=== PATIENT | female | born 1975 | race Caucasian/White ===

== ENCOUNTER 2025-01-03 10:39 | Emergency (ER) | payer SELFPAY ==
[2025-01-03 10:46] VITALS: BP 232/124; PULSE 89; RESP 13; O2SAT 98
--- NOTE | 2025-01-03 11:11 | ED.GENADULT ---
HPI - General Adult General Chief complaint: Unspecified Stated complaint: Jaw cancer severe breakthrough pain Time Seen by Provider: 01/03/25 11:04 Source: patient Mode of arrival: ambulatory Limitations: no limitations History of Present Illness HPI narrative: Patient presents with complaint of left jaw pain. She states she has a history of jaw cancer and is on Percocet 7.5 mg q.6 for this but was having breakthrough pain. Last dose 4.[address]FFIC CONTROLLER, not providing relief. She is also having nausea. 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 She denies any fevers, chills, difficulty swallowing, pain with swallowing. She states she had a history of osteomyelitis of this jaw for which surgical procedure had been performed. She has not been able to undergo treatment for jaw cancer as she has been in process obtaining approval for [facility] emergency department through [facility] in [place] ([place] she was recently approved for this chair daycare and upcoming appointment with both an oral surgeon and radiation oncologist through [facility] next week. PCP Shahram Recio MD. Related Data Allergies Allergy/AdvReac Type Severity Reaction Status Date / Time iohexol (From contrast - CT, Allergy Hives Verified 01/03/25 10:51 X-RAY) meperidine (From Demerol) Allergy Hives Verified 01/03/25 10:51 ondansetron (From Zofran) Allergy Vomiting Verified 01/03/25 10:51 vancomycin Allergy Hives Verified 01/03/25 10:51 NSAIDS (Non-Steroidal AdvReac Palpitation Verified 01/03/25 10:51 Anti-Inflamma s PMFSH Past Medical History Medical History Osteomyelitis of jaw left HTN (hypertension) Jaw cancer Biopsy 09/27/24 Social History Social History Additional living arrangements comments: Resides in [place] 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 HEAD: Normocephalic, atraumatic. EYES: Non injected, non icteric ENT: Nares clear, no rhinorrhea or epistaxis. Buccal tissue of left cheek does appear surgically fixed to gums on the left, well healing without evidence of infection/abscess. Face is soft, mild swelling without induration. Mild TTP of the left jaw externally. No TTP within oropharynx. NECK: Supple. CHEST: Speaking in full sentences. No respiratory distress. HEART: Regular rate and rhythm. . ABDOMEN: Obese but Soft, nondistended. EXTREMITIES: Normal range of motion. SKIN: Warm, dry, no rash. NEURO: No focal deficits. Alert and oriented x3. PSYCH: Normal mood and affect. Course Vital Signs Vital signs: Vital Signs Pulse Rate 89 01/03/25 10:46 Respiratory Rate 13 01/03/25 10:46 Blood Pressure 232/124 H 01/03/25 10:46 Pulse Oximetry 98 01/03/25 10:46 Oxygen Delivery Room Air 01/03/25 10:46 Temperature 97.9 F 01/03/25 11:22 Pulse Rate 91 01/03/25 11:22 Respiratory Rate 22 H 01/03/25 11:22 Blood Pressure 197/99 H 01/03/25 11:22 Pulse Oximetry 98 01/03/25 11:22 Oxygen Delivery Room Air 01/03/25 10:46 Medical Decision Making MDM Narrative Medical decision making narrative: Patient presents with report jaw pain. She states she has a history of osteomyelitis in her left jaw required surgical intervention then was diagnosed with jaw cancer and is due to start treatment for this. She states she is on Percocet 7.5 mg q.6 the pain and an appointment with an oral surgeon in radiation oncologist at the hospital she goes to intense seen next week but there has been a delay in her being able to seek treatment until she had been approved for jus care through this hospital system. In the emergency department she is afebrile with vital signs notable for significant hypertension, 232/124 followed by 197/99. Given patient's significant hypertension, initial plan was to perform screening exam to assess for end-organ damage. Patient is declining any of this given she does not have insurance. Analgesic and antiemetic medication were ordered but patient refusing IV form as she states she only receives IM. IM Compazine is ordered given that she lists an allergy to ondansetron. P.o. Dilaudid ordered. Patient refusing IM Compazine per nurse. She is also inquiring why p.o. Dilaudid was ordered however she does accept this medication. [place] prescription monitoring program database is reviewed as below which shows patient has had multiple narcotic medication fills in the past year in various cities throughout the [facility] without consistent prescribers or locations. I am informed at 11:50 a.m. that patient would like to leave against medical advice as she believes that it is taking too long and she has only received 1 mg of Dilaudid. Patient would not stay to have an informed discussion about recommendations or leaving against medical advice/without completing treatment. Discharge instructions were prepared and printed but patient left prior to receiving them. Medical Records Medical records reviewed: Yes I reviewed the external patient's medical records. Medical records narrative: Patient has a separate entry in EMR with same name (minus middle initial) and . It does appear to be the same person based on these details as well as RN remembering this patient who had presented to the ED earlier but LWBS. I did ask registration to merge records if possible. Patient presents with page 1 of discharge paperwork from [facility] in [place] which she visited on 10/18/2024. They note that she had a biopsy on 09/27/2024 positive for cancer and had an appointment with an oncologist scheduled for 10/21/2024. They note that she takes lisinopril and metoprolol for hypertension. [place] Prescription Monitoring Database is reviewed HYDROCODONE BITARTRATE-ACETAMINOPHE 5.0 MG/325.0 MG Nov 21, 2024 Nov 21, 2024 12 3 0 SHILOH JANG (1) [facility] HYDROCODONE BITARTRATE-ACETAMINOPHE 5.0 MG/325.0 MG Oct 28, 2024 Oct 28, 2024 12 3 0 MEÑO PRIEST) LAINE (2) [facility] HYDROCODONE BITARTRATE-ACETAMINOPHE 7.5 MG/325.0 MG Sep 27, 2024 Sep 27, 2024 8 2 0 CHATO LUIS MD [facility] #[id number] HYDROCODONE BITARTRATE-ACETAMINOPHE 5.0 MG/325.0 MG May 20, 2024 May 20, 2024 10 1 0 ROSALIND ZHANG DO [facility] (1) [facility] HYDROCODONE BITARTRATE-ACETAMINOPHE 10.0 MG/325.0 MG Apr 19, 2024 Apr 19, 2024 9 3 0 DANIELLE PENALOZA [facility] Pharm[facility] [place], [place] HYDROCODONE BITARTRATE-ACETAMINOPHE 5.0 MG/325.0 MG Mar 25, 2024 Mar 25, 2024 12 3 0 CURTIS TABARES [facility] (3) [place], [place] OXYCODONE HCL-ACETAMINOPHEN 5.0 MG/325.0 MG February 14, 2024 February 14, 2024 12 2 0 SHON SALDANA (DO) [facility] (2) [place], [place] Vital Signs Vital Signs: Vital Signs Pulse Rate 89 01/03/25 10:46 Respiratory Rate 13 01/03/25 10:46 Blood Pressure 232/124 H 01/03/25 10:46 Pulse Oximetry 98 01/03/25 10:46 Oxygen Delivery Room Air 01/03/25 10:46 Temperature 97.9 F 01/03/25 11:22 Pulse Rate 91 01/03/25 11:22 Respiratory Rate 22 H 01/03/25 11:22 Blood Pressure 197/99 H 01/03/25 11:22 Pulse Oximetry 98 01/03/25 11:22 Oxygen Delivery Room Air 01/03/25 10:46 Discharge Plan Discharge Clinical Impression: Pain, HTN (hypertension) Patient Disposition: Left Against Medical Advice Condition: Stable Additional Instructions: We do not have record of you here and were trying to both obtain a baseline as well as assess for end-organ damage given your hypertension but you declined workup. There are multiple fills of narcotic medication throughout the [facility]. It is important to stay consistent with prescribers when possible. Please Follow-up with your primary care physician Shahram Recio MD and keep your upcoming appointments through [facility] with oncologist. Continue taking all of your medications as prescribed Patient Language: Lao Follow-up/Referrals: PHYSICIAN NOT ON STAFF,NONSTAFF [Primary Care Provider] - Stand Alone Forms: Work/School Release IP Time of Disposition: 11:56
[2025-01-03 11:17] VITALS: RESP 18
--- OUTSIDE RECORDS SUMMARY | 2025-01-03 11:21 | XMS_ITS | Clinical Summary ---
Author Organization [facility] Address [address] [place] [address] Care Team Providers Care Feeder Worker Power Unit Operator Name Role Phone Unknown, Notinfile Primary Care Provider Unavail able Allergies Active Allergy Reactions Criticality Noted Date Comments Meperidine Hives Medium 04/04/2024 Iodinated Contrast Media Hives Medium 04/04/2024 Ok with premedication Nsaids (Non-Steroidal Anti-Inflammatory Drug) Other (See comments) Low 04/04/2024 Contraindicated with home meds Vancomycin Redness Low 04/04/2024 Ondansetron Vomiting Low 04/04/2024 Social History Tobacco Use Types Packs/Day Years Used Date Smoking Tobacco: Never Assessed Personal Safety Answer Date Recorded Have you ever been in or are you currently in a harmful physical or emotional relationship or is someone making you feel afraid or unsafe? Denies 04/04/2024 Comments No Sex and Gender Information Value Date Recorded Sex Assigned at Not on file Legal Sex Female 8:35 PM CDT Gender Identity Not on file Sexual Orientation Not on file Last Filed Vital Signs Vital Sign Reading Time Taken Comments Blood Pressure 192/100 04/04/2024 8:56 PM CDT Pulse 98 04/04/2024 8:56 PM CDT Temperature 36.9 C (98.5 F) 04/04/2024 8:56 PM CDT Respiratory Rate 20 04/04/2024 8:56 PM CDT Oxygen Saturation 98% 04/04/2024 8:56 PM CDT Inhaled Oxygen Concentration - - Weight 100.5 kg (221 lb 9 oz) 04/04/2024 8:56 PM CDT Height - - Body Mass Index - - Plan of Treatment Health Maintenance Due Date Last Done Comments Breast Cancer Screening-Mammogram 1973 Colon Cancer Screening-Colonoscopy 1973 Depression Screening 1973 Hepatitis C Screening 1973 DTaP/Tdap/Td Vaccine (1 - Tdap) 01/12/1984 Hepatitis B Screening 1991 Regular Well Visit/Exam 18-64 1991 Zoster Vaccine (1 of 2) 2023 Influenza Vaccine (#1) 2024 Pneumococcal vaccine <65 Aged Out No longer eligible based on patient's age to complete this topic Care Teams Feeder Worker Power Unit Operator Relationship Specialty Start Date End Date Unknown, Notinfile PCP - General 04/04/24
--- OUTSIDE RECORDS SUMMARY | 2025-01-03 11:21 | XMS_ITS | Clinical Summary ---
Author Organization [facility] Address [address] [place] [address] Care Team Providers Care Fire Prevention Engineer Name Role Phone None, Provider MD Primary Care Provider Unavaila ble Allergies Active Allergy Reactions Criticality Noted Date Comments Iodine Rash Low 04/04/2024 Meperidine Hives 04/04/2024 Nsaids Other (see comment) 04/04/2024 MS Vancomycin Redness 04/04/2024 Ondansetron Nausea and Vomiting 04/04/2024 Medications No known medications Social History Tobacco Use Types Packs/Day Years Used Date Smoking Tobacco: Never Smokeless Tobacco: Never Tobacco Cessation:Counseling Given: Not Answered Alcohol Use Standard Drinks/Week Comments Never 0 (1 standard drink = 0.6 oz pur e alcohol) Comments No Sex and Gender Information Value Date Recorded Sex Assigned at Not on file Legal Sex Female 10:43 PM CDT Gender Identity Not on file Sexual Orientation Not on file Last Filed Vital Signs Vital Sign Reading Time Taken Comments Blood Pressure 181/103 08/05/2024 10:30 AM CDT Pulse 86 08/05/2024 9:48 AM CDT Temperature 36.4 C (97.6 F) 08/05/2024 9:48 AM CDT Respiratory Rate 18 08/05/2024 9:48 AM CDT Oxygen Saturation 98% 08/05/2024 9:48 AM CDT Inhaled Oxygen Concentration - - Weight 95.3 kg (210 lb) 08/05/2024 9:48 AM CDT Height 170.2 cm (5' 7 ) 08/05/2024 9:48 AM CDT Body Mass Index 32.89 08/05/2024 9:48 AM CDT Plan of Treatment Health Maintenance Due Date Last Done Comments Cervical Cancer Screening Pa p Smear (Age 30 to 64) Every 3 Years 1973 Colorectal Cancer Screening Colonoscopy (10 Years) 1973 Annual Physical 01/12/1976 Hepatitis C 1991 DTaP, Tdap and Td Vaccines ( 1 - Tdap) 01/12/1992 Hepatitis B Vaccines (1 of 3 - 19+ 3-dose series) 01/12/1992 Cervical Cancer Screening Pa p with HPV Testing (Age 30 to 64) Every 5 Years 2003 Cervical Cancer Screening with HPV 2003 Mammogram Screening 2013 Zoster Vaccines (1 of 2) 2023 COVID-19 Vaccine (2023-2 5 season) 2024 Influenza Adult (#1) 2024 Meningococcal B Vaccine Aged Out No l onger eligible based on patient's age to complete this topic Meningococcal Vaccine Aged Out No siomara neal eligible based on patient's age to complete this topic Pneumococcal Vaccine: Pediat rics (0 to 5 Years) and At-Risk Patients (6 to 64 Years) Aged Out No longer eligible b ased on patient's age to complete this topic RSV Immunizations Under 20 Months Aged Out No longer eligible based on patient's age to complete this topic Insurance [address] [place] [address] MEDICARE Care Teams Fire Prevention Engineer Relationship Specialty Start Date End Date None, Provider, MD PCP - General UNKNOWN PHYSICIAN SPECIALTY 04/04/24
--- OUTSIDE RECORDS SUMMARY | 2025-01-03 11:21 | XMS_ITS | Referral Summary ---
Author Organization [facility] Address [address] [place] [address] Care Team Providers Care Conservation Policy Analyst Name Role Phone Unknown, Notinfshey Primary Care Provider Unavail able Allergies Active [...] Mass Index - - Plan of Treatment Not on file Care Teams Conservation Policy Analyst Relationship Specialty Start Date End Date Unknown, Annie PCP - General 04/04/24
--- OUTSIDE RECORDS SUMMARY | 2025-01-03 11:21 | XMS_ITS | Clinical Summary ---
Author Organization [facility] Address [address] [place] [phone] Phone Care Team Providers Care Compressor House Operator Name Role Phone Pcp, None MD Primary Care Provider Unavailabl e Allergies Active Allergy Reactions Criticality Noted Date Comments Iohexol 01/13/2024 Meperidine 01/13/2024 Nsaids 01/13/2024 Vancomycin 01/13/2024 Ondansetron 01/13/2024 Medications Medication Sig Dispensed Refills Start Date End Date Status doxycycline (ADOXA) 75 MG tablet Take 1 tablet (75 mg total) by mouth 2 (two) times a day Active amoxicillin (AMOXIL) 500 MG capsule Take 1 capsule (500 mg total) by mouth 3 (three) times a day Active metoprolol tartrate (LOPRESSOR) 25 MG tablet Take 1 tablet (25 mg total) by mouth 2 (two) times a day Active lisinopril (PRINIVIL,ZESTRIL) 2.5 MG tablet Take 8 tablets (20 mg total) by mouth daily Active methocarbamol (ROBAXIN) 500 MG tablet Take 1 tablet (500 mg total) by mouth 4 (four) times a day Active acetaminophen (TYLENOL) 500 MG tablet Take 1 tablet (500 mg total) by mouth every 6 (six) hours as needed for mild pain (1-3) Active amoxicillin-clavulana te (AUGMENTIN) 875-125 MG per tablet Take 1 tablet by mouth 2 (two) times a day Active HYDROcodone-acetamino phen (NORCO) 10-325 MG per tablet Take 1 tablet by mouth every 8 (eight) hours as needed for moderate pain (4-6) Max Daily Amount: 3 tablets Active Social History Tobacco Use Types Packs/Day Years Used Date Smoking Tobacco: Never Passive Smoke Exposure: Never Smokeless Tobacco: Never Tobacco Cessation:Counseling Given: Not Answered Alcohol Use Standard Drinks/Week Comments Never 0 (1 standard drink = 0.6 oz pur e alcohol) Sex and Gender Information Value Date Recorded Sex Assigned at Not on file Gender Identity Not on file Sexual Orientation Not on file Last Filed Vital Signs Vital Sign Reading Time Taken Comments Blood Pressure 200/110 05/06/2024 9:58 AM EDT checked manually Pulse 89 05/06/2024 9:58 AM EDT Temperature 37.3 C (99.2 F) 05/06/2024 9:58 AM EDT Respiratory Rate 17 05/06/2024 9:58 AM EDT Oxygen Saturation 99% 05/06/2024 9:5 8 AM EDT Inhaled Oxygen Concentration - - Weight 98.9 kg (218 lb 0.6 oz) 05/06/2024 9:58 AM EDT Height 170.2 cm (5' 7 ) 05/06/2024 9:58 AM EDT Body Mass Index 34.15 05/06/2024 9:58 AM EDT Plan of Treatment Not on file Care Teams Compressor House Operator Relationship Specialty Start Date End Date Pcp, None, PCP - General 01/13/24
--- OUTSIDE RECORDS SUMMARY | 2025-01-03 11:21 | XMS_ITS | Clinical Summary ---
Author Organization [facility] Address [address] Sandhu: Epic Prelude ADT CREKIMI AGOSTO [address] Care Team Providers Care Silica Spray Mixer Name Role Phone Unavailable Primary Care Provider Unavailabl e Allergies Active Allergy Reactions Criticality Noted Date Comments Iodinated Contrast Media Hives High 01/25/2024 Meperidine Hives 01/19/2014 Nsaids (Non-Steroidal Anti-Inflammatory Drug) Other (See Comments) 01/25/2024 Medication interaction Ondansetron Hcl Nausea and Vomiting Low 01/25/2024 Vancomycin Rash Low 01/25/2024 Medications oxyCODONE (ROXICODONE) 10 mg tabletIndicatio ns:Osteomyeliti s of mandible Take 1 Tablet (10 mg) by mouth every 6 hours as needed for Pain, Moderate. Max Daily Amount: 40 mg 12 Tablet Active oxyCODONE-aceta minophen (PERCOCET) 7.5-325 mg Tablet Take 1 Tablet by mouth every 4 hours as needed for Pain, Moderate. Active methocarbamoL (ROBAXIN) 750 mg tablet Take 750 mg by mouth 4 times daily. Active metoprolol succinate (TOPROL XL) 50 mg Extended Release 24 hour tablet Take 50 mg by mouth daily. Active lisinopriL (PRINIVIL) 20 mg tablet Take 20 mg by mouth daily. Active insulin aspart protamine-aspar t (NovoLOG MIX 70-30) 100 unit/mL (70-30) pen syringe Inject 36 Units by subcutaneous injection 2 times daily with meals. Active amoxicillin-cla vulanate (AUGMENTIN) 875-125 mg tablet Take 1 Tablet by mouth every 12 hours. Active doxycycline hyclate (VIBRAMYCIN) 100 mg capsule Take 100 mg by mouth 2 times daily. Active Social History Tobacco Use Types Packs/Day Years Used Date Smoking Tobacco: Former Alcohol Use Standard Drinks/Week Comments Never 0 (1 standard drink = 0.6 oz pur e alcohol) Feeling Safe Answer Date Recorded Are you in a relationship wi th someone who hurts you emotionally and/or physically? No 08/28/2024 Comments No Sex and Gender Information Value Date Recorded Sex Assigned at Not on file Legal Sex Female 4:25 AM DRILL GRINDER Gender Identity Not on file Sexual Orientation Not on file Last Filed Vital Signs Vital Sign Reading Time Taken Comments Blood Pressure 191/108 08/28/2024 7:32 AM DRILL GRINDER Pulse 97 08/28/2024 7:32 AM DRILL GRINDER Temperature 37.3 C (99.2 F) 08/28/2024 7:32 AM DRILL GRINDER Respiratory Rate 14 08/28/2024 7:32 AM DRILL GRINDER Oxygen Saturation 96% 08/28/2024 7:32 AM DRILL GRINDER Inhaled Oxygen Concentration - - Weight 95.3 kg (210 lb) 08/28/2024 6:12 AM DRILL GRINDER Height 170.2 cm (5' 7 ) 08/28/2024 6:12 AM DRILL GRINDER Body Mass Index 32.89 08/28/2024 6:12 AM DRILL GRINDER Plan of Treatment Health Maintenance Due Date Last Done Comments DIABETES ANNUAL FOOT EXAM 1991 DIABETES ANNUAL RETINAL EXAM 1991 DIABETES MICROALBUMIN ANNUAL SCREEN 1991 LDL CHOLESTEROL ANNUAL 1991 DTAP/TDAP/TD VACCINES (1 - Tdap) 01/12/1992 HEPATITIS B VACCINES (1 of 3 - 19+ 3-dose series) 12/15 PAP SMEAR 2003 DIABETES HBA1C Q 6 MONTHS 12/13/2011 06/14/2011 BREAST CANCER SCREENING 2013 ZOSTER VACCINE (1 of 2) 2023 INFLUENZA VACCINE (#1) 2024
[2025-01-03 11:22] VITALS: BP 197/99; PULSE 91; RESP 22; TEMP 36.6; O2SAT 98
--- NOTE | 2025-01-03 11:24 | PC.NURSE ---
talked with patient about lab work, ekg, and the plan of care. patient states No, we're not doing any of that. I don't have insurance, we're not doing that MD made aware.
--- NOTE | 2025-01-03 11:35 | PC.NURSE ---
patient refused iv placement for iv pain medication stating that I don't do iv medication, I only do IM discussed with MD, PO medications ordered.
[2025-01-03] MEDS: HYDROmorphone HCL (*CRX) 1 MG TABLET PO (11:47)
--- NOTE | 2025-01-03 11:50 | PC.NURSE ---
patient given po dilaudid, asking if it was 2 mg, when told it was 1 mg she laughed and stated you're giving me one milligram of dilaudid po? patient then took the pill, stated that she wanted her discharge paperwork. patient came to nurses station and said she would just rather sign out AMA.
== END 2025-01-03 12:07 | disposition left against medical advice (07) ==
PROVIDERS: Emergency Provider Student in an Organized Health Care Education/Training Program
DX: R68.84 Jaw pain (principal); C41.1 Malignant neoplasm of mandible; I10 Essential (primary) hypertension
CPT/HCPCS: 96374; 96375; 96376; 99284; A9270

== ENCOUNTER 2025-03-20 11:09 | Emergency (ER) | payer SELFPAY ==
[2025-03-20 11:13] VITALS: BP 218/107; PULSE 94; RESP 16; TEMP 36.9; O2SAT 99
--- OUTSIDE RECORDS SUMMARY | 2025-03-20 11:13 | XMS_ITS | Continuity of Care Document ---
Author Organization [facility] Address [address] [place] [address] Phone Care Team Providers Care Electronics Assembler And Tester Name Role Phone Jo RODRIGUEZ, SKYLER, Jasson [...] Encounter Subsqt Hosp-da E&m Sig Compl 3 [facility] , [address] [facility], [place], [id number], [place] tel:[phone] [facility] No Information Jo Spaulding. [address] [facility], [place] [address], [place], [id number], [place]. tel:[phone] Referring Provider: Franco Fowler MD, [address] [facility], [place], [address]. tel:[phone] Init Inpt Cons N/e Mod-hi 110m [facility] , [address] [facility], [place], [id number], [place] tel:[phone] [facility] No Information Leif Santamaria. [address] [facility] [address], [place] [address], [place], [id number], [place]. tel:[phone] Referring Provider: Franco Fowler MD, [address] [facility], [place], [address]. tel:[phone] Family History Family Member Type Diagnosis Age At Onset No Information Payers Payer name Insurance type Covered libertarian ID Authoriza tion(s) Care [facility] Plan [id number] Social History Type Description Quantity Date Captured [...]
--- OUTSIDE RECORDS SUMMARY | 2025-03-20 11:13 | XMS_ITS | Clinical Summary ---
Author Organization [facility] Address [address] [place] [address] Phone Care Team Providers Care Cell Biology Scientist Name Role Phone Provider, Not On File Unavailable Unavailabl e Provider, Unknown Primary Care Provider Unavaila ble Allergies Active Allergy Reactions Criticality Noted Date Comments Meperidine Hives 06/22/2014 Iodinated Contrast Media Hives 09/26/2024 Ibuprofen Other (see Comments) 09/15/2023 SVT of her heart excessive bleeding Vancomycin Hives 09/15/2023 Ondansetron Hcl Shortness of Breath 06/22/2014 Ondansetron Nausea 09/15/2023 Medications HYDROcodone-acet aminophen 5-325 MG PO TABS Take 1-2 Tabs by mouth every 4 hours as needed for Pain. 10 Tab 0 06/22/2014 Active Social History Tobacco Use Types Packs/Day Years Used Date Smoking Tobacco: Never Smokeless Tobacco: Never Tobacco Cessation:Counseling Given: Not Answered Alcohol Use Standard Drinks/Week Comments No 0 (1 standard drink = 0.6 oz pur e alcohol) Comments No Sex and Gender Information Value Date Recorded Sex Assigned at Not on file Legal Sex Female 4:27 PM CDT Gender Identity Not on file Sexual Orientation Not on file Last Filed Vital Signs Vital Sign Reading Time Taken Comments Blood Pressure 180/110 09/26/2024 10:49 AM CAFE ASSOCIATE Pulse 96 09/26/2024 10:49 AM CAFE ASSOCIATE Temperature 36.9 C (98.5 F) 09/26/2024 10:49 AM CAFE ASSOCIATE Respiratory Rate 20 09/26/2024 10:49 AM CAFE ASSOCIATE Oxygen Saturation 97% 09/26/2024 10:49 AM CAFE ASSOCIATE Inhaled Oxygen Concentration - - Weight 96.3 kg (212 lb 6.4 oz) 09/26/2024 10:49 AM CAFE ASSOCIATE Height 170.2 cm (5' 7) 09/26/2024 10:49 AM CAFE ASSOCIATE Body Mass Index 33.27 09/26/2024 10:49 AM CAFE ASSOCIATE Plan of Treatment Not on file Care Teams Cell Biology Scientist Relationship Specialty Start Date End Date Provider, Unknown UNKNOWN PCP - General 08/20/24 Provider, Not On File HI 09/15/23
--- OUTSIDE RECORDS SUMMARY | 2025-03-20 11:13 | XMS_ITS | Clinical Summary ---
Author Organization [employer] Address [address] Sandhu: Epic Prelude ADT CREKIMI AGOSTO [address] Care Team Providers Care Clerical Car Checker Name Role Phone Unavailable Primary Care Provider [...] on file Legal Sex Female 4:25 AM REGISTERED NURSE SURGICAL SERVICES Gender Identity Not on file Sexual Orientation Not on file Last Filed Vital Signs Vital Sign Reading Time Taken Comments Blood Pressure 191/108 08/28/2024 7:32 AM REGISTERED NURSE SURGICAL SERVICES Pulse 97 08/28/2024 7:32 AM REGISTERED NURSE SURGICAL SERVICES Temperature 37.3 C (99.2 F) 08/28/2024 7:32 AM REGISTERED NURSE SURGICAL SERVICES Respiratory Rate 14 08/28/2024 7:32 AM REGISTERED NURSE SURGICAL SERVICES Oxygen Saturation 96% 08/28/2024 7:32 AM REGISTERED NURSE SURGICAL SERVICES Inhaled Oxygen Concentration - - Weight 95.3 kg (210 lb) 08/28/2024 6:12 AM REGISTERED NURSE SURGICAL SERVICES Height 170.2 cm (5' 7) 08/28/2024 6:12 AM REGISTERED NURSE SURGICAL SERVICES Body Mass Index 32.89 08/28/2024 6:12 AM REGISTERED NURSE SURGICAL SERVICES Plan of Treatment Health Maintenance Due Date Last Done Comments DIABETES ANNUAL FOOT EXAM 1991 DIABETES ANNUAL RETINAL EXAM 1991 DIABETES MICROALBUMIN ANNUAL SCREEN 1991 LDL CHOLESTEROL ANNUAL 1991 DTAP/TDAP/TD VACCINES (1 - Tdap) 01/12/1992 HEPATITIS B VACCINES (1 of 3 - 19+ 3-dose series) 12/15 DIABETES HBA1C Q 6 MONTHS 12/13/2011 06/14/2011 BREAST CANCER SCREENING 2013 ZOSTER VACCINE (1 of 2) 2023 INFLUENZA VACCINE (#1) 2024
--- OUTSIDE RECORDS SUMMARY | 2025-03-20 11:13 | XMS_ITS | Clinical Summary ---
Author Organization [facility] enter Address [address] [place] [phone] Phone Care Team Providers Care Big Data Hadoop Developer Name Role Phone Pcp, None MD Primary [...] 9:58 AM EDT Height 170.2 cm (5' 7) 05/06/2024 9:58 AM EDT Body Mass Index 34.15 05/06/2024 9:58 AM EDT Plan of Treatment Not on file Care Teams Big Data Hadoop Developer Relationship Specialty Start Date End Date Pcp, None, PCP - General 01/13/24
--- OUTSIDE RECORDS SUMMARY | 2025-03-20 11:13 | XMS_ITS | Clinical Summary ---
Author Organization [facility] Address [address] [place] [address] Care Team Providers Care Vine Fruit Farming Supervisor Name Role Phone Unknown, Notinfile Primary Care [...] Vaccine (1 of 2) 2023 Influenza Vaccine (Season Ended) 2025 Pneumococcal vaccine <65 Aged Out No longer eligible based on patient's age to complete this topic Care Teams Vine Fruit Farming Supervisor Relationship Specialty Start Date End Date Unknown, Notinfile PCP - General 04/04/24
--- OUTSIDE RECORDS SUMMARY | 2025-03-20 11:13 | XMS_ITS | Continuity of Care Document ---
Author Organization [facility] Address [address] [place] [phone] Phone Care Team Providers Care Paint Crew Supervisor Name Role Phone Unavailable Unavailable Unavailable Allergies, [...] Diagnoses Date Provider Providers Copied on Encounter [facility], [address] [place] [address], [id number], [place] tel:[phone] [facility] No Information No Information [facility], [address] [place] [address], [id number], [place] tel:[phone] [facility] No Information No Information [facility], [address] [place] [address], [id number], [place] tel:[phone] [facility] No Information Frances Sidhu. [address] [place] [address], [id number], [place]. tel: [phone] [facility], [address] [place] [address], [id number], [place] tel:[phone] [facility] No Information Kayli Rousseau. [address] [place] [address], [id number], [place]. tel: [phone] [facility], [address] [place] [address], [id number], tel:[phone] [facility] No Information Frances Sidhu. [address] [place] [address], [id number], . tel:[phone] [facility], [address] [place] [address], [id number], tel:[phone] [facility] No Information No Information Family History [...]
--- OUTSIDE RECORDS SUMMARY | 2025-03-20 11:13 | XMS_ITS | Continuity of Care Document ---
Author Organization [facility] Address [address] [place] [address] Phone Care Team Providers Care Sausage Inspector Name Role Phone Colten Chambers III, MD Unavailable Unavaila ble Procedures Procedure Date [facility] Advance Directives Directive Yes / No Effective Date File Name No Information Encounters Encounter Description Practice Location Reason(s) For Visit Diagnoses Date Provider Providers Copied on Encounter [facility], [address], [place], [place], [id number], [phone] [facility] No Information 0 1 Trish Abel. [address] [facility] [place] [address], [place], [place], [id number] , [place]. tel: [phone] Referring Provider: Cameron Guaman, [facility] [address] , [address], [place], [address]. tel:[phone] Family History Family Member Type Diagnosis Age At Onset No Information Payers Payer name Insurance type Covered democrat ID Authoriza tion(s) No Information Social History [...]
--- OUTSIDE RECORDS SUMMARY | 2025-03-20 11:13 | XMS_ITS | Referral Summary ---
Author Organization [facility] Address [address] [place] [address] Care Team Providers Care Neck Band Maker Name Role Phone Unknown, Notinfshey Primary Care [...] of Treatment Not on file Care Teams Neck Band Maker Relationship Specialty Start Date End Date Unknown, Annie PCP - General 04/04/24
--- NOTE | 2025-03-20 11:29 | ED_ITS ---
HPI - Dental/Oral General Chief complaint: Dental/Oral Stated complaint: jaw pain Time Seen by Provider: 03/20/25 11:28 Source: patient Mode of arrival: ambulatory Limitations: no limitations History of Present Illness HPI Narrative: patient is a 50-year-old female with left jaw pain due to a cancer in the area. Patient lives in [place] and her is a live truck technician and she goes with him on the road. 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 Patient presents to the ER for the 1st time to our emergency room and said that she has 30 minutes time frame to get pain management. She is with her who is a live truck technician and waiting on her at this time. She said dilaudid works past. She brought us a few sheets of paper about her discharge on hypertension and it says another DX CA. she brought up some information on her phone about her cancer but she kept taking the phone as I wanted to see where her name was and other information and I was not able to identify the cancer or the patient on her medical record; all that she was showing me were diagnostic codes of jaw cancer and not oncology notes. I explained to the patient that I would require a x-ray of the left face to show the sarcoma that she is talking about before I could give dilaudid. Patient declined any workup. She would not allow the x-ray. She started to get upset and said I had less than 30 minutes time frame and she needed to leave but n eeded the Dilaudid. I offered her to see the nurse mobile product manager as we were not agreeing on the situation but she declined and started a pack up her things. I felt uncomfortable in the room and backed up towards the door and walked out of the room as she was getting irritated and irrational. She packed up her things and left the emergency room very fast. Before the encounter I did look up the her last records and she was seen at [facility] 3 months ago for the same situation and she left AMA. They did not give her pain medicine for the same reason. 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 Patient kept saying I was trying to bring up the bill for the emergency room to get the x-ray. She declined x-ray due to financial reasons and said that as a nurse the cancer would not show up on the bone on x-ray. I explained that I need some sort of definitive proof of the cancer before giving heavy narcotics such as dilaudid. Onset (ago): day(s) ( Three) Duration: constant Severity: severe Severity scale (1-10): 8 Relieving factors: prescription analgesics Exacerbating factors: chewing, cold, heat, drinking fluids and swallowing Context: other ( patient has left jaw cancer per history and gets flares at times needing stronger medication) Associated symptoms: gum swelling ( left side) and pain with swallowing ( left side) Treatment prior to arrival: oral analgesic Related Data Home Medications ?Medication ?Instructions ?Recorded ?Confirmed ?Last Taken ?Type insulin human U-100 NPH-regulr 36 unit subcut BID 03/20/25 Unknown History 70-30 mix 100 unit/mL subcutaneous susp (Humulin 70/30 U-100 Insulin) insulin sliding scale 03/20/25 Unknown History oxycodone-acetaminophen 10 mg-325 1 tablet PO Q6H 03/20/25 Unknown History mg tablet (Endocet) Allergies Allergy/AdvReac Type Severity Reaction Status Date / Time iohexol (From contrast - CT, Allergy Hives Verified 03/20/25 11:20 X-RAY) meperidine (From Demerol) Allergy Hives Verified 03/20/25 11:20 ondansetron (From Zofran) Allergy Vomiting Verified 03/20/25 11:20 vancomycin Allergy Hives Verified 03/20/25 11:20 NSAIDS (Non-Steroidal AdvReac Palpitation Verified 03/20/25 11:20 Anti-Inflamma s Review of Systems Review of Systems: All systems reviewed & are unremarkable except as noted in HPI and below Constitutional: Constitutional: Reports no additional constitutional complaints Eyes: Eyes: Reports no additional eye complaints ENT: Reports system reviewed and no additional complaints, except as documented Cardiovascular: Cardiovascular: Reports no additional cardiovascular complaints Respiratory: Respiratory: Reports no additional respiratory complaints Gastrointestinal: Gastrointestinal: Reports no additional gastrointestinal complaints Genitourinary: Genitourinary: Reports no additional female genitourinary complaints Musculoskeletal: Musculoskeletal: Reports no additional musculoskeletal complaints Integumentary/Breasts: Skin/Breast: Reports system reviewed and no additional complaints, except as docu Neurologic: Reports system reviewed and no additional complaints, except as documented Psychiatric: Psychiatric: Reports no additional psychiatric complaints Endocrine: Endocrine: Reports no additional endocrine complaints Hematologic/Lymphatic: Hematologic/Lymphatic: Reports no additional hematologic/lymphatic complaints Allergic/Immunologic: Allergic/Immunologic: Reports no additional all ergic/immunologic complaints PMFSH Past Medical History Medical History Osteomyelitis of jaw left HTN (hypertension) Jaw cancer Biopsy 09/27/24 Social History Social History Additional living arrangements comments: Resides in [place] 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 Exam Const: General: healthy appearing Nutritional Appearance: well nourished Orientation/consciousness: patient oriented x3 Limitations: no limitations Other: patient did not appear to be in distress or pain from an outside perspective HENMT: Head: normal to inspection Ears: external ears normal Face/Nose/Sinus: Normal external nose present Other: left in her jaw had some irregularities of the cheek and gum area; specifically lower jaw on the left; left cheek had 1 linear cheekbone line of a scar from prior incision at 3 cm but otherwise no outwardly signs of cancerous process or bony protrusion Eyes: Conjunctivae: conjunctivae normal Pupils: Equal, round and reactive pupils present EOM: EOMs intact bilaterally Neck: Neck: normal visual inspection Skin: General skin exam: normal color Rashes: no rashes Wounds: no wounds Neuro: General: patient oriented x3 Cranial nerves: Yes Nystagmus not present Speech: normal speech Gait exam (Neuro): Normal gait present Extrem: General: normal to inspection Psych: Mental Status: mental status grossly normal Affect: Anxious affect present Course Vital Signs Vital signs: Vital Signs Temperature 36.9 C 03/20/25 11:13 Pulse Rate 94 03/20/25 11:13 Respiratory Rate 16 03/20/25 11:13 Blood Pressure 218/107 H 03/20/25 11:13 Pulse Oximetry 99 03/20/25 11:13 Oxygen Delivery Room Air 03/20/25 11:13 Temperature 36.9 C 03/20/25 11:13 Pulse Rate 94 03/20/25 11:13 Respiratory Rate 16 03/20/25 11:13 Blood Pressure 218/107 H 03/20/25 11:13 Pulse Oximetry 99 03/20/25 11:13 Oxygen Delivery Room Air 03/20/25 11:13 MDM - Dental/Oral MDM Narrative Medical decision making narrative: patient is a 50-year-old female with left jaw pain due to a cancerous process per her history. Patient only wanted a shot of Dilaudid in a discharge. She would not allow any workup to include x-ray. After discussing with the patient I did offer nurse management to assist us but she did not want this assistance. I had left the room at this time due to feeling uncomfortable around and irritated patient and she fast walked out of the room and out of the emergency room as an elopement. Medical Records Attestation: I reviewed the patient's medical records. Medical records narrative: Unclear about patient past records that she brought with her to the emergency room. I did see the visit at [facility] that showed AMA due to the same issue we had today. Discharge Plan Discharge Clinical Impression: Maxilla pain, Mandible pain Patient Disposition: Elopement After Seen by Prov Patient Language: Hebrew Prescriptions: No Action oxycodone-acetaminophen [Endocet] 10-325 mg tablet 1 tablet PO Q6H Humulin 70/30 U-100 Insulin 100 unit/mL (70-30) suspension 36 unit subcut BID insulin sliding scale Follow-up/Referrals: Samm Winchester MD [Primary Care Provider] - Time of Disposition: 12:01
--- OUTSIDE RECORDS SUMMARY | 2025-03-20 11:52 | XMS_ITS ---
Author Organization Unknown Address [address] [place] [phone] Phone Care Team Providers Care Biochemical Engineer Name Role Phone LAURENCE Lin Attending Unavailable UNASSIGNED Primary Unavailable Social History Type Status Start Date End Date Code Code Syst em Sex Female Hospital Discharge Instructions Should you have any questions prior to discharge, please contact a member of your healthcare team. If you have left the hospital and have any questions, please contact your primary care physician. Reason For Referral No Data Found Plan of Treatment No Data Found Encounters Encounter Diagnosis Start Date Code Code Sys tem Essential (primary) hypertension 11/17/2024 SNOMED-CT Personal Care Team Section
--- OUTSIDE RECORDS SUMMARY | 2025-03-20 11:52 | XMS_ITS | Continuity of Care Document ---
Author Organization [facility] Address [address] [place] [address] Phone Care Team Providers Care Splicing Machine Operator Name Role Phone Colten Chambers III, MD Unavailable Unavaila ble Procedures Procedure Date [facility] Advance Directives Directive Yes / No Effective Date File Name No Information Encounters Encounter Description Practice Location Reason(s) For Visit Diagnoses Date Provider Providers Copied on Encounter [facility], [address], [place], [place], [id number], [phone] [facility] No Information 0 1 Trish Abel. [address] [facility] [place] [address] Sinclair, [place], [place], [id number] , [place]. tel: [phone] Referring Provider: Cameron Guaman, [facility] [address] , [address], [place], [address]. tel:[phone] Family History Family Member Type Diagnosis Age [...]
--- OUTSIDE RECORDS SUMMARY | 2025-03-20 11:53 | XMS_ITS | Continuity of Care Document ---
Author Name [facility] Address [address] [place] [address] Organization [facility] Care Team Providers Care Slasher Tender Helper Name Role Phone [facility] Unavailable Unavailable Problems Problem Status Onset Date Problem Type Date of Resolution Comme nts Source Inflammatory disorder of jaw region (disorder) 12/08/2024 Diagnosis Opiate misuse (finding) 12/08/2024 Diagnosis Jaw pain (finding) 09/08/2024 Diagnosis Jaw pain Active Diagnosis Essential hypertension (disorder) Diagnosis Multiple sclerosis (disorder) Diagnosis Long-term current use of antibiotic (situation) Diagnosis Allergies, Adverse Reactions, Alerts Substance Category Reaction Severity Reaction type Status Date Reported Comments Source vancomycin Assertion Drug allergy [facility] Motrin Assertion Drug allergy [facility] Demerol Assertion Drug allergy [facility] Zofran Assertion Drug allergy [facility] Consultation Notes Results Value Date Source Emergency Services Note Basic Informatio n Chief Complaint Jaw pain, Dx with Jaw cancer with osteomyelitis, scheduled for radiation therapy next week, Percocet at 1100H without relief History of Present Illness 49-year-old female with 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 Patient states that her pain is typically controlled with her Percocet. However, this evening, she is getting no relief from her home pain meds. She denies any other associated symptoms. No fever/chills, nausea/vomiting/diarrhea, odynophagia, dysphagia, drooling, hoarseness. Patient states that she currently does not have any insurance and is prioritized paying for oral radiation and specialized oncologist before establishing with pain clinic. Additionally, patient actively takes metoprolol and lisinopril for high blood pressure. However over the last 2 days, she has not taking her medications. She has a prescription but is overdue for a refill. Denies any chest pain, shortness of breath, lower extremity edema Of note, on review of patient's outside medical records, patient appears to have a history of frequent ED visits for similar complaints. She receives IM dilaudid +/- IM phenergan and refuses additional work up. 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 Review of Systems All pertinent systems reviewed and negative, other than those stated above in HPI. Physical Exam Vitals and Measurements T: 36.7 C HR: 102 RR: 18 BP: 205/97 SpO2: 100% WT: 94.7 kg General: Alert and oriented, appears uncomfortable 2/2 pain HEENT: Normocephalic, PERRLA, EOMI, normal conjunctiva, moist mucous membranes; left jaw tenderness, no fluctuance, induration or drainage Neck: Supple, no JVD Cardiac: Regular rate and rhythm, no murmurs appreciated, no edema, adequate peripheral perfusion Pulmonary: Clear to auscultation bilaterally, symmetric expansion, normal inspiratory effort Abdomen: Soft, non-tender, non-distended MSK: Normal strength, no deformity or ecchymosis Integument: Warm, dry, no rash Neuro: CN II-XII grossly intact, no focal deficits Psych: Cooperative, appropriate mood and affect Procedure Medical Decision Making 49-year-old female with 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 Upon arrival to the emergency department, patient is afebrile, tachycardic with HR 102, hypertensive with BP 200/97, satting 100% on room air. Recommended obtaining blood work and/or imaging, however, patient patient denies. She is given IM dilaudid and monitored in the ED. On reevaluation, patient endorses improvement of symptoms. Patient discharged home with education and return precautions provided. Reexamination/Reevaluation On reevaluation, patient endorses improvement of symptoms Assessment/Plan 1. Osteomyelitis, jaw chronic 2. Opioid use disorder Patient Education Osteomyelitis Follow Up With When Contact Information Return to Emergency Department Additional Instructions: If symptoms worsen Follow up with primary care provider Within 5 to 7 days Additional Instructions: If symptoms persist Medication Reconciliation ED Forms Problem List/Past Medical History Procedure/Surgical History Medication Administration Allergies Demerol Motrin Zofran vancomycin Social History Family History Lab Results Diagnostic Results ECG Attestation by Johnathon Ghotra MD on December 08, 2024 05:20 I personally saw and evaluated the patient. I discussed the management with the resident and reviewed the resident&rsquo;s note. I agree with the documented findings and plan of care. This is a 49-year-old female with reported history of prior osteomyelitis of the jaw and jaw cancer presenting to the emergency department for evaluation of pain. Patient states that due to social circumstances she is frequently on the road, and has not established with pain management or oncology though plans to do so and either [place] or [place]. She notes that she is on chronic oral Percocet and that she will occasionally have breakthrough pain requiring specifically IM Dilaudid for management. She denies any fevers, chills, jaw swelling, systemic signs of infection. Physical exam is rather unremarkable, jaw is nonswollen, minimally tender to palpation with no notable fluctuance, no tenderness to palpation overlying the gum or buccal mucosa. Upon review, it does appear that she has been seen in numerous emergency departments in various locations for similar symptoms, and has consistently declined blood tests or imaging evaluations regarding the above. It appears that she is treated with a combination of IM medications including IM Dilaudid, IM morphine, IM Phenergan and then discharged. She had a similar visit 3 weeks prior at an outside hospital noted in our community view at which time she again declined any objective studies regarding the above. Did discuss with her that given her reported history of malignancy and prior osteomyelitis that I would like to obtain blood test including inflammatory markers, potential CT to evaluate for any progression or worsening which patient adamantly denied. She states that she is a hard stick, and refused to allow myself or nursing staff to examine for ultrasound-guided IV access. At this time, patient did become somewhat agitated that we were 'not treating her pain and taking her complaint seriously.' Again, reiterated that I wanted to evaluate for underlying infection as she has had numerous visits for breakthrough pain and stressed the importance of identifying and treating an infection should 1 exist and patient continued to refuse any further evaluation. I did treat her hypertension with her oral antihypertensive medications, and did discuss with her that we could attempt a one-time dose of IM medications at this time though she will need to be monitored following this for adverse side effects. Patient was monitored with no adverse events, including any desaturation events or altered mentation. Again discussed need for objective evaluation with patient again declined/refused. Patient will be discharged home with continued symptomatic management. Will defer on giving additional prescription medications this time as patient is a numerous pills from different providers and she states that she has oral pain medications at home. Patient voiced understanding and agreement with the above. All of their questions at the time were addressed to their satisfaction. Return precautions were discussed. Patient appears clinically stable for discharge at this time. Recommend that she follow-up with her providers as scheduled for continued outpatient management. 12/08/2024 Emergency Services Note Basic Informatio n Chief Complaint LEFT JAW PAIN FROM OSTEOMYELITIS History of Present Illness Patient is a 49-year-old female with history of type 1 diabetes, MS, left jaw osteomyelitis on antibiotic therapy presenting to the ED for uncontrolled pain. Patient is from out of town and states that she is passing through with her who is a live truck operator. She reports that she has had several draining procedures in her left jaw and has follow-up appointment with her doctor when she gets home. She is however coming in because her oral opioid meds are no longer controlling her pain. She is requesting an IM dose of morphine or Dilaudid to help with her pain until she is able to get back home. She denies any fever or chills. She is currently on Augmentin, clindamycin, doxycycline and metronidazole for treatment of the osteomyelitis. Review of Systems Physical Exam Vitals and Measurements T: 36.3 C HR: 98 RR: 20 BP: 223/112 SpO2: 99% WT: 98.3 kg General: Alert, no acute distress HEENT: Normocephalic, atraumatic. EOMI. slight swelling noted over the left zygoma, no erythema, significant tenderness to palpation. Neck: Supple, no JVD Cardiac: No edema, adequate peripheral perfusion Pulmonary: symmetric expansion, normal inspiratory effort, no stridor Abdomen: No distention. MSK: no deformity or ecchymosis. Integument: No rash Neuro: No focal deficits, moving all four extremities Procedure Medical Decision Making Patient is a 49-year-old female with history of type 1 diabetes, MS, left jaw osteomyelitis on antibiotic therapy presenting to the ED for uncontrolled pain. She denies any new drainage, systemic symptoms. Requesting pain control. On exam, patient is hypertensive but states that she has not taking her antihypertensive medications today and her blood pressure is usually high when she is in pain. She is afebrile and other vital signs are within normal limits. She has tenderness to palpation of the left maxilla up to the left ear, no overlying skin changes noted. Patient treated with IM morphine 10 mg and Phenergan. Blood pressure still elevated in the ED, reports no symptoms suggestive of hypertensive emergency and does not want further evaluation for this. She states that she will take her blood pressure medications at home and monitor her BP with a cuff at home. Overall, she feels improved and is requesting discharge. Verbal return precautions provided. Reexamination/Reevaluation Assessment/Plan 1. Jaw pain Patient Education Osteomyelitis Follow Up With When Contact Information Follow up with primary care provider Within 1 to 2 days Additional Instructions: For reevaluation of your symptoms. Return to the emergency department if you feel worse. Attestation by Viviana BENJAMIN, Micky Ramos on September 08, 2024 10:57 I personally saw and evaluated the patient. I discussed the management with the resident and reviewed the resident s note. I agree with the documented findings and plan of care. Micky Michelle MD Medication Reconciliation ED Forms Problem List/Past Medical History Procedure/Surgical History Medication Administration Given morphine INJ, 10 mg, IM Phenergan, 25 mg, IM Allergies Demerol Motrin Zofran vancomycin Social History Family History Lab Results Diagnostic Results ECG 09/08/2024 Vital Signs Vital Sign Value Date Comments Source Mean NIBP 130 mm[Hg] 12/08/2024 11:55:22 [facility] SBP NIBP 198 mm[Hg] 12/08/2024 11:55:22 [facility] DBP NIBP 105 mm[Hg] 12/08/2024 11:55:22 [facility] SpO2 95 % 12/08/2024 11:53:51 [facility] Heart Rate 84 bpm 12/08/2024 11:53:50 [facility] SpO2 98 % 12/08/2024 11:14:41 [facility] Heart Rate 104 bpm 12/08/2024 11:14:40 [facility] SBP NIBP 215 mm[Hg] 12/08/2024 11:01:48 [facility] DBP NIBP 129 mm[Hg] 12/08/2024 11:01:48 [facility] Mean NIBP 156 mm[Hg] 12/08/2024 11:01:48 [facility] Heart Rate 102 bpm 12/08/2024 10:12:00 [facility] Temperature (Celsius) 36.7 Antoinette 12/08/2024 10:12:00 [facility] Weight (kg) 94.7 kg 12/08/2024 10:12:00 [facility] SBP NIBP 205 mm[Hg] 12/08/2024 10:12:00 [facility] DBP NIBP 97 mm[Hg] 12/08/2024 10:12:00 [facility] Respiratory Rate 18 breaths/min 12/08/2024 10:12:00 [facility] SpO2 100 % 12/08/2024 10:12:00 [facility] SpO2 96 % 09/08/2024 11:33:27 [facility] Heart Rate 99 bpm 09/08/2024 11:33:24 [facility] Respiratory Rate 18 breaths/min 09/08/2024 11:30:00 [facility] SpO2 97 % 09/08/2024 11:21:56 [facility] Heart Rate 99 bpm 09/08/2024 11:21:55 [facility] SBP NIBP 212 mm[Hg] 09/08/2024 11:07:33 [facility] DBP NIBP 125 mm[Hg] 09/08/2024 11:07:33 [facility] Mean NIBP 151 mm[Hg] 09/08/2024 11:07:33 [facility] Respiratory Rate 18 breaths/min 09/08/2024 11:00:00 [facility] SpO2 99 % 09/08/2024 10:51:49 [facility] Heart Rate 98 bpm 09/08/2024 10:51:49 [facility] Respiratory Rate 20 breaths/min 09/08/2024 10:51:00 [facility] Mean NIBP 147 mm[Hg] 09/08/2024 10:48:38 [facility] SBP NIBP 223 mm[Hg] 09/08/2024 10:48:38 [facility] DBP NIBP 112 mm[Hg] 09/08/2024 10:48:38 [facility] Heart Rate 97 bpm 09/08/2024 10:27:00 [facility] Weight (kg) 98.3 kg 09/08/2024 10:27:00 [facility] Respiratory Rate 22 breaths/min 09/08/2024 10:27:00 [facility] SBP NIBP 224 mm[Hg] 09/08/2024 10:27:00 [facility] DBP NIBP 131 mm[Hg] 09/08/2024 10:27:00 [facility] Temperature (Celsius) 36.3 Antoinette 09/08/2024 10:27:00 [facility] SpO2 96 % 09/08/2024 10:27:00 [facility] Encounters Location Location Details Encounter Type Encounter Number Reason For Visit Attending Provider ADM Date DC Date Status Source [facility] Emergency [id number] Micky Michelle 09/08 10:26 :17 09/08 11:35 :00 [facility] Emergency [id number] Jaw Pain Johnathon Ghotra 12/08 04:03 :24 12/08 06:09 :00 Active [facility] Care Social History Social History Date Source No data available for this section 12/08/2024 [facility] No data available for this section 09/08/2024 [facility]
--- OUTSIDE RECORDS SUMMARY | 2025-03-20 11:53 | XMS_ITS | Clinical Summary ---
Author Organization [facility] enter Address [address] [place] [id number] Phone Care Team Providers Care Supervisor Housecleaner Name Role Phone Pcp, None MD Primary [...] of Treatment Not on file Care Teams Supervisor Housecleaner Relationship Specialty Start Date End Date Pcp, None, PCP - General 01/13/24
--- OUTSIDE RECORDS SUMMARY | 2025-03-20 11:53 | XMS_ITS | Continuity of Care Document ---
Author Organization [facility] Address [address] [place] [address] Phone Care Team Providers Care Sql Developer Name Role Phone Jo RODRIGUEZ, SKYLER, Jasson [...] Hosp-da E&m Sig Compl 3 [facility] , [address] [facility] [address] [facility], [place], [id number], [place] tel:[phone] [facility] No Information Jo Spaulding. [address], [place] [address], [place], [id number], [place]. tel:[phone] Referring Provider: Franco Fowler MD, [address], [place], [address]. tel:[phone] Init Inpt Cons N/e Mod-hi 110m [facility] , [address] [facility], [place], [id number], [place] tel:[phone] [facility] No Information Leif Santamaria. [address] [facility] [address], [place] [address], [place], [id number], [place]. tel:[phone] Referring Provider: Franco Fowler MD, [address], [place], [address]. tel:[phone] Family History Family Member Type Diagnosis Age At Onset No Information Payers Payer name Insurance type Covered green party ID Authoriza tion(s) Care [facility] Plan [id number] Social History Type Description Quantity Date Captured [...]
--- OUTSIDE RECORDS SUMMARY | 2025-03-20 11:53 | XMS_ITS ---
Author Organization Unknown Address [address] [place] [phone] Care Team Providers Care Marine Reporter Name Role Phone EUNICE Shafer Attending Unavailable Functional Status Description Date Code Code System No Functional Impairments 69578216 SN OMED-CT Mental Status Description Date Code Code System No Cognitive Impairments 11021245 SNO MED-CT Social History Type Status Start Date End Date Code Code Syst em Smoking History Never smoker (Never Smoked) 963375672 SNOMED CT Sex Female Vital Signs Vital Sign Value Unit [place] Value [place] Unit Date/Time Recent/Initial? Code Code System Body Mass Index 32.89 kg/m2 10/12/2024 03:35 Initial 91811 -5 LOINC Systolic Blood Pressure 191 mm[Hg] 10/12/2024 04:30 Most Recent 8480- 6 LOINC Diastolic Blood Pressure 101 mm[Hg] 10/12/2024 04:30 Most Recent 8462- 4 LOINC Systolic Blood Pressure 205 mm[Hg] 10/12/2024 03:35 Initial 8480- 6 LOINC Diastolic Blood Pressure 111 mm[Hg] 10/12/2024 03:35 Initial 8462- 4 LOINC Body Surface Area 2.12 m2 10/12/2024 03:35 Initial 3140- 1 LOINC Height 170.180 0 cm 67.00 in 10/12/2024 03:35 Initial 8302- 2 LOINC O2 Saturation 97 % 2023 04:30 Most Recent 60896 -5 LOINC O2 Saturation 97 % 2023 03:35 Initial 23983 -5 LOINC Pulse 91.0 /min 10/12/2024 04:30 Most Recent 8867- 4 LOINC Pulse 96.0 /min 10/12/2024 03:35 Initial 8867- 4 LOINC Respiration 16 /min 12/29/20 24 04:30 Most Recent 9279- 1 LOINC Respiration 17 /min 10/12/20 24 03:35 Initial 9279- 1 LOINC Temperature 36.8 Antoinette 98.3 F 10/12/20 24 04:30 Most Recent 8310- 5 LOINC Temperature 36.5 Antoinette 97.7 F 10/12/20 24 03:35 Initial 8310- 5 LOINC Weight 95.25 kg 210.00 lbs 10/12/2024 03:35 Initial 02624 -7 INC Hospital Discharge Instructions Should you have any questions prior to discharge, please contact a member of your healthcare team. If you have left the hospital and have any questions, please contact your primary care physician. Reason For Referral No Data Found Procedures Procedure Name Date Status Code Code Syste m APPENDECTOMY completed 38452525 SNOMEDCT Jaw completed 281485 SNOMEDCT Hysterectomy completed 358742144 SNOMEDCT Gali completed 45496479 SNOMEDCT Resection of colon completed 13343961 SNOMED CT Allergies and Adverse Reactions Allergy Substance Reaction Severity Start Date Concern Status Code Code System NSAID Active 45214783 SNOMED-CT VANCOMYCIN Active 16369 RxNorm KETOROLAC SVT/BLEEDING (SNOMED-CT: null) Active 84465 RxNorm ZOFRAN Vomiting (SNOMED-CT: 612657662) Active 83658 RxNorm DEMEROL Active 114615 RxNorm CONTRAST MEDIA, IODINE RELATED Active 784373349 SNOMED-CT IMITREX Active 333558 RxNorm STADOL Hives (SNOMED-CT: 021508264) Active Plan of Treatment Plan: Home. Percocet 5/325, si tab PO Q 6 hours PRN pain. Continue to use Tylenol as needed in between to not exceed 4gm in 24 hour period. F/U oncology on 10/13/2024 as scheduled. Resume all other regimens as prescribed. Return to ER PRN. Encounters Encounter Diagnosis Start Date Code Code Sys tem Essential (primary) hypertension 10/12/2024 SNOMED-CT Personal Care Team Section Performer Name Performer Role Active Date Inactive Da te
--- OUTSIDE RECORDS SUMMARY | 2025-03-20 11:53 | XMS_ITS ---
Author Organization Unknown Address [address] [place], [place] [id number] Phone Care Team Providers Care Acds Block 1 Operator Name Role Phone REMPEL MORENITA Shafer Attending Unavailable Social History Type Status Start Date End Date Code Code Syst em Sex Female Vital Signs Vital Sign Value Unit [place] Value [place] Unit Date/Time Recent/Initial? Code Code System Body Mass Index 31.01 kg/m2 08/03/2024 16:46 Initial 52522 -5 LOINC Systolic Blood Pressure 196 mm[Hg] 08/03/2024 16:25 Initial 8480- 6 LOINC Diastolic Blood Pressure 120 mm[Hg] 08/03/2024 16:25 Initial 8462- 4 LOINC Body Surface Area 2.15 m2 08/03/2024 16:46 Initial 3140- 1 LOINC Height 175.260 0 cm 69.00 in 08/03/2024 16:46 Initial 8302- 2 LOINC O2 Saturation 98 % 2023 16:25 Initial 29212 -5 LOINC Pulse 89.0 /min 08/03/2024 16:25 Initial 8867- 4 LOINC Respiration 16 /min 08/03/20 24 16:25 Initial 9279- 1 LOINC Temperature 36.8 Antoinette 98.2 F 08/03/20 24 16:25 Initial 8310- 5 LOINC Weight 95.25 kg 210.00 lbs 08/03/2024 16:46 Initial 08680 -7 LOINC Assessment You had the following problems:CHRONIC OSTEOMYELITIS OF JAWCHRONIC PAINOTHER INADEQUATE HOUSINGDIABETES TYPE 1ESSENTIAL HYPERTENSIONMULTIPLE SCLEROSISINSUFFICIENT HEALTH INSURANCE COVERAGE Assessment Treated this Visit Chronic osteomyelitis of jaw, M27.2 Chronic pain, G89.29 Diabetes type 1, E10.9 Essential hypertension, I10 Multiple sclerosis, G35 Insufficient health insurance coverage, Z59.71 Other inadequate housing, Z59.19 Hospital Discharge Instructions Should you have any questions prior to discharge, please contact a member of your healthcare team. If you have left the hospital and have any questions, please contact your primary care physician. Reason For Referral No Data Found Procedures Procedure Name Date Status Code Code Micha shafer Hysterectomy completed 924560118 SNOMEDCT Coronoidectomy completed 35766973 SNOMEDCT APPENDECTOMY completed 66222743 SNOMEDCT Pancreatic stent completed 198751755 SNOMEDCT Cholecystectomy completed 53480716 SNOMEDCT Urethral stent completed 243557935 SNOMEDCT Problems Problem Start Date Resolved Date Status Code Code System CHRONIC OSTEOMYELITIS OF JAW active 3 5561891 SNOMED-CT CHRONIC PAIN active 75353627 SNOMED- CT OTHER INADEQUATE HOUSING active 03213 1004 SNOMED-CT DIABETES TYPE 1 active 58100572 SNOM ED-CT ESSENTIAL HYPERTENSION active 0479103 0 SNOMED-CT MULTIPLE SCLEROSIS active 02952774 S NOMED-CT INSUFFICIENT HEALTH INSURANC E COVERAGE active 909633554 SNOMED-CT Allergies and Adverse Reactions Allergy Substance Reaction Severity Start Date Concern Status Co de Code System NSAID Active 52688611 SNOMED-CT VANCOMYCIN Active 63219 RxNorm ZOFRAN Active 33503 RxNorm DEMEROL Active 265174 RxNorm IV INFUSION CPI Active Plan of Treatment Plan Cont home mediations, including oral antibiotics Cont other home medications for chronic conditions Keep appt with as scheduled next week with specialist for f/u on chronic osteomyelitis FOLLOW UP: as discussed, sooner if condition worsens or new symptoms arise, contact 911/ER if significant increase in s/sx or appearance of new/danger s/sx Encounters Encounter Diagnosis Start Date Code Code Sys tem Inflammatory conditions of jaws 08/03/2024 SNOMED-CT Personal Care Team Section
--- OUTSIDE RECORDS SUMMARY | 2025-03-20 11:53 | XMS_ITS ---
Author Organization Unknown Address [address] [place] [phone] Phone Care Team Providers Care Retail Commission Sales Associate Name Role Phone JANNA NAVARRO Attending Unavailable Social History Type Status Start Date End Date Code Code Syst em Sex Female Vital Signs Vital Sign Value Unit [place] Value [place] Unit Date/Time Recent/Initial? Code Code System Body Mass Index 29.76 kg/m2 03/05/2025 21:40 Initial 42641 -5 [facility] Systolic Blood Pressure 146 mm[Hg] 03/05/2025 21:40 Initial 8480- 6 [facility] Diastolic Blood Pressure 85 mm[Hg] 03/05/2025 21:40 Initial 8462- 4 [facility] Body Surface Area 2.02 m2 03/05/2025 21:40 Initial 3140- 1 [facility] Height 170.180 0 cm 67.00 in 03/05/2025 21:40 Initial 8302- 2 [facility] O2 Saturation 95 % 2024 21:40 Initial 96267 -5 [facility] Pulse 85.0 /min 03/05/2025 21:40 Initial 8867- 4 LOINC Respiration 20 /min 03/05/20 21:40 Initial 9279- 1 LOINC Temperature 36.7 Antoinette 98.1 F 03/05/20 21:40 Initial 8310- 5 LOINC Weight 86.18 kg 190.00 lbs 03/05/2025 21:40 Initial 71787 -7 LOINC Assessment You had the following problems:HYPERTENSIONPRIMARY OSTEOSARCOMA OF MANDIBLEBREAKTHROUGH CANCER PAIN (FINDING) Plan: p.o. lisinopril and metoprolol x 1 IM Dilaudid 1mg DC home follow up with Oncology return back to the nearest emergency room with any concerns problems Hospital Discharge Instructions Should you have any questions prior to discharge, please contact a member of your healthcare team. If you have left the hospital and have any questions, please contact your primary care physician. Reason For Referral No Data Found Problems Problem Start Date Resolved Date Status Code Code System HYPERTENSION active 53980405 SNOMED- CT PRIMARY OSTEOSARCOMA OF MANDIBLE active 889589082144668 SNOMED-CT BREAKTHROUGH CANCER PAIN (FINDING) active 920874851 SNOMED-CT Allergies and Adverse Reactions Allergy Substance Reaction Severity Start Date Concern Status Co de Code System NSAID Active 486900595 SNOMED-CT VANCOMYCIN Active 14325 RxNorm ZOFRAN Active 86036 RxNorm DEMEROL Active 079053 RxNorm CONTRAST MEDIA, GADOLINIUM RELATED Active 9845399441 SNOMED -CT Plan of Treatment No Data Found Encounters Encounter Diagnosis Start Date Code Code Sys tem Primary osteosarcoma of mandible 03/05/2025 03349270 4690539 SNOMED-CT Personal Care Team Section
--- OUTSIDE RECORDS SUMMARY | 2025-03-20 11:53 | XMS_ITS | Continuity of Care Document ---
Author Organization [facility] Address [address] [place] [phone] Phone Care Team Providers Care Optical Glass Etcher Name Role Phone Unavailable Unavailable Unavailable Allergies, [...] Diagnoses Date Provider Providers Copied on Encounter [facility], [address] [place] [address], [id number], [place] tel:[phone] [facility] No Information No Information [facility], [address] [place] [address], [id number], [place] tel:[phone] [facility] No Information No Information [facility], [address] [place] [address], [id number], [place] tel:[phone] [facility] No Information Frances Sidhu. [address] [place] [address], [id number], [place]. tel: [phone] [facility], [address] [place] [address], [id number], [place] tel:[phone] [facility] No Information Kayli Rousseau. [address] [place] [address], [id number], [place]. tel: [phone] [facility], [address] [place] [address], [id number], tel:[phone] [facility] No Information Frances Sidhu. [address] [place] [address], [id number], . tel:[phone] [facility], [address] [place] [address], [id number], tel:[phone] [facility] No Information No Information Family History Family [...]
--- OUTSIDE RECORDS SUMMARY | 2025-03-20 11:53 | XMS_ITS ---
Author Organization Unknown Address [address] [place] [phone] Phone Care Team Providers Care Client Resolution Specialist Name Role Phone LIZET BRAVO MD Attending Unavailabl e PCP UNDECLARED Primary Unavailable Immunization Immunization Date Status Additional Notes Code Code System Td(adult) unspecified formulation 11/03/2003 Completed 139 CVX Social History Type Status Start Date End [...] Name Date Status Code Code Syste m EMERGENCY DEPARTMENT VISIT LOW MDM 08/30/2024 completed 4 800459 SNOMEDCT Plan of Treatment No Data Found Encounters Encounter Diagnosis Start Date Code Code Sys tem Jaw pain 08/30/2024 728528399 SNOMED-CT Personal Care Team Section Performer Name Performer Role Active Date Inactive Da te
--- OUTSIDE RECORDS SUMMARY | 2025-03-20 11:53 | XMS_ITS ---
Author Organization Unknown Address [address] [place], [place] [phone] Phone Care Team Providers Care Veterinary Practitioner Name Role Phone FROM DEDE RODRIGUEZ Attending Unavailable CHARLES GONZALEZ Primary Unavailable Social History Type Status Start Date End Date Code Code Syst em Sex Female Vital Signs Vital Sign Value Unit [place] Value [place] Unit Date/Time Recent/Initial? Code Code System Body Mass Index 32.89 kg/m2 07/08/2024 10:23 Initial 89310 -5 [facility] Systolic Blood Pressure 191 mm[Hg] 07/08/2024 10:23 Initial 8480- 6 [facility] Diastolic Blood Pressure 115 mm[Hg] 07/08/2024 10:23 Initial 8462- 4 [facility] Body Surface Area 2.12 m2 07/08/2024 10:23 Initial 3140- 1 [facility] Height 170.180 0 cm 67.00 in 07/08/2024 10:23 Initial 8302- 2 [facility] O2 Saturation 98 % 2023 10:23 Initial 54297 -5 [facility] Pulse 67.0 /min 07/08/2024 10:23 Initial 8867- 4 [facility] Temperature 36.1 Antoinette 97.0 F 07/08/20 10:23 Initial 8310- 5 [facility] Weight 95.25 kg 210.00 lbs 07/08/2024 10:23 Initial 82424 -7 [facility] Medications Medication Start Date End Date Route Frequency Dose Code Code System Medication Instructions Home Meds oxyCODONE HCl 5MG Oral Tablet 07/08/2024 Unknown ORAL PRN Q4-6HRS 1 TABLET 7617006 RxNorm TAKE 1 TABLET ORAL PRN Q4-6HRS Assessment Assessment 1) Chronic osteomylitis Hospital Discharge Instructions Should you have any questions prior to discharge, please contact a member of your healthcare team. If you have left the hospital and have any questions, please contact your primary care physician. Reason For Referral No Data Found Allergies and Adverse Reactions Allergy Substance Reaction Severity Start Date Concern Status Co de Code System NSAID Active 44806375 SNOMED-CT VANCOMYCIN Active 83043 RxNorm ZOFRAN Active 97117 RxNorm DEMEROL Active 502148 RxNorm CONTRAST MEDIA, IODINE RELATED Active 225803197 SNOMED-CT Plan of Treatment PLAN: Discharge home F/U with PCP 3-5 days. Seek prompt medical care if condition worsens prior to PCP appointment. Discussed side effects of medications and supportive treatments at home. Educated on signs and symptoms of an emergency and when to seek emergent treatment. Otherwise see discharge instructions given to the patient. Discharge Medications: Prescriptions this Visit oxyCODONE HCl 5MG Oral Tablet, 1 TABLET, ORAL, PRN Q4-6HRS, 07/08/2024, , FROM DEDE RODRIGUEZ Encounters Encounter Diagnosis Start Date Code Code Sys tem Chronic osteomyelitis 07/08/2024 49969983 SNOMED -CT Personal Care Team Section Performer Name Performer Role Active Date Inactive Da ale
--- OUTSIDE RECORDS SUMMARY | 2025-03-20 11:54 | XMS_ITS ---
Author Organization Unknown Address [address] [place], [place] [phone] Phone Care Team Providers Care Self Defense Instructor Name Role Phone GAAR ROB DOE Attending Unavailable NONE Primary Unavailable Social History Type Status Start Date End Date Code Code Syst em Smoking History Unknown if ever smoked [address] Sex Female Vital Signs Vital Sign Value Unit [place] Value [place] Unit Date/Time Recent/Initial? Code Code System Body Mass Index 32.89 kg/m2 11/03/2024 19:04 Initial 94230 -5 [facility] Systolic Blood Pressure 195 mm[Hg] 11/03/2024 20:14 Most Recent 8480- 6 [facility] Diastolic Blood Pressure 108 mm[Hg] 11/03/2024 20:14 Most Recent 8462- 4 [facility] Systolic Blood Pressure 225 mm[Hg] 11/03/2024 19:04 Initial 8480- 6 [facility] Diastolic Blood Pressure 116 mm[Hg] 11/03/2024 19:04 Initial 8462- 4 [facility] Body Surface Area 2.12 m2 11/03/2024 19:04 Initial 3140- 1 [facility] Height 170.180 0 cm 67.00 in 11/03/2024 19:04 Initial 8302- 2 [facility] O2 Saturation 99 % 2024 20:14 Most Recent 21988 -5 [facility] O2 Saturation 100 % 2024 19:04 Initial 16395 -5 [facility] Pulse 88.0 /min 11/03/2024 20:14 Most Recent 8867- 4 [facility]INC Pulse 96.0 /min 11/03/2024 19:04 Initial 8867- 4 [facility]INC Respiration 18 /min 11/03/19 20:14 Most Recent 9279- 1 LOINC Respiration 18 /min 11/03/19 19:04 Initial 9279- 1 [facility]INC Temperature 36.3 Antoinette 97.3 F 11/03/19 19:04 Initial 8310- 5 [facility] Weight 95.25 kg 210.00 lbs 11/03/2024 19:04 Initial 81861 -7 [facility] Medications Medication Start Date End Date Route Frequency Dose Code Code System Medication Instructions Home Meds HumuLIN R 100U/1ML Injection Solution 11/03/2024 Unknown INJECTION Before meals/bedtime 1 unit(s) 058517 RxNorm INJECT 1 EACH INJECTION Before meals/bedtime Lisinopril 20MG Oral Tablet 11/03/2024 Unknown ORAL Twice a Day 20 MILLIGRA MS 469138 RxNorm TAKE 20 MILLIGRAMS ORAL Twice a Day Metoprolol Succinate ER 50MG Oral Tablet, Extended Release 11/03/2024 Unknown ORAL Daily 50 MILLIGRA MS RxNorm TAKE 50 MILLIGRAMS ORAL Daily NovoLIN 70/30 FlexPen 70U-30U/1M L Subcutaneo us Suspension 11/03/2024 Unknown SUBCUTANEO US Twice a Day 1 unit(s) 7843672 RxNorm INJECT 1 EACH SUBCUTANEOUS Twice a Day Percocet 7.5MG-325M G Oral Tablet 11/03/2024 Unknown ORAL Every 6 hours as needed 1 unit(s) 0467496 RxNorm TAKE 1 EACH ORAL Every 6 hours as needed Assessment You had the following problems:NEOPLASM OF MANDIBLE Assessment General - Extended Final Impression: - LEFT MANDIBULAR CANCER, JAW PAIN EXACERBATION, -ELEVATED BLOOD PRESSURE, Current Condition: Stable Hospital Discharge Instructions Should you have any questions prior to discharge, please contact a member of your healthcare team. If you have left the hospital and have any questions, please contact your primary care physician. Reason For Referral No Data Found Problems Problem Start Date Resolved Date Status Code Code System NEOPLASM OF MANDIBLE 11/03/2024 active 98756224 0 SNOMED-CT Allergies and Adverse Reactions Allergy Substance Reaction Severity Start Date Concern Status Co de Code System NSAID Active 62428473 SNOMED-CT VANCOMYCIN Active 65721 RxNorm KETOROLAC Active 98605 RxNorm DEMEROL Active 237780 RxNorm CONTRAST MEDIA, IODINE RELATED Active 051454080 SNOMED-CT Plan of Treatment Plan General - Extended Disposition: Discharge to Home, Follow-Up with Primary Care, Follow-Up with ONC, Plan Discussion: Discussed with Patient Follow Up: Return to the ED PRN Encounters Encounter Diagnosis Start Date Code Code Sys tem Neoplastic disease 11/03/2024 66941352 SNOMED-CT Personal Care Team Section
--- OUTSIDE RECORDS SUMMARY | 2025-03-20 11:54 | XMS_ITS | Referral Summary ---
Author Organization [facility] Address [address] [place] [address] Care Team Providers Care Photo Lab Specialist Name Role Phone Unknown, Notinfshey Primary Care [...] of Treatment Not on file Care Teams Photo Lab Specialist Relationship Specialty Start Date End Date Unknown, Annie PCP - General 04/04/24
--- OUTSIDE RECORDS SUMMARY | 2025-03-20 11:54 | XMS_ITS | Clinical Summary ---
Author Organization [facility] Address [address] [place] [address] Phone Care Team Providers Care Furnace Combination Analyst Name Role Phone Provider, Not On File [...] Comments Blood Pressure 180/110 09/26/2024 10:49 AM TAX INVESTIGATOR Pulse 96 09/26/2024 10:49 AM TAX INVESTIGATOR Temperature 36.9 C (98.5 F) 09/26/2024 10:49 AM TAX INVESTIGATOR Respiratory Rate 20 09/26/2024 10:49 AM TAX INVESTIGATOR Oxygen Saturation 97% 09/26/2024 10:49 AM TAX INVESTIGATOR Inhaled Oxygen Concentration - - Weight 96.3 kg (212 lb 6.4 oz) 09/26/2024 10:49 AM TAX INVESTIGATOR Height 170.2 cm (5' 7) 09/26/2024 10:49 AM TAX INVESTIGATOR Body Mass Index 33.27 09/26/2024 10:49 AM TAX INVESTIGATOR Plan of Treatment Not on file Care Teams Furnace Combination Analyst Relationship Specialty Start Date End Date Provider, Unknown UNKNOWN PCP - General 08/20/24 Provider, Not On File [place] 09/15/23
--- OUTSIDE RECORDS SUMMARY | 2025-03-20 11:54 | XMS_ITS ---
Author Organization Unknown Address [address] [place] [phone] Phone Care Team Providers Care Syrup Maker Name Role Phone DEMETRI ANGUIANO Attending Unavailable Social History Type Status Start Date End Date Code Code Syst em Sex Female Vital Signs Vital Sign Value Unit [place] Value [place] Unit Date/Time Recent/Initial? Code Code System Body Mass Index 32.89 kg/m2 07/24/2024 07:39 Initial 06077 -5 [facility] Systolic Blood Pressure 187 mm[Hg] 07/24/2024 08:59 Most Recent 8480- 6 [facility] Diastolic Blood Pressure 116 mm[Hg] 07/24/2024 08:59 Most Recent 8462- 4 [facility] Systolic Blood Pressure 227 mm[Hg] 07/24/2024 07:39 Initial 8480- 6 [facility] Diastolic Blood Pressure 122 mm[Hg] 07/24/2024 07:39 Initial 8462- 4 [facility] Body Surface Area 2.12 m2 07/24/2024 07:39 Initial 3140- 1 [facility] Height 170.180 0 cm 67.00 in 07/24/2024 07:39 Initial 8302- 2 [facility] O2 Saturation 96 % 2023 08:59 Most Recent 99573 -5 [facility] O2 Saturation 98 % 2023 07:39 Initial 94981 -5 [facility] Pulse 83.0 /min 07/24/2024 08:59 Most Recent 8867- 4 [facility]INC Pulse 92.0 /min 07/24/2024 07:39 Initial 8867- 4 [facility] Respiration 20 /min 07/24/20 08:59 Most Recent 9279- 1 LOINC Respiration 20 /min 07/24/20 07:39 Initial 9279- 1 LOINC Temperature 36.3 Antoinette 97.3 F 07/24/20 08:59 Most Recent 8310- 5 LOINC Temperature 36.1 Antoinette 97.0 F 07/24/20 24 07:39 Initial 8310- 5 [facility] Weight 95.25 kg 210.00 lbs 07/24/2024 07:39 Initial 86215 -7 [facility] Hospital Discharge Instructions Should you have any questions prior to discharge, please contact a member of your healthcare team. If you have left the hospital and have any questions, please contact your primary care physician. Reason For Referral No Data Found Allergies and Adverse Reactions Allergy Substance Reaction Severity Start Date Concern Status Code Code System NSAID Active 23900053 SNOMED-CT VANCOMYCIN UNKNOWN (SNOMED-CT: null) Active 83768 RxNorm ZOFRAN Active 83862 RxNorm DEMEROL Active 668793 RxNorm Plan of Treatment No Data Found Encounters Encounter Diagnosis Start Date Code Code Sys tem Chronic pain 07/24/2024 33815969 SNOMED-CT Personal Care Team Section Performer Name Performer Role Active Date Inactive Da te
--- OUTSIDE RECORDS SUMMARY | 2025-03-20 11:54 | XMS_ITS ---
Author Organization Unknown Address [address] [place] [phone] Phone Care Team Providers Care Road Driver Name Role Phone NIDA Tao Attending Unavailable Social History Type Status Start [...] Diagnosis Start Date Code Code Sys tem Malingering 11/03/2024 41080548 SNOMED-CT Personal Care Team Section
--- OUTSIDE RECORDS SUMMARY | 2025-03-20 11:54 | XMS_ITS | Clinical Summary ---
Author Organization [facility] Address [address] [place] [address] Care Team Providers Care Preassembler Printed Circuit Board Name Role Phone Unknown, Notinfile Primary Care [...] age to complete this topic Care Teams Preassembler Printed Circuit Board Relationship Specialty Start Date End Date Unknown, Notinfile PCP - General 04/04/24
--- OUTSIDE RECORDS SUMMARY | 2025-03-20 11:54 | XMS_ITS | Clinical Summary ---
Author Organization [employer] Address [address] Sandhu: Epic Prelude ADT CREKIMI AGOSTO [address] Care Team Providers Care Scooper Name Role Phone Unavailable Primary Care Provider [...] on file Legal Sex Female 4:25 AM BOX ESTIMATOR Gender Identity Not on file Sexual Orientation Not on file Last Filed Vital Signs Vital Sign Reading Time Taken Comments Blood Pressure 191/108 08/28/2024 7:32 AM BOX ESTIMATOR Pulse 97 08/28/2024 7:32 AM BOX ESTIMATOR Temperature 37.3 C (99.2 F) 08/28/2024 7:32 AM BOX ESTIMATOR Respiratory Rate 14 08/28/2024 7:32 AM BOX ESTIMATOR Oxygen Saturation 96% 08/28/2024 7:32 AM BOX ESTIMATOR Inhaled Oxygen Concentration - - Weight 95.3 kg (210 lb) 08/28/2024 6:12 AM BOX ESTIMATOR Height 170.2 cm (5' 7) 08/28/2024 6:12 AM BOX ESTIMATOR Body Mass Index 32.89 08/28/2024 6:12 AM BOX ESTIMATOR Plan of Treatment Health Maintenance Due Date [...]
--- OUTSIDE RECORDS SUMMARY | 2025-03-20 11:54 | XMS_ITS ---
Author Organization Unknown Address [address] [place] [address] Rachel MORALES, [phone] Phone Care Team Providers Care Professor Of Political Science Name Role Phone SYLWIA WEISS RICARDO Attending Unavailable Immunization Immunization Date Status Additional Notes Code Code System MMR 11/18/1999 Completed 03 CVX varicella 11/18/1999 Completed 21 CVX Social History Type Status Start Date End Date Code Code Syst em Smoking History Never smoker (Never Smoked) 155949842 SNOMED CT Sex Female Vital Signs Vital Sign Value Unit [place] Value [place] Unit Date/Time Recent/Initial? Code Code System Body Mass Index 33.80 kg/m2 10/22/2024 16:48 Initial 35726 -5 [facility] Systolic Blood Pressure 170 mm[Hg] 10/22/2024 17:55 Most Recent 8480- 6 [facility] Diastolic Blood Pressure 100 mm[Hg] 10/22/2024 17:55 Most Recent 8462- 4 [facility]INC Systolic Blood Pressure 220 mm[Hg] 10/22/2024 16:48 Initial 8480- 6 LOINC Diastolic Blood Pressure 130 mm[Hg] 10/22/2024 16:48 Initial 8462- 4 [facility] Height 170.205 4 cm 67.01 in 10/22/2024 16:48 Initial 8302- 2 LOINC O2 Saturation 97 % 2024 16:48 Initial 14012 -5 [facility]INC Pulse 82.0 /min 10/22/2024 17:55 Most Recent 8867- 4 LOINC Pulse 96.0 /min 10/22/2024 16:48 Initial 8867- 4 LOINC Respiration 20 /min 10/22/19 17:55 Most Recent 9279- 1 LOINC Respiration 18 /min 10/22/19 16:48 Initial 9279- 1 LOINC Temperature 37.4 Antoinette 99.3 F 10/22/19 16:48 Initial 8310- 5 LOINC Weight 97.98 kg 216.01 lbs 10/22/2024 16:48 Initial 04130 -7 [facility] Medications Medication Start Date End Date Route Frequency Dose Code Code System Medication Instructions Home Meds oxyCODONE HCl-acetaminophen 7.5MG-325MG Oral Tablet 10/22/2024 Unknown ORAL NEEDED EVERY 6 HOURS 1 TABLET 9968286 RxNorm TAKE 1 TABLET ORAL NEEDED EVERY 6 HOURS for Pain Hospital Discharge Instructions Should you have any questions prior to discharge, please contact a member of your healthcare team. If you have left the hospital and have any questions, please contact your primary care physician. Reason For Referral No Data Found Procedures Procedure Name Date Status Code Code Syste m VAG HYST W/ENTEROCELE COMPL completed 02658094 SNOMEDCT APPENDECTOMY completed 06005435 SNOMEDCT Lower jaw operation completed 99896555 SNOME DCT Gali completed 26163967 SNOMEDCT EMERGENCY DEPARTMENT VISIT LOW MDM 10/22/2024 completed 1 9770330 SNOMEDCT Resection of colon completed 28867738 SNOMED CT Problems Problem Start Date Resolved Date Status Code Code System MULTIPLE SCLEROSIS 10/22/2024 resolved 92456571 SNOMED-CT DIABETES 10/22/2024 resolved 91196968 SNOMED-CT CERVICAL CANCER 10/22/2024 resolved 103259831 SNO MED-CT 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/22/2024 resolved 9388 6007 SNOMED-CT Allergies and Adverse Reactions Allergy Substance Reaction Severity Start Date Concern Status Co de Code System NSAID Active 93880658 SNOMED-CT VANCOMYCIN Active 12545 RxNorm ZOFRAN Active 58318 RxNorm DEMEROL Active 258572 RxNorm IV contrast Active 00093 RxNorm Plan of Treatment Plan: #20 oxycodone 1 q 4 hrs prn pain 7.5 -325 #20 dilaudid 2 mg IM now Discharge Medications: Discharge Medications oxyCODONE HCl-acetaminophen 7.5MG-325MG Oral Tablet Encounters Encounter Diagnosis Start Date Code Code Sys tem Primary malignant neoplasm of mandible 10/22/2024 93 257614 SNOMED-CT Personal Care Team Section
--- OUTSIDE RECORDS SUMMARY | 2025-03-20 11:55 | XMS_ITS | Continuity of Care Document ---
Author Organization Formerly [facility]. If a dditional information is needed, contact Health Information Management at [phone] [place] [address] Phone Care Team Providers Care Hog Worker Name Role Phone Unavailable Unavailable Unavailable Unavailable Unavailable Unavailable Unavailable Unavailable Unavailable Unavailable Unavailable Unavailable Unavailable Unavailable Unavailable Unavailable Unavailable Unavailable Unavailable Unavailable Unavailable Unavailable Unavailable Unavailable Unavailable Unavailable Unavailable Unavailable Unavailable Unavailable Unavailable Unavailable Unavailable Unavailable Unavailable Unavailable Unavailable Unavailable Unavailable Unavailable Unavailable Unavailable Unavailable Unavailable Unavailable Unavailable Unavailable Unavailable Unavailable Unavailable Unavailable Unavailable Unavailable Unavailable Unavailable Unavailable Unavailable Unavailable Unavailable Unavailable Unavailable Unavailable Unavailable Unavailable Unavailable Unavailable Unavailable Unavailable Unavailable Unavailable Unavailable Unavailable Unavailable Unavailable Unavailable Unavailable Unavailable Unavailable Unavailable Unavailable Unavailable Unavailable Unavailable Unavailable Unavailable Unavailable Unavailable Unavailable Unavailable Unavailable Unavailable Unavailable Unavailable Unavailable Unavailable Unavailable Unavailable Unavailable Unavailable Unavailable Unavailable Unavailable Unavailable Unavailable Unavailable Unavailable Unavailable Unavailable Unavailable Unavailable Unavailable Unavailable Unavailable Unavailable Unavailable Unavailable Unavailable Unavailable Unavailable Unavailable Unavailable Unavailable Unavailable Unavailable Unavailable Unavailable Unavailable Unavailable Unavailable Unavailable Unavailable Unavailable Unavailable Unavailable Unavailable Unavailable Unavailable Unavailable Unavailable Unavailable Unavailable Unavailable Unavailable Unavailable Unavailable Unavailable Unavailable Unavailable Unavailable Unavailable Unavailable Unavailable Unavailable Unavailable Unavailable Unavailable Unavailable Unavailable Unavailable Unavailable Unavailable Unavailable Unavailable Unavailable Unavailable Unavailable Unavailable Unavailable Unavailable Unavailable Unavailable Unavailable Unavailable Unavailable Unavailable Unavailable Unavailable Unavailable Unavailable Unavailable Unavailable Unavailable Unavailable Unavailable Unavailable Unavailable Unavailable Unavailable Unavailable Unavailable Unavailable Unavailable Unavailable Unavailable Unavailable Unavailable Unavailable Unavailable Unavailable Unavailable Unavailable Unavailable Unavailable Unavailable Unavailable Unavailable Unavailable Unavailable Unavailable Unavailable Unavailable Unavailable Unavailable Unavailable Unavailable Unavailable Unavailable Unavailable Unavailable Unavailable Unavailable Unavailable Unavailable Unavailable Unavailable Unavailable Unavailable Unavailable Unavailable Unavailable Unavailable Unavailable Unavailable Unavailable Unavailable Unavailable Unavailable Unavailable Unavailable Unavailable Problems Pain due to neoplastic disea se Onset:04-Mar-2025 Jax WELCH Neoplasm of jaw Onset:19-Feb-2025 Milloy Claudette K DO Breakthrough pain Onset:19-Feb-2025 Milloy Claudette K DO Breakthrough cancer pain Onset:11-Feb-2025 Chrissy Mcdaniel DO Comments:Onset Date: 20250211 Chronic pain Onset:06-Feb-2025 Huma Gandara II, MD Feigning of symptoms Onset:06-Feb-2025 Huma Gandara II, MD Jaw pain Onset:29-Jan-2025 Luanne Guaman DO Status:Acute Breakthrough cancer pain Onset:20-Jan-2025 Sujakumar Ravishanker V DO Jaw pain Onset:20-Jan-2025 Sujakumar Ravishanker V DO Hypertensive disorder Onset:20-Jan-2025 Sujakumar Ravishanker V DO Jaw pain Onset:19-Jan-2025 Rhys Coleman MD Jaw pain Onset:19-Jan-2025 Rhys Coleman MD Primary malignant neoplasm o f mandible Onset:16-Jan-2025 Katie Benavides DO CHRONIC MANDIBLE PAIN Onset:14-Jan-2025 Mookie Elliott MD Left against medical advice Onset:13-Jan-2025 Rashawn WELCH Chronic pain Onset:04-Jan-2025 Stepan Persaud MD Malignant neoplasm of mandib le Onset:04-Jan-2025 Stepan Persaud MD Malignant neoplasm of mandib le Onset:30-Dec-2024 Tonya Coleman MD Jaw pain Onset:22-Dec-2024 Rea Benavides MD Jaw pain Onset:17-Dec-2024 Wes Rodriguez MD Status:Acute Renewal of prescription Onset:10-Dec-2024 Milady Mcdaniel NP Hypertensive disorder Onset:09-Dec-2024 Marga Guaman MD Chronic pain Onset:06-Dec-2024 Kiki Tao NP Disease condition determination, uncontrolled Onset:06-Dec-2024 Kiki Tao MORTARMAN Under care of team Onset:06-Dec-2024 Kiki Tao NP Chronic pain Onset:06-Dec-2024 Brian Lin DO Jaw pain Onset:30-Nov-2024 Maggie Potts MD Pain due to neoplastic disea se Onset:30-Nov-2024 Maggie Potts MD Jaw pain Onset:27-Nov-2024 Dexter Jacinto MD Pain due to neoplastic disea se Onset:14-Nov-2024 Katelin Benavides MD Pain due to neoplastic disea se Onset:14-Nov-2024 Katelin Benavides MD Neoplasm of jaw Onset:11-Nov-2024 Bijan Tao DO Breakthrough cancer pain Onset:11-Nov-2024 Bijan Tao DO Jaw pain Onset:11-Nov-2024 Bijan Tao DO Jaw pain Onset:09-Nov-2024 Nathen WELCH Malignant neoplasm of mandib le Onset:09-Nov-2024 Nathen WELCH Chronic pain Onset:05-Oct-2024 Bill WELCH Chronic osteomyelitis of mandible Onset:06-Sep-2024 Amos Jacinto DO Hypertensive urgency Onset:22-Jul-2024 Elmer WELCH Chronic pain Onset:22-Jul-2024 Elmer WELCH Chronic pain in face Onset:03-Jul-2024 [place] PAC Pain Onset:27-Jun-2024 Feliperosa Debbie Sanderson PA Jaw pain Onset:24-May-2024 Joshua Franklin DO Hypertensive disorder Onset:24-May-2024 Joshua Franklin DO Chronic dental pain Onset:09-May-2024 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 Osteomyelitis of jaw Onset:10-Apr-2024 Palak Dye DO Comments:Onset Date: 20240410 Uncontrolled pain Onset:10-Apr-2024 Palak Dye DO Increased blood pressure Onset:10-Apr-2024 Palak Dye DO Comments:Onset Date: 20240410 Toothache Onset:30-Mar-2024 Naveed WELCH Chronic osteomyelitis of mandible Onset:02-Mar-2024 Elizabeth Allen MD Jaw pain Onset:29-Feb-2024 Amy Coleman MD Jaw pain Onset:29-Feb-2024 Amy Coleman MD History of osteomyelitis Onset:27-Feb-2024 Pelon Mcdaniel PA-C Jaw pain Onset:27-Feb-2024 Pelon Mcdaniel PA-C Nausea and vomiting Onset:26-Jan-2014 Abdominal pain Onset:26-Jan-2014 Flank pain Onset:15-Jan-2014 Functional Status Functional finding 18-Mar-2025 Functional finding 18-Mar-2025 Functional finding 18-Mar-2025 Allergies and Adverse Reactions Iodinated Contrast Media - I V Dye(Allergy) Onset: 18-Mar-2025 Reaction:Hives NSAIDS (Non-Steroidal Anti-Inflamma(Allergy) Onset: 18-Mar-2025 Reaction:SVT/EXCESSIVE BLEED ING meperidine(Allergy) Onset: 18-Mar-2025 Reaction:Hives ondansetron(Allergy) Onset: 18-Mar-2025 Reaction:Vomiting vancomycin(Allergy) Onset: 18-Mar-2025 Reaction:Red Man Syndrome NSAIDS (Non-Steroidal Anti-Inflamma(Allergy) Onset: 04-Mar-2025 Reaction:UNKNOWN Meperidine(Allergy) Onset: 04-Mar-2025 Reaction:UNKNOWN ondansetron(Allergy) Onset: 04-Mar-2025 Reaction:UNKNOWN vancomycin(Allergy) Onset: 04-Mar-2025 Reaction:UNKNOWN IV CONTRAST(Allergy) Onset: 04-Mar-2025 Reaction:UNKNOWN Iodinated Contrast Media(All ergy) Onset: 29-Jan-2025 Reaction:Other NSAIDS (Non-Steroidal Anti-Inflamma NSAIDS (NON-STEROIDAL ANTI-INFLAMMA(Allergy) Onset: 29-Jan-2025 Reaction:Other meperidine From Demerol(Thony rgy) Onset: 29-Jan-2025 Reaction:Other ondansetron From Zofran(Thony rgy) Onset: 29-Jan-2025 Reaction:Other vancomycin(Allergy) Onset: 29-Jan-2025 Reaction:Other IV Dye, Iodine Containing Contrast(Allergy) Onset: 27-Jan-2025 Reaction:UNKNOWN NSAIDS (Non-Steroidal Anti-Inflamma(Allergy) Onset: 27-Jan-2025 Reaction:UNKNOWN Meperidine(Allergy) Onset: 27-Jan-2025 Reaction:UNKNOWN ondansetron(Allergy) Onset: 27-Jan-2025 Reaction:UNKNOWN vancomycin(Allergy) Onset: 27-Jan-2025 Reaction:UNKNOWN NSAIDS (Non-Steroidal Anti-Inflamma(Allergy) Onset: 20-Jan-2025 Reaction:HIVES Meperidine(Allergy) Onset: 20-Jan-2025 Reaction:HIVES vancomycin(Allergy) Onset: 20-Jan-2025 Reaction:HIVES NSAIDS (Non-Steroidal Anti-Inflamma(Allergy) Onset: 19-Jan-2025 Reaction:HIIVES iodine(Allergy) Onset: 19-Jan-2025 Reaction:UNKN Meperidine(Allergy) Onset: 19-Jan-2025 Reaction:HIVES ondansetron(Allergy) Onset: 19-Jan-2025 Reaction:VOMITING ketorolac(Allergy) Onset: 19-Jan-2025 Reaction:HIVES vancomycin(Allergy) Onset: 19-Jan-2025 Reaction:RASH NSAIDS (Non-Steroidal Anti-Inflamma(Allergy) Onset: 16-Jan-2025 Reaction:ABDOMINAL CRAMPING Meperidine(Allergy) Onset: 16-Jan-2025 Reaction:RASH ondansetron(Allergy) Onset: 16-Jan-2025 Reaction:RASH vancomycin(Allergy) Onset: 16-Jan-2025 Reaction:RASH NSAIDS (Non-Steroidal Anti-Inflamma(Allergy) Onset: 04-Jan-2025 Meperidine(Allergy) Onset: 04-Jan-2025 vancomycin(Allergy) Onset: 04-Jan-2025 NSAIDS (Non-Steroidal Anti-Inflamma(Allergy) Onset: 30-Dec-2024 Meperidine(Allergy) Onset: 30-Dec-2024 ondansetron(Allergy) Onset: 30-Dec-2024 vancomycin(Allergy) Onset: 30-Dec-2024 IV CONTRAST(Allergy) Onset: 30-Dec-2024 IV Dye, Iodine Containing Contrast(Allergy) Onset: 22-Dec-2024 NSAIDS (Non-Steroidal Anti-Inflamma(Allergy) Onset: 22-Dec-2024 ondansetron(Allergy) Onset: 22-Dec-2024 Reaction:MAKES VOMIT MORE vancomycin(Allergy) Onset: 22-Dec-2024 IV Dye, Iodine Containing Contrast(Allergy) Onset: 30-Nov-2024 Reaction:HIVES NSAIDS (Non-Steroidal Anti-Inflamma(Allergy) Onset: 30-Nov-2024 Reaction:PALPITATIONS Meperidine(Allergy) Onset: 30-Nov-2024 Reaction:HIVES ondansetron(Allergy) Onset: 30-Nov-2024 Reaction:VOMITING vancomycin(Allergy) Onset: 30-Nov-2024 Reaction:HIVES Iodinated Contrast Media - I V Dye(Allergy) Onset: 27-Nov-2024 Reaction:UNKNOWN NSAIDS (Non-Steroidal Anti-Inflamma(Allergy) Onset: 11-Nov-2024 Reaction:HIVES Meperidine(Allergy) Onset: 11-Nov-2024 Reaction:HIVES ondansetron(Allergy) Onset: 11-Nov-2024 Reaction:HYPEREMISIS ketorolac(Allergy) Onset: 11-Nov-2024 Reaction:HIVES vancomycin(Allergy) Onset: 11-Nov-2024 Reaction:HIVES IV Dye, Iodine Containing Contrast(Allergy) Onset: 07-Oct-2024 Reaction:FINE IF PRE-MEDICAT ED Meperidine(Allergy) Onset: 07-Oct-2024 Reaction:UNKNOWN ondansetron(Allergy) Onset: 07-Oct-2024 Reaction:VOMITING vancomycin(Allergy) Onset: 07-Oct-2024 Reaction:UNKNOWN IV Dye, Iodine Containing Contrast(Allergy) Onset: 06-Sep-2024 Reaction:RASH NSAIDS (Non-Steroidal Anti-Inflamma(Allergy) Onset: 06-Sep-2024 Reaction:RASH Meperidine(Allergy) Onset: 06-Sep-2024 Reaction:RASH ondansetron(Allergy) Onset: 06-Sep-2024 Reaction:RASH vancomycin(Allergy) Onset: 06-Sep-2024 Reaction:RASH IV Dye, Iodine Containing Contrast(Allergy) Onset: 03-Jul-2024 Reaction:HIVES NSAIDS (Non-Steroidal Anti-Inflamma(Allergy) Onset: 03-Jul-2024 Reaction:CONTRAINDICATED meperidine(Allergy) Onset: 03-Jul-2024 Reaction:HIVES ondansetron(Allergy) Onset: 03-Jul-2024 Reaction:VOMITING vancomycin(Allergy) Onset: 03-Jul-2024 Reaction:LEXI SYNDROME NSAIDS (Non-Steroidal Anti-Inflamma(Allergy) Onset: 09-May-2024 Reaction:BLEEDING Meperidine(Allergy) Onset: 09-May-2024 Reaction:HIVES ondansetron(Allergy) Onset: 09-May-2024 Reaction:HIVES vancomycin(Allergy) Onset: 09-May-2024 Reaction:HIVES IV CONTRAST(Allergy) Onset: 09-May-2024 Reaction:HIVES vancomycin(Allergy) Onset: 10-Apr-2024 Reaction:HIVES NSAIDS (Non-Steroidal Anti-Inflamma(Allergy) Onset: 30-Mar-2024 Reaction:ANAPHYLAXIS meperidine(Allergy) Onset: 30-Mar-2024 Reaction:ANAPHYLAXIS ondansetron(Allergy) Onset: 30-Mar-2024 Reaction:ANAPHYLAXIS vancomycin(Allergy) Onset: 30-Mar-2024 Reaction:ANAPHYLAXIS Meperidine(Allergy) Onset: 27-Feb-2024 Reaction:unknown ondansetron(Allergy) Onset: 27-Feb-2024 Reaction:MAKES THROW UP MORE vancomycin(Allergy) Onset: 27-Feb-2024 Reaction:UNKNOWN IV CONTRAST(Allergy) Onset: 27-Feb-2024 Reaction:NEEDS PREMEDICATED FOR STUDY ondansetron(Allergy) Onset: 03-Jun-2014 Reaction:UNKNOWN Meperidine(Allergy) Onset: 26-Jan-2014 Reaction:DUE TO CHEMOTHERAPY ondansetron(Allergy) Onset: 26-Jan-2014 Reaction:DUE TO CHEMOTHERAPY ondansetron HCl(Allergy) Onset: 15-Jan-2014 Reaction:HIVES, SOB NSAIDS (Non-Steroidal Anti-Inflamma(Allergy) Onset: 15-Jan-2014 Reaction:INTERACTION WITH CH EMO NSAIDS (Non-Steroidal Anti-Inflamma(Allergy) Onset: 19-Dec-2013 Reaction:UNKNOWN Meperidine(Allergy) Onset: 19-Dec-2013 Reaction:UNKNOWN ondansetron(Allergy) Onset: 19-Dec-2013 Reaction:UNKOWN NSAIDS (Non-Steroidal Anti-Inflamma(Allergy) Onset: 13-Nov-2013 Reaction:CHEMO Meperidine(Allergy) Onset: 13-Nov-2013 Reaction:HIVES ondansetron(Allergy) Onset: 13-Nov-2013 Reaction:HIVES ketorolac tromethamine(Aller gy) Onset: 08-Dec-2012 Reaction:stephanie bolivar meperidine HCl(Allergy) Onset: 08-Dec-2012 Reaction:hives meperidine HCl(Allergy) Onset: 07-Nov-2011 Reaction:UNK meperidine HCl(Allergy) Onset: 05-Nov-2011 ketorolac tromethamine(Aller gy) Onset: 05-Nov-2011 prochlorperazine edisylate F rom COMPAZINE(Allergy) Onset: 09-Jul-2009 Reaction:DILLUSIONS prochlorperazine maleate Fro m COMPAZINE(Allergy) Onset: 09-Jul-2009 Reaction:DILLUSIONS sumatriptan succinate From IMITREX(Allergy) Onset: 09-Jul-2009 Reaction:SVT sumatriptan(Allergy) Onset: 09-Jul-2009 Reaction:SVT Contrast Dye(Allergy) Demerol(Allergy) NSAIDs(Allergy) ondansetron(Allergy) vancomycin(Allergy) Medications 1 ML HYDROmorphone hydrochloride 1 MG/ML Cartridge;2 MG X1ED Quantity:2 Alexandr Trinidad MD Start:8-Jue-5337Eed:18-Mar-20 Comments:Provider Administration Instructions:Dose: 2 mgConsider monitoring End Tidal CO2 lisinopril 20 MG Oral Tablet [Prinivil];20 MG X1ED Quantity:1 Alexandr Trinidad MD Start:3-Xog-5307Nxo:18-Mar-20 Comments:Provider Administration Instructions:*Monitor Potassium levels CrCl whilepatient is hospitalized* metoprolol tartrate 50 MG Oral Tablet;50 MG X1ED Quantity:1 Alexandr Trinidad MD Start:6-Lvr-4459Iux:18-Mar-20 1 ML morphine sulfate 4 MG/ML Cartridge;4 MG X1ED Quantity:1 Start:7-Chh-9437Alr:18-Mar-20 Status:Aborted Comments:Provider Administration Instructions:Consider Monitoring End Tidal CO2 oxycodone-acetaminophen 10-325 mg Tablet;1 TAB ORAL Q6H Start:18-Mar-2025 Comments:1 tab PO Q6H lisinopril 20 MG Oral Tablet;20 MG ORAL Two Times a Day Start:18-Mar-2025 Comments:20 mg PO BID metoprolol succinate 50 mg Tablet Extended Release 24 Hr;50 MG ORAL Daily Start:18-Mar-2025 Comments:50 mg PO DAILY 1 ML HYDROmorphone hydrochloride 1 MG/ML Prefilled Syringe;1 MILLIGRAM X1ED Quantity:1 Chani Hanna MD Start:73-Gre-8702Zhf:2024 Comments:[id number] 0.5 ML HYDROmorphone hydrochloride 1 MG/ML Prefilled Syringe [Dilaudid];1 MILLIGRAM X1ED Quantity:2 Jax WELCH Start:28-Uxe-2418Afx:2024 Comments:[id number] Administration Instructions: Look Alike/Sound Alike Med This pain medication may be administered for a level of painhigher than the ordered pain scale if both of the followingapply: 1. The patient has an order for the pain score being acetaminophen 500 MG Oral Tablet;500 MILLIGRAM X1ED Quantity:1 Jax WELCH Start:56-Fyi-0913Wjs:2024 Comments:[id number] Administration Instructions:TYLENOL MAX DOSE = 4 GM/24 HRThis pain medication may be administered for a level of painhigher than the ordered pain scale if both of the followingapply: 1. The patient has an order for the pain score being 0.5 ML HYDROmorphone hydrochloride 1 MG/ML Prefilled Syringe [Dilaudid];1 MILLIGRAM X1ED Quantity:2 Nancy Pope DO Start:4-Bqk-4620Qqz:20-Feb-20 Comments:[id number] 1 ML HYDROmorphone hydrochloride 2 MG/ML Cartridge;0.5 MILLIGRAM 1XED Quantity:1 Chrissy Mcdaniel DO Start:82-Jxk-2742Sbv:11-Feb-2025 Comments:[id number] Administration Instructions:MONITOR RESPIRATORY RATEInject IV slowly over 3 - 5 minutes. SOUND ALIKE/LOOK ALIKE DRUG (SAME DILAUDID) morphine sulfate 10 MG/ML Injectable Solution;8 MILLIGRAM 1XED Quantity:1 Chrissy Edmondson Violeta DO Start:43-Oxo-1974Fvq:11-Feb-2025 Comments:[id number] Administration Instructions:Inject IV slowly over 4-5 minutes. SOUND ALIKE/LOOK ALIKE DRUG DroperidoL 5 MG/2 ML VIAL;2.5 MILLIGRAM 1XED Quantity:1 Chrissy Mcdaniel DO Start:80-Ajd-6072Uff:11-Feb-2025 Comments:[id number] Administration Instructions:(SAME INAPSINE)FOR USE IN ER ONLY morphine sulfate 10 MG/ML Injectable Solution;8 MILLIGRAM 1XED Quantity:1 Chrissy Mcdaniel DO Start:66-Vul-0790Xwq:11-Feb-2025 Comments:[id number] Administration Instructions:Inject IV slowly over 4-5 minutes. SOUND ALIKE/LOOK ALIKE DRUG 1 ML HYDROmorphone hydrochloride 1 MG/ML Prefilled Syringe;1 MILLIGRAM X1ED Quantity:1 Marguerite Dorman MD Start:35-Eur-9800Vdf:2024 Comments:[id number] morphine;2 MG X1ED Quantity:1 Luanne Guaman DO Start:68-Bit-2609Gls:2024 1 ML HYDROmorphone hydrochloride 1 MG/ML Prefilled Syringe;1 MILLIGRAM X1ED Quantity:1 CHANI91 Start:68-Xfm-8823Jok:2024 Comments:[id number] Administration Instructions:When PRN medications are ordered for the sameindication, medications will be given in thefollowing order for each pain scale:Acetaminophen, Bjr-YlcbnjhliQlhm-Kzuqqviqqoko, Codeine containingproducts, Tramadol, Hydrocodone, Oxycodone, promethazine hydrochloride 25 MG Oral Tablet;25 MILLIGRAM X1ED Quantity:1 CHANI91 Start:50-Usd-1301Vpd:2024 Comments:[id number] Administration Instructions:When more than one PRN medicationis ordered for nausea and vomiting,medications will be given in thefollowing order: Ondansetron,Promethazine, Prochlorperazine 1 ML HYDROmorphone hydrochloride 1 MG/ML Prefilled Syringe;1 MILLIGRAM X1ED Quantity:1 CHANI91 Start:15-Eva-0500Pse:2024 Comments:[id number] Administration Instructions:When PRN medications are ordered for the sameindication, medications will be given in thefollowing order for each pain scale:Acetaminophen, Sgz-GxnpjltkzQkbf-Ehjgzlrazpfv, Codeine containingproducts, Tramadol, Hydrocodone, Oxycodone, 1 ML morphine sulfate 4 MG/ML Injection;4 MG X1ED Quantity:1 Karthikeyan Salinas DO Start:8-Tbi-7737Kfg:20-Jan-2025 Comments:[id number] Administration Instructions: HIGH RISK MED DOUBLE-CHECK This is a LOOK-A-LIKE, ESHHZ-V-AXEU drug double-check. *PRE-DEFINED PRN REASON OF PAIN SCORE 7-10 (SEVERE) acetaminophen 325 MG / oxyCODONE hydrochloride 5 MG Oral Tablet;1 UNIT.DOSE X1ED Quantity:1 Rhys Coleman MD Start:4-Nqq-4557Cfo:20-Jan-20 Comments:[id number] Administration Instructions:OPIATE CONTROLLED SUBSTANCE * PERCOCET 5/325TX EQUIV FOR PERCODAN,TYLOX, PERCOCET 7.5,DARVOCET N 100 acetaminophen 325 MG / oxyCODONE hydrochloride 7.5 MG Oral Tablet;1 TABLET PO Q4H PRN Start:19-Jan-2025 Comments:1 TAB PO Q4H PRN As Needed for PAIN insulin aspart, human 100 UNT/ML Injectable Solution [NovoLOG];5 UNIT SUBCUTANEOUS AC Start:19-Jan-2025 Comments:5 UNIT SUBQ AC 24 HR metoprolol succinate 50 MG Extended Release Oral Tablet;50 MILLIGRAM PO DAILY Start:19-Jan-2025 Comments:50 MG PO DAILY lisinopril 5 MG Oral Tablet [Prinivil];5 MILLIGRAM PO DAILY Start:19-Jan-2025 Comments:5 MG PO DAILY ketorolac tromethamine 30 MG/ML Injectable Solution;30 MILLIGRAM 1XED Quantity:1 Katie Benavides DO Start:6-Nls-3052Snd:17-Jan-20 Comments:[id number] Administration Instructions:DO NOT EXCEED 60MG TOTAL PER DAY FOR PATIENTS <50KG,>/=65 YEARS OLD, OR RENALLY IMPAIRED 1 ML promethazine hydrochloride 25 MG/ML Injection;50 MILLIGRAM 1XED Quantity:2 Katie Benavides DO Start:3-Sae-7381Sap:17-Jan-20 Comments:[id number] Administration Instructions:MUST BE GIVIN IN 50 ML BAG OVER TEN MINUTES TO REDUCEEXTRAVASATION CHANCE 2 ML fentaNYL 0.05 MG/ML Cartridge;75 MICROGRAM 1XED Quantity:1 Katie Benavides DO Start:3-Quk-1136Yor:17-Jan-20 Comments:[id number] Administration Instructions: ONLY USE FOR SEVERE PAIN (7-10) SOUND ALIKE/LOOK ALIKE DRUG (SAME SUBLIMAZE) 1 ML HYDROmorphone hydrochloride 1 MG/ML Prefilled Syringe;1 MILLIGRAM X1ED Quantity:1 Mookie Elliott MD Start:4-Rrr-5679Dqz:15-Jan-20 Comments:[id number] 1 ML morphine sulfate 4 MG/ML Prefilled Syringe;4 MILLIGRAM X1ED Quantity:1 Stepan Persaud MD Start:80-Tjr-2101Hju:2024 Comments:[id number] promethazine hydrochloride 25 MG Oral Tablet;25 MILLIGRAM X1ED Quantity:1 Tonya Coleman MD Start:13-Lsr-6596Tfy:2024 Comments:[id number] Administration Instructions: PREFERABLE NOT TO CRUSH DUE TO BAD TASTE promethazine hydrochloride 25 MG Oral Tablet;25 MILLIGRAM EDHOME Quantity:1 Tonya Coleman MD Start:27-Pnf-9526Aei:2024 Comments:[id number] Administration Instructions: PREFERABLE NOT TO CRUSH DUE TO BAD TASTE 1 ML HYDROmorphone hydrochloride 2 MG/ML Cartridge;2 MILLIGRAM X1ED Quantity:1 Tonya Coleman MD Start:36-Rbz-4988Hdh:2024 Comments:[id number] 1 ML HYDROmorphone hydrochloride 1 MG/ML Prefilled Syringe;1 MILLIGRAM X1ED Quantity:1 Rea Litzy Benavides MD Start:24-Eqh-2022Ypm:2024 Comments:[id number] acetaminophen 325 MG / HYDROcodone bitartrate 5 MG Oral Tablet;1 TAB X1ED Quantity:1 Wes Rodriguez MD Start:9-Qvc-5771Rvz:18-Dec-19 1 ML HYDROmorphone hydrochloride 1 MG/ML Cartridge;1 MG X1ED Quantity:1 Wes Rodriguez MD Start:6-Dep-8858Uyi:18-Dec-19 Comments:Provider Administration Instructions:Consider monitoring End Tidal CO2 HYDROmorphone hydrochloride 2 MG/ML Injectable Solution;2 MILLIGRAM X1ED Quantity:1 Cordell Lin MD Start:36-Kmj-9383Djx:2024 Comments:[id number] Administration Instructions:May administer less potent or lower dose ofprescribed medication based on patient request HYDROmorphone hydrochloride 2 MG/ML Injectable Solution;2 MILLIGRAM X1ED Quantity:1 Marga Guaman MD Start:44-Gbj-6425Rfm:2024 Comments:[id number] Administration Instructions:May administer less potent or lower dose ofprescribed medication based on patient request lisinopril 20 MG Oral Tablet;40 MILLIGRAM X1ED Quantity:2 Marga Guaman MD Start:99-Hqi-9918Wsx:2024 Comments:[id number] 24 HR metoprolol succinate 50 MG Extended Release Oral Tablet [Toprol];50 MILLIGRAM X1ED Quantity:1 Marga Guaman MD Start:16-Maz-2943Pxd:2024 Comments:[id number] Administration Instructions: BETA JESSI 24 HR metoprolol succinate 25 MG Extended Release Oral Tablet;50 MILLIGRAM X1ED Quantity:2 Tyron Tao MD Start:31-Ygm-0825Hef:2024 Comments:[id number] Administration Instructions:Do NOT Crush lisinopril 10 MG Oral Tablet;20 MILLIGRAM X1ED Quantity:2 Tyron Tao MD Start:21-Ckw-3949Rde:2024 Comments:[id number] 1 ML HYDROmorphone hydrochloride 1 MG/ML Injection;0.5 MILLIGRAM X1ED Quantity:1 Tyron Tao MD Start:93-Lvx-8532Gzx:2024 Comments:[id number] promethazine hydrochloride 25 MG Oral Tablet;25 MILLIGRAM X1ED Quantity:1 Brian Lin DO Start:09-Gmd-5113Iee:2024 Comments:[id number] Administration Instructions:Do not use if patient has epidural 1 ML HYDROmorphone hydrochloride 1 MG/ML Prefilled Syringe;1 MILLIGRAM X1ED Quantity:1 Brian Lin DO Start:27-Kvv-9095Zkm:2024 Comments:[id number] TOPROL XL;50 MILLIGRAM PO DAILY Start:06-Dec-2024 Comments:50 MG PO DAILY lisinopril 20 MG Oral Tablet;20 MILLIGRAM PO BID Start:06-Dec-2024 Comments:20 MG PO BID NOVOLIN 70-30 100 UNIT/ML VIAL Start:06-Dec-2024 NOVOLIN N Start:06-Dec-2024 24 HR metoprolol succinate 50 MG Extended Release Oral Tablet [Toprol];50 MILLIGRAM X1ED Quantity:1 Maggie Potts MD Start:42-Okn-6174Ams:2024 Comments:[id number] Administration Instructions: Do not crush or chew tablet BETA-JESSI 1 ML HYDROmorphone hydrochloride 2 MG/ML Cartridge;2 MILLIGRAM X1ED Quantity:1 Maggie Potts MD Start:42-Vel-3409Jlb:2024 Comments:[id number] lisinopril 20 MG Oral Tablet;20 MILLIGRAM X1ED Quantity:1 Maggie Potts MD Start:33-Hwd-5251Ien:2024 Comments:[id number] Administration Instructions:HENRIETTA inhibitor 1 ML ketorolac tromethamine 30 MG/ML Injection;30 MILLIGRAM X1ED Quantity:1 Dexter Jacinto MD Start:82-Ebh-2332Nib:2024 Comments:[id number] Administration Instructions:TORADOL IS NOT COMPATIBLE IN THE SAME SYRINGE WITHPHENERGAN, VISTARIL, DEMEROL, OR MORPHINE acetaminophen 325 MG / oxyCODONE hydrochloride 7.5 MG Oral Tablet [Percocet];1 TABLET X1ED Quantity:1 Dexter Jacinto MD Start:68-Xkv-1122Wca:2024 Comments:[id number] Administration Instructions:ACETAMINOPHEN MAX DOSE = 4gm(4000mg)/24 hrs 1 ML morphine sulfate 4 MG/ML Prefilled Syringe;4 MILLIGRAM X1ED Quantity:1 Katelin Benavides MD Start:05-Tko-0890Ckl:2024 Comments:[id number] Administration Instructions:CAUTIONHIGH RISK MEDICATION 2 ML prochlorperazine 5 MG/ML Injection;10 MILLIGRAM ONCE Quantity:1 Bijan Tao DO Start:01-Vcm-9339Moi:2024 Comments:[id number] Administration Instructions:AUTOMATIC THERAPEUTIC INTERCHANGE FOR PROMETHAZINEMay be administered by slow IV push at a rate not exceeding5 mg/minute or by IV infusion. Do not administer as a bolusinjection. 1 ML HYDROmorphone hydrochloride 2 MG/ML Cartridge;2 MILLIGRAM X1ED Quantity:1 Bijan Tao DO Start:34-Rlj-5143Fsk:2024 Comments:[id number] Administration Instructions: Caution: LOOK-ALIKE, SOUND-ALIKE MEDICATION NarcoticsSedation, Constipation ProMETHazine HCL 25 MG/ML VIAL;25 MILLIGRAM X1ED Quantity:1 Bijan Celso Tao DO Start:50-Aps-6480Znb:2024 Comments:[id number] Administration Instructions:FOR IM USE ONLY THIS MED MUST NOT BE GIVEN TO CHILDREN LESS THAN 2 YEARSFirst line treatment for N/V if not relieved in 30 minutesand experiencing sedation give Metoclopramide, if NOTexperiencing sedation give Promethazine 1 ML HYDROmorphone hydrochloride 1 MG/ML Injection [Dilaudid];1 MILLIGRAM X1ED Quantity:1 Esperanza Bradford MD Start:68-Drv-5348Uum:2024 Comments:[id number] 1 ML HYDROmorphone hydrochloride 1 MG/ML Prefilled Syringe;1 MILLIGRAM X1ED Quantity:1 Herlinda Gandara MD Start:67-Pcf-9264Erb:2023 Comments:[id number] Administration Instructions:May administer less potent or lower dose ofprescribed medication based on patient request promethazine hydrochloride 25 MG Oral Tablet;25 MILLIGRAM X1ED Quantity:1 Herlinda Gandara MD Start:40-Vfd-0353Lxu:2023 Comments:[id number] Administration Instructions:CONTRAINDICATIED IN CHILDREN <2 YEARS OLD 1 ML diphenhydrAMINE hydrochloride 50 MG/ML Injection;25 MILLIGRAM X1ED Quantity:1 Bill WELCH Start:34-Vau-6874Wyq:05-Oct-2024 Comments:[id number] Administration Instructions:25 mg = 0.5 ml promethazine hydrochloride 25 MG Oral Tablet;25 MILLIGRAM X1ED Quantity:1 Bill WELCH Start:13-Kbu-6322Svb:05-Oct-2024 Comments:[id number] 1 ML HYDROmorphone hydrochloride 1 MG/ML Cartridge;1 MILLIGRAM X1ED Quantity:1 Bill WELCH Start:47-Loa-4022Yra:05-Oct-2024 Comments:[id number] Administration Instructions: MUST GIVE SLOWLY OVER 2 TO 5 MINUTES VERY POTENT DRUG - USE CAUTIOUSLY! 1 ML HYDROmorphone hydrochloride 1 MG/ML Cartridge;2 MILLIGRAM X1ED Quantity:2 Melonie Galvan REBEKAH Start:15-Chj-4120Fjh:03-Oct-2024 Comments:[id number] Administration Instructions: MUST GIVE SLOWLY OVER 2 TO 5 MINUTES VERY POTENT DRUG - USE CAUTIOUSLY! promethazine hydrochloride 25 MG Oral Tablet;25 MILLIGRAM X1ED Quantity:1 Melonie Willie WELCH Start:60-Hbw-5345Mam:03-Oct-2024 Comments:[id number] 1 ML diphenhydrAMINE hydrochloride 50 MG/ML Injection;25 MILLIGRAM X1ED Quantity:1 Melonie Willie WELCH Start:37-Iqv-0336Dpp:03-Oct-2024 Comments:[id number] Administration Instructions:25 mg = 0.5 ml 1 ML HYDROmorphone hydrochloride 1 MG/ML Prefilled Syringe;0.5 MILLIGRAM X1ED Quantity:1 Melonie Willie WELCH Start:49-Gkp-1846Mfb:03-Oct-2024 Comments:[id number] Administration Instructions: MUST GIVE SLOWLY OVER 2 TO 5 MINUTES VERY POTENT DRUG - USE CAUTIOUSLY! promethazine hydrochloride 25 MG Oral Tablet;25 MILLIGRAM X1ED Quantity:1 Bridgette Gilmore MD Start:94-Odt-0247Tms:2023 Comments:[id number] 1 ML HYDROmorphone hydrochloride 1 MG/ML Cartridge;2 MILLIGRAM X1ED Quantity:2 Bridgette Gilmore MD Start:99-Swg-9146Pxe:2023 Comments:[id number] Administration Instructions: MUST GIVE SLOWLY OVER 2 TO 5 MINUTES VERY POTENT DRUG - USE CAUTIOUSLY! 1 ML HYDROmorphone hydrochloride 2 MG/ML Injection;2 MILLIGRAM X1ED Quantity:1 Amos Jacinto DO Start:99-Tld-9015Kzc:2023 Comments:[id number] promethazine hydrochloride 25 MG Oral Tablet;25 MILLIGRAM X1ED Quantity:1 Amos Jacinto DO Start:14-Lsx-3081Win:2023 Comments:[id number] cloNIDine hydrochloride 0.1 MG Oral Tablet;0.1 MILLIGRAM X1ED Quantity:1 Amos Jacinto DO Start:09-Jst-3021Bji:2023 Comments:[id number] Administration Instructions:WARNING:Look-Alike/Sound-A like Med 1 ML HYDROmorphone hydrochloride 1 MG/ML Cartridge;2 MILLIGRAM X1ED Quantity:2 Elmer WELCH Start:3-Gvd-3550Ltg:22-Jul-2024 Comments:[id number] Administration Instructions: MUST GIVE SLOWLY OVER 2 TO 5 MINUTES VERY POTENT DRUG - USE CAUTIOUSLY! 24 HR metoprolol succinate 25 MG Extended Release Oral Tablet;50 MILLIGRAM X1ED Quantity:2 Elmer WELCH Start:7-Rnj-0920Aht:22-Jul-2024 Comments:[id number] Administration Instructions:50 mg = 2 tabs lisinopril 10 MG Oral Tablet [Prinivil];20 MILLIGRAM X1ED Quantity:2 Elmer WELCH Start:8-Huj-7638Chx:22-Jul-2024 Comments:[id number] 1 ML HYDROmorphone hydrochloride 1 MG/ML Cartridge;2 MILLIGRAM X1ED Quantity:2 Bridgette Gilmore MD Start:0-Hee-2617Jww:21-Jul-20 Comments:[id number] Administration Instructions: MUST GIVE SLOWLY OVER 2 TO 5 MINUTES VERY POTENT DRUG - USE CAUTIOUSLY! promethazine hydrochloride 25 MG Oral Tablet;25 MILLIGRAM X1ED Quantity:1 Bridgette Gilmore MD Start:7-Okn-2449Ayf:21-Jul-20 24 Comments:[id number] 2 ML orphenadrine citrate 30 MG/ML Injection;60 MILLIGRAM X1ED Quantity:1 Victor Hugo Kyle PAC Start:13-Qve-0430Qct:03-Jul-2024 Comments:[id number] Administration Instructions:If giving IV: administer over 5 minuteswith patient in a supine position. 1 ML HYDROmorphone hydrochloride 1 MG/ML Cartridge;1 MILLIGRAM ONCE Quantity:1 Victor Hugo Kyle KIESHA Start:11-Efv-1663Ptn:03-Jul-2024 Comments:[id number] Administration Instructions: MUST GIVE SLOWLY OVER 2 TO 5 MINUTES VERY POTENT DRUG - USE CAUTIOUSLY! methocarbamol 750 MG Oral Tablet;750 MILLIGRAM PO Q8H Start:03-Jul-2024 Status:Discontinued Comments:750 MG PO Q8H methocarbamol 750 MG Oral Tablet;750 MILLIGRAM PO Q8H Start:03-Jul-2024 Comments:750 MG PO Q8H 1 ML morphine sulfate 4 MG/ML Prefilled Syringe;4 MILLIGRAM X1ED Quantity:1 Carla Ramos MD Start:06-Roa-7226Qhm:2023 Comments:[id number] Administration Instructions:May administer less potent or lower dose ofprescribed medication based on patient request 1 ML HYDROmorphone hydrochloride 1 MG/ML Cartridge;1 MILLIGRAM X1ED Quantity:1 Ebony WELCH Start:62-Zht-7941Fhh:2023 Comments:[id number] Administration Instructions: MUST GIVE SLOWLY OVER 2 TO 5 MINUTES VERY POTENT DRUG - USE CAUTIOUSLY! 1 ML HYDROmorphone hydrochloride 1 MG/ML Cartridge;1 MILLIGRAM X1ED Quantity:1 Melonie WELCH Start:38-Vks-9926Ckd:31-May-2024 Comments:[id number] Administration Instructions: MUST GIVE SLOWLY OVER 2 TO 5 MINUTES VERY POTENT DRUG - USE CAUTIOUSLY! oxyCODONE hydrochloride 5 MG Oral Tablet;5 MILLIGRAM PO Q4H PRN Start:31-May-2024 Status:Discontinued Comments:5 MG PO Q4H PRN As Needed for jaw pain 1 ML diphenhydrAMINE hydrochloride 50 MG/ML Injection;50 MILLIGRAM X1ED Quantity:1 Joshua Franklin DO Start:49-Aws-2438Rbg:2023 Comments:[id number] Administration Instructions:CONC: 50 MG/ML 1 ML HYDROmorphone hydrochloride 1 MG/ML Cartridge;0.5 MILLIGRAM X1ED Quantity:1 Joshua Franklin DO Start:90-Ygy-1910Ppx:2023 Comments:[id number] 250 ML sodium chloride 9 MG/ML Injection;50 MILLILITER X1ED Quantity:1 Joshua Franklin DO Start:43-Jpb-5386Gxx:2023 Status:Discontinued Comments:[id number] Administration Instructions:Rad: For flushing line afteradministration of contrast. 10 ML sodium chloride 9 MG/ML Prefilled Syringe;10 MILLILITER X1ED Quantity:1 Joshua Franklin DO Start:90-Ksd-1988Ddj:2023 Status:Discontinued Comments:[id number] Administration Instructions:Rad: For Flushing Line iopamidol;[id number] r Administration Instructions:Per ProtocolIV Contrast Dosing:For Adults > 45.5 kgGive Isovue 370 100mLInj Phase:2mL/sec: Abdominal, Pelvic, Chest,Chest/Abd, Extremity, CTV, Spine,Neck Soft Tissue,Head/Sinus/Facial/ Orbits/ISAC2.4mL/sec: CTA Abd/Pelvis, CTA Head, Quantity:0 Joshua Franklin DO Start:24-May-2024 Status:Discontinued Comments:[id number] Administration Instructions:Per ProtocolIV Contrast Dosing:For Adults > 45.5 kgGive Isovue 370 100mLInj Phase:2mL/sec: Abdominal, Pelvic, Chest,Chest/Abd, Extremity, CTV, Spine,Neck Soft Tissue,Head/Sinus/Facial/Orbits/ISAC2.4 mL/sec: CTA Abd/Pelvis, CTA Head, acetaminophen 325 MG / HYDROcodone bitartrate 5 MG Oral Tablet;1 TABLET X1ED Quantity:1 Lucia Payne MD Start:88-Evm-0106Fxs:2023 Comments:[id number] Administration Instructions:HYDROCODONE 5MG/ APAP [facility] 5/500 OR LORTAB 5/500 ketorolac tromethamine 30 MG/ML Injectable Solution;30 MILLIGRAM X1ED Quantity:1 Lucia Payne MD Start:77-Rhr-3517Mgz:2023 Comments:[id number] cloNIDine hydrochloride 0.1 MG Oral Tablet;0.1 MILLIGRAM X1ED Quantity:1 Lucia Payne MD Start:63-Noo-6160Snz:2023 Comments:[id number] Administration Instructions:MONITOR BLOOD PRESSURE acetaminophen 325 MG / oxyCODONE hydrochloride 5 MG Oral Tablet [Percocet];1 TABLET PO Q6H PRN Start:09-May-2024 Comments:1 TAB PO Q6H PRN As Needed for Acute Pain (3 Day) Morphine Sulfate 4 MG/ML Injectable Solution;8 MILLIGRAM X1ED Quantity:2 Cid Hardik Start:16-Hbq-4159Zcp:2023 Comments:[id number] Administration Instructions:If for IM: Inject undiluted into a large muscle mass (i.e.anterolateral thigh or deltoid). promethazine hydrochloride 25 MG Oral Tablet;12.5 MILLIGRAM X1ED Quantity:1 Palak Dye DO Start:84-Row-5166Rzk:2023 Comments:[id number] 1 ML promethazine hydrochloride 25 MG/ML Injection;12.5 MILLIGRAM X1ED Quantity:1 Shahid Sandra MD Start:15-Ntc-1515Wxi:2023 Comments:[id number] 1 ML morphine sulfate 4 MG/ML Prefilled Syringe;4 MILLIGRAM X1ED Quantity:1 Shahid Sandra MD Start:56-Cgm-3225Zuw:2023 Comments:[id number] DILAUDID Start:03-Jun-2014 acetaminophen 325 MG / oxyCODONE hydrochloride 10 MG Oral Tablet;1 TABLET PO Q6H PRN Start:26-Jan-2014 Comments:1 TAB PO Q6H PRN As Needed for PAIN acetaminophen 325 MG / oxyCODONE hydrochloride 5 MG Oral Tablet [Percocet];1 - 2 PO Q4H PRN Start:13-Nov-2013 Comments:1 - 2 TAB PO Q4H PRN As Needed for KIDNEY STONES insulin detemir 100 UNT/ML Injectable Solution [Levemir] Start:13-Nov-2013 ALPRAZolam 0.5 MG Oral Tablet;0.5 MILLIGRAM PO DAILY PRN Start:13-Nov-2013 Comments:0.5 MG PO DAILY PRN As Needed for N baclofen 20 MG Oral Tablet;20 MILLIGRAM PO TID Start:13-Nov-2013 Comments:20 MG PO TID 1 ML morphine sulfate 4 MG/ML Cartridge;4 X1ED Status:Aborted Comments:Provider Administration Instructions:Rx Med Source: E RxNumber: [id number] lisinopril 20 mg tablet;20 X1ED Status:Aborted Comments:Provider Administration Instructions:Rx Med Source: E RxNumber: [id number] 1 ML HYDROmorphone hydrochloride 1 MG/ML Cartridge;2 X1ED Status:Aborted Comments:Provider Administration Instructions:Rx Med Source: E RxNumber: [id number] metoprolol tartrate 50 MG Oral Tablet;50 X1ED Status:Aborted Comments:Provider Administration Instructions:Rx Med Source: E RxNumber: [id number] Social History Smoking Status Never smoked tobacco Recorded: 06-Mar-2025 Never smoked tobacco Recorded: 04-Mar-2025 Tobacco smoking consumption unknown Recorded: Feb-2025 Never smoked tobacco Recorded: 11-Feb-2025 Tobacco smoking consumption unknown Recorded: Never smoked tobacco Recorded: 05-Feb-2025 Never smoked tobacco Recorded: 29-Jan-2025 Never smoked tobacco Recorded: 27-Jan-2025 Never smoked tobacco Recorded: 20-Jan-2025 Never smoked tobacco Recorded: 19-Jan-2025 Never smoked tobacco Recorded: 16-Jan-2025 Never smoked tobacco Recorded: 14-Jan-2025 Never smoked tobacco Recorded: 13-Jan-2025 Never smoked tobacco Recorded: 04-Jan-2025 Never smoked tobacco Recorded: 30-Dec-2024 Never smoked tobacco Recorded: 22-Dec-2024 Never smoked tobacco Recorded: 10-Dec-2024 Smokes tobacco daily Recorded: 09-Dec-2024 Never smoked tobacco Recorded: 06-Dec-2024 Never smoked tobacco Recorded: 30-Nov-2024 Never smoked tobacco Recorded: 27-Nov-2024 Never smoked tobacco Recorded: 14-Nov-2024 Tobacco smoking consumption unknown Recorded: Never smoked tobacco Recorded: 09-Nov-2024 Never smoked tobacco Recorded: 07-Oct-2024 Never smoked tobacco Recorded: 05-Oct-2024 Never smoked tobacco Recorded: 03-Oct-2024 Never smoked tobacco Recorded: 09-Sep-2024 Never smoked tobacco Recorded: 22-Jul-2024 Never smoked tobacco Recorded: 21-Jul-2024 Never smoked tobacco Recorded: 03-Jul-2024 Never smoked tobacco Recorded: 30-Jun-2024 Never smoked tobacco Recorded: 27-Jun-2024 Never smoked tobacco Recorded: 31-May-2024 Never smoked tobacco Recorded: 24-May-2024 Never smoked tobacco Recorded: 09-May-2024 Never smoked tobacco Recorded: 10-Apr-2024 Tobacco smoking consumption unknown Recorded: Tobacco smoking consumption unknown Recorded: Never smoked tobacco Recorded: 29-Feb-2024 Never smoked tobacco Recorded: 27-Feb-2024 Results CBC W/AUTO DIFFERENTIAL Ordered On:24-May-2024 08:53 BASOPHIL #0.1910*9/L(Normal) R hailey:010*9/L-0.210*9/L BASOPHIL %1.7% Comments:~NO REF ERENCE RANGE ESTABLISHED DIFF TYPE AUTO V MAN UALAUTOMATED DIFF EOSINOPHIL #0.3210*9/L(Normal) R hailey:0.0210*9/L-0.510*9/L EOSINOPHIL %2.9% Comments:~NO RE FERENCE RANGE ESTABLISHED VGWVGYRKHK79.3%(Normal) Range:36 .8%-49.5% RQSEFRBNGT07.4g/dL(Normal) Range :12g/dL-16.3g/dL IMMATURE GRANULOCYTE S #0.2710*9/L(High) Range:010*9/L-0.0610*9/L IMMATURE GRANULOCYTES %2.4%(High ) Range:0%-0.7% LYMPHOCYTE #2.4410*9/L(Normal) R hailey:0.8510*9/L-3.910*9/L LYMPHOCYTE %21.9% Comments:~NO R EFERENCE RANGE ESTABLISHED MEAN CORPUSCULAR HGB27.3pg(Normal) Range:27pg-33pg MEAN CORPUSCULAR HGB CONC32.4g/dL(Normal) Range:32g/dL-36g/dL MEAN CORPUSCULAR AQLQKL25.2fL(Normal) Range:80fL-100fL MONOCYTE #0.5110*9/L(Normal) Ran ge:0.210*9/L-0.9510*9/L MONOCYTE %4.6% Comments:~NO REF ERENCE RANGE ESTABLISHED MEAN PLATELET JFYJJZ81.0fL(Normal) Range:7.5fL-12.5fL NEUTROPHIL #7.3910*9/L(High) Ran ge:1.4110*9/L-6.6910*9/L NEUTROPHIL %66.5% Comments:~NO R EFERENCE RANGE ESTABLISHED NRBC#0.0010*9/L(Normal) Range:01 0*9/L-010*9/L NRBC%0% PLATELET EUURA46098*9/L(Normal) Range:23906*9/L-54909*9/L RED BLOOD CELL4.5510*6/uL(Normal ) Range:3.9610*6/uL-5.3110*6/u L RED CELL DISTRIB WID TH CV15.5%(High) Range:11%-15% RED CELL DISTRIB WID TH SD47.2fL(Normal) Range:37.1fL-49.5fL WHITE BLOOD CELL11.1210*9/L(High ) Range:3.810*9/L-10.810*9/L BASIC METABOLIC PANEL Ordered On:24-May-2024 09:03 BLOOD UREA HOXZWMKY55sv/dL(Normal) Range:9mg/dL-23mg/dL CALCIUM9.1mg/dL(Normal) Range:8. 3mg/dL-10.6mg/dL SDNTXHEH838hfdy/L(Normal) Range: 98mmol/L-107mmol/L CARBON SQURRRQ47cwso/L(Normal) R hailey:20mmol/L-31mmol/L CREATININE0.99mg/dL(Normal) Rang e:0.55mg/dL-1.02mg/dL ANION GAP W/O K11.0mmol/L eGFR CKD-EPI (2020)69mL/min(Low) Range:>or=90 ml/min Comments:A GFR of 60-89 (mL/min/1.73 m2) without kidney damage may benormal in some people - such as the elderly and infants. GLUCOSE GGCYJZ583rq/dL(High) Ran ge:74mg/dL-106mg/dL POTASSIUM4.0mmol/L(Normal) Range :3.4mmol/L-4.5mmol/L BAZSDX336egve/L(Normal) Range:13 6mmol/L-145mmol/L Vital Signs 18-Mar-2025 09:20 O2 SAT97% Pulse89 18-Mar-2025 09:10 O2 SAT95% Pulse92 18-Mar-2025 09:00 BP Xcqwjswm040qo[Hg] BP Wlbiyzzmx94lw[Hg] 18-Mar-2025 09:00 O2 SAT95% Pulse93 18-Mar-2025 08:50 O2 SAT95% Pulse94 18-Mar-2025 08:41 BP Ttcmedxa820ko[Hg] BP Odiuawkca90dh[Hg] 18-Mar-2025 08:41 O2 SAT96% Pulse95 18-Mar-2025 08:40 O2 SAT96% Pulse92 18-Mar-2025 08:30 O2 SAT97% Pulse99 18-Mar-2025 08:21 BP Nenhwgtt825mx[Hg] BP Huxwjmnrk632nb[Hg] 18-Mar-2025 08:21 O2 SAT98% Lonpl226 18-Mar-2025 08:20 O2 SAT98% Vmdzf100 18-Mar-2025 08:10 O2 SAT97% Pulse97 18-Mar-2025 08:01 BP Dobeoqac730wy[Hg] BP Qdlntioiw13xk[Hg] 18-Mar-2025 08:01 O2 SAT97% Pulse97 18-Mar-2025 08:00 O2 SAT97% Pulse96 18-Mar-2025 07:50 O2 SAT98% Wohem539 18-Mar-2025 07:40 O2 SAT99% Kfang314 18-Mar-2025 07:33 BP Qmawrzwa167ip[Hg] BP Xvkqhathp412te[Hg] 18-Mar-2025 07:33 O2 SAT99% Eauon228 18-Mar-2025 07:30 NKM06yw Temp37.2c O2 SAT99% Ponrz321 Respiratory Rate20 BP Lwhpomkg252nq[Hg] BP Vhwzjfwic026er[Hg] Height5.1448425[ft_us] Gsjhzp526.3351141an 06-Mar-2025 16:50 Rxgdtozllwl01q Comments:98.0 Pulse98/min Comments:98 Respiratory Rate18/min Comments: 18 O2 SAT95% Comments:95 BP Tjbwhvsu364cu[Hg] Comments:23 0 BP Flguwkshh941ia[Hg] Comments:1 00 Oxygen delivery devices: Comment s:Room air Height5.6098924[ft_us] Comments: 5 Gikfro83.364kg Comments:86.364 23-May-2025 16:50 BMI29.8kg/m2 Comments:29.8 04-Mar-2025 21:09 Pulse91/min Comments:91 Respiratory Rate18/min Comments: 18 O2 SAT96% Comments:96 BP Nzmidmry277gk[Hg] Comments:19 8 BP Wwpzdlwis765wo[Hg] Comments:1 20 Oxygen delivery devices: Comment s:Room air 04-Mar-2025 20:40 Agtvyxtnaws61.7f Comments:98.7 Xhurn421/min Comments:103 Respiratory Rate18/min Comments: 18 O2 SAT98% Comments:98 BP Mkvjluja342gb[Hg] Comments:21 1 BP Yvydspsjd617wj[Hg] Comments:1 27 Oxygen delivery devices: Comment s:Room air Height5.8979713[ft_us] Comments: 5 Rbezik02.364kg Comments:86.364 04-Mar-2025 20:40 BMI29.8kg/m2 Comments:29.8 19-Feb-2025 14:46 Respiratory Rate18/min Comments: 18 Height5.3051167[ft_us] Comments: 5 Zvdyck18nq Comments:95.000 19-Feb-2025 14:46 BMI32.8kg/m2 Comments:32.8 19-Feb-2025 14:43 Zxfdgqkfvvq82.9c Comments:36.9 Pulse98/min Comments:98 O2 SJK195% Comments:100 BP Evdjvuty519mr[Hg] Comments:18 2 BP Rszvdhaea171xo[Hg] Comments:1 01 11-Feb-2025 14:10 Pulse90/min Comments:90 Respiratory Rate18/min Comments: 18 O2 SAT96% Comments:96 BP Wjzmfeiy696kf[Hg] Comments:20 6 BP Ggadpkvfn67rd[Hg] Comments:94 Oxygen delivery devices: Comment s:Room air 11-Feb-2025 12:25 Rcfuzzwijbx72.6f Comments:97.6 Pulse95/min Comments:95 Respiratory Rate18/min Comments: 18 O2 SAT99% Comments:99 BP Bacaxybg181tm[Hg] Comments:23 6 BP Qwhfbohsa041sv[Hg] Comments:1 16 Oxygen delivery devices: Comment s:Room air Height5.0524268[ft_us] Comments: 5 Norgfq12.455kg Comments:95.455 11-Feb-2025 12:25 BMI32.9kg/m2 Comments:32.9 06-Feb-2025 07:30 Pulse99/min Comments:99 Respiratory Rate18/min Comments: 18 BP Lsdffldp558tn[Hg] Comments:19 9 BP Vkhcegjlg438zv[Hg] Comments:1 33 06-Feb-2025 07:08 Mbasmnsvrmb37.9f Comments:97.9 Pulse90/min Comments:90 Respiratory Rate18/min Comments: 18 O2 SAT9% Comments:9 Height5.0324223[ft_us] Comments: 5 Yvtltm32.455kg Comments:95.455 06-Feb-2025 07:08 BMI32.9kg/m2 Comments:32.9 05-Feb-2025 11:42 BP Luimfvrk990ez[Hg] Comments:19 9 BP Pvqkfjcak60su[Hg] Comments:91 05-Feb-2025 11:40 BP Osrpaxow511xb[Hg] Comments:20 2 BP Tttfewjns915pn[Hg] Comments:1 02 05-Feb-2025 11:25 Respiratory Rate24/min Comments: 24 Oxygen delivery devices: Comment s:Room air Height5.8175966[ft_us] Comments: 5 Neumjm53.455kg Comments:95.455 05-Feb-2025 11:25 BMI32.9kg/m2 Comments:32.9 05-Feb-2025 11:23 TEMP KXPLKGP72.1c Comments:37.1 Iyegy664/min Comments:103 O2 SAT94% Comments:94 BP Rxelbywy855hz[Hg] Comments:21 3 BP Ubqkbcceg757lv[Hg] Comments:1 40 05-Feb-2025 11:23 TEMP DESQXGR56.1c Comments:37.1 Igqmx075/min Comments:103 O2 SAT94% Comments:94 BP Fzhbjyjt779xs[Hg] Comments:21 3 BP Peifgdxwj478cf[Hg] Comments:1 40 29-Jan-2025 08:21 Baycmcppweu08.4f Xkhvszvzjbj89.9c O2 SAT97% Pulse95 Respiratory Rate17 BMI32.8kg/m2 BP Hjxmcdkh733il[Hg] BP Ejrzdouxi880yi[Hg] Height5.1315552[ft_us] Appewx813.18cm Ycwpbu386.348577mc 27-Jan-2025 11:32 TEMP YVMWMKZ67.9c Comments:36.9 Pulse93/min Comments:93 Respiratory Rate14/min Comments: 14 O2 SAT98% Comments:98 BP Byraxtqz639oo[Hg] Comments:19 9 BP Vasjbgkux243qr[Hg] Comments:1 20 27-Jan-2025 11:32 TEMP HWVTQKY06.9c Comments:36.9 Pulse93/min Comments:93 Respiratory Rate14/min Comments: 14 O2 SAT98% Comments:98 BP Xmdnctlw309lu[Hg] Comments:19 9 BP Slfozzbjx351nr[Hg] Comments:1 20 27-Jan-2025 11:30 Height5.2398197[ft_us] Comments: 5 Zncyty59.455kg Comments:95.455 27-Jan-2025 11:30 BMI32.9kg/m2 Comments:32.9 20-Jan-2025 13:01 BP Esabdxsu603dl[Hg] Comments:20 7 BP Xhiykjovr353la[Hg] Comments:1 15 20-Jan-2025 12:13 Tqafiftjcpm53.6f Comments:98.6 Pulse88/min Comments:88 Respiratory Rate16/min Comments: 16 O2 SAT98% Comments:98 BP Wrozrsvs029hi[Hg] Comments:21 2 BP Snjuupxej684wo[Hg] Comments:1 23 Height5.6186611[ft_us] Comments: 5 Lyfdez14.3kg Comments:96.300 20-Jan-2025 12:13 BMI33.2kg/m2 Comments:33.2 19-Jan-2025 12:38 TEMP OGQZRDW26x Comments:37.0 Wozax827/min Comments:101 Respiratory Rate20/min Comments: 20 O2 SAT97% Comments:97 BP Dyftjkej757gk[Hg] Comments:19 8 BP Ituwnqxbm280fr[Hg] Comments:1 09 Oxygen delivery devices: Comment s:Room air Height5.3020669[ft_us] Comments: 5 Qxlxjy51hb Comments:95.000 19-Jan-2025 12:38 BMI32.8kg/m2 Comments:32.8 16-Jan-2025 15:02 Vhngiknirsd72.9c Comments:36.9 Bqbxt937/min Comments:110 O2 SAT97% Comments:97 BP Egwbdulw619pw[Hg] Comments:19 2 BP Vsgrifcrm03ac[Hg] Comments:97 16-Jan-2025 15:02 Zoutdgmgime58.9c Comments:36.9 Oibio693/min Comments:110 O2 SAT97% Comments:97 BP Qnidcogo554tm[Hg] Comments:19 2 BP Epnyiduzu77ei[Hg] Comments:97 16-Jan-2025 14:49 Height5.0697643[ft_us] Comments: 5 Nzcisb30.455kg Comments:95.455 16-Jan-2025 14:49 BMI32.9kg/m2 Comments:32.9 14-Jan-2025 10:51 Frwsurkjlmk91.6f Comments:97.6 Jgeif838/min Comments:101 Respiratory Rate18/min Comments: 18 O2 SAT94% Comments:94 BP Uinvallk701fs[Hg] Comments:24 5 BP Dbddtymzn456jo[Hg] Comments:1 21 Oxygen delivery devices: Comment s:Room air Height5.5838199[ft_us] Comments: 5 Oqxwct93.455kg Comments:95.455 14-Jan-2025 10:51 BMI32.9kg/m2 Comments:32.9 13-Jan-2025 12:35 Suzvhunsmff15.2f Comments:97.2 Pulse94/min Comments:94 Respiratory Rate16/min Comments: 16 O2 SAT94% Comments:94 BP Vfdmibwg906nb[Hg] Comments:20 8 BP Qqlqrfbsz025xk[Hg] Comments:1 14 Oxygen delivery devices: Comment s:Room air Height5.5397799[ft_us] Comments: 5 Snuynk68.455kg Comments:95.455 13-Jan-2025 12:35 BMI32.9kg/m2 Comments:32.9 04-Jan-2025 04:27 Zlcsxczihrf40.9f Comments:98.9 Pulse80/min Comments:80 Respiratory Rate18/min Comments: 18 O2 SAT98% Comments:98 BP Pyybdfzs556oz[Hg] Comments:16 6 BP Lfclcdawq025zw[Hg] Comments:1 04 Oxygen delivery devices: Comment s:Room air Height5.9013105[ft_us] Comments: 5 Zhcoal41.455kg Comments:95.455 04-Jan-2025 04:27 BMI32.9kg/m2 Comments:32.9 30-Dec-2024 05:36 Hvsndlvoffm44.2f Comments:97.2 Pulse98/min Comments:98 Respiratory Rate14/min Comments: 14 O2 SAT96% Comments:96 BP Ixrpphlm296uq[Hg] Comments:20 4 BP Xtvlnieio759uz[Hg] Comments:1 16 Oxygen delivery devices: Comment s:Room air Height5.2243929[ft_us] Comments: 5 Zfdbdx70.455kg Comments:95.455 30-Dec-2024 05:36 BMI32.9kg/m2 Comments:32.9 22-Dec-2024 08:56 Uvcauqehnkc87.6f Comments:96.6 Pulse87 Comments:87 Respiratory Rate16 Comments:16 O2 SAT98% Comments:98 BP Grfycwhx782jq[Hg] Comments:18 9 BP Gcjdjdiun185oy[Hg] Comments:1 13 Height5.0091044[ft_us] Comments: 5 Oyutfi87.4kg Comments:95.400 22-Dec-2024 08:56 BMI32.9kg/m2 Comments:32.9 17-Dec-2024 04:51 KYI57hl Temp37.1c O2 THJ470% Pulse97 Respiratory Rate16 BP Jqrycvtd159co[Hg] BP Cpthpgdcl992ye[Hg] Height5.1864971[ft_us] Sbmfbi142.6746792ty 10-Dec-2024 14:20 BP Cikgscji697uv[Hg] Comments:18 0 BP Mzxzzdded76mr[Hg] Comments:97 10-Dec-2024 13:59 Mojvmcnebzr91.4f Comments:97.4 Pulse93 Comments:93 Respiratory Rate18 Comments:18 O2 SAT95% Comments:95 BP Tdbyxrke913dj[Hg] Comments:25 0 BP Gjqgbgclc304zl[Hg] Comments:1 24 Height5.5[ft_us] Comments:5 Jzfxuz18.75kg Comments:87.750 10-Dec-2024 13:59 BMI31.2kg/m2 Comments:31.2 09-Dec-2024 16:00 Dpscy987 Comments:118 O2 SAT95% Comments:95 BP Gxmwcdnr153wz[Hg] Comments:23 1 BP Ogdufyypp84fn[Hg] Comments:96 09-Dec-2024 15:47 Xwqhyfzjmuj09.2f Comments:97.2 Flgma818 Comments:120 Respiratory Rate18 Comments:18 O2 SAT97% Comments:97 Height5.8119135[ft_us] Comments: 5 Aoymxh813al Comments:103.000 09-Dec-2024 15:47 BMI37.8kg/m2 Comments:37.8 06-Dec-2024 11:06 Bibtfxxmooh42.6f Comments:98.6 Otxkb647 Comments:101 Respiratory Rate18 Comments:18 O2 SAT98% Comments:98 BP Watyegco926qy[Hg] Comments:19 0 BP Btamttlyu86qo[Hg] Comments:96 Height5.8299392[ft_us] Comments: 5 Zbiapp51.2kg Comments:94.200 06-Dec-2024 05:08 Respiratory Rate17 Comments:17 Height5.7789604[ft_us] Comments: 5 Sabiuu48.091kg Comments:94.091 06-Dec-2024 05:08 BMI32.5kg/m2 Comments:32.5 06-Dec-2024 05:07 TEMP RSXJBPL74.9c Comments:36.9 Pulse97 Comments:97 O2 SAT98% Comments:98 BP Ykypajis092wi[Hg] Comments:12 8 BP Crtbnhpxs537hq[Hg] Comments:1 08 06-Dec-2024 05:07 TEMP VKYXTRU97.9c Comments:36.9 Pulse97 Comments:97 O2 SAT98% Comments:98 BP Zyyfdoyb545xx[Hg] Comments:12 8 BP Rzcwecctw988yt[Hg] Comments:1 08 30-Nov-2024 09:33 Pulse89 Comments:89 Respiratory Rate18 Comments:18 O2 SAT95% Comments:95 BP Ijtxfljo518wn[Hg] Comments:23 5 BP Fvheenrtb99nf[Hg] Comments:99 Oxygen delivery devices: Comment s:Room air 30-Nov-2024 08:20 TEMP KMHTYUT85.5c Comments:35.5 Pulse95 Comments:95 Respiratory Rate18 Comments:18 O2 SAT98% Comments:98 BP Peyfcbyo375nu[Hg] Comments:26 2 BP Louwaksqt972rr[Hg] Comments:1 26 Oxygen delivery devices: Comment s:Room air Height5.9087504[ft_us] Comments: 5 Psntgy37.8kg Comments:94.800 30-Nov-2024 08:20 BMI32.7kg/m2 Comments:32.7 27-Nov-2024 05:10 Yxzcoujbgol12.5c Comments:36.5 Ijhue003 Comments:102 Respiratory Rate16 Comments:16 O2 SAT98% Comments:98 BP Vcklepte112eq[Hg] Comments:25 6 BP Axpxssqbq105pj[Hg] Comments:1 24 Height5.7685304[ft_us] Comments: 5 Ijmqus39sk Comments:93.000 27-Nov-2024 05:10 BMI32.1kg/m2 Comments:32.1 14-Nov-2024 07:17 Respiratory Rate16 Comments:16 O2 SAT98% Comments:98 BP Zznbxcjk029tv[Hg] Comments:21 1 BP Pnhrtwdjt303lb[Hg] Comments:1 01 14-Nov-2024 07:06 BP Ifcurcfw196fk[Hg] Comments:22 3 BP Dfyyspyft984jh[Hg] Comments:1 08 14-Nov-2024 06:39 TEMP BUWESGT69.8c Comments:35.8 Pulse91 Comments:91 Respiratory Rate18 Comments:18 O2 AQL515% Comments:100 BP Jsxqtpej915tw[Hg] Comments:23 7 BP Yzyqjfetu093hl[Hg] Comments:1 12 Height5.7929292[ft_us] Comments: 5 Sgfqtk82.455kg Comments:95.455 14-Nov-2024 06:39 BMI32.9kg/m2 Comments:32.9 11-Nov-2024 04:50 Pulse89 Comments:89 Respiratory Rate18 Comments:18 O2 SAT99% Comments:99 BP Doejituy796xu[Hg] Comments:18 0 BP Clnwaxiwb32iz[Hg] Comments:90 11-Nov-2024 04:13 TEMP SOZYYZT16.7c Comments:36.7 Pulse92 Comments:92 Respiratory Rate18 Comments:18 O2 SAT98% Comments:98 BP Wuyfqajj423vq[Hg] Comments:20 8 BP Lebewfcxe155bv[Hg] Comments:1 07 Height5.7117721[ft_us] Comments: 5 Diuexa48.455kg Comments:95.455 11-Nov-2024 04:13 BMI32.9kg/m2 Comments:32.9 09-Nov-2024 14:53 TEMP UMIGXGN31.9c Comments:36.9 Pulse93 Comments:93 O2 SAT98% Comments:98 BP Wrsjdvyf369ur[Hg] Comments:18 9 BP Rndegcpno35yo[Hg] Comments:79 09-Nov-2024 14:35 Respiratory Rate18 Comments:18 Height5.8093971[ft_us] Comments: 5 Xiopcl06.455kg Comments:95.455 09-Nov-2024 14:35 BMI32.9kg/m2 Comments:32.9 07-Oct-2024 05:52 Pulse90 Comments:90 Respiratory Rate18 Comments:18 O2 SAT97% Comments:97 BP Apmipqvk446or[Hg] Comments:20 2 BP Fpnyqfyto32vg[Hg] Comments:98 07-Oct-2024 05:16 Jdpoh181 Comments:107 Respiratory Rate18 Comments:18 O2 SAT97% Comments:97 BP Wjyabsmd478vf[Hg] Comments:24 1 BP Qtpdnnazs793rz[Hg] Comments:1 11 Height5.3821581[ft_us] Comments: 5 Nbapto90.9kg Comments:95.900 07-Oct-2024 05:16 UII05se/m2 Comments:33.0 05-Oct-2024 06:34 Buxrryinbyj92s Comments:99.0 Lmtyj507 Comments:108 Respiratory Rate16 Comments:16 O2 SAT94% Comments:94 BP Ppsytyhk085cf[Hg] Comments:23 3 BP Esuxhuylv560bo[Hg] Comments:1 13 Height5.8779506[ft_us] Comments: 5 Svkfaq83.455kg Comments:95.455 05-Oct-2024 06:34 BMI32.9kg/m2 Comments:32.9 03-Oct-2024 16:00 Ihzjvgrrqpl41h Comments:97.0 Pulse90 Comments:90 Respiratory Rate18 Comments:18 O2 SAT97% Comments:97 BP Uhlcwzsl554ah[Hg] Comments:19 5 BP Tozkxmqfv31fj[Hg] Comments:90 03-Oct-2024 15:01 Ktmxywgbewu39.6f Comments:97.6 Pulse95 Comments:95 Respiratory Rate20 Comments:20 O2 SAT97% Comments:97 BP Samwyiqw927rp[Hg] Comments:21 7 BP Egdibmuze348wz[Hg] Comments:1 14 Height5.6823127[ft_us] Comments: 5 Tyunee91.455kg Comments:95.455 03-Oct-2024 15:01 BMI32.9kg/m2 Comments:32.9 09-Sep-2024 17:23 Mvtqewcayne93.6f Comments:96.6 Pulse98 Comments:98 Respiratory Rate18 Comments:18 O2 SAT90% Comments:90 BP Gltwjyeo795ey[Hg] Comments:19 7 BP Rmjpouvml738kn[Hg] Comments:1 10 Height5.5715736[ft_us] Comments: 5 Mhhqsl75.455kg Comments:95.455 09-Sep-2024 17:23 BMI32.9kg/m2 Comments:32.9 06-Sep-2024 09:06 Ieoermlabhx85.3f Comments:98.3 Pulse87 Comments:87 Respiratory Rate18 Comments:18 O2 SAT98% Comments:98 BP Mccilkdv456ii[Hg] Comments:19 8 BP Dnwvddktv017mp[Hg] Comments:1 01 06-Sep-2024 08:45 Yigwmlfsnou65.3f Comments:98.3 Pulse91 Comments:91 Respiratory Rate18 Comments:18 O2 SAT97% Comments:97 BP Jjvfnile218lf[Hg] Comments:22 3 BP Lbtwfubtb416un[Hg] Comments:1 23 Height5.2042174[ft_us] Comments: 5 Fudpfm08.3kg Comments:94.300 22-Jul-2024 10:23 Pulse87 Comments:87 Respiratory Rate17 Comments:17 O2 SAT92% Comments:92 BP Cpshdwnd869wz[Hg] Comments:22 5 BP Dwdrwonjk227nl[Hg] Comments:1 04 22-Jul-2024 09:00 Asindfjxhev14.3f Comments:96.3 Pulse96 Comments:96 Respiratory Rate18 Comments:18 O2 SAT97% Comments:97 BP Nlrhslgr284kg[Hg] Comments:23 3 BP Fjidkrpoy644nh[Hg] Comments:1 28 Height5.7245559[ft_us] Comments: 5 Jghhjt86.455kg Comments:95.455 22-Jul-2024 09:00 BMI32.9kg/m2 Comments:32.9 21-Jul-2024 13:01 Cflwctxkimk04.4f Comments:98.4 Pulse89 Comments:89 Respiratory Rate17 Comments:17 O2 SAT96% Comments:96 BP Nfirfdlw897sc[Hg] Comments:18 4 BP Wrueoltsk82fn[Hg] Comments:94 Height5.9557366[ft_us] Comments: 5 Pysivv55.455kg Comments:95.455 21-Jul-2024 13:01 BMI32.9kg/m2 Comments:32.9 03-Jul-2024 15:25 Yzflisedjuw53.4f Comments:97.4 Pulse97 Comments:97 Respiratory Rate20 Comments:20 O2 SAT97% Comments:97 BP Wlagikps262na[Hg] Comments:21 6 BP Llnzzvymb390kx[Hg] Comments:1 15 Height5.6411897[ft_us] Comments: 5 Dsuzsc19.455kg Comments:95.455 03-Jul-2024 15:25 BMI32.9kg/m2 Comments:32.9 30-Jun-2024 11:06 Pulse81 Comments:81 Respiratory Rate18 Comments:18 O2 SAT94% Comments:94 BP Jtwfbwnl211yk[Hg] Comments:19 0 BP Guqdvlsha902gj[Hg] Comments:1 15 30-Jun-2024 10:44 Pulse96 Comments:96 Respiratory Rate18 Comments:18 O2 SAT98% Comments:98 Height5.2336601[ft_us] Comments: 5 Kthukh00vw Comments:80.000 30-Jun-2024 10:44 BMI32.2kg/m2 Comments:32.2 27-Jun-2024 16:16 Bwkjyknlxoj45.7f Comments:98.7 Pulse93 Comments:93 Respiratory Rate14 Comments:14 O2 SAT94% Comments:94 BP Dcbzndic888ak[Hg] Comments:20 8 BP Ubbcqhoga29hs[Hg] Comments:99 27-Jun-2024 15:17 BP Qlpgjkzh157su[Hg] Comments:20 7 BP Hhxroxpas151pa[Hg] Comments:1 02 27-Jun-2024 15:15 Pulse94 Comments:94 O2 SAT95% Comments:95 BP Sihfkfbn230qj[Hg] Comments:23 1 BP Evwkjrvjj643xi[Hg] Comments:1 16 27-Jun-2024 15:08 Etpbamdauca01.4f Comments:97.4 Pulse99 Comments:99 Respiratory Rate18 Comments:18 O2 SAT97% Comments:97 BP Pdkpruwo665el[Hg] Comments:23 1 BP Aoudwnwhy417wb[Hg] Comments:1 16 Height5.4047012[ft_us] Comments: 5 Uxxfzz48.455kg Comments:95.455 27-Jun-2024 15:08 BMI32.9kg/m2 Comments:32.9 31-May-2024 17:30 Pulse84 Comments:84 Respiratory Rate22 Comments:22 O2 SAT93% Comments:93 BP Kbdbjhyz423hu[Hg] Comments:20 0 BP Dsalithud875fj[Hg] Comments:1 10 31-May-2024 17:00 Pulse80 Comments:80 Respiratory Rate23 Comments:23 O2 SAT94% Comments:94 BP Cazlveyw787td[Hg] Comments:23 9 BP Aiemzhahn369nj[Hg] Comments:1 12 31-May-2024 16:45 Pulse85 Comments:85 Respiratory Rate18 Comments:18 O2 SAT95% Comments:95 BP Zlkhzseg490bq[Hg] Comments:26 5 BP Rnlhqcviz604xf[Hg] Comments:1 25 31-May-2024 15:57 Vsukjnpewtn28.3f Comments:97.3 Pulse93 Comments:93 Respiratory Rate18 Comments:18 O2 SAT98% Comments:98 BP Xxywuskr687nt[Hg] Comments:23 8 BP Xtaitipak493xr[Hg] Comments:1 26 Height5.1111776[ft_us] Comments: 5 Fmfmha19.455kg Comments:95.455 31-May-2024 15:57 BMI32.9kg/m2 Comments:32.9 24-May-2024 09:01 Pulse91 Comments:91 O2 SAT96% Comments:96 BP Vczcrexs343ad[Hg] Comments:24 9 BP Wqlwzvenu453zy[Hg] Comments:1 17 24-May-2024 08:10 Fgkpdfvrtrk69.6c Comments:36.6 Pulse97 Comments:97 Respiratory Rate18 Comments:18 O2 SAT97% Comments:97 BP Tvbjksto212up[Hg] Comments:25 8 BP Ghzeixtsm964px[Hg] Comments:1 26 Height5.1483541[ft_us] Comments: 5 Vkwbmd82.455kg Comments:95.455 24-May-2024 08:10 BMI32.9kg/m2 Comments:32.9 09-May-2024 18:47 Pulse84 Comments:84 Respiratory Rate16 Comments:16 O2 SAT98% Comments:98 BP Rpruxwgb251li[Hg] Comments:22 6 BP Hwbmzltbc726iv[Hg] Comments:1 09 Oxygen delivery devices: Comment s:Room air 09-May-2024 18:20 Pulse83 Comments:83 O2 SAT98% Comments:98 BP Tqlbhnxi702jx[Hg] Comments:19 7 BP Lznnptfkr886wy[Hg] Comments:1 38 09-May-2024 18:20 Pulse83 Comments:83 O2 SAT98% Comments:98 BP Zmqlcuxm626ly[Hg] Comments:19 7 BP Hpxqhpcqz995nf[Hg] Comments:1 38 09-May-2024 18:11 Pulse84 Comments:84 Respiratory Rate16 Comments:16 O2 SAT99% Comments:99 BP Eiezeyga395gu[Hg] Comments:20 6 BP Rbbaaleiv996ug[Hg] Comments:1 24 Oxygen delivery devices: Comment s:Room air 09-May-2024 17:22 TEMP BCGAQNN76.4c Comments:37.4 Pulse87 Comments:87 Respiratory Rate15 Comments:15 O2 SAT97% Comments:97 BP Qkocbdzl470ot[Hg] Comments:22 7 BP Reuegymid569zf[Hg] Comments:1 27 09-May-2024 17:22 TEMP BRHATTR88.4c Comments:37.4 Pulse87 Comments:87 Respiratory Rate15 Comments:15 O2 SAT97% Comments:97 BP Oslhbibm588et[Hg] Comments:22 7 BP Msxliiadw252ym[Hg] Comments:1 27 09-May-2024 17:19 Respiratory Rate16 Comments:16 Height5.1978628[ft_us] Comments: 5 Tededo55.455kg Comments:95.455 09-May-2024 17:19 BMI32.9kg/m2 Comments:32.9 10-Apr-2024 17:40 Xqfxrefxikh86.1c Comments:37.1 Pulse84 Comments:84 Respiratory Rate18 Comments:18 O2 KWP882% Comments:100 BP Uyivsvrj333gk[Hg] Comments:20 1 BP Ydifuysyf21pc[Hg] Comments:99 10-Apr-2024 16:53 Resrgpddxau69.2c Comments:37.2 Pulse87 Comments:87 Respiratory Rate18 Comments:18 O2 NIS017% Comments:100 BP Hbluvccm479br[Hg] Comments:22 6 BP Ucoptkymv859vi[Hg] Comments:1 09 Height5.4407222[ft_us] Comments: 5 Jlwtvf48.455kg Comments:95.455 10-Apr-2024 16:53 BMI32.9kg/m2 Comments:32.9 30-Mar-2024 16:36 Hvqukhkfxfr82.3f Comments:98.3 Pulse91 Comments:91 Respiratory Rate18 Comments:18 O2 SAT98% Comments:98 BP Oclqjkgr083uz[Hg] Comments:21 3 BP Bnnfasgqa681jm[Hg] Comments:1 22 Height5.3578892[ft_us] Comments: 5 Jjaaml255mv Comments:100.000 30-Mar-2024 16:36 BMI36.6kg/m2 Comments:36.6 Encounters Emergency Encounter Reason:HAS JAW CANCER HAS PAIN 18-Mar-2025 07:[id number] 09:21 [place] Discharge Disposition:Discharged to home or self care (routine discharge) Alexandr Trinidad MD-18-Mar-[address] [address]Wxecw: [phone] ed PHYSICIAN RECORDPatient Name: ROSSY EARL NEREYDAISEDOB: 1975 Age: 50 Sex: FAcct: [id number] MR#: [id number]: Author: Amos Strange MDPatient Status: REG ER Patient Location: .ERDate of Admission/Service: 03/18/25Report Date/Time: 03/18/25828 Report Status: DraftReport#: [id number] Illness- Chief ComplaintChief Complaint: Other (jaw pain)- GeneralTime Seen by Provider: 03/18/25 07:42Past Medical History - Adult- Nursing NotesStated Complaint: HAS JAW CANCER HAS PAINAllergies/Adverse Reactions: AllergiesAllergy/AdvReac Type Severity Reaction Status Date / TimeIodinated Contrast Media Allergy Hives Verified 03/18/25 07:34meperidine (From Demerol) Allergy Hives Verified 03/18/25 07:34vancomycin Allergy Red Man Verified 03/18/25 07:34 SyndromeNSAIDS (Non-Steroidal AdvReac SVT/EXCESSIVE Verified 03/18/25 07:34Anti-Inflamma BLEEDINGondansetron (From Zofran) AdvReac Vomiting Verified 03/18/25 07:34Physical Exam- Initial Vital SignsVital Signs - First Documented:Patient Name: ROSSY EARL Acct: [id number] Unit: [id number] Page 1 Vital Signs - First DocumentedBlood pressure 221/120 H 03/18/25 07:30Blood pressure location Arm upper right 03/18/25 07:30Blood pressure source Non- invasive monitor 03/18/25 07:30Temperature 99 F 03/18/25 07:30Temperature source Oral 03/18/25 07:30Pulse 100 03/18/25 07:30Pulse location Radial 03/18/25 07:30Pulse source Palpation 03/18/25 07:30Respiratory rate 20 03/18/25 07:30Respiratory source Observed 03/18/25 07:30Vital signs position Sitting 03/18/25 07:30Bedside pulse oximetry/SpO2 99 03/18/25 07:30Oxygen delivery devices Room air 03/18/25 07:30Weight 95.5 kg 03/18/25 07:30Weight source Stated/Reported 03/18/25 07:30Body surface area 2.16 03/18/25 07:30Body mass index 33.0 03/18/25 07:30Height 1.7 m 03/18/25 07:30Height source Stated/Reported 03/18/25 07:30Re-Evaluation MDM- Free Text MDM NotesText/Dict MDM Notes:HISTORY OF PRESENT ILLNESS:Patient is an adult with a history of osteosarcoma of the jaw, multiple prior surgeries (sevenreported), multiple sclerosis (MS), supraventricular tachycardia (SVT), and hypertension whopresents with severe breakthrough jaw pain refractory to her home regimen. She reports that her painis usually managed with Percocet 10 mg, which she takes as needed (typically 1?4 tablets per day,with higher use on bad pain days), but over the past 24 hours her pain has been severe andPatient Name: ROSSY EARL Acct: [id number] Unit: [id number] Page 2unrelieved by her last dose at 4:00 AM. She is not under formal pain management due to lack ofinsurance and is unable to access long-acting opioids. She has previously received IM Dilaudid inthe ER for similar episodes, with good effect. She is allergic to NSAIDs and cannot take them due toSVT and bleeding risk. Gabapentin was trialed but discontinued due to worsening balance andincreased falls related to her MS. She is not currently receiving chemotherapy due to financialconstraints and is seeking care at [facility] for possible future treatment. She denies fever,drainage, or other infectious symptoms. She also requests a dose of her antihypertensive medications(metoprolol and lisinopril), as she is currently out and will refill them later.Medications: Percocet 10 mg as needed (up to 4/day), metoprolol 50 mg, lisinopril 20 mg, Tylenol asneeded.Allergies: NSAIDs (due to SVT and bleeding risk).Past Medical History: Osteosarcoma of the jaw, multiple sclerosis, supraventricular tachycardia,hypertension, history of excessive bleeding.Surgical History: Seven prior surgeries for jaw osteosarcoma.REVIEW OF SYSTEMS:All systems reviewed and negative except as indicated in history and below.Constitutional: Denies fever.ENT: Reports severe jaw pain, mass increasing in size.Cardiovascular: Reports hypertension, out of antihypertensive medications.Neurological: History of MS, reports increased falls with gabapentin in the past.Skin: Denies drainage or signs of infection.PHYSICAL EXAM:General: Awake, alert, no acute distressHEENT: Atraumatic, EOMI, PERRL, mucous membranes moist.NECK: Supple, atraumatic, trachea midlineCardiovascular: Regular rate, regular rhythmRespiratory: Normal effort. Speaking in full sentences without difficulty.Abdominal: Nondistended, no visible massesMSK: Normal ROM BUE/BLE. No visible signs of trauma.Skin: Warm and dry.Lymphatic: No gross lymphadenopathy, no cervical lymphadenopathyNeuro: AAOx3, GCS 15. Speech fluent. No gross lateralizing signs.Psych: Mood and affect appropriate.EVALUATIONS:Patient Name: ROSSY EARL Acct: [id number] Unit: [id number] Page 3INITIAL EVALUATION AND PLAN:- Administer IM Dilaudid for breakthrough pain- Administer metoprolol and lisinopril dose in ED- Observe patient for 30?45 minutes for response and blood pressure monitoring- Send prescription for antihypertensive medications- No infectious workup planned per shared decision-making- Discussed possible alternative pain management options (duloxetine, etc.)- ED CourseOrders-All:03/18/25 07:50morphine 4 mg IV X1ED STA03/18/25 07:58HYDROmorphone [Dilaudid] 2 mg IM X1ED STALisinopril [PriniviL] 20 mg PO X1ED STAMetoprolol Tartrate [Lopressor] 50 mg PO X1ED STADischarge Plan- Discharge PlanReason For Visit: HAS JAW CANCER HAS PAIN- InstructionsPrescriptions:No Action lisinopril 20 mg Tablet 20 mg PO BID Last Taken: Unknown metoprolol succinate 50 mg Tablet Extended Release 24 Hr 50 mg PO DAILY Last Taken: Unknown oxycodone-acetaminophen [Percocet] 10-325 mg Tablet 1 tab PO Q6H Last Taken: 03/18/25Patient Name: ROSSY EARL Acct: [id number] Unit: [id number] Page 4 Emergency Encounter Reason:JAW PAIN FROM JAW CA Encounter Diagnosis:Jaw pain,custodial (current) use of opiate analgesic,Personal history of malignant neoplasm of bone,Other chronic pain 06-Mar-2025 16:[id number] 17:29 [facility] Discharge Disposition:Discharged to home or self care (routine discharge) Chani Hanna MD-06-Mar-2025 [facility] ([facility] [place] [facility] ([facility])EMERGENCY PROVIDER REPORTREPORT#:[id number] REPORT STATUS: ESignDATE:03/06/25 TIME: 1714PATIENT: ROSSY AVALOS UNIT #: [id number]#: [id number] [facility] [birth year] AGE: 50 SEX: PCP PHYS: NO PRIMARY OR FAMILY PHYSICIANADM DATE: 03/06/25 INI AUTH: Jacques Wilde MDED ADMIT LAST SIG: Jacques Wilde MDREP SERV REP SERV TM: 1714 * ALL edits or amendments must be made on the electronic/computer document *HPI GREETGeneralInitial Greet Date/Time 03/06/25 1618Clinical NoteClinical NoteFirst Documented: Result Date Time Pulse Ox 95 03/06 1650 B/P 230/100 03/06 1650 O2 Delivery Room air 03/06 1650 Temp 36.7 03/06 1650 Pulse 98 03/06 1650 Resp 18 03/06 1650Last Documented: Result Date Time Pulse Ox 95 03/06 1650 B/P 230/100 03/06 1650 O2 Delivery Room air 03/06 1650 Temp 36.7 03/06 1650 Pulse 98 03/06 1650 Resp 18 03/06 1650HPIChief Complaint: Left jaw pain, history of osteosarcoma of jaw.History: This is a 50-year-old female with a past medical history significantfor multiple sclerosis, white coat/malignant hypertension, osteosarcoma with jawcoming in with left jaw pain. Patient states she is from [place] works as [employer] and is scheduled start dedicated radiation therapy in [place] next week. She has noticed documentation expressing this, she was prescribed Percocethowever she states pain is worse today she has no nausea or vomiting. Shedenies any new trauma, she states that she normally gets 1 dose of IMmedication.Outside hospital notes reviewed: Patient seen here 01/2025 for similarpresentation, has been seen at [facility] as well as [facility] for similar presentation with associated white coat hypertension.ROSConstitutional: Negative for cough, shortness of breath, sputum production,trouble breathing, wheezing.HEENT: Positive for left jaw pain, no for congestion, sore throat, epistaxis,blurry vision, ocular discharge.Pulmonary: Negative for cough, shortness of breath, sputum production, troublebreathing, wheezing.Cardiac: Negative for chest pain, chest pressure, lightheadedness, syncope,palpitations.Gastrointestinal: Negative for abdominal pain, nausea, vomiting, diarrhea, blackstools, bright red blood per rectum.Genitourinary: Negative for dysuria, flank pain, hematuria.Musculoskeletal: Negative for neck pain, back pain, joint pain, joint swelling.Skin: Negative for abrasion, erythema, rash, ulceration.Neurologic: Negative for headache, numbness, syncope, focal weaknessHematologic: Negative for history of easy bleeding or bruising.PMH FH SHPMH: Osteosarcoma of the GI.Social History: Denies chronic alcohol use, iv drug use.ExamConstitutional: Triage summary reviewed, vital signs reviewed, patient alert andoriented x 3.HEENT: Tenderness along the left premolar region of lower mandible, airwaysclear, extraocular is intact.Respiratory: Normal breath sounds, no wheezing, no rhonchi, no rales, accessorymuscle use, increased work of breathing.Cardiac: Normal rate, regular rhythm, no murmurs, rubs, or gallops, normal s1,normal s2, no edema, normal distal pulses.Gastrointestinal: Abdomen soft, nontender, nondistended. No rebound, noguarding.Skin: Well perfused, warm and dry, no rash.Musculoskeletal: Full range of motion of 4 extremities, no tenderness orswelling.Neurologic: Alert and oriented x 3, strength 5/5 upper and lower extremities,normal sensory exam, CN III-XII intact, Normal gait.Psychiatric: Normal mood.MDMDifferential Diagnosis: Osteosarcoma of the jaw, breakthrough pain, dentalabscess, hypertensive urgency versus emergency, amongst others.Medical Decision Making: This is a 48-year-old female coming in withbreakthrough left jaw pain that she states is secondary to her osteosarcoma ofthe jaw. Reviewing notes as well as Cor[place], patient has had previous ER visitsfor this, most recently one month ago. [place] thisyear, she states she currently has it scheduled for next week, she has a lot ofPercocet which she states does not help. There is no signs of airway compromisecurrently she is hypertensive in the 230s. Reviewing notes being the patient pricila have a history of whitecoat hypertension she has no signs of endorgandamage, he declines antihypertensive treatment at this time spoke with patientand there will be able to give her a one-time dose here however she will need tohave her outpatient Percocet prescription refilled by cancer doctor. Will planto discharge patient with outpatient follow-up and return precautions.Medical Decision Making / Complexity of ProblemMedical Decision Making Discussion: [_medical decision making_].- Number and complexity of problems addressed: 1 undiagnosed new problem withuncertain prognosis.- I have reviewed prior external notes from: previous EHR inpatienthospitalization notes, external records on [employer] [facility] [employer].- Risk of Complications and/or Morbidity or Mortality of Patient Management:moderate.- Medications/prescriptions management: parenteral controlled substanceadministered, drug therapy requiring intensive monitoring for toxicity,prescription drug management.- Based on the seriousness of patient's presentation and comorbidities, thefollowing interventions were ordered and done: medications.- Disposition of the patient/consideration of hospitalization: there is noindication for acute hospitalization at this time, patient will be discharged.Past Medical HistoryStated Complaint JAW PAIN FROM JAW CAAllergiesCoded Allergies:Iodinated Contrast Media (Intermediate, HIVES 07/03/24)NSAIDS (Non-Steroidal Anti-Inflamma (Intermediate, CONTRAINDICATED 07/03/24)meperidine (From DEMEROL) (Intermediate, HIVES 07/03/24)vancomycin (Intermediate, LEXI SYNDROME 07/03/24)ondansetron (From ZOFRAN) (Mild, VOMITING 07/03/24)Home MedicationsActive ScriptsoxyCODONE/ACETAMINOPHEN (PERCOCET 7.5/325 MG) 1 TAB PO Q4H PRN PRN breakthroughpain only oxyCODONE/ACETAMINOPHEN (PERCOCET 7.5/325 MG) 1 TAB PO Q4H PRN PRNbreakthrough pain only #10 TAB Prov: 01/14/25oxyCODONE/ACETAMINOPHEN (PERCOCET 7.5/325 MG) 1 TAB PO Q4H PRN PRN breakthroughpain oxyCODONE/ACETAMINOPHEN (PERCOCET 7.5/325 MG) 1 TAB PO Q4H PRN PRNbreakthrough pain #10 TAB Prov: 01/14/25METHOCARBAMOL (ROBAXIN) 750 MG PO Q8H PRN pain METHOCARBAMOL (ROBAXIN) 750 MG PO Q8H PRN pain #20 TAB Prov: 07/21/24oxyCODONE (ROXICODONE) 5 MG PO Q4H PRN PRN jaw pain oxyCODONE (ROXICODONE) 5 MG PO Q4H PRN PRN jaw pain #15 TAB Prov: 05/31/24MUPIROCIN (BACTROBAN 2%) 1 APPLIC TOPICAL BID MUPIROCIN (BACTROBAN 2%) 1 APPLIC TOPICAL BID #22 GM Prov: 10/03/24METHOCARBAMOL (ROBAXIN) 750 MG PO Q8H METHOCARBAMOL (ROBAXIN) 750 MG PO Q8H #20 TAB Prov: 07/03/24COURSEMed DataMed DataMedication(s) Ordered:Central Nervous System Agents Sig/Onelia Start time Last Medication Dose Route Stop Time Status Admin Hydromorphone HCl 1 MG X1ED ONE 03/06 1658 DC 03/06 IM 03/06 1659 1715Patient Discharge DepartureVital Signs/ConditionVital SignsFirst Documented: Result Date Time Pulse Ox 95 03/06 1650 B/P 230/100 03/06 1650 O2 Delivery Room air 03/06 1650 Temp 36.7 03/06 1650 Pulse 98 03/06 1650 Resp 18 03/06 1650Last Documented: Result Date Time Pulse Ox 95 03/06 1650 B/P 230/100 03/06 1650 O2 Delivery Room air 03/06 1650 Temp 36.7 03/06 1650 Pulse 98 03/06 1650 Resp 18 03/06 1650All vital signs available at the time of this entry have been reviewed.Clinical ImpressionClinical ImpressionPrimary Impression: Chronic jaw painDisposition DecisionDischarge )( Discharged to Home Yes )( Time 1719 )( Date 03/06/25Discharge/Care PlanAdditional InstructionsThank you for visiting the ER today. Today we performed exam and we found noacute abnormalities, we prescribed with pain medicine and observed in the ER.Please take medications as directed, please return for worsening pain, inabilityto eat/drink, fevers, or any other complaints. Please follow up as directed.ReferralsProvider Group: .Your Provider Follow-Up: 2 DaysDeparture Forms*[facility] AD[facility] at [address]RPT #: [id number] OF REPORT Emergency Encounter Reason:L SIDE JAW PAIN FROM OSTE[facility]ARCOMA Encounter Diagnosis:Neoplasm related pain (acute) (chronic) 04-Mar-2025 20:[id number] 21:12 Romeo Tao DO (Attending) [facility] Discharge Disposition:Discharged to home or self care (routine discharge) Jax Shafer [id number]-Mar-2025 [facility])EMERGENCY PROVIDER REPORTREPORT#:[id number] REPORT STATUS:SignedDATE:03/04/25 TIME:2049PATIENT: ROSSY AVALOS UNIT #: [id number]#: [id number] [facility]: [facility] AGE: 50 SEX: F PCP PHYS: No Primary or Family PhysicianSERVICE AUTHOR: Luciano Camara REP [facility] TM: 2049* ALL edits or amendments must be made on the electronic/computer document *Luciano Camara 03/04/252049:HPI-General IllnessFree Text HPI NotesFree Text HPI Notes50 yo F pmh L mandibular bone CA arrives states need help w pain control. is onroad w her sig nother and has oxy but has pain episode. has providers [facility] help manageme this. Denies any othery symptoms at this time.GeneralConfirmed Patient YesPatient Type New patientInitial Greet Date/Time 03/04/252037PresentationChief Complaint __ (L jaw pain )Hx Obtained From PatientSudden in Onset? NoOnset Occurred Chronic (worse today)Symptom Duration Since onsetProgression since Onset UnchangedContext of Onset restCaused by No trauma by historyContext: Occurred at restLocation jawQuality AchingRadiationDoes not radiate.Pain/Sev: Onset MildPain/Sev: Current ModerateAssociated withDenies: Abdominal pain, Anorexia, Chest pain, Difficulty breathing, Difficultyswallowing, Headache, Itching, Weak extremity, Weakness.Exacerbated by NothingRelieved by NothingReview of SystemsROS StatementsAll systems rev neg except as marked.Complete sys rev neg except as marked.Review of SystemsConstitutionalDenies: Chills, Fever.Ears/Nose/ThroatDenies: Sore throat.RespiratoryDenies: Shortness of breath.CardiovascularDenies: Chest pain.SkinDenies: Rash.Past Medical History - AdultStated Complaint L SIDE JAW PAIN FROM OSTEOCARCOMAAllergiesCoded Allergies:NSAIDS (Non-Steroidal Anti-Inflamma (UNKNOWN 03/04/25)meperidine (From DEMEROL) (UNKNOWN 03/04/25)ondansetron (From ZOFRAN) (UNKNOWN 03/04/25)vancomycin (UNKNOWN 03/04/25)Uncoded Allergies:IV CONTRAST (UNKNOWN 03/04/25)Review of Nursing Notes Triage notes reviewed, Rapid assess notes revPt reports no significant: Family history, Social historyAdditional Medical Historybone caSmoking status for patients 13 years old or older: Never SmokerAmbulatory Status IndependentPhysical ExamVital SignsVital SignsFirst Documented: Result Date Time Pulse Ox 98 03/04 2040 B/P 211/127 03/04 2040 O2 Delivery Room air 03/04 2040 Temp 37.1 03/04 2040 Pulse 103 03/04 2040 Resp 18 03/04 2040Last Documented: Result Date Time Pulse Ox 96 03/04 2109 B/P 198/120 03/04 2109 O2 Delivery Room air 03/04 2109 Pulse 91 03/04 2109 Resp 18 03/04 2109 Temp 37.1 03/04 2040Review of Vital Signs ReviewedFree Text PE NotesFree Text PE NotesGeneral: no acute distress, non toxicHead: atraumatic/NC, no periorbital swellingEyes: PERRL, conj clearResp: no respiratory distress, no retractions, no increased WOB.CV: reg rate/rhythmMusculoskeletal: no gross abnormality, full ROM all ext w baselineSkin: no obvious rashes, dryNeuro: alert and oriented per age, gross movement normalpsych: normal thought content per age, normal mood/affectInterpretation DiagnosticsLab Results InterpretationConsiderations Reviewed prior recordsPoint of Care TestingPulse Oximetry Pulse Ox % 98 On: Room air Interpretation Interpreted by me, Pulse oximetry normalRe-Evaluation MDMFree Text MDM NotesFree Text MDM NotesThe patient presented with an acute illness which poses a threat to life andbodily function. Differential included, but not limited to those listed in thedifferential diagnosis section of this note. I have independently ordered,reviewed and interpreted each lab result(s) and imaging and interpretation/review by me listed in interpretation and diagnostics section of this note. The patient s care was impacted by Social Determinants of Health: constraintsimpacting follow up).The patient is at high risk of morbidity and mortality due to current conditionwhich I have discussed with the patient and/or family at bedside. Physicial examand history obtained using combination of my direct physical exam/interview,self directed exam, and nursing exam/interview under my direct observation. Re-eval obtained by myself and/or nursing staff. Initial greet time reflects greettime by ACT. Pt/family agrees to mandatory f/u.Discharge planning discussed with patient/family during interview and ER stayand further discharge planning and discussion performed by RN as well and RNstates pt/family has no further questions when RN discharged patient fromhospital.Re-Evaluation/Progress #1Time of Re-Eval 2056Re-Eval Status ImprovedPain Re-Evaluation Pain improvedPlan Post Re- Eval Plan dischargeED CoursePatient Course StableMedication(s) OrderedMedication(s) Ordered:Central Nervous System Agents Sig/Onelia Start time Last Medication Dose Route Stop Time Status Admin Hydromorphone HCl 1 MG X1ED STA 03/04 2045 DC 03/04 IM 03/04 Acetaminophen 500 MG X1ED STA 03/04 2042 DC PO 03/04 2043Rx Drug Regimen Continue with currentNotes Reviewed Prior ED visitSafety Concerns Patient is safeDifferential DiagnosisDifferential Diagnosis chronic pain, bone caFindings/Social DeterminantsPresentation AcuteSeverity Evaluation Serious conditionDiagnosis Appears ClearPatient Discharge DepartureVital Signs/ConditionVital SignsFirst Documented: Result Date Time Pulse Ox 98 03/04 2040 B/P 211/127 03/04 2040 O2 Delivery Room air 03/04 2040 Temp 37.1 03/04 2040 Pulse 103 03/04 2040 Resp 18 03/04 2040Last Documented: Result Date Time Pulse Ox 96 03/04 2109 B/P 198/120 03/04 2109 O2 Delivery Room air 03/04 2109 Pulse 91 03/04 2109 Resp 18 03/04 2109 Temp 37.1 03/04 2040All vital signs available at the time of this entry have been reviewed.Condition StableClinical ImpressionClinical ImpressionPrimary Impression: Cancer associated painDisposition DecisionDischarge )( Discharged to Home Yes )( Time 2052 )( Date 03/04/25Discharge/Care PlanCounseled Regarding DiagnosisPrescriptions Reviewed Risks, BenefitsPatient Instructions ED Chronic PainDeparture FormsREFERRALRETURN TO WORK/SCHOOL Discharge NoteI have spoken with the patient and/or caregivers. I have explained the patient'scondition, diagnoses and treatment plan based on the information available to meat this time. I have answered the patient's and/or caregiver's questions andaddressed any concerns. The patient and/or caregivers have as good anunderstanding of the patient's diagnosis, condition and treatment plan as can beexpected at this point. The vital signs have been stable. The patient'scondition is stable and appropriate for discharge from the emergency department.The patient will pursue further outpatient evaluation with the primary carephysician or other designated or consulting physician as outlined in thedischarge instructions. The patient and/or caregivers are agreeable to this planof care and follow-up instructions have been explained in detail. The patientand/or caregivers have received these instructions in written format and haveexpressed an understanding of the discharge instructions. The patient and/orcaregivers are aware that any significant change in condition or worsening ofsymptoms should prompt an immediate return to this or the closest emergencydepartment or a call to 911.Morris Walters 03/10/25 0948:Patient Discharge DepartureDischarge/Care PlanReferralsProvider Referral: Clarisse Ley MD Address: [address] [place] [address], [address] [place], [place] [id number] Physician Note MidLv Saw Pt AloneI have reviewed the PA/MORTARMAN's note and plan of care. I was available forconsultation as needed at all times during the patient's visit in the emergencydepartment. I agree with the clinical impression, plan and disposition. at 0414 at 0951RPT #: [id number] OF REPORT Emergency Encounter Reason:HX CA OF LT JAW, HAVING BREAK THRU PAIN Encounter Diagnosis:Gastro-esophageal reflux disease without esophagitis,Type 2 diabetes mellitus without complications,custodial (current) use of insulin,Malignant neoplasm of head, face and neck 19-Feb-2025 14:[id number] 15:15 [facility] Discharge Disposition:Discharged to home or self care (routine discharge) Nancy Pope DO-19-Feb-2025 [facility] [place] DepartmentEMERGENCY PROVIDER REPORTREPORT#:[id number] REPORT STATUS: ESignDATE:02/19/25 TIME: 1451PATIENT: ROSSY AVALOS UNIT #: [id number]#: [id number] ROOM/BED: ED - E10DOB: [birth year] AGE: 50 SEX: PCP PHYS: DOES NOT KNOWADM DATE: INI AUTH: Claudette Cruz DO LAST SIG: Claudette Cruz DOREP SERV REP SERV TM: 1451 * ALL edits or amendments must be made on the electronic/computer document *HPI-Dental/Mouth ProbFree Text HPI NotesFree Text HPI NotesPatient is a 50-year-old female with past medical history of osteomyelitis ofthe 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 Patient is currently pending radiotherapy and additional surgery which issupposed to began taking place in the next 2 weeks. She presents today for paincontrol. She has been taking her home dose of Percocet which usually stops herpain however today it has been worse than normal. She denies any new swellingto the area, no redness, no fevers, chills, difficulty swallowing, or chest pain/palpitations. Patient is otherwise well-appearing at this time.GeneralInitial Greet Date/Time 02/19/251446PresentationChief Complaint Left jaw pain, jaw cancerPast Medical History - AdultStated Complaint HX CA OF LT JAW, HAVING BREAK THRU PAINAllergiesCoded Allergies:vancomycin (Intermediate, HIVES 04/10/24)Iodinated Contrast Media (UNKNOWN 11/27/24)NSAIDS (Non-Steroidal Anti-Inflamma (INTERACTION WITH CHEMO 01/15/14)meperidine HCl (From DEMEROL) (UNK 11/07/11)ondansetron HCl (From ZOFRAN) (HIVES, SOB 01/15/14)Home MedicationsActive ScriptsPromethazine (Phenergan) 25 MG PO Q8H PRN PRN NAUSEA Promethazine (Phenergan) 25 MG PO Q8H PRN PRN NAUSEA #10 TAB Prov: 04/10/24YDROcodone/APAP (Fithian 7.5/325 mg) 1 TAB PO Q8H PRN PRN PAIN HYDROcodone/APAP (Fithian 7.5/325 mg) 1 TAB PO Q8H PRN PRN PAIN #10 TAB Prov: 04/10/24Reported MedicationsMetoclopramide (Reglan) 10 MG PO QID PRNOmeprazole (Prilosec)ALPRAZolam (Xanax) 0.5 MG PO BIDPromethazine (Phenergan) 25 MG PO T5BFKmhdlmsizix (Zofran) 8 MG PO Q8HRS PRNInsulin Glargine (Lantus Vial 10 ml) 15 DAILYInsulin Aspart (NovoLOG Vial 10 ml) 10 UNITS SUBQ BIDACPast Medical History:Reports: Cancer (CERVICAL), Diabetes mellitus, GERD/gastritis.Additional Medical HistoryKIDNEY STONESPast Surgical History:Reports: Appendectomy, Cholecystectomy, Hysterectomy.Smoking status for patients 13 years old or older: Unknown,if ever smokedPhysical ExamVital SignsVital SignsFirst Documented: Result Date Time Pulse Ox 100 02/19 1443 B/P 182/101 02/19 1443 B/P Mean 128.2 02/19 1443 Temp 36.9 05/08 1443 Pulse 98 05/08 1443 Resp 18 / 1446Last Documented: Result Date Time Resp 18 02/19 1446 Pulse Ox 100 05/ 1443 B/P 182/101 05/ 1443 B/P Mean 128.2 05/ 1443 Temp 36.9 05/08 1443 Pulse 98 05/ 1443Review of Vital Signs ReviewedFree Text PE NotesFree Text PE NotesGen: A O NADHEENT: NCAT, EOMI, not icteric. Midline uvula, no posterior or pharyngealerythema or edema appreciated. Left cheek does have surgical site present withdrain sewn into place, no evidence of serosanguineous or purulent drainageappreciated. No significant swelling noted to the gums, no dental cariesappreciated, no erythema to left cheek mucosa.Neck: Supple, full range of motion, no observable massesInterpretation DiagnosticsLab Results InterpretationConsiderations Reviewed prior recordsRe-Evaluation MDMFree Text MDM NotesFree Text MDM [id number] female presents to the ED complaining of left-sided jaw pain withhistory of cancer status post 7 resections and currently pending radiotherapyand definitive surgical removal.Patient presented for breakthrough pain. Exam grossly unremarkable, no evidenceof obvious infection present no significant swelling noted.Patient was given IM shot of Dilaudid for pain. She will be discharged instable condition with PCP follow-up, ENT follow-up, and strict returnprecautions.ED CourseMedication(s) OrderedMedication(s) Ordered:Central Nervous System Agents Sig/Onelia Start time Last Medication Dose Route Stop Time Status Admin Hydromorphone HCl 1 MG X1ED ONE 02/19 1451 DC IM 02/19 1452Patient Discharge DepartureVital Signs/ConditionVital SignsFirst Documented: Result Date Time Pulse Ox 100 05/ 1443 B/P 182/101 / 1443 B/P Mean 128.2 05/08 1443 Temp 36.9 05/08 1443 Pulse 98 05/08 1443 Resp 18 02/19 1446Last Documented: Result Date Time Resp 18 02/19 1446 Pulse Ox 100 05/08 1443 B/P 182/101 05/08 1443 B/P Mean 128.2 05/08 1443 Temp 36.9 05/08 1443 Pulse 98 02/19 1443All vital signs available at the time of this entry have been reviewed.Condition StableClinical ImpressionClinical ImpressionPrimary Impression: Cancer of jawSecondary Impressions: Breakthrough painDisposition DecisionDischarge )( Discharged to Home Yes )( Time 1454 )( Date 02/19/25Discharge/Care PlanCounseled Regarding Diagnosis, Need for follow-up, When to return to EDPatient Instructions ED Chronic PainAdditional InstructionsFollow-up with your primary care physician next 2-3 days for re-evaluation. Ifat any time you feel that your condition is worsening, call your doctor kristofer to the Emergency Department for re-evaluation. Thank you for [facility] for your emergency health care needs.ReferralsResource Referral: [facility] Follow-Up: 1 WEEK Address: [address] [place] [id number] Signed by Claudette Cruz DO on 02/19/25 at 1458RPT #: [id number] OF REPORT Emergency Encounter Reason:NAUSEA,JAW PAIN FROM JAW CANCER Encounter Diagnosis:Neoplasm related pain (acute) (chronic) 11-Feb-2025 12:[id number] 14:10 EDDOC EDDOC Generic for EDM MD (Attending) [facility] Discharge Disposition:Discharged to home or self care (routine discharge) Chrissy Mcdaniel DO-11-Feb-2025 [facility])EMERGENCY PROVIDER REPORTREPORT#:[id number] REPORT STATUS: SignedDATE:02/11/25 TIME: 135ATIENT: ROBBIEROSSY UNIT #: [id number]#: [id number] ROOM/BED:: 73 AGE: 50 SEX: F PCP PHYS: No Primary or Family PhysicianSERVICE AUTHOR: Delvis Lowe SRV REP SRV TM: 1355* ALL edits or amendments must be made on the electronic/computer document *HPI-General IllnessFree Text HPI NotesFree Text HPI NotesThideacon is a 50-year-old female that arrived to the emergency department statingthat she is having breakthrough pain related to her mandibular cancer. Shestates that she has no insurance and therefore is on the waiting list fortreatment. 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 She denies any fever. She states she can not take anyantibiotics as there is currently a treatment plan. She does not wish for anyworkup or IV at this time.GeneralInitial Greet Date/Time 02/11/25 1231PresentationChief Complaint Cancer painReview of SystemsROS StatementsAll systems rev neg except as marked.Past Medical History - AdultStated Complaint NAUSEA,JAW PAIN FROM JAW CANCERAllergiesCoded Allergies:meperidine (From DEMEROL) (Mild, RASH 01/16/25)ondansetron (From ZOFRAN) (Mild, RASH 01/16/25)vancomycin (Mild, RASH 01/16/25)NSAIDS (Non-Steroidal Anti-Inflamma (ABDOMINAL CRAMPING 01/16/25)Home MedicationsActive ScriptsPROMETHAZINE (PHENERGAN) 25 MG PO QID PRN PRN Vomiting PROMETHAZINE (PHENERGAN) 25 MG PO QID PRN PRN Vomiting #20 TAB Prov: 01/16/25Calculated Suicide Risk (nurs) No riskAdditional Medical HistoryMandibular cancer,ms, diabetes, osteomyelitisAdditional Surgical HistoryMultiple surgeries on draw for abscesses and osteomyelitisSmoking status for patients 13 years old or older: Never SmokerPhysical ExamVital SignsVital SignsFirst Documented: Result Date Time Pulse Ox 99 02/11 1225 B/P 236/116 02/11 1225 O2 Delivery Room air 02/11 1225 Temp 36.4 02/11 1225 Pulse 95 02/11 1225 Resp 18 02/11 1225Last Documented: Result Date Time Pulse Ox 99 02/11 1225 B/P 236/116 02/11 1225 O2 Delivery Room air 02/11 1225 Temp 36.4 02/11 1225 Pulse 95 02/11 1225 Resp 18 02/11 1225Review of Vital Signs ReviewedFree Text PE NotesFree Text PE NotesGen.: Awake and conversing. NADHEENT: NCAT. MM moistEyes: PERRL. EOMI. Conjunctiva normal.Neck: Supple. Trachea is midline.Heart: RRR. No murmurChest: CTA bilat. No accessory muscle usage.Abdomen: NABS Soft. NT to palpation. No guarding or rebound.Extremities: No deformities. No joint warmth or erythema.Neuro: AAO. CNII-XII grossly intactPsych: Normal mood and affect.Skin: No lacertions. No abscess.Re-Evaluation MDMFree Text MDM NotesFree Text MDM NotesPatient has declined any workup at this time. She would just like some helpwith her breakthrough cancer pain. The narcotics database has been reviewed.She will follow up with her doctor in [place]. Return to the emergencydepartment for worsening of symptoms.ED CourseMedication(s) OrderedMedication(s) Ordered:Central Nervous System Agents Sig/Onelia Start time Last Medication Dose Route Stop Time Status Admin Hydromorphone HCl 0.5 MG 1XED ONE 02/11 1405 AC IM 02/11 1406 Morphine Sulfate 8 MG 1XED ONE 02/11 1304 DC 02/11 IM 02/11 1305 1307 Droperidol 2.5 MG 1XED ONE 02/11 1249 DC IM 02/11 1250 Morphine Sulfate 8 MG 1XED ONE 02/11 1249 DC IM 02/11 1250 Morphine Sulfate 4 MG 1XED ONE 02/11 1244 CAN IV 02/11 1245Patient Discharge DepartureVital Signs/ConditionVital SignsFirst Documented: Result Date Time Pulse Ox 99 02/11 1225 B/P 236/116 02/11 1225 O2 Delivery Room air 02/11 1225 Temp 36.4 02/11 1225 Pulse 95 02/11 1225 Resp 18 02/11 1225Last Documented: Result Date Time Pulse Ox 99 02/11 1225 B/P 236/116 02/11 1225 O2 Delivery Room air 02/11 1225 Temp 36.4 02/11 1225 Pulse 95 02/11 1225 Resp 18 02/11 1225All vital signs available at the time of this entry have been reviewed.Clinical ImpressionClinical ImpressionPrimary Impression: Cancer-related breakthrough painDisposition DecisionDischarge )( Discharged to Home Yes )( Time 1355 )( Date 02/11/25Discharge/Care Plan(Auto) PrescriptionsCurrent Visit ScriptsoxyCODONE/ACETAMINOPHEN (PERCOCET 10-325 MG) 1 TAB PO Q6H PRN PRN Pain oxyCODONE/ACETAMINOPHEN (PERCOCET 10-325 MG) 1 TAB PO Q6H PRN PRN Pain #30TABPatient Instructions ED Chronic PainReferralsProvider Referral: No Primary or Family PhysicianDeparture FormsAdditional Information/NoticeCedar [facility] at 1409RPT #: [id number] OF REPORT Emergency Encounter Reason:BREATHTHROUGH JAW CANCER PAIN Encounter Diagnosis:Jaw pain,Malingerer [conscious simulation],Type 2 diabetes mellitus without complications,Essential (primary) hypertension,custodial (current) use of insulin,Other chronic pain 06-Feb-2025 07:[id number] 07:37 [facility] Discharge Disposition:Left against medical advice or discontinued care Huma Gandara II, MD-06-Feb-2025 [facility] PROVIDER REPORTREPORT#:[id number] REPORT STATUS: FSignDATE:02/06/25 TIME: 07PATIENT: ROSSY AVALOS UNIT #: [id number]#: [id number] ROOM/BED: E.ECDOB: [birth year] AGE: 50 SEX: PCP PHYS: NO PRIMARY OR FAMILY PHYSICIANADM DATE: 02/06/25 INI AUTH: Tony Finn II, MD, MD LAST SIG: Tony Finn II, MD MDREP SERV REP SERV TM: 0717 * ALL edits or amendments must be made on the electronic/computer document *HPI-Dental/Mouth ProbGeneralInitial Greet Date/Time 02/06/25 0706PresentationChief Complaint jaw painHx Obtained From PatientOnset Occurred ChronicProgression since Onset ConstantCaused by No trauma by historyAssociated withDenies: Bleeding, Can't fully open mouth, Chills, Drooling, Earache, Fever,Hoarse voice, Nausea, Shortness of breath, Sore throat, Unable to tolerate P.O.,Vomiting, bloody, Vomiting, non bloody.Free Text HPI NotesFree Text HPI NotesPatient presents stating that she had chronic osteomyelitis and was recentlydiagnosed with a jaw cancer. Based on a biopsy in September at [facility]. [facility] apparentlycorroborating this story. Review of the medical record she has been seen [facility] on December 06 complaining of breakthrough pain and requestingpain meds.Past Medical History - AdultStated Complaint BREATHTHROUGH JAW CANCERPAINAllergiesCoded Allergies:Iodinated Contrast Media (RASH 09/06/24)NSAIDS (Non-Steroidal Anti-Inflamma (RASH 09/06/24)meperidine (From DEMEROL) (RASH 09/06/24)ondansetron (From ZOFRAN) (RASH 09/06/24)vancomycin (RASH 09/06/24)Home MedicationsReported MedicationsMETOPROLOL SUCCINATE XL (TOPROL XL) 50 MG PO DAILYLISINOPRIL (PRINIVIL) 20 MG PO BIDINSULIN NPH/REG INSULIN HUMAN (NovoLIN 70-30 VIAL (10 mL)) (Unknown Dose)INSULIN NPH HUMAN RECOM (NovoLIN N VIAL (10 mL))Past Medical History:Reports: Diabetes mellitus, Hypertension.Smoking status for patients 13 years old or older: Unknown,if ever smokedPhysical ExamVital SignsVital SignsFirst Documented: Result Date Time Pulse Ox 9 02/06 0708 Temp 97.9 02/06 0708 Pulse 90 02/06 0708 Resp 18 02/06 0708 B/P 199/133 02/06 0730Last Documented: Result Date Time B/P 199/133 02/06 0730 Pulse 99 02/06 0730 Resp 18 02/06 0730 Pulse Ox 9 02/06 0708 Temp 97.9 02/06 0708Review of Vital Signs ReviewedFocused PEGeneral/Const General/Const Awake, Alert, No acute distress, Well appearing, Well developed, Well hydrated, Well nourished, Cooperative, Not toxic appearingEars/Nose/Throat Ears/Nose/Throat Airway patent, Mucous membranes moist, Pharynx NLMS Neck Neck Supple, No meningismus, Full range of motionRe-Evaluation MDMFree Text MDM NotesFree Text MDM NotesPatient presents with jaw pain requesting a pain shot for breakthrough pain.She advises me she has jaw cancer and [facility]. On chart review I have noticedangel was also seen for similar complaint in November at [facility]. Iadvised the patient I was going to contact oncology. I Was concerned the patient has not received treatment for cancer in 4 months. I called [place] [facility]. While awaiting the return phone call, patientcame to the desk upset that she had not received her pain meds insisting thatangel needs to leave. I advised I needed to speak with Oncology 1st as I wasconcerned about the pattern of her care. I spoke with Dr. Valdes at 7:37 a.m..He verbalized willingness to see the patient in clinic so they could establishher care and get her started on treatment. However, the patient not having received her pain medicine in less than 30minutes of arrival apparently became aggravated and eloped. I did not have theopportunity to give follow-up information.Patient Discharge DepartureVital Signs/ConditionVital SignsFirst Documented: Result Date Time Pulse Ox 9 02/06 0708 Temp 97.9 02/06 0708 Pulse 90 02/06 0708 Resp 18 02/06 0708 B/P 199/133 02/06 0730Last Documented: Result Date Time B/P 199/133 02/06 0730 Pulse 99 02/06 0730 Resp 18 02/06 0730 Pulse Ox 9 02/06 0708 Temp 97.9 02/06 0708All vital signs available at the time of this entry have been reviewed.Clinical ImpressionClinical ImpressionPrimary Impression: Chronic jaw painSecondary Impressions: MalingeringDisposition DecisionOther )( Time 0736 )( Date 02/06/25 Text/Dict NoteelopedDischarge/Care PlanReferralsPCP Referral: NO PRIMARY OR FAMILY PHYSICIAN at 0800RPT #: [id number] OF REPORT Emergency Encounter Reason:JAW CA, BREAKTHROUGH PAIN Encounter Diagnosis:Type 2 diabetes mellitus without complications,custodial (current) use of insulin,Jaw pain 05-Feb-2025 10:[id number] 11:47 Reg Only (Attending) Doctor's [facility] ([facility]) Discharge Disposition:Discharged to home or self care (routine discharge) Bimal WELCH-05-Feb-2025 [facility] ([facility])EMERGENCY PROVIDER REPORTREPORT#:[id number] REPORT STATUS: SignedDATE:02/05/25 TIME: 1128PATIENT: ROSSY EARL UNIT #: [id number]#: [id number] ROOM/BED:: 73 AGE: 50 SEX: F PCP PHYS: No Primary or Family PhysicianSERVICE AUTHOR: Ralph Wallis PAREP SRV REP SRV TM: 1128* ALL edits or amendments must be made on the electronic/computer document *Ralph Wallis 02/05/25 1128:HPI-General IllnessGeneralInitial Greet Date/Time 02/05/25 1112PresentationChief Complaint Breakthrough pain, jaw cancerHx Obtained From PatientReview of SystemsFree Text ROS NotesFree Text ROS NotesReview of SystemsConstitutionalDenies: Fever, Lethargy.EyesDenies: Photophobia.Ears/Nose/ThroatDenies: Nasal congestion, Sore throat.RespiratoryDenies: Cough, non-productive.CardiovascularDenies: Chest pain.GIDenies: Abdominal pain. FemaleDenies: Dysuria.MusculoskeletalReports: Jaw pain.Denies: Neck pain.SkinDenies: Rash.NeurologicDenies: Headache, Numbness.Past Medical History - AdultStated Complaint JAW CA, BREAKTHROUGH PAINAllergiesCoded Allergies:sumatriptan (From Imitrex) (Severe, SVT 07/09/09)sumatriptan succinate (From Imitrex) (Severe, SVT 07/09/09)NSAIDS (Non-Steroidal Anti-Inflamma (Mild, CHEMO 11/13/13)meperidine (From DEMEROL) (Mild, HIVES 11/13/13)ondansetron (From ZOFRAN) (Mild, HIVES 11/13/13)prochlorperazine edisylate (From Compazine) (Severe, DILLUSIONS 07/09/09)prochlorperazine maleate (From Compazine) (Severe, DILLUSIONS 07/09/09)Home MedicationsReported MedicationsBACLOFEN 20 MG PO TIDALPRAZolam (XANAX) 0.5 MG PO DAILY PRN PRN NINSULIN DETEMIR (LEVEMIR)oxyCODONE HCL/ACETAMINOPHEN 5/325 MG (PERCOCET 5/325 MG) 1-2 TAB PO Q4H PRN PRNKIDNEY STONESAdditional Medical Historyk. stones chemo for cervical cancer DM MSPhysical ExamVital SignsVital SignsFirst Documented: Result Date Time Pulse Ox 94 02/05 1123 B/P 213/140 02/05 1123 B/P Mean 164.0 02/05 1123 Temp 37.1 02/05 1123 Pulse 103 02/05 1123 O2 Delivery Room air 02/05 1125 Resp 24 02/05 1125Last Documented: Result Date Time B/P 199/91 02/05 1142 O2 Delivery Room air 02/05 1125 Resp 24 02/05 1125 Pulse Ox 94 02/05 1123 B/P Mean 164.0 02/05 1123 Temp 37.1 02/05 1123 Pulse 103 02/05 1123Review of Vital Signs ReviewedFree Text PE NotesFree Text PE NotesReview of Vital Signs Reviewed, Vital signs normalBasic Physical ExamBasic PE GEN: Well appearing/NAD, HEAD: Atraumatic/NC, EYES: PERRL, conj clear,ENT: Membranes moist, NECK: Supple, RESP: No resp distress, CV: Reg raterhythm, ABD: Soft/non-tender, EXT: No gross abnormality, SKIN: No rashes, warm/dry, NEURO: alert oriented, NEURO: gross movement NL, PSYCH: NL thoughtcontentPhysical ExamGeneral/Const General/Const Awake, Alert, No acute distress, Well appearing, Well developedMS Head Head NormocephalicEyes Eyes PERRL, EOMIEars/Nose/Throat Ears/Nose/Throat Airway patent, Mucous membranes moist, Pharynx NLMS Neck Neck Supple, No meningismus, Full range of motionResp/Chest Respiratory/Chest Breath sounds NL, Breath sounds = bilat, No respiratorydistressCardiovascular Cardiovascular Heart rate NL, Regular rhythm, Heart sounds NLAbdomen/GI Abdomen/GI Soft, Non-tenderMS Back Back No CVA tendernessSkin Skin Color NLNeurologic Neurologic Oriented X3, Speech NL, No motor deficits, No sensory deficits, CNII - XII intact, Reflexes equal bilat, Cerebellar NLInterpretation DiagnosticsPoint of Care TestingPulse Oximetry Interpretation Interpreted by me, Pulse oximetry normalRe-Evaluation MDMFree Text MDM NotesFree Text MDM NotesPatient is a 50-year-old female who presents to the ED with complaints ofbreakthrough pain 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 Patient states she has not received any treatment yet for cancer dueto insurance purposes. Denies any fevers, trouble swallowing, chest pain.Differential diagnosis includes chronic pain, infection, among others.Exam, patient with slight fullness to left mandible, no airway issues noted onexam, vital signs showing severe hypertension which patient states she has nottaking her blood pressure medications yet today, also is in pain in his anxious. No headache, chest pain. Will give patient pain medication here. Will notdischarge home with pain medication as patient has had multiple prescriptionsfrom different areas including [place], [place], [place]. Will havefollow-up with her specialist.ED CourseMedication(s) OrderedMedication(s) Ordered:Central Nervous System Agents Sig/Onelia Start time Last Medication Dose Route Stop Time Status Admin Hydromorphone HCl 1 MG X1ED ONE 02/05 1127 DC 02/05 IM 02/05 1128 1133Patient Discharge DepartureVital Signs/ConditionVital SignsFirst Documented: Result Date Time Pulse Ox 94 02/05 1123 B/P 213/140 02/05 1123 B/P Mean 164.0 02/05 1123 Temp 37.1 02/05 1123 Pulse 103 02/05 1123 O2 Delivery Room air 02/05 1125 Resp 24 02/05 1125Last Documented: Result Date Time B/P 199/91 02/05 1142 O2 Delivery Room air 02/05 1125 Resp 24 02/05 1125 Pulse Ox 94 02/05 1123 B/P Mean 164.0 02/05 1123 Temp 37.1 02/05 1123 Pulse 103 02/05 1123All vital signs available at the time of this entry have been reviewed.Clinical ImpressionClinical ImpressionPrimary Impression: Jaw painDisposition DecisionDischarge )( Discharged to Home Yes )( Time 1129 )( Date 02/05/25Discharge/Care PlanCounseled Regarding Diagnosis, Need for follow-up, When to return to EDPatient Instructions ED Chronic Pain Discharge NoteI have spoken with the patient and/or caregivers. I have explained the patient'scondition, diagnoses and treatment plan based on the information available to meat this time. I have answered the patient's and/or caregiver's questions andaddressed any concerns. The patient and/or caregivers have as good anunderstanding of the patient's diagnosis, condition and treatment plan as can beexpected at this point. The vital signs have been stable. The patient'scondition is stable and appropriate for discharge from the emergency department.The patient will pursue further outpatient evaluation with the primary carephysician or other designated or consulting physician as outlined in thedischarge instructions. The patient and/or caregivers are agreeable to this planof care and follow-up instructions have been explained in detail. The patientand/or caregivers have received these instructions in written format and haveexpressed an understanding of the discharge instructions. The patient and/orcaregivers are aware that any significant change in condition or worsening ofsymptoms should prompt an immediate return to this or the closest emergencydepartment or a call to 911.MAYRA EVERETT MD 02/05/25 1645:Patient Discharge DepartureDischarge/Care PlanReferralsProvider Referral: Yaneth Horne MD Address: [address] [place] [address] [address]hesiology Dept [place], [place] [address]Xbqvbsea Referral: No Primary or Family PhysicianFree Text Depart NotesFree Text Depart NotesI performed a substantive part of the MDM during the patient's E/M visit. Ipersonally made or approved the documented management plan and acknowledge itsrisk of complications. at 1219 at 1655EPT #: [id number] OF REPORT Emergency 29-Jan-2025 09:[id number] 10:44 [facility] Discharge Disposition:Discharged to home or self care (routine discharge) Emergency Encounter Reason:JAW PAIN-JAW CANCER Encounter Diagnosis:Jaw pain,Jaw pain 29-Jan-2025 08:[id number] 08:50 [facility] Discharge Disposition:Discharged to home or self care (routine discharge) Luanne Guaman DO-29-Jan-2025 [facility] [address] [place] [address] Emergency Department Note SignedPatient: ROSSY AVALOS MR#: [id number]: [id number] Acct:[id number]/Sex: 50 / F ADM/SRV Date: 01/29/25Loc: [facility].ED Service Date: 01/29/25Attending Dr: Service Time: 838cc: Report ID#: [id number]-HLA:Gen/Med Clear/Rx RefillFree Text HPI Notes patient is 50-year-old female with 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 Patient is taking Percocet pain medicineat home and the pain medicine is not working. Patient denies any new trauma. Patient denies anycough, congestion, sore throat, chest pain, shortness breath, fever, chills. [facility] is traveling with her who is a gas truck driver and they are in town for the day.GeneralConfirmed Patient: YesPatient Type: New patientPresentationTime Seen by Provider: 01/29/25 08:16Chief Complaint Text: Jaw painHx Obtained from: PatientSudden in Onset?: NoOnset Occurred: TodaySymptom Duration: Since onsetEM-Review of SystemsROS StatementsAll systems rev neg: except as marked.EM-Past Medical HistorySocial HistorySocial History (Updated 01/29/25 @ 08:49 by Yuliana Stroud DO)Smoking Status: Smoker, status unknownEM-PE:Gen/Med Clear/Rx RefillVital SignsReview of Vital Signs: Reviewed Vital SignsTemperature 98.4 F 01/29/25 08:21Pulse 95 01/29/25 08:21Respiratory rate 17 01/29/25 08:21Blood pressure 191/113 H 01/29/25 08:21SPO2 % 97 01/29/25 08:21Oxygen delivery devices Room air 01/29/25 08:21Temperature 98.4 F 01/29/25 08:21Pulse 95 01/29/25 08:21Respiratory rate 17 01/29/25 08:21Blood pressure 191/113 H 01/29/25 08:21SPO2 % 97 01/29/25 08:21Oxygen delivery devices Room air 01/29/25 08:21General/ConstitutionalGeneral/Const: Awake, Alert and No acute distressMS HeadHead: Atraumatic and NormocephalicEyesEyes: Atraumatic, PERRL and EOMIEars/Nose/ThroatText/Dict Note: mouth is edentulous with no obvious deformity or area of swelling or fluctuance ordrainage or abscess seen. Posterior pharynx is clear with no unilateral pharyngeal or submandibularswelling seen. There is no stridor drooling noted. There is no angioedema noted.Ears/Nose/Throat: Atraumatic, Airway patent, Mucous membranes moist, Pharynx NL, No peritonsillarabscess, No pooling of secretions and No trismusMS NeckNeck: Atraumatic, Supple, No meningismus and No tracheal deviationRespiratory/ChestRespiratory/Chest: Atraumatic, Breath sounds NL, Breath sounds = bilat and No respiratory distressCardiovascularCardiovascular: Heart rate NL, Regular rhythm and Heart sounds NLSkinSkin: Warm and DryNeurologicNeurologic: Oriented X3, Speech NL, No motor deficits and No sensory deficitsPsychiatricPsychiatric: Affect NL and Mood NLEM-Interp DiagnosticsLabs/Imaging/Results/Old Records[Lab Imaging Note]Laboratory radiographic studies reviewed and considered in the medical decision-making.EM-MDM:Gen/Med Clear/Rx RefillFree Text MDM Notes patient is afebrile, nontoxic, not hypoxic, neurovascularly intact. There is no evidence forsepsis, dehydration, meningitis anaphylaxis, airway obstruction, oral abscess. There is noindication for radiologic studies or laboratory studies at this time. Pain medicine given inemergency department. Patient is hemodynamically stable for discharge home. Before getting pain medicine and being discharge, patient complained about the amount ofparenteral narcotic medicine that she is receiving today and refuses this amount at this time.Patient left emergency department without IM shot.ED CourseMedication(s) Ordered:Discontinued Medication Jesqrw44/17/25 08:38morphine 2 mg IM X1ED ONEDischarge PlanED Discharge PlanClinical Impression: Jaw painDisposition Decision: Discharge to homeDate of Decision: 01/29/25Time of Decision: 08:41Patient Education: Acute Pain, AdultPatient Education and Monograph Language: EnglishDispo Assessment:Disposition- DC,TX,ADM,LPT Last Done: 01/29/25 09:00Activity Restrictions/Additional Instructions: take your medication as prescribed. Follow-up with your primary care doctor 1-2 days for furtherevaluation.Condition: GoodED Provider: Yuliana Stroud BEM-Depart/Critical CareVital SignsVital Signs: Vital SignsTemperature 98.4 F 01/29/25 08:21Pulse 95 01/29/25 08:21Respiratory rate 17 01/29/25 08:21Blood pressure 191/113 H 01/29/25 08:21SPO2 % 97 01/29/25 08:21Oxygen delivery devices Room air 01/29/25 08:21Temperature 98.4 F 01/29/25 08:21Pulse 95 01/29/25 08:21Respiratory rate 17 01/29/25 08:21Blood pressure 191/113 H 01/29/25 08:21SPO2 % 97 01/29/25 08:21Oxygen delivery devices Room air 01/29/25 08:21Discharge/Care PlanCounseled regarding: Diagnosis, Need for follow-up and When to return to ED[Discharge Note]I have spoken with the patient and/or caregivers. I have explained the patient's condition,diagnoses and treatment plan based on the information available to me at this time. I have answeredthe patient's and/or caregiver's questions and addressed any concerns. The patient and/or caregivershave as good an understanding of the patient's diagnosis, condition and treatment plan as can beexpected at this point. The vital signs have been stable. The patient's condition is stable andappropriate for discharge from the emergency department.The patient will pursue further outpatient evaluation with the primary care physician or otherdesignated or consulting physician as outlined in the discharge instructions. The patient and/or caregivers are agreeable to this plan of care and follow-up instructions have been explained in detail.The patient and/or caregivers have received these instructions in written format and have expressedan understanding of the discharge instructions. The patient and/or caregivers are aware that anysignificant change in condition or worsening of symptoms should prompt an immediate return to thisor the closest emergency department or a call to 911.EM-Quality MeasuresBP F/U for HTNMeasure Elements: Referred for BP f/o < 4wk and F/u with PCP/other docDocumented By: Yuliana Stroud DO 01/29/25 0839Signed By: <Electronically signed by Yuliana Stroud DO> 01/29/25 0917 Emergency Encounter Reason:JAW PAIN Encounter Diagnosis:Other chronic pain,Nausea,Jaw pain 27-Jan-2025 11:[id number] 15:18 Ben Gandara DO (Attending) [facility] Discharge Disposition:Discharged to home or self care (routine discharge) [id number] [facility] ([facility])EMERGENCY PROVIDER REPORTREPORT#:[id number] REPORT STATUS: SignedDATE:01/27/25 TIME: 1159PATIENT: ROSSY AVALOS UNIT #: [id number]#: [id number] ROOM/BED:: 73 AGE: 50 SEX: F PCP PHYS: No Primary or Family PhysicianSERVICE AUTHOR: VASILE MARTÍNEZ DO R3REP SRV REP SRV TM: 1159* ALL edits or amendments must be made on the electronic/computer document *Vasile Martínez DO 01/27/25 1159:HPI-General IllnessFree Text HPI NotesFree Text HPI NotesPatient is a 50-year-old female with past medical history of hypertension,dyslipidemia, type 1 diabetes, and recently diagnosed cancer of the jaw thatpresents emergency department via private vehicle for evaluation of jaw pain.Patient reports a left-sided mandibular pain as a 9/10 in severity. Sharpwithout radiation. Patient reports that she is on Percocet 7.5 for chronic pain, however the pain is much worse and is not being managed with her narcotics.Patient reports that this pain is identical to previous flares, for which hi come to the emergency department for get a shot of Dilaudid to help mediatethe pain so her Percocets can take effect.Patient does report that she is working with an oncologist to schedule focusedradiation therapy. Patient does not under the care of a primary care physicianlocally.The patient denies any headaches, vision changes, difficulty with speech orswallowing, although notes it is painful to swallow. She reports nausea withoutvomiting. Denies any chest pain, palpitations, shortness of breath ordifficulty breathing. No unilateral or bilateral leg swelling. No abdominalpain.GeneralConfirmed Patient YesPatient Type New patientInitial Greet Date/Time 01/27/25 1128PresentationChief Complaint __ (Jaw pain)Hx Obtained From PatientReview of SystemsROS StatementsAll systems rev neg except as marked.Past Medical History - AdultStated Complaint JAW PAINAllergiesCoded Allergies:Iodinated Contrast Media (IV CONTRAST AGENT- IODINE BASED) (UNKNOWN 01/27/25)NSAIDS (Non-Steroidal Anti-Inflamma (UNKNOWN 01/27/25)meperidine (From DEMEROL) (UNKNOWN 01/27/25)ondansetron (From ZOFRAN) (UNKNOWN 01/27/25)vancomycin (UNKNOWN 01/27/25)Smoking status for patients 13 years old or older: Never SmokerPhysical ExamVital SignsVital SignsFirst Documented: Result Date Time Pulse Ox 98 01/27 1132 B/P 199/120 01/27 1132 B/P Mean 146.4 01/27 1132 Temp 98.4 01/27 1132 Pulse 93 01/27 1132 Resp 01/27 1132Last Documented: Result Date Time Pulse Ox 98 01/27 1132 B/P 199/120 01/27 1132 B/P Mean 146.4 01/27 1132 Temp 98.4 01/27 1132 Pulse 93 01/27 1132 Resp 01/27 1132Review of Vital Signs ReviewedFree Text PE NotesFree Text PE NotesGENERAL APPEARANCE: AxOx3, otherwise well-appearing, no acute respiratorydistress.HEENT: Normocephalic and atraumatic. EOMI, clear conjunctiva. No dentition onthe left mandible extending from tooth 9 to the molars. Soft tissue protrudingmass noted over this area. No teeth over the left maxilla with post surgicalchanges noted. Managing secretions. Uvula midline.NECK: Supple without lymphadenopathy. No stiffness or restricted ROM.HEART: Normal rate and regular rhythm, normal S1/S2, no m/r/g appreciatedLUNGS: Clear breath sounds throughout bilateral with good air entry. Nocrackles or wheezes are heard.ABDOMEN: Soft, nontender, nondistended without rebound or guardingBACK: No CVAT, no obvious deformity or gross step-offs.EXTREMITIES: 2+ pulses in the bilateral lower extremities. No edema orclubbing.NEUROLOGICAL: Grossly nonfocal. Alert and oriented, moving all 4 extremities.CN not formally tested but appear grossly intact. Observed to ambulate withnormal gait.Skin: Warm and dry without any rash.Re-Evaluation MDMFree Text MDM NotesAdditional [id number] female with the above history and complaint.Upon initial evaluation, the patient appears to be uncomfortable due to pain.Patient is hemodynamically stable with appropriate vital signs.Patient presents with jaw pain secondary to cancer. Patient reports this isidentical presentation for acute on chronic jaw pain. Patient denies any chestpain or shortness of breath. Patient's primary concern is improving the painenough for her home narcotics to work.Plan of care: Will provide the patient with Phenergan for her nausea as well asdose of Dilaudid intramuscular. Will re-evaluate.Patient's is able to drive when the patient is ready for discharge.Shared decision making was performed the patient declines CT imaging as well aslab work.*The patient received a total of 2 doses of Dilaudid in the emergency department. Discussed that any further narcotic administration would require admission forchronic pain management. Patient prefers that is not admitted and she reportsthat her pain has improved to the point where she feels comfortable beingdischarged. Shared decision making was performed the patient is agreeable todischarge. Additionally, provide the patient with local referrals to painmanagement as well as Hematology/Oncology.Prior to discharge, I had a discharge counseling session with the patient. Thepatient expressed verbal understanding of the treatment plan and disposition atthe time of discharge. Patient was also given written, language-appropriateinstructions related to their diagnosis. Discussed need to follow up ondiagnostic studies, including incidental findings. They understand that they may, and are encouraged, to return to the emergency department at any time shouldthey perceive their condition worsening or not improving over the days aftertheir visit or if they are unable for follow up with their doctor in thecommunity. Patient is stable for discharge without any emergency medicalcondition at the time of discharge.DICTATION DISCLAIMER: This medical documentation was created using an electronicmedical record system with M Modal voice recognition and is inherently subjectto errors including those of syntax and sound alike substitutions which mayescape proof-reading. Although this document has been carefully reviewed, theremay still be some phonetic and typographical errors. In such instances,original meaning may be extrapolated by contextual derivation. These errors arepurely typographical and due to imperfections of the software program, do notreflect any compromise in the patient's medical care.ED CourseMedication(s) OrderedMedication(s) Ordered:Central Nervous System Agents Sig/Onelia Start time Last Medication Dose Route Stop Time Status Admin Hydromorphone HCl 1 MG X1ED STA 01/27 1414 DC 01/27 IM 01/27 1415 1428 Hydromorphone HCl 1 MG X1ED STA 01/27 1351 CAN IV 01/27 1352 Promethazine HCl 25 MG X1ED STA 01/27 1156 DC 01/27 PO 01/27 1157 1220 Hydromorphone HCl 1 MG X1ED STA 01/27 1151 DC 01/27 IM 01/27 1152 1221Gastrointestinal Drugs Sig/Onelia Start time Last Medication Dose Route Stop Time Status Admin Metoclopramide HCl 10 MG X1ED STA 01/27 1150 CAN IM 01/27 1151Patient Discharge DepartureVital Signs/ConditionVital SignsFirst Documented: Result Date Time Pulse Ox 98 01/27 1132 B/P 199/120 01/27 1132 B/P Mean 146.4 01/27 1132 Temp 98.4 01/27 1132 Pulse 93 01/27 1132 Resp 14 01/27 1132Last Documented: Result Date Time Pulse Ox 98 01/27 1132 B/P 199/120 01/28 1132 B/P Mean 146.4 01/27 1132 Temp 98.4 01/27 1132 Pulse 93 01/27 1132 Resp 14 01/27 1132All vital signs available at the time of this entry have been reviewed.Condition StableClinical ImpressionClinical ImpressionPrimary Impression: ACUTE ON CHRONIC JAW PAINDisposition DecisionDischarge )( Discharged to Home Yes )( Time 1459 )( Date 01/27/25Discharge/Care PlanCounseled Regarding Diagnosis, Need for follow-up, When to return to EDAdditional InstructionsYou were evaluated in the emergency department today for your jaw pain. Youwere provided with medications to help improve your pain. After shared decisionmaking was performed, you are comfortable being discharged.As discussed continue your follow-up with your primary care team and Hematology/Oncology. I provided you community resources if necessary.Thank you for trusting us with your emergency care.PCP RESOURCESPlease seek medical attention if symptoms worsen or fail to improve.Please follow-up with your Primary Care Physician in 1-2 weeks.If you need to establish care locally, below are two local clinics who areaccepting patients. You are also, of course, welcome to seek out your ownphysician.-[facility] [phone]-[facility] [phone] you do not have a primary care physician, and insurance is an issue, you canbe seen at the:[facility] [address] [place], [place] [phone] at a [facility], which are located throughout [facility], call [phone] to schedule an appt and/or find theclosest location.[facility] [phone] [facility] [phone] [facility] - [phone] [facility] - [phone] [facility] - [phone] Primary Care - [phone] - [phone] FormsREFFERAL WITH LUIS E SHEIKH DO 01/30/251947:Patient Discharge DepartureDischarge/Care PlanReferralsProvider Referral: Mukesh Gonzalez MD Address: [address] [facility] [address] [place], [place] [address]Adfrtppz Referral: Stevo Marques Jr, MD Address: [address] [place], [place] [address]Srauotgq Referral: Manfred Couch MD Address: [address] [facility] [place], [place] [address]Gcoojysk Referral: Juni Barber Jr, MD Address: [address] [facility] [address] [place], [place] [address]Cynnbwbu Referral: German Goins MD Address: [address] [id number] Referral: Zhang Jean MD Address: [id number] [place] [address] [address] [place], [place] [address]Cywwtyme Referral: [facility] Address: [address] [facility] [place], [place] [address]Qghajpux Referral: [facility] Address: [address] [place], [place] [address]Dhybzgmk Referral: [facility] Address: [address] [place], [place] [address]Cltfriwuggd Physician Note Resident Saw PtThis patient was seen by a resident. I have personally seen the patient,performed the critical or mcmanus portions of the service, and participated in themanagement of the patient. I have reviewed and agree with the resident's note,and I have reviewed all labs, ECGs, and imaging studies or reports. I agree withthis resident's findings, exam and plan. at 1447 at 4988RPT#:[id number] OF REPORT Emergency Encounter Reason:JAW PAIN-JAW CANCER Encounter Diagnosis:Essential (primary) hypertension,Malignant neoplasm of mandible 20-Jan-2025 12:[id number] 13:00 [facility] Discharge Disposition:Discharged to home or self care (routine discharge) Karthikeyan Salinas DO-8-Jan-2025 [facility] ([facility])EMERGENCY PROVIDER REPORTREPORT#:[id number] REPORT STATUS: SignedDATE:01/20/25 TIME: 1231PATIENT: ROSSY WARD UNIT #: [id number]#: [id number] ROOM/BED:: 73 AGE: 50 SEX: F PCP PHYS: NO PRIMARY OR FAMILY PHYSICIANSERVICE AUTHOR: Vijaya Napier DO* ALL edits or amendments must be made on the electronic/computer document *HPI-Dental/Mouth ProbGeneralInitial Greet Date/Time 01/20/25 1214PresentationChief Complaint Jaw swellingFree Text HPI NotesFree Text HPI Notes50 year old female complaining of left sided jaw pain related to her mandiblecancer diagnosis. Patient recently fill prescription for Percocet. She statesthat she is seeing cancer specialist in [place]. She was diagnosed earlier thisyear. She denies any drooling or trismus. No chest pain or shortness of breathshe states she gets hypertension when she goes to the ER. Took her medicationsthis morning.Prior records reviewed - [place].Review of SystemsROS StatementsAll systems rev neg except as marked.Focused Review of SystemsEars/Nose/ThroatReports: Mouth pain.Past Medical History - AdultStated Complaint JAW PAIN-JAW CANCERAllergiesCoded Allergies:NSAIDS (Non-Steroidal Anti-Inflamma (HIVES 01/20/25)meperidine (From DEMEROL) (HIVES 01/20/25)ondansetron (From ZOFRAN) (UNKNOWN 06/03/14)vancomycin (HIVES 01/20/25)Home MedicationsReported Medications[DILAUDID]Past Medical History:Reports: Cancer.Past Surgical History:Reports: Appendectomy, Cholecystectomy, Hysterectomy.Additional Surgical HistoryBowel resection, tumor removed from left kidney and liverPhysical ExamVital SignsVital SignsFirst Documented: Result Date Time Pulse Ox 98 01/20 1213 B/P 212/123 01/20 1213 Temp 37.0 01/20 1213 Pulse 88 01/20 1213 Resp 16 01/20 1213Last Documented: Result Date Time B/P 207/115 04/ 1301 Pulse Ox 98 01/20 1213 Temp 37.0 01/20 1213 Pulse 88 01/20 1213 Resp 16 01/20 1213Review of Vital Signs ReviewedBasic Physical ExamBasic PE GEN: Well appearing/NAD, HEAD: Atraumatic/NC, EYES: PERRL, conj clear,RESP: No resp distress, CV: Reg rate rhythm, ABD: Soft/non-tender, EXT: Nogross abnormality, SKIN: No rashes, warm/dry, NEURO: alert oriented, NEURO:gross movement NL, PSYCH: NL thought contentFocused PEEars/Nose/Throat Ears/Nose/Throat Atraumatic, Airway patent, Mucous membranes moist, PharynxNL, No peritonsillar abscess, No pooling of secretions, No trismus, Tympanicmembs NL, Ext aud canal NL, Mastoid area NL, Nose exam NL, No sinus tenderness,No facial swelling, Gums/dentition NLMS Neck Neck Atraumatic, Supple, No meningismus, Full range of motion, No adenopathy,No swelling, Non-tender, No midline vertebral tend, No masses, No crepitus, NoJVD, No carotid bruit, Thyroid NL, No tracheal deviationInterpretation DiagnosticsLab Results InterpretationConsiderations Reviewed prior recordsRe-Evaluation MDMFree Text MDM NotesFree Text MDM NotesRecords [facility] - [facility] Seen multiple times for IM analgesics. She is is onlyrequesting pain medication at this time. She has diagnosed history of mandiblecancer.Blood pressure improved. She has prescription for percocetED CourseMedication(s) OrderedMedication(s) Ordered:Central Nervous System Agents Sig/Onelia Start time Last Medication Dose Route Stop Time Status Admin Morphine Sulfate 4 MG X1ED ONE 01/20 1240 DC 01/20 IM 01/20 1241 1247Patient Discharge DepartureVital Signs/ConditionVital SignsFirst Documented: Result Date Time Pulse Ox 98 01/20 1213 B/P 212/123 04/08 1213 Temp 37.0 04/08 1213 Pulse 88 04/08 1213 Resp 16 01/20 1213Last Documented: Result Date Time B/P 207/115 04/08 1301 Pulse Ox 98 04/08 1213 Temp 37.0 04/08 1213 Pulse 88 04/08 1213 Resp 16 01/20 1213All vital signs available at the time of this entry have been reviewed.Clinical ImpressionClinical ImpressionPrimary Impression: Cancer-related breakthrough painSecondary Impressions: HTN (hypertension), Jaw painDisposition DecisionDischarge )( Discharged to Home Yes )( Time 1248 )( Date 01/20/25Discharge/Care PlanCounseled Regarding Diagnosis, Need for follow-up, When to return to EDPatient Instructions Chronic Pain, Adult, Managing Cancer PainReferralsProvider Referral: Undefined ProviderDeparture FormsRETURN TO WORK NOTE Return to Work: 2 Days Discharge NoteI have spoken with the patient and/or caregivers. I have explained the patient'scondition, diagnoses and treatment plan based on the information available to meat this time. I have answered the patient's and/or caregiver's questions andaddressed any concerns. The patient and/or caregivers have as good anunderstanding of the patient's diagnosis, condition and treatment plan as can beexpected at this point. The vital signs have been stable. The patient'scondition is stable and appropriate for discharge from the emergency department.The patient will pursue further outpatient evaluation with the primary carephysician or other designated or consulting physician as outlined in thedischarge instructions. The patient and/or caregivers are agreeable to this planof care and follow-up instructions have been explained in detail. The patientand/or caregivers have received these instructions in written format and haveexpressed an understanding of the discharge instructions. The patient and/orcaregivers are aware that any significant change in condition or worsening ofsymptoms should prompt an immediate return to this or the closest emergencydepartment or a call to 911. at 1309RPT #: [id number] OF REPORT Emergency Encounter Reason:JAW PAIN Encounter Diagnosis:Jaw pain,Other chronic pain 19-Jan-2025 12:[id number] 13:12 [facility] Discharge Disposition:Discharged to home or self care (routine discharge) Rhys Coleman MD-19-Jan-2025 [facility] ([facility])EMERGENCY PROVIDER REPORTREPORT#:[id number] REPORT STATUS: SignedDATE:01/19/25 TIME: 1244PATIENT: ROSSY AVALOS UNIT #: [id number]#: [id number] ROOM/BED:: 73 AGE: 50 SEX: F PCP PHYS: NO PRIMARY OR FAMILY PHYSICIANSERVICE AUTHOR: Michael Joiner MDREP SRV REP SRV TM: 1244* ALL edits or amendments must be made on the electronic/computer document *HPI-Dental/Mouth ProbGeneralInitial Greet Date/Time 01/19/25 1237PresentationChief Complaint jaw painHx Obtained From PatientOnset Occurred ChronicSymptom Duration Waxes and wanesProgression since Onset Waxes and wanesCaused by No trauma by historyLocation left mandibleQuality PainfulRadiationNo: Does not radiate.Pain/Sev: Onset ModeratePain/Sev: Current ModerateAssociated withDenies: Bleeding, Can't fully open mouth, Earache, Fever, Nausea, Vomiting,bloody, Vomiting, non bloody.Associated Other Pt denies other symptomsFree Text HPI NotesFree Text HPI 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[place] she was recentlydiagnosed with bone cancer in her left mandible in October of 2024 she statesstage II she has not yet received treatment but does have an oncologist shefollows she has chronic pain in that area and has had some increasing painlately and does not have any pain medicine there is no fevers no swelling notrauma no cough or shortness of breathReview of SystemsROS StatementsAll systems rev neg except as marked.Focused Review of SystemsConstitutionalDenies: Fever.Ears/Nose/ThroatDenies: Ear drainage bilat, Ear ringing bilat, Mouth pain, Nasal congestion.RespiratoryDenies: Cough, non-productive, Cough, productive, Shortness of breath.GIDenies: Abdominal pain.Past Medical History - AdultStated Complaint JAW PAINAllergiesCoded Allergies:NSAIDS (Non-Steroidal Anti-Inflamma (Severe, HIIVES 01/19/25)iodine (Severe, UNKN 01/19/25)ketorolac (From TORADOL) (Severe, HIVES 01/19/25)meperidine (From DEMEROL) (Severe, HIVES 01/19/25)ondansetron (From ZOFRAN) (Severe, VOMITING 01/19/25)vancomycin (Severe, RASH 01/19/25)Home MedicationsReported MedicationslisinopriL (ZESTRIL) 5 MG PO DAILYMETOPROLOL SUCCINATE (TOPROL XL) 50 MG PO DAILYINSULIN ASPART (NovoLOG) 5 UNIT SUBQ ACoxyCODONE/ACETAMINOPHEN 7.5/325 MG (PERCOCET 7.5/325 MG) 1 TAB PO Q4H PRN PRNPAINAdditional Medical HistoryCancer left mandiblePhysical ExamVital SignsVital SignsFirst Documented: Result Date Time Pulse Ox 97 01/19 1238 B/P 198/109 01/19 1238 O2 Delivery Room air 01/19 1238 Temp 37.0 01/19 1238 Pulse 101 01/19 1238 Resp 20 01/19 1238Last Documented: Result Date Time Pulse Ox 97 01/19 1238 B/P 198/109 01/19 1238 O2 Delivery Room air 01/19 1238 Temp 37.0 01/19 1238 Pulse 101 01/19 1238 Resp 20 01/19 1238Review of Vital Signs ReviewedFocused PEGeneral/Const General/Const Awake, Alert, No acute distress, Well appearingMS Head Head Atraumatic, NormocephalicEyes Eyes Atraumatic, PERRL, EOMI, No nystagmusEars/Nose/Throat Ears/Nose/Throat Atraumatic, Airway patent, Mucous membranes moist, PharynxNL, No facial swelling, Gums/dentition NL, There is slight tenderness to theleft mandible at the angle but no deformity no malocclusion and no intra orallesions seen no swelling of the faceMS Neck Neck Atraumatic, Supple, No meningismus, Full range of motion, No adenopathyResp/Chest Respiratory/Chest Atraumatic, Breath sounds NL, Breath sounds = bilat, Norespiratory distressCardiovascular Cardiovascular Heart rate NL, Regular rhythm, Heart sounds NL, No gallop, NomurmursNeurologic Neurologic Oriented X3, Speech NL, No motor deficits, No sensory deficits, CNII - XII intactRe- Evaluation MDMFree Text MDM NotesFree Text MDM NotesPatient has a normal physical exam has recently diagnosed bone cancer of theleft mandible per history she states stage II. [place] and I have instructed to follow up withthe Oncology to have a repeat CT scan and staging and have treatment scheduledwill treat her pain with short course of pain medicine there is no indicationfor any emergent imaging as she already has a diagnosis of bone [facility] and will need it done by oncologist she is followed withED CourseMedication(s) OrderedMedication(s) Ordered:Central Nervous System Agents Sig/Onelia Start time Last Medication Dose Route Stop Time Status Admin Oxycodone/ 1 UNIT.DOSE X1ED ONE 01/19 1245 CAN Acetaminophen PO 01/19 1330 Oxycodone/ 1 UNIT.DOSE X1ED ONE 01/19 1243 CKD 01/19 Acetaminophen PO 01/19 1500 1247Differential DiagnosisDifferential Diagnosis TMJ syndrome L, bone cancerPatient Discharge DepartureVital Signs/ConditionVital SignsFirst Documented: Result Date Time Pulse Ox 97 01/19 1238 B/P 198/109 01/19 1238 O2 Delivery Room air 01/19 1238 Temp 37.0 01/19 1238 Pulse 101 01/19 1238 Resp 20 01/19 1238Last Documented: Result Date Time Pulse Ox 97 01/19 1238 B/P 198/109 01/19 1238 O2 Delivery Room air 01/19 1238 Temp 37.0 01/19 1238 Pulse 101 01/19 1238 Resp 20 01/19 1238All vital signs available at the time of this entry have been reviewed.Clinical ImpressionClinical ImpressionPrimary Impression: Jaw painDisposition DecisionDischarge )( Discharged to Home Yes )( Time 1311 )( Date 01/19/25Discharge/Care PlanCounseled Regarding Diagnosis, Prescriptions, Need for follow-up, When to returnto ED(Auto) PrescriptionsCurrent Visit ScriptsoxyCODONE/ACETAMINOPHEN 5/325 MG (PERCOCET 5/325 MG) 1 TAB PO Q6H PRN PRN pain 2 Days #8 TAB FOR acute PAINPatient Instructions ED TMJ SyndromeAdditional InstructionsFollow-up with your oncologist in [place] to get a repeat CT scan and stagingand scheduled for treatment of the cancer in the jawReferralsPCP Referral: NO PRIMARY OR FAMILY PHYSICIAN at 1312RPT #: [id number] OF REPORT Emergency Encounter Reason:JAW PAIN Encounter Diagnosis:Malignant neoplasm of mandible 16-Jan-2025 14:[id number] 15:30 [facility] Discharge Disposition:Discharged to home or self care (routine discharge) Kaite Benavides DO-16-Jan-2025 [facility] (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 She hasbeen diagnosed recently with cancer to her jaw he [place] She has 7.5Percocets that she uses for pain but has a limited number those in the pain hasgotten out of control and presents because of that. She was just wishes tohave some pain relief. She was really without any other complaints. She didhave a history of osteomyelitis and was on antibiotics for year and a half forthis same jaw area and that is how they found the cancer. She was having nofevers denies chest pain shortness of breath has been slightly nauseated but novomiting. Does state she feels the tumor has been getting larger.GeneralConfirmed Patient YesInitial Greet Date/Time 01/16/25 1452PresentationChief Complaint __ (Jaw pain from cancer)Hx Obtained From PatientReview of SystemsROS StatementsAll systems rev neg except as marked.Past Medical History - AdultStated Complaint JAW PAINAllergiesCoded Allergies:meperidine (From DEMEROL) (Mild, RASH 01/16/25)ondansetron (From ZOFRAN) (Mild, RASH 01/16/25)vancomycin (Mild, RASH 01/16/25)NSAIDS (Non-Steroidal Anti-Inflamma (ABDOMINAL CRAMPING 01/16/25)Additional Medical HistoryMandibular cancer,ms, diabetes, osteomyelitisAdditional Surgical HistoryMultiple surgeries on draw for abscesses and osteomyelitisSmoking status for patients 13 years old or older: Never SmokerPhysical ExamVital SignsVital SignsFirst Documented: Result Date Time Pulse Ox 97 01/16 1502 B/P 192/97 / 1502 B/P Mean 0.0 / 1502 O2 Delivery Room air 01/16 1502 Temp 36.9 / 1502 Pulse 110 / 1502Last Documented: Result Date Time Pulse Ox 97 01/16 1502 B/P 192/97 /04 1502 B/P Mean 0.0 / 1502 O2 Delivery Room air 01/16 1502 Temp 36.9 /04 1502 Pulse 110 /04 1502Review of Vital Signs Reviewed, Vital signs abnormal (Tachycardic hypertensive)Basic Physical ExamBasic PE GEN: Well appearing/NAD, HEAD: Atraumatic/NC, EYES: PERRL, conj clear,ENT: Membranes moist, NECK: Supple, RESP: No resp distress, EXT: No grossabnormality, SKIN: No rashes, warm/dry, NEURO: alert oriented, NEURO: grossmovement NL, PSYCH: NL thought contentPhysical ExamGeneral/Const General/Const Awake, Alert, No acute distress, Well appearing, Well developed, Well hydrated, Well nourished, CooperativeMS Head Head NormocephalicEars/Nose/Throat Ears/Nose/Throat Airway patent, Mucous membranes moist, Pharynx NL Text/Dict NotesPatient was edentulous she has a mass over her lower mandible exteriorly. Alsohas a swelling to the face that she was says been progressing over severalmonths. There is no warmth through the skin. No fluctuance or abscesses noted. No erythema is noted.MS Neck Neck Supple, Full range of motion Soft Tissue Neck Swelling present (below left mandible).Resp/Chest Respiratory/Chest No respiratory distressCardiovascular Heart Rate/Rhythm Tachycardia.MS Upper Extrem Upper Extremity/MS Full range of motionMS Lower Extrem Lower Ext/Pelvis/MS Full range of motionNeurologic Neurologic Oriented X3, Speech NL, No motor deficits, Memory NLRe-Evaluation MDMFree Text MDM NotesFree Text MDM NotesI was little concerned that she could be having some reoccurrence of the osteobut she denies any symptoms like that and feels that she was just anexacerbation of her cancer pain then has been noticing increasing swelling andmovement of the pain over the last several months. I did advise her she reallyneeds to get in and get this cancer treated with the radiation and treatmenttaken care of before becomes untreatable. And she needs to return home to havethat done. Again her 's over a truck her and does not wish to stay herefor any further evaluation just wants a shot for pain so she would get it backunder control. I am going to prescribe her some Phenergan for nausea.ED CourseMedication(s) OrderedMedication(s) Ordered:Central Nervous System Agents Sig/Onelia Start time Last Medication Dose Route Stop Time Status Admin Fentanyl Citrate 75 MCG 1XED ONE 01/16 1515 DC 01/16 IM 01/16 1516 1525 Ketorolac 30 MG 1XED ONE 01/16 1515 DC Tromethamine IM 01/16 1516 Promethazine HCl 50 MG 1XED ONE 01/16 1515 DC 01/16 IM 01/16 1516 1524 Oxycodone/ 2 TAB 1XED ONE 01/16 1500 CAN Acetaminophen PO 01/16 1501Patient Discharge DepartureVital Signs/ConditionVital SignsFirst Documented: Result Date Time Pulse Ox 97 01/16 1502 B/P 192/97 01/16 1502 B/P Mean 0.0 01/16 1502 O2 Delivery Room air 01/16 1502 Temp 36.9 / 1502 Pulse 110 / 1502Last Documented: Result Date Time Pulse Ox 97 01/16 1502 B/P 192/97 01/16 1502 B/P Mean 0.0 01/16 1502 O2 Delivery Room air 01/16 1502 Temp 36.9 01/16 1502 Pulse 110 01/16 1502All vital signs available at the time of this entry have been reviewed.Condition StableClinical ImpressionClinical ImpressionPrimary Impression: Primary cancer of mandibleDisposition DecisionDischarge )( Discharged to Home Yes )( Time 151 )( Date 01/16/25Discharge/Care PlanCounseled Regarding Diagnosis, Prescriptions(Auto) PrescriptionsCurrent Visit ScriptsPROMETHAZINE (PHENERGAN) 25 MG PO QID PRN PRN Vomiting PROMETHAZINE (PHENERGAN) 25 MG PO QID PRN PRN Vomiting #20 TABPatient Instructions ED Chronic PainAdditional InstructionsYou have chronic pain from your cancer that is only going to continue to getworse. And by your own admission it does appear to be getting larger. It isextremely important that you head home as soon as possible to get in and seeyour cancer doctor in started getting treatment before treatment he was nolonger a viable option.ReferralsProvider Referral: No Primary or Family PhysicianDeparture FormsAdditional Information/Noticey [facility] One Discharge NoteI have spoken with the patient and/or caregivers. I have explained the patient'scondition, diagnoses and treatment plan based on the information available to meat this time. I have answered the patient's and/or caregiver's questions andaddressed any concerns. The patient and/or caregivers have as good anunderstanding of the patient's diagnosis, condition and treatment plan as can beexpected at this point. The vital signs have been stable. The patient'scondition is stable and appropriate for discharge from the emergency department.The patient will pursue further outpatient evaluation with the primary carephysician or other designated or consulting physician as outlined in thedischarge instructions. The patient and/or caregivers are agreeable to this planof care and follow-up instructions have been explained in detail. The patientand/or caregivers have received these instructions in written format and haveexpressed an understanding of the discharge instructions. The patient and/orcaregivers are aware that any significant change in condition or worsening ofsymptoms should prompt an immediate return to this or the closest emergencydepartment or a call to 911.Quality MeasuresBP F/U for HTN F/u with PCP/other doc at 1715RPT #: [id number] OF REPORT Emergency Encounter Reason:HAS JAW CANCER/JAW PAIN Encounter Diagnosis:Jaw pain,Elevated blood-pressure reading, without diagnosis of hypertension,Tachycardia, unspecified,custodial (current) use of opiate analgesic,Other chronic pain 14-Jan-2025 10:[id number] 12:11 [facility] Discharge Disposition:Discharged to home or self care (routine discharge) Mookie Elliott MD-14-Jan-2025 [facility])EMERGENCY PROVIDER REPORTREPORT#:[id number] REPORT STATUS: ESignDATE:01/14/25 TIME: 1055PATIENT: ROSSY AVALOS UNIT #: [id number]#: [id number] ROOM/BED: [place] [id number]: [birth year] AGE: 50 SEX: PCP PHYS: NO PRIMARY OR FAMILY PHYSICIANADM DATE: 01/14/25 INI AUTH: Liban Damico MDED ADMIT LAST SIG: Liban Damico MDREP SERV REP SERV TM: 1055 * ALL edits or amendments must be made on the electronic/computer document *HPI GREETGeneralInitial Greet Date/Time 01/14/25 1038Clinical NoteClinical NoteFirst Documented: Result Date Time Pulse Ox 94 04/ 1051 B/P 245/121 / 1051 O2 Delivery Room air 01/14 1051 Temp 36.4 01/14 1051 Pulse 101 / 1051 Resp 18 01/14 1051Last Documented: Result Date Time Pulse Ox 94 04/ 1051 B/P 245/121 / 1051 O2 Delivery Room air 01/14 1051 Temp 36.4 01/14 1051 Pulse 101 01/14 1051 Resp 18 01/14 1051CC: jaw painHISTORY OF PRESENT ILLNESS:Patient is a 50-year-old female with a history of bone cancer in the jaw,diagnosed in October, who presents with retching, elevated heart rate, and highblood pressure. She has not received any treatment for her cancer due to lack ofinsurance. She has a history of type 1 diabetes and multiple sclerosis, both ofwhich are currently managed. 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 Sheexperienced retching after consuming alcohol last night to manage pain. Sherequests a refill of oxycodone and a shot of Dilaudid for pain management.Past Medical History: Bone cancer in the jaw, type 1 diabetes, multiplesclerosis.Medications: Oxycodone, hydrocodone.Allergies: None mentioned.REVIEW OF SYSTEMS:Per HPIPHYSICAL EXAM:General: Well developed, well nourished. Non-toxic appearance. Alert, mildlytachycardic, hypertensive.HEENT: Normocephalic. Atraumatic. EOMI.CV: Regular rate. Regular rhythm. Mildly tachycardic. No MRG. 2+ distal pulsesbilaterally.Pulm: CTAB. No WRR.Abd: Soft, non-tender, non-distended.Ext: MAEE x4. Normal inspection.Neuro: Alert. Oriented.EVALUATIONS:INITIAL EVALUATION AND PLAN:MDM:- The patient is a 50-year-old female with a history of head and neck bonecancer, type 1 diabetes, and multiple sclerosis, presenting with pain andretching. She has not received any cancer treatment yet due to lack ofinsurance. She reports a history of white coat syndrome and elevated bloodpressure.-The patient adamantly did not want a further workup including labs in theemergency department. She just wants pain management. We will provide her withpain management and refer her to see primary care as an outpatient.- Differential diagnosis includes pain secondary to cancer, medication sideeffects, and possible gastrointestinal distress.- Concerns include managing her pain effectively while monitoring for potentialrespiratory depression post-Dilaudid administration. Given her history ofdiabetes, monitoring for any complications related to her condition is alsonecessary.Plan:- Administer IM shot of Dilaudid (1 mg) for pain management.- Refill prescription for oxycodone (10 tabs).- Send prescription to [facility]- Monitor patient for respiratory depression post-Dilaudid administration.- Consider Phenergan for nausea if needed.- Perform cardiac and pulmonary exam.MEDICAL DECISION-MAKING:DIFFERENTIAL DIAGNOSES / PROBLEMS ADDRESSED:Based on the patient's initial presentation, my differential diagnosis includes,but is not limited to: Pain secondary to cancer, Medication side effects,Gastrointestinal distress.TESTS, DOCUMENTS, AND INDEPENDENT HISTORIANS: * LABS ORDERED AND REVIEWED: None * IMAGING TESTS ORDERED: NoneINDEPENDENT HISTORIANS: * NoneINDEPENDENT INTERPRETATION OF TESTS: * NoneDISCUSSION OF MANAGEMENT OR TEST INTERPRETATION: * NoneREASSESSMENT / ED COURSE:Based on the initial presentation, I considered the need for escalation of careand hospitalization. The patient presents with pain and retching, which could bedue to her untreated bone cancer, medication side effects, or gastrointestinaldistress. The presence of multiple chronic conditions (type 1 diabetes andmultiple sclerosis) and the need for careful pain management with potentialrespiratory depression post-Dilaudid administration further increase thecomplexity. Administered IM shot of Dilaudid (1 mg) for pain management. Refillprescription for oxycodone (10 tabs). Monitor patient for respiratory depressionpost-Dilaudid administration. Discharge home.MDM SUMMARY1. NUMBER AND COMPLEXITY OF PROBLEMS ADDRESSED (COPA): * HIGH COMPLEXITY: The patient presents with pain and retching, which could bedue to her untreated bone cancer, medication side effects, or gastrointestinaldistress. The presence of multiple chronic conditions (type 1 diabetes andmultiple sclerosis) and the need for careful pain management with potentialrespiratory depression post-Dilaudid administration further increase thecomplexity.2. AMOUNT AND/OR COMPLEXITY OF DATA TO BE REVIEWED AND ANALYZED (DATA): * LIMITED: No additional tests, documents, or historians were reviewed orordered.3. RISK OF COMPLICATIONS, MORBIDITY, AND/OR MORTALITY (RISK): * HIGH RISK: The patient is at high risk due to potential diagnoses (painsecondary to cancer, medication side effects, gastrointestinal distress) and theneed for careful pain management with potential respiratory depression post-Dilaudid administration. Social determinants of health, including limitedtransportation and financial constraints, also contribute to the high risk.Past Medical HistoryStated Complaint HAS JAW CANCER/JAW PAINAllergiesCoded Allergies:Iodinated Contrast Media (Intermediate, HIVES 07/03/24)NSAIDS (Non-Steroidal Anti-Inflamma (Intermediate, CONTRAINDICATED 07/03/24)meperidine (From DEMEROL) (Intermediate, HIVES 07/03/24)vancomycin (Intermediate, LEXI SYNDROME 07/03/24)ondansetron (From ZOFRAN) (Mild, VOMITING 07/03/24)Home MedicationsActive ScriptsMETHOCARBAMOL (ROBAXIN) 750 MG PO Q8H PRN pain METHOCARBAMOL (ROBAXIN) 750 MG PO Q8H PRN pain #20 TAB Prov: 07/21/24oxyCODONE (ROXICODONE) 5 MG PO Q4H PRN PRN jaw pain oxyCODONE (ROXICODONE) 5 MG PO Q4H PRN PRN jaw pain #15 TAB Prov: 05/31/24MUPIROCIN (BACTROBAN 2%) 1 APPLIC TOPICAL BID MUPIROCIN (BACTROBAN 2%) 1 APPLIC TOPICAL BID #22 GM Prov: 10/03/24METHOCARBAMOL (ROBAXIN) 750 MG PO Q8H METHOCARBAMOL (ROBAXIN) 750 MG PO Q8H #20 TAB Prov: 07/03/24Smoking status for patients 13 years old or older: Never SmokerCOURSEMed DataMed DataMedication(s) Ordered:Central Nervous System Agents Sig/Onelia Start time Last Medication Dose Route Stop Time Status Admin Hydromorphone HCl 1 MG X1ED ONE 01/14 1110 DC / IM 01/14 1111 1116Patient Discharge DepartureVital Signs/ConditionVital SignsFirst Documented: Result Date Time Pulse Ox 94 04/ 1051 B/P 245/121 / 1051 O2 Delivery Room air / 1051 Temp 36.4 04/ 1051 Pulse 101 04/ 1051 Resp 18 01/14 1051Last Documented: Result Date Time Pulse Ox 94 04/ 1051 B/P 245/121 04/ 1051 O2 Delivery Room air / 1051 Temp 36.4 04/ 1051 Pulse 101 01/14 1051 Resp 18 01/14 1051All vital signs available at the time of this entry have been reviewed.Clinical ImpressionClinical ImpressionPrimary Impression: CHRONIC MANDIBLE PAINDisposition DecisionDischarge )( Discharged to Home Yes )( Time 1200 )( Date 01/14/25Discharge/Care PlanCounseled Regarding Diagnosis, Prescriptions, Need for follow-up, When to returnto ED(Auto) PrescriptionsCurrent Visit ScriptsoxyCODONE/ACETAMINOPHEN (PERCOCET 7.5/325 MG) 1 TAB PO Q4H PRN PRN breakthroughpain only oxyCODONE/ACETAMINOPHEN (PERCOCET 7.5/325 MG) 1 TAB PO Q4H PRN PRNbreakthrough pain only #10 TABoxyCODONE/ACETAMINOPHEN (PERCOCET 7.5/325 MG) 1 TAB PO Q4H PRN PRN breakthroughpain oxyCODONE/ACETAMINOPHEN (PERCOCET 7.5/325 MG) 1 TAB PO Q4H PRN PRNbreakthrough pain #10 TABPrescriptions Reviewed Risks, Benefits, Alternative treatmentPatient Instructions ED Chronic Pain, Oxycodone/Acetaminophen Oral TabletAdditional InstructionsThank YouThank you for trusting us with your medical care today. We know any visit to anemergency department can be stressful. Our goal in the emergency department isto always keep you comfortable and informed about your medical condition. Ihope you feel better very soon. We care about you and want you to know ifanything changes or you are concerned about anything we are here to help you andare always available. The ER is open 24 hours a day, 365 days a year. Pleasecome back if you develop any new or concerning symptoms. Please also follow-upwith your primary care provider.Thank you again.Sincerely,Dr DamicoRefwilfridalsProvider Referral: NO PRIMARY OR FAMILY PHYSICIANResource Referral: [facility] Address: [address] [place], [place] [address]Rqaxdosn Group: [facility] Address: [place], [place] [address]Hrhjdmbdy Forms*[facility] ED ADULT at 1207RPT #: [id number] OF REPORT Emergency Encounter Reason:CANCER BREAKTHROUGH PAIN Encounter Diagnosis:Tachycardia, unspecified,Elevated blood-pressure reading, without diagnosis of hypertension,Personal history of malignant neoplasm of other sites of lip, oral cavity, and pharynx,Jaw pain 13-Jan-2025 12:[id number] 13:48 Johanna Salas MD (Attending) [facility] Discharge Disposition:Left against medical advice or discontinued care Rashawn Longoria CK-8-Vrg13-Jan-2025 [facility] ([facility]) Main EDEMERGENCY PROVIDER REPORTREPORT#:[id number] REPORT STATUS: ESignDATE:01/13/25 TIME: 1329PATIENT: ROSSY AVALOS UNIT #: [id number]#: [id number] ROOM/BED: ERDOB: [birth year] AGE: 50 SEX: PCP PHYS: NO PRIMARY OR FAMILY PHYSICIANADM DATE: 01/13/25 INI AUTH: Jorge Morocho PAED ADMIT LAST SIG: Johnathon Spencer MDREP SERV REP SERV TM: 1329 * ALL edits or amendments must be made on the electronic/computer document *Jorge Morocho 01/13/25 1329:HPI GREETGeneralInitial Greet Date/Time 01/13/25 1232Clinical NoteClinical NoteFirst Documented: Result Date Time Pulse Ox 94 04/ 1235 B/P 208/114 04/ 1235 O2 Delivery Room air 01/13 1235 Temp 36.2 04 1235 Pulse 94 04 1235 Resp 16 01/13 1235Last Documented: Result Date Time Pulse Ox 94 04 1235 B/P 208/114 04/ 1235 O2 Delivery Room air 04 1235 Temp 36.2 04/ 1235 Pulse 94 04/ 1235 Resp 16 01/13 1235ROOM: [id number]: [facility] in [facility] COMPLAINT: Jaw painHISTORY OF PRESENT ILLNESS:80-year-old female with a history of left-sided osteomyelitis and jaw cancerpresents with breakthrough pain. Patient has been receiving localized radiationtreatment through [facility] in [facility];no chemo treatment. Over the last few days, patient has had increased pain overthe left side of her jaw, has not had relief w/ percocet.Describes the pain as severe, achy, nonradiating. Quality and severity of painfeels similar to prior exacerbations of jaw pain. 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 Patient has not been able to establish care withoncologist in the area. Denies fevers, chills, difficulty swallowing,difficulty breathing and other infectious symptoms. Patient states that she is compliant with antihypertensives howeverhypertension is secondary to pain and whitecoat syndrome.On review of records:-Patient had multiple visits to emergency departments for break through jaw painrequesting dilaudid and phenergen. On prior visits, patient is adamant about nothaving further workup.REVIEW OF SYSTEMS:ROS reviewed and otherwise negative except for what is stated in the HPIPHYSICAL EXAM:General Appearance: Alert, has no immediate need for airway protection, and nocurrent signs of significant toxicity.Eyes: Pupils equal and round no pallor or injection.ENT, Mouth: Mucous membranes are moist. No stridor, no trismus, toleratingsecretions. Normal speech.Respiratory: No respiratory distress speaking in full sentencesCardiovascular: Regular rate and rhythm. Heart sounds normal, no murmur.Neurological: Awake, alert, oriented. moves all extremities. Normal speech.Normal gait.Skin: Warm and dry, no rash.Musculoskeletal: Neck is supple non tender. Extremities are symmetrical, fullrange of motion.ED COURSE:[Patient case and initial work-up discussed with my attending physician , who personally evaluated the patient and agrees with workup.]ConsultationConsultant Specialty: [facility] Radiation OncologyConsult name: Yin at call centerTime inside solar sales consultant called: [phone] Details: case reviewed via phone, patient states that her oncologist shruthi [facility]. Spoke w/ Yin at call center, no records of patient intheir oncology center or documentation of treatments, patient has handful ofvisits to the emergency department.DIFFERENTIAL DIAGNOSIS:My differential diagnosis includes but is not limited to: Breakthrough cancerpain, osteomyelitis, sepsis, hypertension, chronic pain, infectious pathologyMedical Decision Making / Complexity of ProblemMedical Decision Making Discussion:50-year-old female with history of osteomyelitis of the jaw and jaw cancerpresents for breakthrough pain. Nontoxic-appearing, afebrile, hypertensive andmildly tachycardic. Patient states that her elevated blood pressure is due topain and whitecoat syndrome. Review of records, patient has had elevatedblood pressure on multiple occasions during ED visits. Patient states that whenshe comes to the emergency room when she gets 2 mg Dilaudid and Phenergan.PDMP reviewed, no records found for the patient and [facility]. I attempted to consult patient's oncology center to discussbreakthrough pain and recommendations however when speaking to their facility,no records of the patient receiving care through their oncology department.When patient was notified that I was calling her facility, patient states I donot have time for this and left the emergency department AGAINST MEDICALADVICE. No IV was in place.After extensive conversation and repeated reevaluation the patient has decidedto leave against medical advice. The staff and I have made multiple attempts tohelp alleviate this issue. In spite of this the patient still requested to leaveagainst medical advice. Nursing staff notified me that the patient left AGAINSTMEDICAL ADVICE, was unable to have conversation regarding risks of leavingbefore medical evaluation and care are fully provided. These risks are many andinclude failure to diagnose the condition, failure to provide needed treatment,and a failure to obtain needed specialty care as required. The patient has shownsound judgment and there for has medical decision making capacity.- Number and complexity of problems addressed: 1 undiagnosed new problem withuncertain prognosis.- I have reviewed prior external notes from: external records on [employer], external PDMP/DOPL/CSD/K-TRACS notes, external hospitalnote(s).- I have ordered: Considered additional labs and imaging however patient leftthe emergency department AGAINST MEDICAL ADVICE.- I have discussed management/test interpretation with: inside solar sales consultant/specialist.- Risk of Complications and/or Morbidity or Mortality of Patient Management:moderate.- Social determinants of health that impact diagnosis or treatment: [place]living [place], [place], [place] Disposition of the patient/consideration of hospitalization: based on myevaluation, I have recommended admission, however the patient has refused and isleaving AGAINST MEDICAL ADVICE.Past Medical HistoryStated Complaint CANCER BREAKTHROUGH PAINAllergiesCoded Allergies:Iodinated Contrast Media (Intermediate, HIVES 07/03/24)NSAIDS (Non-Steroidal Anti-Inflamma (Intermediate, CONTRAINDICATED 07/03/24)meperidine (From DEMEROL) (Intermediate, HIVES 07/03/24)vancomycin (Intermediate, LEXI SYNDROME 07/03/24)ondansetron (From ZOFRAN) (Mild, VOMITING 07/03/24)Home MedicationsActive ScriptsoxyCODONE/ACETAMINOPHEN (PERCOCET 7.5/325 MG) 1 TAB PO Q4H PRN PRN breakthroughpain only oxyCODONE/ACETAMINOPHEN (PERCOCET 7.5/325 MG) 1 TAB PO Q4H PRN PRNbreakthrough pain only #10 TAB Prov: 01/14/25oxyCODONE/ACETAMINOPHEN (PERCOCET 7.5/325 MG) 1 TAB PO Q4H PRN PRN breakthroughpain oxyCODONE/ACETAMINOPHEN (PERCOCET 7.5/325 MG) 1 TAB PO Q4H PRN PRNbreakthrough pain #10 TAB Prov: 01/14/25METHOCARBAMOL (ROBAXIN) 750 MG PO Q8H PRN pain METHOCARBAMOL (ROBAXIN) 750 MG PO Q8H PRN pain #20 TAB Prov: 07/21/24oxyCODONE (ROXICODONE) 5 MG PO Q4H PRN PRN jaw pain oxyCODONE (ROXICODONE) 5 MG PO Q4H PRN PRN jaw pain #15 TAB Prov: 05/31/24MUPIROCIN (BACTROBAN 2%) 1 APPLIC TOPICAL BID MUPIROCIN (BACTROBAN 2%) 1 APPLIC TOPICAL BID #22 GM Prov: 10/03/24METHOCARBAMOL (ROBAXIN) 750 MG PO Q8H METHOCARBAMOL (ROBAXIN) 750 MG PO Q8H #20 TAB Prov: 07/03/24Smoking status for patients 13 years old or older: Never SmokerPatient Discharge DepartureVital Signs/ConditionVital SignsFirst Documented: Result Date Time Pulse Ox 94 01/13 1235 B/P 208/114 01/13 1235 O2 Delivery Room air 01/13 1235 Temp 36.2 04/ 1235 Pulse 94 04/ 1235 Resp 16 01/13 1235Last Documented: Result Date Time Pulse Ox 94 04/ 1235 B/P 208/114 / 1235 O2 Delivery Room air 01/13 1235 Temp 36.2 04/ 1235 Pulse 94 04/ 1235 Resp 16 01/13 1235All vital signs available at the time of this entry have been reviewed.Clinical ImpressionClinical ImpressionPrimary Impression: Left against medical adviceSecondary Impressions: Jaw painDisposition DecisionOther )( Time 1336 )( Date 01/13/25 Against Medical Advice Johnathon Brothers 01/21/25 1034:Patient Discharge DepartureDischarge/Care PlanReferralsProvider Referral: NO PRIMARY OR FAMILY PHYSICIANSupervising Physician Note MidLv/Doc Saw Pt 1I have personally seen the patient and I evaluated the patient along withinvolvement of the PA/MORTARMAN. I agree with the PA/assistant controller findings and plan. I haveperformed all aspects of MDM as documented including: evaluation of the patient/patient's condition(s), review and analysis of available data, and determinationof risk of patient management decisions.I have discussed the evaluation and management of this patient with the CAMILO andagree with their assessment and disposition plan I have also evaluated thepatient personally and my assessment is:History: 50-year-old female with a possible history of jaw cancer versusosteomyelitis who is presenting for pain physical, her oncology team isreportedly in another state.Physical exam/data: Upon my attempt to evaluate the patient, apparently thepatient had been informed that we are contacting her oncologist to ensure propertreatment and upon being informed of this she left AGAINST MEDICAL ADVICE bytelling the nurse that she had to leave.MDM: I performed a substantive portion of the exam including all aspects of themedical decision making my assessment is complete assessment of the patient wasnot able to be performed secondary to the patient's [facility]. The patient left AGAINST MEDICAL ADVICE. at 2053 at 1035RPT #: [id number] OF REPORT Emergency Encounter Reason:BREAKTHROUGH PAIN/ HX JAW CANCER Encounter Diagnosis:Malignant neoplasm of mandible,PATIENT'S OTHER NONCOMPL WITH MEDS REGIMEN FOR OTHER REASON,Other chronic pain 04-Jan-2025 04:[id number] 05:00 [facility] Discharge Disposition:Discharged to home or self care (routine discharge) Stepan Persaud MD-04-Jan-2025 [facility] ([facility])EMERGENCY PROVIDER REPORTREPORT#:[id number] REPORT STATUS: SignedDATE:01/04/25 TIME: 454PATIENT: ROSSY AVALOS UNIT #: [id number]#:[id number] ROOM/BED:: 71 [facility] F PCP: [facility] PCPSERVICE AUTHOR: Hung Ying MDREP SRV REP SRV TM: 454* ALL edits or amendments must be made on the electronic/computer document * See AddendumHPI-General IllnessFree Text HPI NotesFree Text HPI [id number] female coming to ER with complains of left lower jaw pain secondaryto her jaw osteomyelitis and jaw cancer. Patient states she is from [facility] and traveling through this area with her who is a heat engineering teacher andgoing to [place]. Patient states she takes Fithian tablets that have beengiven to her from her primary care physician and is supposed to see anoncologist for further management of her jaw cancer. Patient states she onlyhas few tablets of Fithian left and she wants something for breakthrough pain inthe ER. Patient denies any pain elsewhere on the mouth or jaw. Denies anychest pain, fever, cough, any other symptoms. Patient states such pain istypical for her chronic pain secondary to her jaw cancer. Patient does not seeany pain management clinic at this time.GeneralInitial Greet Date/Time 01/04/25 0441PresentationChief Complaint __ (Chronic pain)Past Medical History - AdultStated Complaint BREAKTHROUGH PAIN/ HX JAW CANCERAllergiesCoded Allergies:NSAIDS (Non-Steroidal Anti-Inflamma (01/04/25)meperidine (From DEMEROL) (01/04/25)vancomycin (01/04/25)Smoking status for patients 13 years old or older: Never SmokerPhysical ExamVital SignsVital SignsFirst Documented: Result Date Time Pulse Ox 98 01/04 427 B/P 166/104 01/04 427 O2 Delivery Room air 01/04 427 Temp 98.9 01/04 427 Pulse 80 01/04 427 Resp 18 01/04 427Last Documented: Result Date Time Pulse Ox 98 01/04 427 B/P 166/104 01/04 427 O2 Delivery Room air 01/04 427 Temp 98.9 01/04 427 Pulse 80 01/04 427 Resp 18 01/04 427Review of Vital Signs ReviewedFree Text PE NotesFree Text PE NotesGeneral: Alert.Skin: Dry. No rash.Head: Normocephalic, atraumatic.Neck: Supple, trachea midline. No JVD.Eye: Normal conjunctiva. No discharge/redness.Ears, nose, mouth and throat: Oral mucosa moist. No drooling. Oropharyngealexam did not reveal any open ulcers or masses or asymmetry in bilateral lowerjaw. TTP on left lower mandible around the molar region. Patient does not haveany teeth in the entire lower jaw. No visible redness or any palpated induratedlesions on the cheek or jaw. No submandibular enlargement or any signs ofLudwig's angina. No trismus or stridor.Cardiovascular: Normal peripheral perfusion.Respiratory: Respirations are non-labored.Back: Normal ROM.Musculoskeletal: No obvious deformity.Neurological: Alert and oriented to person, place, time, and situation. Normalspeech observed. Ambulatory with normal unassisted gait.Psychiatric: Cooperative, appropriate mood affectRe-Evaluation MDMFree Text MDM NotesFree Text MDM NotesPatient with chronic jaw pain and requesting pain medication for breakthroughpain on her left lower jaw. Per shared decision making with the patient, IMmorphine 4 mg was given since she is allergic to NSAIDs. Patient states herhusband is sitting in the parking lot with their truck and will be driving.Patient recommended to follow up with her primary care physician and discussregarding pain management referral. Patient to continue outpatient treatmentfor her jaw cancer. Recommended return to ER if any symptoms worsen. Patientverbalized understanding of such plan.ED CourseMedication(s) OrderedMedication(s) Ordered:Central Nervous System Agents Sig/Onelia Start time Last Medication Dose Route Stop Time Status Admin Morphine Sulfate 4 MG X1ED ONE 01/04 0500 DC 01/04 IM 01/04 0501 0500Patient Discharge DepartureVital Signs/ConditionVital SignsFirst Documented: Result Date Time Pulse Ox 98 01/04 427 B/P 166/104 01/04 427 O2 Delivery Room air 01/04 427 Temp 98.9 01/04 427 Pulse 80 01/04 427 Resp 18 01/04 427Last Documented: Result Date Time Pulse Ox 98 01/04 427 B/P 166/104 01/04 427 O2 Delivery Room air 01/04 427 Temp 98.9 01/04 427 Pulse 80 01/04 427 Resp 18 01/047All vital signs available at the time of this entry have been reviewed.Clinical ImpressionClinical ImpressionPrimary Impression: Chronic painSecondary Impressions: Cancer of lower jaw boneDisposition DecisionDischarge )( Discharged to Home Yes )( Time 0456 )( Date 01/04/25Discharge/Care PlanPatient Instructions ED Chronic Pain, ED Standard Education for ...Additional InstructionsFollow up with your primary care physician in 2-3 days and your pain managementclinic for further pain management.Return to ER immediately if any symptoms worsen or as needed.ReferralsPCP Referral: [facility] PCP Discharge NoteI have spoken with the patient and/or caregivers. I have explained the patient'scondition, diagnoses and treatment plan based on the information available to meat this time. I have answered the patient's and/or caregiver's questions andaddressed any concerns. The patient and/or caregivers have as good anunderstanding of the patient's diagnosis, condition and treatment plan as can beexpected at this point. The vital signs have been stable. The patient'scondition is stable and appropriate for discharge from the emergency department.The patient will pursue further outpatient evaluation with the primary carephysician or other designated or consulting physician as outlined in thedischarge instructions. The patient and/or caregivers are agreeable to this planof care and follow-up instructions have been explained in detail. The patientand/or caregivers have received these instructions in written format and haveexpressed an understanding of the discharge instructions. The patient and/orcaregivers are aware that any significant change in condition or worsening ofsymptoms should prompt an immediate return to this or the closest emergencydepartment or a call to 911. at 0517Addendum 1: 01/04/25517 by Hung Ying MDPatient AddendumAddendumPatient's blood pressure was elevated however likely secondary to pain and hernot taking her blood pressure medication dose this morning. Patient to continueoutpatient monitoring and management of her blood pressure. at 0518RPT #: [id number] OF REPORT Emergency Encounter Reason:JAW PAIN-JAW CANCER Encounter Diagnosis:Neoplasm related pain (acute) (chronic),Malignant neoplasm of mandible 30-Dec-2024 05:[id number] 06:41 [facility] Discharge Disposition:Discharged to home or self care (routine discharge) Tonya Coleman MD-30-Dec-2024 [facility] ([facility])EMERGENCY PROVIDER REPORTREPORT#:[id number] REPORT STATUS: SignedDATE:12/30/24 TIME: 618PATIENT: ROSSY AVALOS UNIT #: [id number]#: [id number] ROOM/BED:: 71 LOCATION: EDAGE: 49 SEX: F PCP: NO PRIMARY OR FAMILY PHYSICIANSERVICE AUTHOR: Lilian Castaneda MDREP SRV REP SRV TM: 0619* ALL edits or amendments must be made on the electronic/computer document *HPI-General IllnessFree Text HPI NotesFree Text HPI NotesHPI: 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 [place] in [place] currently traveling with her whodrives a tractor trailer. Occasionally gets more severe breakthrough pain whichhas been the case for the past day, previously treated with IM Dilaudid. Nofever, chills, vomiting. Otherwise feels well.ROS: All other systems reviewed are negative except as documented in the HPI.PMHx: Type 1 diabetes, mandibular cancer as above, previous osteomyelitis inthe left mandiblePhysical Exam:General: alert in no apparent distressHEENT: Moist mucous membranes, moderate tenderness over left mandible withsubtle soft tissue swelling/mass, no fluctuance, no submandibular mass, normalTMJ movementCardiovascular: regular ratePulmonary: no increased respiratory effortMusculoskeletal: No visible abnormalitiesNeurologic: speech is clear, awake and oriented, no gross deficitsPsychiatric: affect normal, speech regular rate and rhythmIntegument: no rash, warm and dryDifferential Diagnosis includes but is not limited to: Chronic pain, dentalabscess, osteomyelitis, malignancyThe stated differential diagnosis considerations are broad and not meant to diallo inclusive. The differential diagnoses continually evolves during emergencydepartment course and the listed differential diagnoses are not all inclusive.MDM: Patient appears stable, given IM Dilaudid for breakthrough cancer pain.Counseled regarding the importance of follow-up. Also strongly encouraged returnhere right away if symptoms worsen, fail to improve, or if there are newconcerning symptoms.I personally reviewed the patient's chart notesWhen necessary, I required an independent historian to assess the patientAfter shared discussion, I personally ordered laboratory studies and images ofthis patientWhen ordered, I personally reviewed the patient's laboratory studiesWhen ordered I personally reviewed the patient's imaging studies including thoseinterpreted by the radiologist. I concur with the radiologist's interpretation.Patient management was a shared decision with the patient/family/cigarette tipper.Social determinants of health (SDOH) impacting patient treatment carefullyreviewed and considered in all of my medical decisionsPrescription drug management executed after I reviewed patient's currentmedications and home meds.I discussed patient management including test interpretation with the patientand familyThis medical documentation was completed, at least in part, using an electronicmedical record system with voice recognition. Although this document has beencarefully reviewed, there may still be some phonetic and typographical errorsincluding pronoun reversals. These errors are purely typographical and due toimperfections of the software program, they do not reflect any compromise in thepatient's overall medical care.GeneralInitial Greet Date/Time 12/30/24 0542PresentationChief Complaint left jaw painReview of SystemsROS StatementsAll systems rev neg except as marked.Past Medical History - AdultStated Complaint JAW PAIN-JAW CANCERAllergiesCoded Allergies:NSAIDS (Non-Steroidal Anti-Inflamma (12/30/24)meperidine (From DEMEROL) (12/30/24)ondansetron (From ZOFRAN) (12/30/24)vancomycin (12/30/24)Uncoded Allergies:IV CONTRAST (12/30/24)Review of Nursing Notes Rev avail, and agreeSmoking status for patients 13 years old or older: Never SmokerPhysical ExamVital SignsVital SignsFirst Documented: Result Date Time Pulse Ox 96 12/30 0536 B/P 204/116 12/30 0536 O2 Delivery Room air 12/30 0536 Temp 97.2 12/30 0536 Pulse 98 12/30 0536 Resp 14 12/30 0536Last Documented: Result Date Time Pulse Ox 96 12/30 0536 B/P 204/116 12/30 0536 O2 Delivery Room air 12/30 0536 Temp 97.2 12/30 0536 Pulse 98 12/30 0536 Resp 14 12/30 0536Review of Vital Signs ReviewedRe-Evaluation MDMED CourseMedication(s) OrderedMedication(s) Ordered:Central Nervous System Agents Sig/Onelia Start time Last Medication Dose Route Stop Time Status Admin Promethazine HCl 25 MG X1ED ONE 12/30 06 DC 12/30 PO 12/30 0619 0629 Promethazine HCl 25 MG EDHOME ONE 12/30 0618 DC 12/30 PO 12/30 0619 0629 Hydromorphone HCl 2 MG X1ED ONE 12/30 0557 DC 12/30 IM 12/30 0558 0629Patient Discharge DepartureVital Signs/ConditionVital SignsFirst Documented: Result Date Time Pulse Ox 96 12/30 0536 B/P 204/116 12/30 0536 O2 Delivery Room air 12/30 0536 Temp 97.2 12/30 0536 Pulse 98 12/30 0536 Resp 14 12/30 0536Last Documented: Result Date Time Pulse Ox 96 03/18 0536 B/P 204/116 12/31 535 O2 Delivery Room air 12/31 535 Temp 97.2 12/31 535 Pulse 98 12/31 535 Resp 14 12/31 535All vital signs available at the time of this entry have been reviewed.Condition StableClinical ImpressionClinical ImpressionPrimary Impression: Cancer of mandibleTime of Impression 06Disposition DecisionDischarge )( Discharged to Home Yes )( Time 06 )( Date 12/30/24Discharge/Care PlanCounseled Regarding Diagnosis, Need for follow-up, When to return to EDPatient Instructions CAP ED Standard Education for ..., Osteosarcoma, AdultAdditional InstructionsFollow-up with your regular providers. Please return here or to anotherhospital right away if, at any time, you are worse, not improving, or has newconcerning symptoms.ReferralsProvider Referral: NO PRIMARY OR FAMILY PHYSICIAN at 0758RPT #: [id number] OF REPORT Emergency Encounter Reason:JAW PAIN JAW CANCER Encounter Diagnosis:Malignant neoplasm of head, face and neck,Type 2 diabetes mellitus without complications,custodial (current) use of insulin,Jaw pain 22-Dec-2024 08:[id number] 09:55 [facility] Discharge Disposition:Discharged to home or self care (routine discharge) Rea Benavides MD-22-Dec-2024 [facility] ([facility])EMERGENCY PROVIDER REPORTREPORT#:[id number] REPORT STATUS: SignedDATE:12/22/24 TIME: 909PATIENT: ROSSY AVALOS UNIT #: [id number]#: [id number] ROOM/BED:: 73 LOCATION: F.NFP9TZK: 49 SEX: F PCP: NO PRIMARY OR FAMILY PHYSICIANSERVICE AUTHOR: Litzy Lucia MDREP SRV REP SRV TM: 0910* ALL edits or amendments must be made on the electronic/computer document *HPI-General IllnessFree Text HPI NotesFree Text HPI Ixkyl16-pzmy-owt female with reported history of htn, dm, 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 Says the pain has been going on eversince she was diagnosed with a jaw cancer, no fever, chills, chest pain, otherassociated symptoms.GeneralInitial Greet Date/Time 12/22/24 0857PresentationChief Complaint __ (jaw pain)Past Medical History - AdultStated Complaint JAW PAIN JAW CANCERAllergiesCoded Allergies:Iodinated Contrast Media (12/22/24)NSAIDS (Non-Steroidal Anti-Inflamma (12/22/24)ketorolac tromethamine (From TORADOL) (11/05/11)meperidine HCl (From DEMEROL) (11/05/11)ondansetron (From ZOFRAN) (MAKES VOMIT MORE 12/22/24)vancomycin (12/22/24)Home MedicationsReported Medications[pancrease]METOCLOPRAMIDE (REGLAN) 10 MG PO TIDPROMETHAZINE (PHENERGAN)ONDANSETRON (ZOFRAN) 8 MG PO E1LOTYIrlhdegvvj Beta-1b (Betaseron)Insulin Aspart (Novolog)Insulin Glargine,Hum.rec.anlog (Lantus)Smoking status for patients 13 years old or older: Never SmokerPhysical ExamVital SignsVital SignsFirst Documented: Result Date Time Pulse Ox 98 12/22 0856 B/P 189/113 12/22 0856 Temp 96.6 12/22 0856 Pulse 87 12/22 08 Resp 16 12/22 08Last Documented: Result Date Time Pulse Ox 98 12/22 0856 B/P 189/113 12/22 0856 Temp 96.6 12/22 0856 Pulse 87 / 0856 Resp 16 12/22 0856Review of Vital Signs ReviewedBasic Physical ExamBasic PE GEN: Well appearing/NAD, HEAD: Atraumatic/NC, EYES: PERRL, conj clear,NECK: Supple, RESP: No resp distress, CV: Reg rate rhythm, ABD: Soft/non-tender, EXT: No gross abnormality, SKIN: No rashes, warm/dryPhysical ExamEars/Nose/Throat Ears/Nose/Throat ttp L maxilla/mandible, no obvious swelling/fluctuance.,edentulousRe-Evaluation MDMFree Text MDM NotesFree Text MDM Notesp/w chronic L jaw pain 2/2 malignancyexam unremarkable. I rec ekg to screen for atypical acs but pt declinedED CourseMedication(s) OrderedMedication(s) Ordered:Central Nervous System Agents Sig/Onelia Start time Last Medication Dose Route Stop Time Status Admin Hydromorphone HCl 1 MG X1ED ONE 12/23 907 DC 12/22 IM 12/22 09 0943Patient Discharge DepartureVital Signs/ConditionVital SignsFirst Documented: Result Date Time Pulse Ox 98 / 0856 B/P 189/113 / 0856 Temp 96.6 / 0856 Pulse 87 03/ 0856 Resp 16 12/22 0856Last Documented: Result Date Time Pulse Ox 98 / 0856 B/P 189/113 / 0856 Temp 96.6 / 0856 Pulse 87 / 0856 Resp 16 12/22 0856All vital signs available at the time of this entry have been reviewed.Clinical ImpressionClinical ImpressionPrimary Impression: Jaw painDisposition DecisionDischarge )( Discharged to Home Yes )( Time 0949 )( Date 12/22/24Discharge/Care PlanPatient Instructions ED Myalgias, ED Standard Education for ...ReferralsProvider Referral: NO PRIMARY OR FAMILY PHYSICIAN at 1447RPT #: [id number] OF REPORT Emergency Encounter Reason:JAW CANCER, PAIN Encounter Diagnosis:JAW PAIN 17-Dec-2024 04:[id number] 05:34 [place] Discharge Disposition:Discharged to home or self care (routine discharge) Wes Rodriguez MD-17-Dec-2024 [place], [place] [address]Phone: IU PHYSICIAN RECORDPatient Name: ROSSY EARLISEDOB: 1975 Age: 49 Sex: FAcct: [id number] MR#: [id number]: Author: Aden Harvey MDPatient Status: DEP ER [facility]/Service: 12/17/24Report Date/Time: 12/17/24 4858 Report Status: SignedReport#: [id number] Illness- Chief ComplaintChief Complaint: OtherComplaint Description: 49-year-old female presents the emergency department with left jaw pain. Shestates she has cancer in her left mandible. She states that [place]. Her is a gas truck driver and she has beenriding with him, they are currently living in his truck. She has not started radiation therapy yetbecause she was waiting for her jus care to start, and they were trying to make some extra moneywith a truck this week. She states that she has been taking Percocet 7.5mg but does occasionallyhave worsening breakthrough pain. She states that this all started out over a year ago and what wasthought to be osteomyelitis. She denies any new fever chills, states she will occasionally get alittle nauseated with the pain, she does not have any nausea right now. No recent vomiting, noabdominal pain, no swelling in the mouth or tongue, no sore throat, she denies any new symptoms.She states she has not been able to take her blood pressure medication yet today due to the nauseashe was having earlier with the pain. She denies any other symptoms or complaints.- Source of HistoryHx Obtained From: Patient- GeneralTime Seen by Provider: 12/17/24 04:49Review of Systems- Free Text ROS NotesAll reviewed and per HPIPast Medical History - Adult- Nursing NotesStated Complaint: JAW CANCER, PAINPhysical Exam- Initial Vital SignsVital Signs - First Documented: Vital Signs - First DocumentedPatient Name: ROSSY EARL Acct: [id number] Unit: [id number] Page 1Blood pressure 260/122 H 12/17/24 04:51Temperature 98.7 F 12/17/24 04:51Temperature source Oral 12/17/24 04:51Pulse 97 12/17/24 04:51Respiratory rate 16 12/17/24 04:51Respiratory source Observed 12/17/24 04:51Bedside pulse oximetry/SpO2 100 12/17/24 04:51Oxygen delivery devices Room air 12/17/24 04:51Weight 95.5 kg 12/17/24 04:51Weight source Stated/Reported 12/17/24 04:51Body surface area 2.16 12/17/24 04:51Body mass index 33.0 12/17/24 04:51Height 5 ft 7 in 12/17/24 04:51Height source Stated/Reported 12/17/24 04:51Review of Vital Signs: Reviewed- Basic Physical ExamBasic Physical Exam: HEAD:atraumatic/NC, NECK:supple,full ROM, RESP:no resp distress, C/V:RRR,normalpulses, ABD:no distention, EXT:neurovascular intact, SKIN:no rashes,warm/dry,RONN:alert/orient,nonfocalRe-Evaluation MDM- Free Text MDM NotesText/Dict MDM Notes:49-year-old female with a history of hypertension and cancer in her left mandible for which shestarts radiation this Sunday, comes to the emergency department tonight with worsening jaw pain. She arrives ER hypertensive, but is otherwise hemodynamically stable. She denies any concerninginfectious symptoms, is tolerating p.o., protecting her airway, denies any chest pain or shortnessof breath or other concerning symptoms of elevated blood pressure. Had a long discussion with herabout her care and goals of care today. All of her [facility] has been within the [facility]. Offered to do blood work on further evaluate, but she states she does occasionally havebreakthrough pain episodes, this is not anything out of the ordinary from what she has been dealingwith over the last couple of months. Will treat the patient with a dose of pain medication, andgive her the benefit of the doubt regarding her medical diagnoses, advise she follow up closely withher physician. Also advised she keep an eye on her blood pressure but she does have her medicationwith her to take this morning. She is given strict return precautions and discharge instructionsverbalized understanding and agreement with the plan.Patient Name: ROSSY EARL Acct: [id number] Unit: [id number] Page 2- ED CourseOrders-All:12/17/24 04:56HYDROcodone/Acet 5mg-325mg [Fithian 5-325] 1 tab PO X1ED STAHYDROmorphone [Dilaudid] 1 mg IM X1ED STAPatient Discharge Departure- ConditionCondition: StableClinical Impression: Mandible painDischarge Plan- Discharge PlanReason For Visit: JAW CANCER, PAINCondition: Good- InstructionsInstructions: ED Hypertension, EstablishedAdditional Instructions:Make sure to take your medications today and follow-up with your physician. If you have any new,changing, worsening, or concerning symptoms, come back to the ER.<Electronically signed by Aden Harvey MD> 12/17/24 2005Patient Name: ROSSY EARL Acct: [id number] Unit: [id number] Page 3 Emergency Encounter Reason:JAW PAIN Encounter Diagnosis:Essential (primary) hypertension,Encounter for issue of repeat prescription,Jaw pain 10-Dec-2024 13:[id number] 14:20 [facility] Discharge Disposition:Discharged to home or self care (routine discharge) Milady Mcdaniel [id number]-Dec-2024 [facility] ([facility]) MAIN EMERGENCY DEPTEMERGENCY PROVIDER REPORTREPORT#:[id number] REPORT STATUS: FSignDATE:12/10/24 TIME: 1333PATIENT: ROSSY AVALOS UNIT #: [id number]#: [id number] [facility] AGE: 49 SEX: PCP PHYS: NO PRIMARY OR FAMILY PHYSICIANADM DATE: 12/10/24 INI AUTH: Jorge Joe MORTARMAN LAST SIG: Yocasta Landa MDREP SERV REP SERV TM: 1333 * ALL edits or amendments must be made on the electronic/computer document *JORGE JOE 12/10/24 1333:HPI-General IllnessFree Text HPI NotesFree Text HPI NotesThe patient is a 49-year-old female who presents to the emergency departmentwith gradual onset throbbing stabbing pain in left jaw that is been graduallygetting worse over the last 3 days. 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 She states she has beenusing use the last 1 today and was yesterday and got a shot of pain medicinewhich seemed to help pain she chews and when she touches the left her jaw. Shedenies any injury or swallowing or fever.Onset of symptoms: Gradual 3 daysGeneralInitial Greet Date/Time 12/10/24 1316PresentationChief Complaint __ (jaw pain)Past Medical History - AdultStated Complaint JAW PAINAllergiesCoded Allergies:Iodinated Contrast Media (Intermediate, FINE IF PRE-MEDICATED 10/07/24)ondansetron (From ZOFRAN) (Intermediate, VOMITING 10/07/24)meperidine (From DEMEROL) (UNKNOWN 10/07/24)vancomycin (UNKNOWN 10/07/24)Review of Nursing Notes Rev avail, and agree, Triage notes reviewed, Rapidassess notes revAdditional Medical HistoryType 1 diabetes, left mandibular osteomyelitis, hx of cervical cancer at 19.Additional Surgical HistoryMultiple jaw surgeries for osteomyelitis and full dental extraction.Alcohol Use Denies EtOH useDrug Use Denies recreational drugsSmoking status for patients 13 years old or older: Never SmokerOther Social History Visiting locallyPhysical ExamVital SignsVital SignsFirst Documented: Result Date Time Pulse Ox 95 12/10 1359 B/P 250/124 12/10 1359 O2 Delivery Room air 12/10 1359 Temp 36.3 12/10 1359 Pulse 93 12/10 1359 Resp 18 12/10 1359Last Documented: Result Date Time B/P 180/97 12/10 1420 Pulse Ox 95 12/10 1359 O2 Delivery Room air 12/10 1359 Temp 36.3 12/10 1359 Pulse 93 12/10 1359 Resp 18 12/10 1359Review of Vital Signs Reviewed, Vital signs abnormalBasic Physical ExamBasic PE GEN: Well appearing/NAD, HEAD: Atraumatic/NC, EYES: PERRL, conj clear,ENT: Membranes moist, NECK: Supple, RESP: No resp distress, CV: Reg raterhythm, ABD: Soft/non-tender, EXT: No gross abnormality, SKIN: No rashes, warm/dry, NEURO: alert oriented, NEURO: gross movement NL, PSYCH: NL thoughtcontent, FACE: Left posterior mandible with moderate tenderness upon palpationwithout any obvious deformity or edema and without fluctuance or erythema. LeftTMJ with full range of motion. No clicking., Lymph: No anterior cervicallymphadenopathy appreciated upon palpation or submandibular lymphadenopathyappreciated upon palpation bilaterally., ENT: Lips are pink and moist. Oralmucosa pink and moist. Posterior oropharynx without erythema or edema orexudate. Uvula midline. No expiratory stridor. No obvious tonsillar edema.Re-Evaluation MDMFree Text MDM NotesAdditional TextMedical Decision Making / High Complexity of ProblemMedical Decision Making Discussion: Patient has known cancer in the left jaw. Nodifficulty swallowing. No fever. No sore throat. This is not an acute upperrespiratory infection. She does have history of previous osteomyelitis. Thisdoes not appear to be consistent with osteomyelitis although considered. She wasoffered an extensive workup and declined in the emergency department. She alsohas elevated blood pressure and also declined workup of blood pressure. Ibelieve that her hypertension which is chronic is also recently exacerbated dueto pain. I do have concern for withdrawal from narcotic pain medication. This isnot TMJ or mandibular dislocation or acute fracture of the jaw. This appearsconsistent with chronic pain due to bone cancer..- Number and complexity of problems addressed: Bone cancer in the jaw. Historyof hypertension..- I have reviewed prior external notes from: I reviewed patient's previous ERvisit note from yesterday..- Risk of Complications and/or Morbidity or Mortality of Patient Management:high, patient presented with severe undifferentiated pain and required repeatassessments, workup and interventions throughout the course of care.- Based on the seriousness of patient's presentation and comorbidities, thefollowing interventions were ordered and done: Dilaudid.- Medications/prescriptions management: Percocet.- Disposition of the patient/consideration of hospitalization: there is noindication for acute hospitalization at this time, patient will be discharged,Patient understands that her blood pressure may be life-threatening and has acapacity to understand that and still does not want anything done for herhypertension. She states she took her medication right before coming to theemergency department. [facility] also [facility]. My narcotic precautions also explained to thepatient..ED CourseMedication(s) OrderedMedication(s) Ordered:Central Nervous System Agents Sig/Onelia Start time Last Medication Dose Route Stop Time Status Admin Hydromorphone HCl 2 MG X1ED ONE 12/10 1330 DC 12/10 IM 12/10 1331 1401Patient Discharge DepartureVital Signs/ConditionVital SignsFirst Documented: Result Date Time Pulse Ox 95 12/10 1359 B/P 250/124 12/10 1359 O2 Delivery Room air 12/10 1359 Temp 36.3 12/10 1359 Pulse 93 12/10 1359 Resp 18 12/10 1359Last Documented: Result Date Time B/P 180/97 12/10 1420 Pulse Ox 95 12/10 1359 O2 Delivery Room air 12/10 1359 Temp 36.3 12/10 1359 Pulse 93 12/10 1359 Resp 18 12/10 1359All vital signs available at the time of this entry have been reviewed.Condition Stable, ImprovedClinical ImpressionClinical ImpressionPrimary Impression: Jaw painSecondary Impressions: Hypertension, Medication refillTime of Impression 1403Disposition DecisionDischarge )( Discharged to Home Yes )( Time 1403 )( Date 12/10/24Discharge/Care PlanCounseled Regarding Diagnosis, Prescriptions, Need for follow-up, When to returnto ED(Auto) PrescriptionsCurrent Visit ScriptsoxyCODONE/ACETAMINOPHEN (PERCOCET 7.5 MG-325 MG) 1 TAB PO Q6H PRN PRN PAIN oxyCODONE/ACETAMINOPHEN (PERCOCET 7.5 MG-325 MG) 1 TAB PO Q6H PRN PRN PAIN#10 TABPatient Instructions ED Chronic Pain Discharge NoteI have spoken with the patient and/or caregivers. I have explained the patient'scondition, diagnoses and treatment plan based on the information available to meat this time. I have answered the patient's and/or caregiver's questions andaddressed any concerns. The patient and/or caregivers have as good anunderstanding of the patient's diagnosis, condition and treatment plan as can beexpected at this point. The vital signs have been stable. The patient'scondition is stable and appropriate for discharge from the emergency department.The patient will pursue further outpatient evaluation with the primary carephysician or other designated or consulting physician as outlined in thedischarge instructions. The patient and/or caregivers are agreeable to this planof care and follow-up instructions have been explained in detail. The patientand/or caregivers have received these instructions in written format and haveexpressed an understanding of the discharge instructions. The patient and/orcaregivers are aware that any significant change in condition or worsening ofsymptoms should prompt an immediate return to this or the closest emergencydepartment or a call to 911.YOCASTA LANDA 12/10/24 1529:Patient Discharge DepartureDischarge/Care PlanReferralsProvider Referral: Margo King MD Notes: Follow-up with your oncologist back in [place]. Do not drive, operate heavy machinery, or drink alcohol within 12 hours of taking oxycodone/ Percocet. It is very important that you take your blood pressure medication as prescribed. Address: [address] [place] [address] [address] [place], [place] [address]Provider Referral: NO PRIMARY OR FAMILY PHYSICIANSupervising Physician Note [facility] Pt AloneI was available for [facility] by the [facility] provider during this patient'sstay in the emergency department. 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 AGE: 49 SEX: PCP PHYS: NO PRIMARY OR FAMILY PHYSICIANADM DATE: 12/09/24 INI AUTH: Katia Gresham MD LAST SIG: Katia Gresham MDREP SERV REP SERV TM: 1545 * ALL edits or amendments must be made on the electronic/computer document *HPI-General IllnessFree Text HPI NotesFree Text HPI NotesPatient is a 49-year-old female with a history of osteomyelitis of the left jawand recent cancer diagnosis who presents with uncontrolled pain. She has beenexperiencing osteomyelitis for a year prior to her cancer diagnosis. The painhas become unbearable over the last few days. She is visiting the area as herjonysband is a gas truck driver, and they are currently on a load here. She isscheduled to start targeted radiation therapy next week and has been on Percocet7.5 mg for pain management related to osteomyelitis. She is seeking pain relieftoday. Patient has not taken her blood pressure medicine for the last 2 days.Medications: Percocet 7.5 mgPast Medical History: Osteomyelitis, cancerGeneralInitial Greet Date/Time 12/09/24 1534PresentationChief Complaint pain in left jawReview of SystemsROS Manchester Memorial HospitalAll systems rev neg except as marked.Free Text ROS NotesFree Text ROS NotesConstitutional: No fevers, chills, sweats, weight loss.Eye: No visual problemsENMT: No ear pain, nasal congestion, sore throat, chronic left jaw painRespiratory: No shortness of breath, coughCardiovascular: No chest pain, palpitations, syncope, swelling in legs, dyspneaon exertionGastrointestinal: No nausea, vomiting, diarrhea, abdominal pain, no difficultyswallowing.Genitourinary: No hematuria, no dysuria, no hesitancy, no frequency, noincontinence.Neo/Lymph: Negative for bruising tendency, swollen lymph glands.Endocrine: Negative for excessive thirst, glucose normal, no heat or coldintoleranceMusculoskeletal: No back pain, neck pain, muscle pain, decreased range ofmotionIntegumentary: No rash, pruritus, abrasions, no skin ulcers.Neurologic: No focal weakness, no paresthesias, no headache, numbness, ortingling, no seizures or tremors.Psychiatric: Normal memory, normal moodAll other review of systems are negative or normalPast Medical History - AdultStated Complaint ABD CANCER/BREAKTHROUGH PXAllergiesCoded Allergies:Iodinated Contrast Media (Intermediate, FINE IF PRE-MEDICATED 10/07/24)ondansetron (From ZOFRAN) (Intermediate, VOMITING 10/07/24)meperidine (From DEMEROL) (UNKNOWN 10/07/24)vancomycin (UNKNOWN 10/07/24)Home MedicationsReported MedicationsNo Known Home MedicationsAdditional Medical HistoryType 1 diabetes, left mandibular osteomyelitis, hx of cervical cancer at 19.Additional Surgical HistoryMultiple jaw surgeries for osteomyelitis and full dental extraction.Other Social History Visiting locallyPhysical ExamVital SignsVital SignsFirst Documented: Result Date Time Pulse Ox 97 12/09 1547 O2 Delivery Room air 12/09 1547 Temp 36.2 12/09 1547 Pulse 120 12/09 1547 Resp 18 12/09 1547 B/P 231/96 12/09 1600 B/P Mean 154 12/09 1600Last Documented: Result Date Time Pulse Ox 95 12/09 1600 B/P 231/96 12/09 1600 B/P Mean 154 12/09 1600 Pulse 118 12/09 1600 O2 Delivery Room air 12/09 1547 Temp 36.2 12/09 1547 Resp 18 12/09 1547Review of Vital Signs Reviewed, Vital signs normalBasic Physical ExamBasic PE GEN: Well appearing/NAD, HEAD: Atraumatic/NC, EYES: PERRL, conj clear,ENT: Membranes moist, NECK: Supple, RESP: No resp distress, CV: Reg raterhythm, ABD: Soft/non-tender, EXT: No gross abnormality, SKIN: No rashes, warm/dry, NEURO: alert oriented, NEURO: gross movement NL, PSYCH: NL thoughtcontentRe-Evaluation MDMFree Text MDM NotesFree Text MDM NotesDIFFERENTIAL DIAGNOSES / PROBLEMS ADDRESSED:Based on the patient's initial presentation, my differential diagnosis includes,but is not limited to: Osteomyelitis, Cancer-related pain, Hypertension.TESTS, DOCUMENTS, AND INDEPENDENT HISTORIANS: * LABS ORDERED AND REVIEWED: None * IMAGING TESTS ORDERED: NoneINDEPENDENT HISTORIANS: * NoneINDEPENDENT INTERPRETATION OF TESTS: * NoneDISCUSSION OF MANAGEMENT OR TEST INTERPRETATION: * NoneREASSESSMENT / ED COURSE:Based on the initial presentation, I considered the need for escalation of careand hospitalization. The patient presented with severe, uncontrolled pain due toosteomyelitis and a recent cancer diagnosis. Initial management included theadministration of Demerol and Zofran via intramuscular injection for pain andnausea management, respectively. Additionally, the patient's dose of bloodpressure medication was administered. Upon re-evaluation, the patient reportedthat the pain medication was starting to help. The importance of taking bloodpressure medication regularly was discussed with the patient.MDM SUMMARY1. NUMBER AND COMPLEXITY OF PROBLEMS ADDRESSED (COPA): * HIGH COMPLEXITY: The patient presents with severe, uncontrolled pain due toosteomyelitis and a recent cancer diagnosis, both of which are chronicconditions with significant morbidity. Additionally, the patient hashypertension, which adds to the complexity of her management. The need forimmediate pain relief and the administration of blood pressure medicationfurther increase the complexity.2. AMOUNT AND/OR COMPLEXITY OF DATA TO BE REVIEWED AND ANALYZED (DATA): * LIMITED: No additional tests, documents, or independent historians wereinvolved in this case. No independent interpretation of tests was required.3. RISK OF COMPLICATIONS, MORBIDITY, AND/OR MORTALITY (RISK): * HIGH RISK: The patient has an increased risk due to chronic conditions suchas osteomyelitis, cancer, and hypertension. The high risk is associated with thepotential diagnoses and the need for immediate pain and blood pressuremanagement.Additional TextINITIAL EVALUATION AND PLAN:- Administer Demerol and Zofran via intramuscular injection for pain and nauseamanagement.- Administered patient's dose of blood pressure medication.RE-EVALUATION AT 04:06 PM:- Patient reports that the pain medication is starting to help.- Discussed the importance of taking blood pressure medication regularly.RE-EVALUATION AT 04:12 PM:- Patient has run out of her blood pressure medicine and her blood pressure iselevated.- She states that she hasn't had time to 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 .- Offered to rewrite her medicines; however, she stated she did not need to.- Administered a dose of lisinopril 40 mg by mouth and metoprolol 50 mg.- She states the pain is improving at this time.Re-Evaluation/Progress #1Text/Dict NotePatient is or has been given Dilaudid 2 mg which actually switch she requested.She states that she has been an ER she currently is on the 7.5 oxycodone and hasbeen some time she states that she is on [place] way back to [place].Time of Re-Eval 1551Re- Evaluation/Progress #2Text/Dict NotePatient has not been taking her blood pressure medicine, she states that she ranout and has not stopped at a local [facility] that her who she istraveling with his on a rash delivery. She will be able to go and get hermedicine today however I have given her lisinopril 40 mg also metoprolol XL 50mg which is her medication dosages. She states she has been out for about 2days. She brief refused or declined which is a better a refill of herantihypertensives.Time of Eval 1609Re- Eval Status ImprovedED CourseMedication(s) OrderedMedication(s) Ordered:Cardiovascular Drugs Sig/Onelia Start time Last Medication Dose Route Stop Time Status Admin Lisinopril 40 MG X1ED ONE 12/09 1600 DC 12/09 PO 12/09 1601 1606 Metoprolol Succinate 50 MG X1ED ONE 12/09 1600 DC 12/09 PO 12/09 1601 1606Central Nervous System Agents Sig/Onelia Start time Last Medication Dose Route Stop Time Status Admin Hydromorphone HCl 2 MG X1ED ONE 12/09 1600 DC 12/09 IM 12/09 1601 1554Patient Discharge DepartureVital Signs/ConditionVital SignsFirst Documented: Result Date Time Pulse Ox 97 12/09 1547 O2 Delivery Room air 12/09 1547 Temp 36.2 12/09 1547 Pulse 120 12/09 1547 Resp 18 12/09 1547 B/P 231/96 12/09 1600 B/P Mean 154 12/09 1600Last Documented: Result Date Time Pulse Ox 95 12/09 1600 B/P 231/96 12/09 1600 B/P Mean 154 12/09 1600 Pulse 118 / 1600 O2 Delivery Room air 12/09 1547 Temp 36.2 12/09 1547 Resp 18 12/09 1547All vital signs available at the time of this entry have been reviewed.Clinical ImpressionClinical ImpressionPrimary Impression: ACUTE EXACERBATION OF CHRONIC PAINSecondary Impressions: HypertensionDisposition DecisionDischarge )( Discharged to Home Yes )( Time 1610 )( Date 12/09/24Discharge/Care Plan(Auto) PrescriptionsCurrent Visit ScriptsNo Known Home MedicationsPatient Instructions Uncontrolled HBP EstablishedAdditional InstructionsYou have been given your blood pressure medicine today with the lisinopril 40 mgand also the metoprolol 50 mg. 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 for tomorrow in the rest of [facility].Follow-up with your doctors at home for better control of your pain and also fordefinitive treatment of the cancer in the jaw.ReferralsProvider Referral: NO PRIMARY OR FAMILY PHYSICIAN at 1643RPT #: [id number] OF REPORT Emergency Encounter Reason:BREAK THROUGH PAIN FROM JAW CANCER Encounter Diagnosis:Essential (primary) hypertension,SHELTERED HOMELESSNESS,Other chronic pain 06-Dec-2024 11:[id number] 12:15 [facility] Discharge Disposition:Discharged to home or self care (routine discharge) Kiki Tao NP-06-Dec-2024 [facility] ([facility]) [facility] EDEMERGENCY PROVIDER REPORTREPORT#:[id number] REPORT STATUS: FSignDATE:12/06/24 TIME: 1136PATIENT: ROSSY AVALOS UNIT #: [id number] ROOM/BED: ED - 02DOB: [birth year] AGE: 49 SEX: PCP PHYS: NO PRIMARY OR FAMILY PHYSICIANADM DATE: 12/06/24 INI AUTH: Betty Swanson NP LAST SIG: Alon Ackerman MD MDREP SERV REP SERV TM: 1136 * ALL edits or amendments must be made on the electronic/computer document *BETTY SWANSON 12/06/24 1136:HPI-Neck PainFree Text HPI NotesFree Text HPI NotesPatient presents to the ER complaining of acute on chronic pain. She states shewas diagnosed with jaw cancer following when initially presented asosteomyelitis in October of 2024. She states she has no PCP. She was biopsiedat [facility]. She was given prescriptions for her insulin and blood pressuremedication at that time. She states [facility]Patient states she has hydrocodone for p.r.n. use, but occasionally hasbreakthrough pain that requires ER visits for IM injections.GeneralConfirmed Patient YesPatient Type New patientInitial Greet Date/Time 12/06/24 1110PCPNonePresentationChief Complaint Breakthrough acute on chronic painReason for ED Visit (v.PCP/UC)Pain controlHx Obtained From PatientSudden in Onset? NoOnset Occurred ChronicSymptom Duration Waxes and wanesProgression since Onset Waxes and wanesCaused by I have cancer in my jawContext: Occurred at In setting of mandible malignancyLocation Left mandibleQuality Aching, ThrobbingRadiationNo: Does not radiate.Pain/Sev: Onset ModeratePain/Sev: Current Moderate, SevereAssociated withDenies: Back pain, Balance problem, Cough, Difficulty breathing, Difficultyswallowing, Fever, Head injury, Sore throat, Stiff neck, Vertigo, Vision problem, Vomiting, Weakness.Associated Other Mandibular pain leftExacerbated by NothingRelieved by IM injectionContextImmunization Status General UnknownRecent Healthcare Recent testing, Prior workup, [facility] Previous YesAdditional ContextPatient states she was biopsied at [facility] in October with diagnosis around 2024. She has no PCP. She states she received a 1 year supply of herinsulin and blood pressure medication from [facility]. She states she is unable to getinto pain management as no one will take her due to insurance issues.Review of SystemsFocused Review of SystemsConstitutionalDenies: Chills, Fever.RespiratoryDenies: Cough, non-productive, Cough, productive, Shortness of breath.CardiovascularDenies: Chest pain, Dyspnea on exertion.GIDenies: Nausea, Vomiting.SkinDenies: Rash, Swelling.NeurologicDenies: Change LOC, Confusion.Past Medical History - AdultStated Complaint BREAK THROUGH PAIN FROM JAW CANCERAllergiesCoded Allergies:Iodinated Contrast Media (RASH 09/06/24)NSAIDS (Non-Steroidal Anti-Inflamma (RASH 09/06/24)meperidine (From DEMEROL) (RASH 09/06/24)ondansetron (From ZOFRAN) (RASH 09/06/24)vancomycin (RASH 09/06/24)Physical ExamVital SignsVital SignsFirst Documented: Result Date Time Pulse Ox 98 12/06 1106 B/P 190/96 12/06 1106 O2 Delivery Room air 12/06 1106 Temp 98.6 12/06 1106 Pulse 101 12/06 1106 Resp 18 12/06 1106Last Documented: Result Date Time Pulse Ox 98 12/06 1106 B/P 190/96 12/06 1106 O2 Delivery Room air 12/06 1106 Temp 98.6 12/06 1106 Pulse 101 12/06 1106 Resp 18 12/06 1106Review of Vital Signs Reviewed, Vital signs abnormal (htn noted), History ofuncontrolled hypertensionFocused PEGeneral/Const General/Const Awake, Alert, No acute distress, Well appearing, Well developed, Well hydrated, Well nourished, Cooperative, Not toxic appearingMS Head Head Atraumatic, NormocephalicEars/Nose/Throat Ears/Nose/Throat Atraumatic, Pharynx NLMS Neck Neck Atraumatic, Supple, No carotid bruit, Thyroid NL, Mildly tender to leftmandible area With palpation of thyroid area.Resp/Chest Respiratory/Chest Atraumatic, Breath sounds NL, Breath sounds = bilat, Norespiratory distress, No rales, No rhonchi, No wheezing, No retractionsCardiovascular Cardiovascular Heart rate NL, Regular rhythm, No murmurs, No rubs, Peripheralcirculation NL, Apical matches radialSkin Skin Warm, Dry, IntactNeurologic Neurologic Oriented X3, Speech NL, Memory NLRe-Evaluation MDMFree Text MDM NotesFree Text MDM NotesI discussed with patient that if patient is having episodes of breakthrough painshe needed to discuss with her primary care provider/pain management provider.She states that she has no PCP due to insurance issues. She was diagnosed atyou in October of 2024 with left mandible cancer. [facility]. Shestates she is homeless, living in a semi-truck with her and lives [place]on the road. 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 She has a history of uncontrolled hypertension, states she is takingup to 80 mg of lisinopril per day. I advised her the maximum dose is 40 mg. Alexeceived prescriptions from [facility] for her blood pressure. I have asked that diane back out to that provider for does clear if occasion. In interimrecommend no more than 40 mg p.o. per day. Patient tells me that she is in ERnurse and is aware of appropriate doses and ranges.We discused the importance of follow up with establishing care at one locationto avoid the possible duplication of services and appearance of drug seekingbehavior. She epressed understanding.Additional TextPatient states she has not yet had her daily dose of lisinopril. She states sheis out of her medication plans on picking up her prescription today. I willgive her 20 mg p.o. here in the ER. Again I reminded her of recommended dosingno greater than 40 mg p.o. per day.ED CourseMedication(s) OrderedMedication(s) Ordered:Cardiovascular Drugs Sig/Onelia Start time Last Medication Dose Route Stop Time Status Admin Metoprolol Succinate 50 MG X1ED ONE 12/06 1215 DC 12/06 PO 12/06 1216 1209 Lisinopril 20 MG X1ED ONE 12/06 1200 DC 12/06 PO 12/06 1201 1209Central Nervous System Agents Sig/Onelia Start time Last Medication Dose Route Stop Time Status Admin Hydromorphone HCl 0.5 MG X1ED ONE 12/06 1130 DC 12/06 IM 12/06 1131 1132Differential Diagnosis)( Differential Diagnosis chronic pain disorderFree Text MDM NotesFree Text MDM NotesPatient is stable on exam. We discussed the importance of her following up with1 specific provider hospital system to avoid unnecessary duplication of servicesand to prevent the concern for drug-seeking behavior.She has a history of uncontrolled hypertension. I expressed my concerns overher reported of up to 80 mg of lisinopril on occasion. I advised her that Iwould not recommend going over 40 mg dose. Patient is very adamant she is aformer ER nurse and is aware of dosing parameters. I have recommended shefollow back up with provider who prescribed medication to discuss further. Inaddition I discussed with her my concerns over multiple healthcare providerutilization, which may be construed as nefarious. Patient expressedunderstanding. She is instructed to return to ER for any concerns.Patient Discharge DepartureVital Signs/ConditionVital SignsFirst Documented: Result Date Time Pulse Ox 98 12/06 1106 B/P 190/96 12/06 1106 O2 Delivery Room air 12/06 1106 Temp 98.6 12/06 1106 Pulse 101 12/06 1106 Resp 18 12/06 1106Last Documented: Result Date Time Pulse Ox 98 12/06 1106 B/P 190/96 12/06 1106 O2 Delivery Room air 12/06 1106 Temp 98.6 12/06 1106 Pulse 101 12/06 1106 Resp 18 12/06 1106All vital signs available at the time of this entry have been reviewed.Clinical ImpressionClinical ImpressionPrimary Impression: Chronic painSecondary Impressions: Patient under care of multiple providers, UncontrolledhypertensionDisposition DecisionDischarge )( Discharged to Home Yes )( Time 1155 )( Date 12/06/24Discharge/Care PlanCounseled Regarding Diagnosis, Need for follow-up, When to return to ED,Importance of establishing care with provider. Appropriate lisinopril dosing.Appropriate pain medication/control of pain symptoms. Appropriate use of ERER.Rx Drug Database Reviewed Yes, Multiple providers, crossing state lines, smallquantity narcotic RXPrescriptionsdeclined- pt states she has controlled rx already and is here for BTP only.Patient Instructions Controlling High Blood Pressure, ED Chronic PainAdditional InstructionsPlease follow-up to establish care with PCP as we discussed.As you have been diagnosed with a chronic pain condition it may benefit you toestablish with 1 provider to avoid duplication of services.Please return to the ER for any emergency concerns.Recommend you follow-up with PCP regarding blood pressure management as wediscussed.ALON ACKERMAN MD 12/06/24 1306:Past Medical History - AdultHome MedicationsReported MedicationsMETOPROLOL SUCCINATE XL (TOPROL XL) 50 MG PO DAILYLISINOPRIL (PRINIVIL) 20 MG PO BIDINSULIN NPH/REG INSULIN HUMAN (NovoLIN 70-30 VIAL (10 mL)) (Unknown Dose)INSULIN NPH HUMAN RECOM (NovoLIN N VIAL (10 mL))Patient Discharge DepartureDischarge/Care PlanReferralsProvider Referral: NO PRIMARY OR FAMILY PHYSICIANSupervising Physician Note MidLv Saw Pt AloneI have reviewed the PA/MORTARMAN's note and plan of care. I was available forconsultation as needed at all times during the patient's visit in the emergencydepartment. I agree with the clinical impression, plan and disposition. at 1202 at 1307RPT #: [id number] OF REPORT Emergency Encounter Reason:JAW PAIN Encounter Diagnosis:Neoplasm related pain (acute) (chronic),Type 2 diabetes mellitus without complications,intermediate card tender (current) use of insulin,Jaw pain 06-Dec-2024 05:[id number] 06:09 Reg Only (Attending) Doctor's [facility] ([facility]) Discharge Disposition:Discharged to home or self care (routine discharge) Brian Lin DO-06-Dec-2024 [facility] ([facility])EMERGENCY PROVIDER REPORTREPORT#:[id number] REPORT STATUS: SignedDATE:12/06/24 TIME: 537PATIENT: ROSSY EARL UNIT #: [id number]#: [id number] ROOM/BED:: 73 AGE: 49 SEX: F PCP PHYS: No Primary or Family PhysicianSERVICE AUTHOR: Michael Torres SRV REP SRV TM: 0538* ALL edits or amendments must be made on the electronic/computer document *HPI-General IllnessFree Text HPI NotesFree Text HPI NotesPatient is a 49-year-old female with past medical history of recently diagnosedleft-sided jaw cancer, insulin-dependent diabetes, and MS [facility] chief complaint of jaw pain. 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 Patient presents requesting pain for breakthrough left-sided jaw pain. Patient has not started treatment for her cancer as she was lost to follow upwhen she lost insurance and she has scheduled upcoming appointments this weekwith multiple specialist. Patient has Percocets at home but is requesting adose of stronger medication this morning for pain control. Patient denies anydifficulty eating or drinking. Patient denies otalgia, headache, dizziness,difficulty swallowing, difficulty breathing, fever, nausea, vomiting, andchills.GeneralInitial Greet Date/Time 12/06/24 0537PresentationChief Complaint __ (Pain control)Review of SystemsROS StatementsAll systems rev neg except as marked. (ALL NEG EXCEPT PER HPI)Past Medical History - AdultStated Complaint JAW PAINAllergiesCoded Allergies:sumatriptan (From Imitrex) (Severe, SVT 07/09/09)sumatriptan succinate (From Imitrex) (Severe, SVT 07/09/09)NSAIDS (Non-Steroidal Anti-Inflamma (Mild, CHEMO 11/13/13)meperidine (From DEMEROL) (Mild, HIVES 11/13/13)ondansetron (From ZOFRAN) (Mild, HIVES 11/13/13)prochlorperazine edisylate (From Compazine) (Severe, DILLUSIONS 07/09/09)prochlorperazine maleate (From Compazine) (Severe, DILLUSIONS 07/09/09)Home MedicationsReported MedicationsBACLOFEN 20 MG PO TIDALPRAZolam (XANAX) 0.5 MG PO DAILY PRN PRN NINSULIN DETEMIR (LEVEMIR)oxyCODONE HCL/ACETAMINOPHEN 5/325 MG (PERCOCET 5/325 MG) 1-2 TAB PO Q4H PRN PRNKIDNEY STONESAdditional Medical Historyk. stones chemo for cervical cancer DM MSPast Surgical History:Reports: Appendectomy, Cholecystectomy, Hysterectomy.Additional Surgical Historybowel resection L k. mass abd wall sxSmoking status for patients 13 years old or older: Never SmokerAdditional Social Historypt is a NPPhysical ExamVital SignsVital SignsFirst Documented: Result Date Time Pulse Ox 98 12/06 050 B/P 128/108 12/06 0507 B/P Mean 114.4 12/067 Temp 36.9 12/06 506 Pulse 97 12/06 050 O2 Delivery Room air 12/06 507 Resp 17 12/06 050Last Documented: Result Date Time O2 Delivery Room air 12/06 507 Resp 17 12/06 507 Pulse Ox 98 12/06 0507 B/P 128/108 12/06 050 B/P Mean 114.4 12/06 506 Temp 36.9 12/06 506 Pulse 97 12/06 050Review of Vital Signs ReviewedFree Text PE NotesFree Text PE NotesCONSTITUTIONAL: Well-developed; well-nourished, non-toxic appearing, NADHEAD: Normocephalic; atraumaticEYES: RADHIKA; EOM intact, Conjunctivae clearENT: No rhinorrhea; normal pharynx; mucous membranes pink/moist, no erythema, noexudate.NECK: Supple; non-tender; no cervical lymphadenopathyCARD: No murmurs, rubs, or gallops. Regular Rate and rhythm, S1 and S2RESP: Normal respiratory effort; breath sounds CTAB; no wheezes, rhonchi, orrales. No retractions or accessory mm. useABD: BS present x 4 Quadrants, Soft; non-distended; non-tender; no masses, nobruits. No Rebound Rigidity or guarding, No percussive tenderness, no peritonealsigns.EXT: Non-tender to palpation; distal pulses are normal, no edema.SKIN: Normal for age and race; warm; dry; good turgor; no apparent lesions orexudate, rashes or ulcers.NEURO: Alert and oriented x3. Cranial nerves II-XII grossly intact. No Focaldeficits. Moving all extremities.Re-Evaluation MDMED CourseMedication(s) OrderedMedication(s) Ordered:Central Nervous System Agents Sig/Onelia Start time Last Medication Dose Route Stop Time Status Admin Hydromorphone HCl 1 MG X1ED ONE 12/06 536 DC 12/06 IM 12/06 537 0609 Promethazine HCl 25 MG X1ED ONE 12/06 536 DC 12/06 PO 12/06 537 0608Free Text MDM NotesFree Text MDM [id number] female with past medical history of recently diagnosed left- sidedjaw cancer, insulin-dependent diabetes, and MS presenting to the emergencydepartment for chief complaint of jaw pain. 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 Patient presents requesting pain for breakthrough left-sided jaw pain. Patienthas not started treatment for her cancer as she was lost to follow up when shelost insurance and she has scheduled upcoming appointments this week withmultiple specialist. Patient has Percocets at home but is requesting a dose ofstronger medication this morning for pain control. Patient denies anydifficulty eating or drinking. Patient denies otalgia, headache, dizziness,difficulty swallowing, difficulty breathing, fever, nausea, vomiting, andchills.Differential diagnosis includes but is not limited to: Cancer, chronic pain,etc.Upon arrival to the emergency department, patient has stable vital signs.Patient is nontoxic appearing and in no acute distress. Patient has a regularin rate lungs are clear to auscultation bilaterally. Patient is tolerating heroral secretions. Patient has not previously been seen at our facility and shewill be given a dose of IM Dilaudid as requested as well as a Phenergan tabletand discharged. Patient already has prescribed Percocet. Patient was madeaware of the need for outpatient follow up with her oncologist, strict returnprecautions were discussed, all questions and concerns were addressed at thebedside.I personally discussed the plans for this patient with them and/or their family.I cautioned them to take their medications as prescribed and to be cautious ofside effects and/or addiction potential. I gave them additional verbalinstructions and told them to return to the ED for any change in symptoms,worsening symptoms, or any other new symptoms they feel are concerning. They areto follow up with the provided physician in discharge instructions, and/or anyother physicians they are supposed to see. Patient and/or family voicedunderstanding and agrees with plan of care.Patient Discharge DepartureVital Signs/ConditionVital SignsFirst Documented: Result Date Time Pulse Ox 98 12/06 050 B/P 128/108 / 0507 B/P Mean 114.4 12/067 Temp 36.9 12/06 506 Pulse 97 12/06 0507 O2 Delivery Room air 12/06 0508 Resp 17 12/06 0508Last Documented: Result Date Time O2 Delivery Room air 12/06 0508 Resp 17 12/06 0508 Pulse Ox 98 12/06 0507 B/P 128/108 12/06 0507 B/P Mean 114.4 12/06 0507 Temp 36.9 12/06 0507 Pulse 97 12/06 0507All vital signs available at the time of this entry have been reviewed.Clinical ImpressionClinical ImpressionPrimary Impression: Cancer associated painSecondary Impressions: Chronic painTime of Impression 0553Disposition DecisionDischarge )( Discharged to Home Yes )( Time 0553 )( Date 12/06/24Discharge/Care PlanCounseled Regarding Diagnosis, Lab results, Imaging studies, Medication changes,Prescriptions, When to return to EDPrescriptions Reviewed Risks, Benefits, Alternative treatmentPatient Instructions ED Chronic PainReferralsProvider Referral: No Primary or Family PhysicianProvider Referral: .[facility] PCP Address: [address] [place] [id number] Discharge NoteI have spoken with the patient and/or caregivers. I have explained the patient'scondition, diagnoses and treatment plan based on the information available to meat this time. I have answered the patient's and/or caregiver's questions andaddressed any concerns. The patient and/or caregivers have as good anunderstanding of the patient's diagnosis, condition and treatment plan as can beexpected at this point. The vital signs have been stable. The patient'scondition is stable and appropriate for discharge from the emergency department.The patient will pursue further outpatient evaluation with the primary carephysician or other designated or consulting physician as outlined in thedischarge instructions. The patient and/or caregivers are agreeable to this planof care and follow-up instructions have been explained in detail. The patientand/or caregivers have received these instructions in written format and haveexpressed an understanding of the discharge instructions. The patient and/orcaregivers are aware that any significant change in condition or worsening ofsymptoms should prompt an immediate return to this or the closest emergencydepartment or a call to 911. at 0002RPT #: [id number] OF REPORT Emergency Encounter Reason:JAW PAIN Encounter Diagnosis:Neoplasm related pain (acute) (chronic),Jaw pain 30-Nov-2024 08:[id number] 09:43 LucNataly Shafer DO (Attending) [facility] Discharge Disposition:Discharged to home or self care (routine discharge) Maggie Potts MD-30-Nov-2024 [facility] ([facility])EMERGENCY PROVIDER REPORTREPORT#:[id number] REPORT STATUS: SignedDATE:11/30/24 TIME: 08PATIENT: AVALOSROSSY Ramos UNIT #: [id number]#: [id number] ROOM/BED: .EDDOB: [birth year] AGE: 49 SEX: F PCP PHYS: No Primary or Family PhysicianSERVICE AUTHOR: Elina Lance MD R2REP SRV REP SRV TM:0857* ALL edits or amendments must be made on the electronic/computer document *ELINA LANCE 11/30/24 0857:HPI- General IllnessGeneralInitial Greet Date/Time 11/30/24 0822PresentationChief Complaint __ (Jaw pain)Past Medical History - AdultStated Complaint JAW PAINAllergiesCoded Allergies:Iodinated Contrast Media (HIVES 11/30/24)NSAIDS (Non-Steroidal Anti-Inflamma (PALPITATIONS 11/30/24)meperidine (From DEMEROL) (HIVES 11/30/24)ondansetron (From ZOFRAN) (VOMITING 11/30/24)vancomycin (HIVES 11/30/24)Smoking status for patients 13 years old or older: Never SmokerPhysical ExamVital SignsVital SignsFirst Documented: Result Date Time Pulse Ox 98 11/30 0820 B/P 262/126 11/30 819 O2 Delivery Room air 11/30 819 Temp 95.9 11/30 819 Pulse 95 11/30 819 Resp 18 11/30 08Last Documented: Result Date Time Pulse Ox 95 11/30 932 B/P 235/99 11/30 932 O2 Delivery Room air 11/30 932 Pulse 89 11/30 932 Resp 18 11/30 932 Temp 95.9 11/30 819Review of Vital Signs ReviewedRe-Evaluation MDMFree Text MDM NotesAdditional [id number] female with history of hypertension and 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 Patient was diagnosed early October and seen by General oncologist. Heprescribed her Percocet for pain and instructed her to follow up with oraloncology for further management with hopefully localized radiation. Patient wascurrently without insurance and thus has not yet been able to follow up;furthermore patient has been unable to get refills of her pain medication due tocost. Patient plans to return home to [place] today where she will have moreaccess to healthcare. 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 Patient reports she has been taking Tylenol every4-6 hours for pain patient does reports she has talked sometimes takes 1 g every4 hours since initial diagnosis, which she knows is slightly too much. Patienthas had her liver enzymes evaluated recently in the are within normal limits. Idiscussed risks of chronic Tylenol overdose and the appropriate dosage. Patientexpressed understanding and agreement. I discussed benefits of obtaining IVaccess to check labs and provide IV meds. Patient very adamantly does not wantlab check or IV medication. Patient requesting pain management here in theemergency department prior to discharge until she get follow up in her homestate. Patient was not want prescription for pain medication as she will beunable to afford it. We discussed option of nerve block but patient does notbelieve she will tolerate at this point.EXAM:Reviewed vital signs as charted by RN.CONSTITUTIONAL: Alert and oriented and responds appropriately to questions. Well-appearing; well-nourishedHEENT: Normocephalic; atraumatic, Conjunctiva non-injected, moist mucousmembranes, no octavio-oral lesions. Tenderness to palpation of left lower jawCARD: RRR; no murmurs, no clicks, no rubs, no gallops; symmetric distal pulsesRESP: breath sounds clear and equal bilaterally; no wheezes, no rhonchi, noralesABD: soft, non-tender, non-distended; no rebound, no guardingEXT: Appear atraumatic; no cyanosis, no effusions, no edemaSKIN: Normal color for age and race; warm; dry; no acute lesions notedNEURO: Moves all extremities equally and appropriatelyPSYCH: The patient's mood and manner are appropriate.Differential includes but is not limited to: Cancer-related pain, fracture,dislocation, TMJPatient provided IM Dilaudid for pain management. Discussed appropriate dose [id number] management of acute pain.Upon evaluation patient with blood pressure systolic 260. Patient admits shewas not taken her blood pressure medication recently. She was provided her homedose of metoprolol and lisinopril. Blood pressure rechecked systolic 230.Discussed with patient that this is not a level with which we are typicallycomfortable discharging people. Patient very adamant that she discharges as sheis on a time scheduled to get back to [place] with her . 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 We discussed importance of appropriate blood pressure management.ED CourseMedication(s) OrderedMedication(s) Ordered:Cardiovascular Drugs Sig/Onelia Start time Last Medication Dose Route Stop Time Status Admin Lisinopril 20 MG X1ED ONE 11/30 899 DC 11/30 PO 11/30 900 0929 Metoprolol Succinate 50 MG X1ED ONE 11/30 899 DC 11/30 PO 11/30 09 09Central Nervous System Agents Sig/Onelia Start time Last Medication Dose Route Stop Time Status Admin Hydromorphone HCl 2 MG X1ED ONE 11/30 899 DC 11/30 IM 11/30 09 09Patient Discharge DepartureVital Signs/ConditionVital SignsFirst Documented: Result Date Time Pulse Ox 98 11/30 819 B/P 262/126 11/30 819 O2 Delivery Room air 11/30 819 Temp 95.9 11/30 819 Pulse 95 11/30 819 Resp 11/30Last Documented: Result Date Time Pulse Ox 95 11/30 932 B/P 235/99 11/30 932 O2 Delivery Room air 11/30 932 Pulse 89 11/30 932 Resp 11/30 Temp 95.9 11/30 819All vital signs available at the time of this entry have been reviewed.Clinical ImpressionClinical ImpressionPrimary Impression: Jaw painSecondary Impressions: Cancer associated painDisposition DecisionDischarge )( Discharged to Home Yes )( Time 0937 )( Date 11/30/24Discharge/Care PlanCounseled Regarding Diagnosis, Need for follow-up, When to return to EDAdditional InstructionsPlease follow up with Oncology as soon as you can. We recommend you taketylenol 975- 1000mg every 6 hours as needed for pain. Please do not exceed 4 gin 1 day.---Please return to the emergency department with any new or worsening symptoms,fever you can not control with ibuprofen or Tylenol, or persistent nausea/vomiting with decreased oral intake. Please follow up with primary careprovider in 3-5 days. If you do not have a PCP, you may call to schedule anappointment with [facility], this is the primary care officeassociated with [facility] Emergency Department with appointment slotsavailable for emergency department patients to follow up. [facility] with which you can establish care with a primarycare physician. This facility accepts patients with little to no medicalinsurance if that is a problem you face. [facility] Follow-Up: Call for Appointment [phone] Address: [address] [address] [facility] Follow-Up: Call for Appointment Address: [address] [place], [place] [address]Tncmqogth FormsED THANK YOU NOTEWDOWN [facility] NOTE Discharge NoteI have spoken with the patient and/or caregivers. I have explained the patient'scondition, diagnoses and treatment plan based on the information available to meat this time. I have answered the patient's and/or caregiver's questions andaddressed any concerns. The patient and/or caregivers have as good anunderstanding of the patient's diagnosis, condition and treatment plan as can beexpected at this point. The vital signs have been stable. The patient'scondition is stable and appropriate for discharge from the emergency department.The patient will pursue further outpatient evaluation with the primary carephysician or other designated or consulting physician as outlined in thedischarge instructions. The patient and/or caregivers are agreeable to this planof care and follow-up instructions have been explained in detail. The patientand/or caregivers have received these instructions in written format and haveexpressed an understanding of the discharge instructions. The patient and/orcaregivers are aware that any significant change in condition or worsening ofsymptoms should prompt an immediate return to this or the closest emergencydepartment or a call to 911.Janis Edgar 12/01/24 0719:Patient Discharge DepartureDischarge/Care PlanReferralsProvider Referral: No Primary or Family PhysicianSupervising Physician Note Resident Saw PtThis patient was seen by a resident. I have personally seen the patient,performed the critical or mcmanus portions of the service, and participated in themanagement of the patient. I have reviewed and agree with the resident's note,and I have reviewed all labs, ECGs, and imaging studies or reports. I agree withthis resident's findings, exam and plan. at 4960 at 0719RPT #: [id number] OF REPORT Emergency Encounter Reason:HAS JAW CANCER IS HAVING BREAK THROUGH PAIN' Encounter Diagnosis:Gastro-esophageal reflux disease without esophagitis,Type 2 diabetes mellitus without complications,custodial (current) use of insulin,Jaw pain 27-Nov-2024 05:[id number] 05:34 [facility] Discharge Disposition:Discharged to home or self care (routine discharge) Dexter Jacinto MD-27-Nov-2024 [facility] [place] [place]EMERGENCY PROVIDER REPORTREPORT#:[id number] REPORT STATUS: SignedDATE:11/27/24 TIME: 05PATIENT: ROSSY AVALOS UNIT #: [id number]#: [id number] ROOM/BED:: 73 AGE: 49 SEX: F PCP PHYS: DOES NOT KNOWSERVICE AUTHOR: Stephanie Renteria MDREP SRV REP SRV TM: 0515* ALL edits or amendments must be made on the electronic/computer document *HPI-General IllnessFree Text HPI NotesFree Text HPI NotesPatient is a 49-year-old female presents with reported breakthrough painGeneralInitial Greet Date/Time 11/27/24 0511PresentationChief Complaint Jaw painReview of SystemsROS StatementsAll systems rev neg except as marked.Review of SystemsRespiratoryDenies: Cough, non-productive.CardiovascularDenies: Chest pain.Past Medical History - AdultStated Complaint HAS JAW CANCER IS HAVINGBREAK THRU PAIN'AllergiesCoded Allergies:vancomycin (Intermediate, HIVES 04/10/24)Iodinated Contrast Media (UNKNOWN 11/27/24)NSAIDS (Non-Steroidal Anti-Inflamma (INTERACTION WITH CHEMO 01/15/14)meperidine HCl (From DEMEROL) (UNK 11/07/11)ondansetron HCl (From ZOFRAN) (HIVES, SOB 01/15/14)Home MedicationsActive ScriptsPromethazine (Phenergan) 25 MG PO Q8H PRN PRN NAUSEA Promethazine (Phenergan) 25 MG PO Q8H PRN PRN NAUSEA #10 TAB Prov: 04/10/24YDROcodone/APAP (Fithian 7.5/325 mg) 1 TAB PO Q8H PRN PRN PAIN HYDROcodone/APAP (Fithian 7.5/325 mg) 1 TAB PO Q8H PRN PRN PAIN #10 TAB Prov: 04/10/24Reported MedicationsMetoclopramide (Reglan) 10 MG PO QID PRNOmeprazole (Prilosec)ALPRAZolam (Xanax) 0.5 MG PO BIDPromethazine (Phenergan) 25 MG PO N4GJWbqvleaecar (Zofran) 8 MG PO Q8HRS PRNInsulin Glargine (Lantus Vial 10 ml) 15 DAILYInsulin Aspart (NovoLOG Vial 10 ml) 10 UNITS SUBQ BIDACReview of Nursing Notes Rev avail, and agreePast Medical History:Reports: Cancer (CERVICAL), Diabetes mellitus, GERD/gastritis.Additional Medical HistoryKIDNEY STONESPast Surgical History:Reports: Appendectomy, Cholecystectomy, Hysterectomy.Smoking status for patients 13 years old or older: Never SmokerPhysical ExamVital SignsVital SignsFirst Documented: Result Date Time Pulse Ox 98 11/27 0510 B/P 256/124 11/27 0510 O2 Delivery Room air 11/27 0510 Temp 97.7 11/27 0510 Pulse 102 11/27 0510 Resp 16 11/27 0510Last Documented: Result Date Time Pulse Ox 98 11/27 0510 B/P 256/124 11/27 0510 O2 Delivery Room air 11/27 0510 Temp 97.7 11/27 0510 Pulse 102 11/27 0510 Resp 16 11/27 0510Review of Vital Signs ReviewedBasic Physical ExamBasic PE GEN: Well appearing/NAD, RESP: No resp distress, CV: Reg rate rhythmRe-Evaluation MDMFree Text MDM NotesFree Text MDM NotesDifferential diagnosis includes but is not limited to jaw pain, reported jawcancer, breakthrough pain, drug-seeking among other processes.Patient is a 49-year-old female from [place] who is reportedly here with minesh, who 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 Patient cites a history ofreported jaw cancer and states that her Percocet is not helping. She would likea shot of IM morphine or dilaudid. She does not want a prescription for pills.ED CourseMedication(s) OrderedMedication(s) Ordered:Central Nervous System Agents Sig/Onelia Start time Last Medication Dose Route Stop Time Status Admin Ketorolac 30 MG X1ED ONE 11/27 514 DC Tromethamine IM 11/27 515 Oxycodone/ 1 TAB X1ED ONE 11/27 514 DC 11/27 Acetaminophen PO 11/27 515 0526Patient Discharge DepartureVital Signs/ConditionVital SignsFirst Documented: Result Date Time Pulse Ox 98 11/27 0410 B/P 256/124 11/27 0510 O2 Delivery Room air 11/27 509 Temp 97.7 11/27 509 Pulse 102 11/27 0510 Resp 16 11/27 0510Last Documented: Result Date Time Pulse Ox 98 11/27 0510 B/P 256/124 11/27 0510 O2 Delivery Room air 11/27 05 Temp 97.7 11/27 509 Pulse 102 11/27 05 Resp 11/27 0510All vital signs available at the time of this entry have been reviewed.Condition StableClinical ImpressionClinical ImpressionPrimary Impression: Jaw painDisposition DecisionDischarge )( Discharged to Home Yes )( Time 0525 )( Date 11/27/24Discharge/Care PlanPatient Instructions ED Symptoms Uncertain CauseReferralsResource Referral: Db Groves MD Referral Follow-Up: CALL JOSE TO ARRANGE Discharge NoteI have spoken with the patient and/or caregivers. I have explained the patient'scondition, diagnoses and treatment plan based on the information available to meat this time. I have answered the patient's and/or caregiver's questions andaddressed any concerns. The patient and/or caregivers have as good anunderstanding of the patient's diagnosis, condition and treatment plan as can beexpected at this point. The vital signs have been stable. The patient'scondition is stable and appropriate for discharge from the emergency department.The patient will pursue further outpatient evaluation with the primary carephysician or other designated or consulting physician as outlined in thedischarge instructions. The patient and/or caregivers are agreeable to this planof care and follow-up instructions have been explained in detail. The patientand/or caregivers have received these instructions in written format and haveexpressed an understanding of the discharge instructions. The patient and/orcaregivers are aware that any significant change in condition or worsening ofsymptoms should prompt an immediate return to this or the closest emergencydepartment or a call to 1. at 0541RPT #: [id number] OF REPORT Emergency Encounter Reason:BREAKTHROUGH PAIN Encounter Diagnosis:Neoplasm related pain (acute) (chronic) 14-Nov-2024 06:[id number] 07:17 Reg Only (Attending) [facility] Discharge Disposition:Discharged to home or self care (routine discharge) Katelin Benavides MD-14-Nov-2024 [facility] ([facility])EMERGENCY PROVIDER REPORTREPORT#:[id number] REPORT STATUS: SignedDATE:11/14/24 TIME: 644PATIENT: ROSSY EARL UNIT #: [id number]#: [id number] ROOM/BED:: 73 AGE: 49 SEX: F PCP PHYS: No Primary or Family PhysicianSERVICE AUTHOR: Jasbir Thomason MDREP SRV REP SRV TM: 0645* ALL edits or amendments must be made on the electronic/computer document *HPI-General IllnessGeneralConfirmed Patient YesPatient Type New patientInitial Greet Date/Time 11/14/24 0638PresentationChief Complaint 49-year-old female with stated history of left-sided jaw cancercurrently on treatment narcotic pain management lives in [place], receivestreatment in [place] ( states is scheduled to start radiation on Sunday)travels with her who is a gas truck driver presents this morning withcomplaints of breakthrough pain requesting IM Dilaudid. Patient has no priorvisits here. Patient is eating and drinking well. Voices no new or unusualcomplaints.Hx Obtained From PatientSudden in Onset? NoOnset Occurred UnknownSymptom Duration UnknownReview of SystemsROS StatementsAll systems rev neg except as marked.Complete sys rev neg except as marked.Review of SystemsConstitutionalDenies: Chills, Fatigue, Fever.RespiratoryDenies: Shortness of breath, Wheezing.CardiovascularDenies: Chest pain.GIDenies: Abdominal pain.NeurologicDenies: Focal weakness, Generalized weakness.Past Medical History - AdultStated Complaint BREAKTHROUGH PAINAllergiesCoded Allergies:sumatriptan (From Imitrex) (Severe, SVT 07/09/09)sumatriptan succinate (From Imitrex) (Severe, SVT 07/09/09)NSAIDS (Non-Steroidal Anti-Inflamma (Mild, CHEMO 11/13/13)meperidine (From DEMEROL) (Mild, HIVES 11/13/13)ondansetron (From ZOFRAN) (Mild, HIVES 11/13/13)prochlorperazine edisylate (From Compazine) (Severe, DILLUSIONS 07/09/09)prochlorperazine maleate (From Compazine) (Severe, DILLUSIONS 07/09/09)Home MedicationsReported MedicationsBACLOFEN 20 MG PO TIDALPRAZolam (XANAX) 0.5 MG PO DAILY PRN PRN NINSULIN DETEMIR (LEVEMIR)oxyCODONE HCL/ACETAMINOPHEN 5/325 MG (PERCOCET 5/325 MG) 1-2 TAB PO Q4H PRN PRNKIDNEY STONESReview of Nursing Notes Rev avail, and agreeAdditional Medical Historyk. stones chemo for cervical cancer DM MSPast Surgical History:Reports: Appendectomy, Cholecystectomy, Hysterectomy.Additional Surgical Historybowel resection L k. mass abd wall sxAdditional Social Historypt is a NPPhysical ExamVital SignsVital SignsFirst Documented: Result Date Time Pulse Ox 100 11/14 638 B/P 237/112 11/14 0539 O2 Delivery Room air 11/14 638 Temp 96.4 11/14 638 Pulse 91 11/14 638 Resp 18 11/14 638Last Documented: Result Date Time Pulse Ox 100 11/14 0539 B/P 237/112 11/14 638 O2 Delivery Room air 11/14 638 Temp 96.4 11/14 638 Pulse 91 11/14 638 Resp 18 11/14 638Review of Vital Signs Reviewed, Vital signs abnormalBasic Physical ExamBasic PE GEN: Well appearing/NAD, HEAD: Atraumatic/NC, NECK: Supple, RESP: Noresp distressPhysical ExamGeneral/Const General/Const Awake, Alert, No acute distress, Well appearing, Well developed, Well hydrated, Well nourished, Cooperative, Not toxic appearingMS Head Head Atraumatic, NormocephalicEars/Nose/Throat Ears/Nose/Throat Airway patentMS Neck Neck Supple, No meningismusResp/Chest Respiratory/Chest No respiratory distressNeurologic Neurologic Oriented X3, Speech NL, No motor deficitsRe-Evaluation MDMED CourseTime 0651Patient Course Stable, Clinical impression: 49-year-old female state historyof cancer requesting distal pain medication from her baseline pain medication ofPercocet 7.5. No prior visits. Will give IM morphine x1.Medication(s) OrderedMedication(s) Ordered:Central Nervous System Agents Sig/Onelia Start time Last Medication Dose Route Stop Time Status Admin Morphine Sulfate 4 MG X1ED ONE 11/14 644 DC IM 11/14 645Patient Discharge DepartureVital Signs/ConditionVital SignsFirst Documented: Result Date Time Pulse Ox 100 11/14 638 B/P 237/112 11/14 638 O2 Delivery Room air 11/14 638 Temp 96.4 11/14 638 Pulse 91 11/14 638 Resp 18 11/14 0539Last Documented: Result Date Time Pulse Ox 100 11/14 0539 B/P 237/112 11/14 638 O2 Delivery Room air 11/14 638 Temp 96.4 11/14 638 Pulse 91 11/14 638 Resp 18 11/14 638All vital signs available at the time of this entry have been reviewed.Condition StableClinical ImpressionClinical ImpressionPrimary Impression: Cancer associated painDisposition DecisionDischarge )( Discharged to Home Yes )( Time 0652 )( Date 11/14/24Discharge/Care PlanCounseled Regarding Diagnosis, Need for follow-up, When to return to EDPatient Instructions ED Chronic PainAdditional InstructionsPlease continue to take all medications as directed. You received a shot ofMorphine in the ER for your cancer-associated pain.Drink plenty of fluids, advance diet and activity slowly and as tolerated.Please follow-up with your regular doctor and your specialists as directed.Return to ER for worsening symptoms or concerns.ReferralsProvider Referral: .PRIMARY CARE PROVIDER Follow-Up: As Directed Discharge NoteI have spoken with the patient and/or caregivers. I have explained the patient'scondition, diagnoses and treatment plan based on the information available to meat this time. I have answered the patient's and/or caregiver's questions andaddressed any concerns. The patient and/or caregivers have as good anunderstanding of the patient's diagnosis, condition and treatment plan as can beexpected at this point. The vital signs have been stable. The patient'scondition is stable and appropriate for discharge from the emergency department.The patient will pursue further outpatient evaluation with the primary carephysician or other designated or consulting physician as outlined in thedischarge instructions. The patient and/or caregivers are agreeable to this planof care and follow-up instructions have been explained in detail. The patientand/or caregivers have received these instructions in written format and haveexpressed an understanding of the discharge instructions. The patient and/orcaregivers are aware that any significant change in condition or worsening ofsymptoms should prompt an immediate return to this or the closest emergencydepartment or a call to 911. at 1750RPT #: [id number] OF REPORT Emergency Encounter Reason:JAW PAIN/JAW CA Encounter Diagnosis:Malignant neoplasm of head, face and neck 11-Nov-2024 04:[id number] 05:01 [facility] Discharge Disposition:Discharged to home or self care (routine discharge) Bijan Tao NW-55-Kfi11-Nov-2024 [facility] ([facility])EMERGENCY PROVIDER REPORTREPORT#:[id number] REPORT STATUS: SignedDATE:11/11/24 TIME: 0418PATIENT: ROSSY AVALOS UNIT #: [id number]#: [id number] ROOM/BED:: 73 AGE: 49 SEX: F PCP PHYS: No Primary or Family PhysicianSERVICE AUTHOR: Celso Thakkar SRV REP SRV TM: 0418* ALL edits or amendments must be made on the electronic/computer document *HPI-General IllnessFree Text HPI NotesFree Text HPI [id number] female past medical history of jaw cancer [facility] EDrequesting pain control. She states she is currently undergoing targetedradiation therapy for treatment of left-sided jaw cancer and follows with heroncologist Dr. Ayala. She states she takes Percocet 7.5 mg but reports when shehas breakthrough pain she receives IM Dilaudid which normally controls her pain. She denies fever, chills, difficulty opening or closing her jaw, difficultyswallowing, eating or drinking.GeneralInitial Greet Date/Time 11/11/24 0414PresentationChief Complaint Jaw painHx Obtained From PatientReview of SystemsSt. Vincent Medical Center systems rev neg except as marked.Free Text ROS NotesFree Text ROS NotesLeft-sided jaw painPast Medical History - AdultStated Complaint JAW PAIN/JAW CAAllergiesCoded Allergies:NSAIDS (Non-Steroidal Anti-Inflamma (HIVES 11/11/24)ketorolac (From TORADOL) (ES 11/11/24)meperidine (From DEMEROL) (11/11/24)ondansetron (From ZOFRAN) (HYPEREMISIS 11/11/24)vancomycin (11/11/24)Review of Nursing Notes Rev avail, and agreePt reports no significant: Past surgical history, Family history, Social historyAdditional Medical HistoryJaw cancerAmbulatory Status IndependentPhysical ExamVital SignsVital SignsFirst Documented: Result Date Time Pulse Ox 98 11/11 0413 B/P 208/107 11/11 0413 B/P Mean 140 11/11 0413 O2 Delivery Room air 11/113 Temp 36.7 11/11 0413 Pulse 92 11/11 0413 Resp 18 11/11 0413Last Documented: Result Date Time Pulse Ox 99 11/11 0450 B/P 180/90 11/11 0450 B/P Mean 120 11/11 0450 O2 Delivery Room air 11/11 0450 Pulse 89 11/11 0450 Resp 18 11/11 0450 Temp 36.7 11/11 0413Review of Vital Signs ReviewedPhysical ExamGeneral/Const General/Const Awake, Alert, No acute distress, Well appearing, Well developed, Well hydrated, Well nourished, Cooperative, Not toxic appearingEars/Nose/Throat Ears/Nose/Throat Atraumatic, Airway patent, Mucous membranes moist, PharynxNL, No trismusMS Neck Neck Atraumatic, Supple, No adenopathy, No swelling, No JVD, No trachealdeviationResp/Chest Respiratory/Chest Atraumatic, Breath sounds NL, Breath sounds = bilat, Norespiratory distressCardiovascular Cardiovascular Heart rate NL, Regular rhythm, Heart sounds NL, No murmurs,Cap refill not delayed, Peripheral circulation NLNeurologic Neurologic Speech NLInterpretation DiagnosticsLab Results InterpretationConsiderations Reviewed prior recordsRe-Evaluation MDMED CourseMedication(s) OrderedMedication(s) Ordered:Central Nervous System Agents Sig/Onelia Start time Last Medication Dose Route Stop Time Status Admin Hydromorphone HCl 2 MG X1ED ONE 11/11 0420 DC 11/11 IM 11/11 042 0439 Promethazine HCl 25 MG X1ED ONE 11/11 419 DC IM 11/11 042Gastrointestinal Drugs Sig/Onelia Start time Last Medication Dose Route Stop Time Status Admin Prochlorperazine 10 MG ONCE ONE 11/110 DC 11/11 Edisylate IM 11/11 430 0439Differential DiagnosisDifferential Diagnosis Jaw cancer, jaw pain, breakthrough pain, pathologicfractureFree Text MDM NotesFree Text MDM [id number] female presents to [facility] ED for evaluation of left-sided jawpain requesting pain control. History was obtained from the patient as theprimary historian. There are no prior records found in the patient's chart amalia reviewed. Differential diagnosis is not limited to but can be seen above.Diagnostic studies were performed which did assist in my medical decisionmaking. On arrival, I did discuss in depth evaluation including blood work aswell as CT scan of the facial bones however patient reports she has had fullworkup performed and is already aware of this source of pain secondary to thejaw cancer and does not wish to pursue blood work or CT scans at this time. Shestates that she requests only pain control at this time. She was provided withintramuscular Dilaudid and intramuscular Phenergan with great improvement ofsymptoms. And improvement of pain. On re-evaluation she is well-appearingresting comfortably. She is stable for discharge and advised to follow-up withher primary doctor as well as her oncologist for re-evaluation in 2 days. Shewas advised to continue taking her previously prescribed Percocet for paincontrol. No prescriptions provided today. Patient was agreeable to the plan.No social restrictions identified. The patient was discharged inhemodynamically stable and ambulatory condition.Patient Discharge DepartureVital Signs/ConditionVital SignsFirst Documented: Result Date Time Pulse Ox 98 11/11 412 B/P 208/107 11/11 412 B/P Mean 140 11/11 412 O2 Delivery Room air 11/11 412 Temp 36.7 11/11 412 Pulse 92 11/11 412 Resp 18 11/11 412Last Documented: Result Date Time Pulse Ox 99 11/11 449 B/P 180/90 11/11 449 B/P Mean 120 11/11 449 O2 Delivery Room air 11/11 449 Pulse 89 11/11 449 Resp 18 11/11 449 Temp 36.7 11/11ll vital signs available at the time of this entry have been reviewed.Condition StableClinical ImpressionClinical ImpressionPrimary Impression: Jaw painSecondary Impressions: Cancer-related breakthrough pain, Jaw cancerDisposition DecisionDischarge )( Discharged to Home Yes )( Time 0454 )( Date 11/11/24Discharge/Care PlanCounseled Regarding Diagnosis, Need for follow-up, When to return to EDReferralsReferral: Your primary doctor Follow-Up: 2 DaysReferral: Your oncologist Follow-Up: 2 Days Discharge NoteI have spoken with the patient and/or caregivers. I have explained the patient'scondition, diagnoses and treatment plan based on the information available to meat this time. I have answered the patient's and/or caregiver's questions andaddressed any concerns. The patient and/or caregivers have as good anunderstanding of the patient's diagnosis, condition and treatment plan as can beexpected at this point. The vital signs have been stable. The patient'scondition is stable and appropriate for discharge from the emergency department.The patient will pursue further outpatient evaluation with the primary carephysician or other designated or consulting physician as outlined in thedischarge instructions. The patient and/or caregivers are agreeable to this planof care and follow-up instructions have been explained in detail. The patientand/or caregivers have received these instructions in written format and haveexpressed an understanding of the discharge instructions. The patient and/orcaregivers are aware that any significant change in condition or worsening ofsymptoms should prompt an immediate return to this or the closest emergencydepartment or a call to 911. at 0507RPT #: [id number] OF REPORT Emergency Encounter Reason:PAIN FROM JAW Encounter Diagnosis:Malignant neoplasm of mandible 09-Nov-2024 14:[id number] 15:19 [facility] Discharge Disposition:Discharged to home or self care (routine discharge) Nathen Lainez BB-60-Wkj09-Nov-2024 [facility] ([facility])EMERGENCY PROVIDER REPORTREPORT#:[id number] REPORT STATUS: SignedDATE:11/09/24 TIME: 1444PATIENT: ROSSY AVALOS UNIT #: [id number]#: [id number] ROOM/BED:: 73 AGE: 49 SEX: F PCP PHYS: NO PRIMARY OR FAMILY PHYSICIANSERVICE AUTHOR: Sabrina Oshea PAREP SRV REP SRV TM: 1444* ALL edits or amendments must be made on the electronic/computer document *SABRINA OSHEA 11/09/24 1444:HPI-Dental/Mouth ProbGeneralInitial Greet Date/Time 11/09/24 1440PresentationChief Complaint 49-year-old female history of jaw cancer receiving targetedradiation in [place] comes to ED complaining of breakthrough pain in her leftjaw. 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 Her 7.5 mg Percocet are not working. States occasionally shehas breakthrough pain that will typically resolve with a IM dose of Dilaudid.She returns home tomorrow. Denies fever, chills, lethargy, facial swelling,trismus, drooling, voice changes, cough, chest pain, shortness of breath,abdominal pain, nausea, vomiting, diarrhea.Hx Obtained From PatientReview of SystemsROS StatementsAll systems rev neg except as marked.Basic Review of SystemsBasic ROS EYES: No redness, CV: No chest pain, : No dysuria/frequency, MS: Noext swelling/pain, HEM: No bleeding/bruising, SKIN: No rash, NEURO: No change MS, NEURO: No focal deficit, PSYCH: NL thought contentFocused Review of SystemsConstitutionalDenies: Chills, Fever.Ears/Nose/ThroatReports: Mouth pain.RespiratoryDenies: Cough, productive, Pleuritic pain, Shortness of breath.GIDenies: Abdominal pain, Nausea, Vomiting.Past Medical History - AdultStated Complaint PAIN FROM JAWAllergiesCoded Allergies:NSAIDS (Non-Steroidal Anti- Inflamma (Severe, BLEEDING 05/09/24)meperidine (From DEMEROL) (Intermediate, HIVES 05/09/24)ondansetron (From ZOFRAN) (Intermediate, HIVES 05/09/24)vancomycin (Intermediate, HIVES 05/09/24)Uncoded Allergies:IV CONTRAST (Intermediate, HIVES 05/09/24)Home MedicationsActive ScriptsOxyCODONE/Acetaminophen (Percocet 5-325 MG) 1 TAB PO Q6H PRN PRN Acute Pain (3Day) OxyCODONE/Acetaminophen (Percocet 5-325 MG) 1 TAB PO Q6H PRN PRN Acute Pain(3 Day) #12 TAB Prov: 05/09/24Additional Medical Historyhtn, jaw cancerPhysical ExamVital SignsVital SignsFirst Documented: Result Date Time Resp 11/09 1435 Pulse Ox 98 11/09 1453 B/P 189/79 11/09 1453 B/P Mean 115.5 11/09 1453 Temp 36.9 11/09 1453 Pulse 93 11/09 1453Last Documented: Result Date Time Pulse Ox 98 11/09 1453 B/P 189/79 11/09 1453 B/P Mean 115.5 11/09 1453 Temp 36.9 11/09 1453 Pulse 93 11/09 1453 Resp 18 11/09 1435Review of Vital Signs ReviewedFocused PEGeneral/Const General/Const Awake, Alert, No acute distress, Not toxic appearingMS Head Head Atraumatic, NormocephalicEyes Eyes Atraumatic, No periorbital redness, No periorbital swellingEars/Nose/Throat Text/Dict NotesAtraumatic. All lower teeth have been removed. There is no gum swelling. Nofacial swelling. No trismus. No drooling. Normal voice.MS Neck Neck Atraumatic, Supple, No meningismus, Full range of motion, No adenopathy,No swelling, Non- tender, No midline vertebral tendResp/Chest Respiratory/Chest Atraumatic, Breath sounds NL, Breath sounds = bilat, Norespiratory distress, No rales, No rhonchi, No wheezing, No retractions, NostridorCardiovascular Cardiovascular Heart rate NL, Regular rhythm, Heart sounds NL, Pulses =bilaterallyNeurologic Neurologic Oriented X3, Speech NL, No motor deficits, No sensory deficits,Gait NLInterpretation DiagnosticsPoint of Care TestingPulse Oximetry Pulse Ox % 98 On: Room airRe-Evaluation MDMFree Text MDM NotesFree Text MDM Kpcuf83-[id number]-nic female with acute on chronic jaw pain secondary to jaw cancerpresenting to ED requesting breakthrough pain control. IM dose of Dilaudidgiven on arrival. Patient noted be hypertensive on arrival, likely secondary topain. Patient without any headache, dizziness, chest pain of breath, weakness,numbness, tingling, or other red flag symptoms. Advised keeping a log of homeBP readings and bring to her PCP to consider medication adjustment. Educated onreturn precautions. Patient in no distress and stable for discharge.Differential diagnosis reflecting the complexity of the case including but notlimited to cardiopulmonary, abdominal, neurovascular, oncologic, infectious,toxicologic, metabolic, musculoskeletal, rheumatologic, traumatic, psychiatric,genitourinary, and other emergent and non-emergent pathology as applicable.Comorbidities that add to complexity of the case as above.External chart review performed; any outside charts available were reviewed.History obtained from; as above.All labs, imaging, and/or ekg were independently reviewed by me as above.Social determinants of health were taken into consideration for the dispositionand mgmt.Shared decision making with the patient was performed as above.Axzug-zj-nwqn bead machine operator was used in this chart extensively which may leadto accidental spelling and grammatical errors. The chart must be interpreted inthis context, any errors are unintentional. Please consult directly with theauthor if there are any questions in regards to the meaning or accuracy of anystatements. *ED CourseMedication(s) OrderedMedication(s) Ordered:Central Nervous System Agents Sig/Onelia Start time Last Medication Dose Route Stop Time Status Admin Hydromorphone HCl 1 MG X1ED ONE 11/09 1444 DC 11/09 IM 11/09 1445 1509Patient Discharge DepartureVital Signs/ConditionVital SignsFirst Documented: Result Date Time Resp 18 11/09 1435 Pulse Ox 98 11/09 1453 B/P 189/79 11/09 1453 B/P Mean 115.5 11/09 1453 Temp 36.9 11/09 1453 Pulse 93 11/09 1453Last Documented: Result Date Time Pulse Ox 98 11/09 1453 B/P 189/79 11/09 1453 B/P Mean 115.5 11/09 1453 Temp 36.9 11/09 1453 Pulse 93 11/09 1453 Resp 18 11/09 1435All vital signs available at the time of this entry have been reviewed.Condition StableClinical ImpressionClinical ImpressionPrimary Impression: Jaw painSecondary Impressions: Cancer of mandibleDisposition DecisionDischarge )( Discharged to Home Yes )( Time 1459 )( Date 11/09/24Discharge/Care PlanCounseled Regarding Diagnosis, Need for follow-up, When to return to EDPatient Instructions ED Chronic Pain Discharge NoteI have spoken with the patient and/or caregivers. I have explained the patient'scondition, diagnoses and treatment plan based on the information available to meat this time. I have answered the patient's and/or caregiver's questions andaddressed any concerns. The patient and/or caregivers have as good anunderstanding of the patient's diagnosis, condition and treatment plan as can beexpected at this point. The vital signs have been stable. The patient'scondition is stable and appropriate for discharge from the emergency department.The patient will pursue further outpatient evaluation with the primary carephysician or other designated or consulting physician as outlined in thedischarge instructions. The patient and/or caregivers are agreeable to this planof care and follow-up instructions have been explained in detail. The patientand/or caregivers have received these instructions in written format and haveexpressed an understanding of the discharge instructions. The patient and/orcaregivers are aware that any significant change in condition or worsening ofsymptoms should prompt an immediate return to this or the closest emergencydepartment or a call to 911.LITZY MATA Vasquez Shafer 11/09/241813:Re- Evaluation MDMFree Text MDM NotesAdditional TextReviewed prior medical notesReviewed prior medical imagingAll current tests and imaging were independently and personally reviewed.Pt. was evaluated / treated for multiple high morbidity/mortality diseaseprocessess and life threatening threatening processes that if left untreatedwould lead to emergent complications, up to and including .Pt. presenting with symtoms consistant with lumbar radiculopathy. Pt. wasevaluated for, but has been clinically excluded from multiple life threateningdisease processes. Based on encounter, multiple high morbidity/mortality diseaseprocesses were considered, but ultimately excluded. At this time, I do notsuspect epidural abscess, fracture, dislocation, cauda equina, metastatic cancer, AAA, dissection, renal stone, or other emergent cause of back pain at thistime. Patient was treated symptomatically, with improvement of their pain. I donot suspect ligamentous injury given exam and histroy. Patient was dischargedon symptomatic pain medications, and instructed to followup with her primarycare Dr. for continued care and monitoring. The patient was instructed to returnfor fevers, vomiting, worsening pain, or other new symptoms.Dx: Lumbar RadiculopathySuggested E/M Coding Level 64989(This level has been selected based on the 2022 CPT guidelines for E/M codes inthe ED.)Complexity : This patient has high complexity due to illness that poses a threatto life or body function Problems : chronic illnesses with severe exacerbation, progression, or sideeffects that poses a threat to life or body function Severity : Severe. Based on presentation, there is concern for significantrisk of morbidity and may require escalation in level of care due to potentialfor high morbidity/mortality process that poses threat to life or bodilyfunction in the near term without treatment.Data : This patient required extensive data complexity Tests Ordered: 1+ ( x-ray) Tests Considered, But Not Ordered: (CT ) Tests Reviewed: 1 - x-ray Independent Historian : Yes - Significant Other, EMS Reviewed external notes : yes Independent Review of imaging : yes Independent Review of labs : yes xray reveals no cord impingement/acutefracture Consulted/Discussed case with other Professional: noRisk : This patient has high risk due to : Findings suggesting possible life threatening process requiring evaluation Use of parenteral controlled substances Outpatient prescriptions Decision regarding hospitalization (shared decision Re: Obs for pain controlv outpatient)Patient Discharge DepartureDischarge/Care PlanReferralsProvider Referral: Timothy Heard DMD Address: [address] [place] [address], [address] [place], [place] [address]Fwailgiobjtpwe Signed by Sabrina Oshea on 11/09/24 at 1518 at 8477RPT #: [id number] OF REPORT Emergency Encounter Reason:JAW PAIN FROM MYELITIS Encounter Diagnosis:Type 1 diabetes mellitus without complications,Jaw pain 07-Oct-2024 05:[id number] 05:47 [facility] Discharge Disposition:Discharged to home or self care (routine discharge) Herlinda Gandara MD-07-Oct-[address] [facility] ([facility]) EDEMERGENCY PROVIDER REPORTREPORT#:[id number] REPORT STATUS: FSignDATE:10/07/24 TIME: 527PATIENT: ROSSY AVALOS UNIT #: [id number]#: [id number] ROOM/BED: ED - 04DOB: [birth year] AGE: 49 SEX: PCP PHYS: NO PRIMARY OR FAMILY PHYSICIANADM DATE: 10/07/24 INI AUTH: Khadijah Pate MD LAST SIG: Khadijah Pate MDREP SERV REP SERV TM: 05 * ALL edits or amendments must be made on the electronic/computer document *HPI-Dental/Mouth ProbFree Text HPI NotesFree Text HPI NotesMs. Robbie is a 49 yo F who presents to the ED with complaint of ongoing leftsided jaw pain. She reportedly has had mulitple left sided jaw infections andnow is needing to follow up with an oncologist as there was concerned she mighthave cancer in her jaw. She is from [place] and is traveling with her husbandwho is a gas truck driver and they are expected to be back in [place] in a few days. Her last jaw surgery was in July. Previous to that she did not haveinsurance and reportedly had difficulty getting consistent care. The patientdenies any recent illness or fevers.GeneralConfirmed Patient YesInitial Greet Date/Time 10/07/24 0512PresentationChief Complaint Jaw painReview of SystemsFocused Review of SystemsEars/Nose/ThroatReports: Mouth pain.Past Medical History - AdultStated Complaint JAW PAIN FROM MYELITISAllergiesCoded Allergies:Iodinated Contrast Media (Intermediate, FINE IF PRE-MEDICATED 10/07/24)ondansetron (From ZOFRAN) (Intermediate, VOMITING 10/07/24)meperidine (From DEMEROL) (UNKNOWN 10/07/24)vancomycin (UNKNOWN 10/07/24)Home MedicationsReported MedicationsNo Known Home MedicationsReview of Nursing Notes Rev avail, and agreeAdditional Medical HistoryType 1 diabetes, left mandibular osteomyelitis, hx of cervical cancer at 19.Additional Surgical HistoryMultiple jaw surgeries for osteomyelitis and full dental extraction.Smoking status for patients 13 years old or older: Never SmokerOther Social History Visiting locallyPhysical ExamVital SignsVital SignsFirst Documented: Result Date Time Pulse Ox 97 10/07 0516 B/P 241/111 10/07 0516 B/P Mean 154 10/07 0516 O2 Delivery Room air 10/07 0516 Pulse 107 10/07 0516 Resp 18 10/07 0516Last Documented: Result Date Time Pulse Ox 97 10/07 0516 B/P 241/111 10/07 0516 B/P Mean 154 10/07 0516 O2 Delivery Room air 10/07 0516 Pulse 107 10/07 0516 Resp 18 10/07 0516Review of Vital Signs Reviewed, Vital signs abnormal (HTN)Focused PEEars/Nose/Throat Text/Dict NotesOropharynx. There is evidence of prior full dental extraction and some surgicalchanges on the left side of the mucosa but there is some tenderness to palpationof the mandibular and maxillary gums on the left. No trismus.MS Neck Neck Supple, No adenopathy, No swelling, Ubu-nmfoziDe-Jdhovufzur MDMFree Text MDM NotesFree Text MDM NotesThis patient is a 49-year-old female who presents to the emergency departmentcomplaining of chronic left jaw pain reportedly due to prior osteomyelitis andsurgeries on the left jaw.Today she is requesting pain medicine in the emergency department due to someongoing postoperative pain she is having.I can see evidence of dental extraction and likely prior jaw surgery but theredoes not appear to be any acute findings on her exam. The patient ishypertensive but asymptomatic and does have blood pressure medications that shehas recently taken.I did review her controlled substance database and she has not received anynarcotic prescriptions since July at least I can see in the states availableto me however she says her doctor in [place] has prescribed her pain medicationthat she just ran out of. Prior to July however the patient has been tomultiple emergency departments and given multiple prescriptions throughoutmultiple different states in the country that I have access to.I will not be giving her any prescription pain medication as she needs to getthis from 1 physician and if she really has chronic pain she should be under achronic pain contract.I gave her 1 dose of IM pain medication in the ER however after reviewing allthe data I was able to find I am concerned about drug-seeking behavior and thefact that she may be going to multiple emergency departments and in the futureshe will not be getting any medications here from me as she should bemaintaining a close follow up with her physicians if she actually has thediagnosis she says she has.Re-Evaluation/ProgressRe-Evaluation/Progress Text/Dict NoteWill discharge. Time of Re-Eval 0542 Re-Eval Status ImprovedED CourseMedication(s) OrderedMedication(s) Ordered:Central Nervous System Agents Sig/Onelia Start time Last Medication Dose Route Stop Time Status Admin Hydromorphone HCl 1 MG X1ED ONE 10/07 0545 AC 10/07 IM 10/07 0546 0537 Promethazine HCl 25 MG X1ED ONE 10/07 0530 DC 10/07 PO 10/07 0531 0538Patient Discharge DepartureVital Signs/ConditionVital SignsFirst Documented: Result Date Time Pulse Ox 97 10/07 0516 B/P 241/111 10/07 0516 B/P Mean 154 10/07 0516 O2 Delivery Room air 10/07 0516 Pulse 107 10/07 0516 Resp 18 10/07 0516Last Documented: Result Date Time Pulse Ox 97 10/07 0516 B/P 241/111 10/07 0516 B/P Mean 154 10/07 0516 O2 Delivery Room air 10/07 0516 Pulse 107 10/07 0516 Resp 18 10/07 0516All vital signs available at the time of this entry have been reviewed.Condition StableClinical ImpressionClinical ImpressionPrimary Impression: Jaw painDisposition DecisionDischarge )( Discharged to Home Yes )( Time 0542 )( Date 10/07/24Discharge/Care PlanCounseled Regarding Need for follow-up(Auto) PrescriptionsCurrent Visit ScriptsNo Known Home MedicationsPatient Instructions ED Dental PainReferralsReferral: Primary Care Physician Follow-Up: 2-3 DAYS Discharge NoteI have spoken with the patient and/or caregivers. I have explained the patient'scondition, diagnoses and treatment plan based on the information available to meat this time. I have answered the patient's and/or caregiver's questions andaddressed any concerns. The patient and/or caregivers have as good anunderstanding of the patient's diagnosis, condition and treatment plan as can beexpected at this point. The vital signs have been stable. The patient'scondition is stable and appropriate for discharge from the emergency department.The patient will pursue further outpatient evaluation with the primary carephysician or other designated or consulting physician as outlined in thedischarge instructions. The patient and/or caregivers are agreeable to this planof care and follow-up instructions have been explained in detail. The patientand/or caregivers have received these instructions in written format and haveexpressed an understanding of the discharge instructions. The patient and/orcaregivers are aware that any significant change in condition or worsening ofsymptoms should prompt an immediate return to this or the closest emergencydepartment or a call to 911. at 0555RPT #: [id number] OF REPORT Emergency Encounter Reason:OSTEO OF LEFT JAW Encounter Diagnosis:Jaw pain,Essential (primary) hypertension,Other chronic pain 05-Oct-2024 06:[id number] 07:21 Amy Woodard MD (Attending) [facility] Discharge Disposition:Discharged to home or self care (routine discharge) Bill MCCLAIN05-Oct-2024 [facility] ([facility]) Main EDEMERGENCY PROVIDER REPORTREPORT#:[phone] REPORT STATUS: ESignDATE:10/05/24 TIME: 0700PATIENT: ROSSY AVALOS UNIT #: [id number]#: [id number] ROOM/BED: ERDOB: [birth year] AGE: 49 SEX: PCP PHYS: NO PRIMARY OR FAMILY PHYSICIANADM DATE: 10/05/24 INI AUTH: Halie Khan PAED ADMIT LAST SIG: Betty Reyes MDREP SERV REP SERV TM: 0633 * ALL edits or amendments must be made on the electronic/computer document *Halie Khan 10/05/24 0700:HPI GREETGeneralInitial Greet Date/Time 10/05/24 0633Clinical NoteClinical NoteFirst Documented: Result Date Time Pulse Ox 94 10/05 0634 B/P 233/113 10/05 0634 B/P Mean 153 10/05 0634 Temp 99.0 10/05 0634 Pulse 108 10/05 0634 Resp 16 10/05 0634Last Documented: Result Date Time Pulse Ox 94 10/05 0634 B/P 233/113 10/05 0634 B/P Mean 153 10/05 0634 Temp 99.0 10/05 0634 Pulse 108 10/05 0634 Resp 16 10/05 0634PCP:RM: 11Chief ComplaintChronic jaw [id number] female presents the emergency department for concerns of chronicleft-sided jaw pain from osteomyelitis that was diagnosed 1 year ago. 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 Patient has an appointment with an oncologist next week for furtherevaluation of her jaw pain. Patient denies any recent fever, nausea, vomiting,facial swelling, shortness of breath, chest pain.ROSComplete 10 point ROS is otherwise negative, see HPIExamConstitutional triage nursing summary reviewed, vital signs reviewed, awake/alert.Eyes normal conjunctivae and sclera, PERRLA. EOMIHENT normal inspection, moist mucus membranes, neck supple/ no meningismus,posterior pharynx without erythema no tonsillary hypertrophy or exudate TMnormalRespiratory clear to ascultation bilaterally, normal breath sounds, norespiratory distress, no wheezing, no rhonchi, no ralesCardiovascular rate normal, regular rhythm, no murmur, no edema.Gastrointestinal soft, non-tender, no rebound, no guarding, normal bowel sounds,no distension.Genitourinary no CVA tenderness.Musculoskeletal no midline vertebral tenderness, full range of motion, no calfswelling/tenderness, no tenderness of extremities.Skin well perfused, pink, warm, dry, no rash, skin atraumatic.Neurologic awake, alert and oriented x 3, moves all 4 extremities equally, motorintact, sensory intact.Psychiatric normal mood/affect.Heme/Lymph/Immune no lymphadenopathy.Data InterpretationReviewed prior records - [facility].IHalie PA-C, am the primary provider.ProceduresED CourseI discussed high blood pressure, patient takes metoprolol and lisinopril at homestates that she did not take it this morning. Denies headache, blurred vision,chest pain, shortness of breath.I offered further workup including labs and CT images, she declines at thistime. Medications ordered. I discussed with the patient that this is not agood use of the emergency department and she needs a follow-up with her PCP orfigure out a better outpatient pain regimen. Discussed home care and returnprecautions.Medical Decision MakingDifferential Diagnosis: Considered, not limited to TMJ, osteomyelitis, mass,drug-seeking behavior, opioid abuseMDM: 49-year-old female presents the emergency department for concerns ofchronic left-sided jaw pain. Patient declines any further workup, would justlike pain medications. I ordered her pain medications, but had conversationregarding use of the emergency department and she needs a follow-up with her PCPto figure out a better pain management regimen. She has no facial swelling, nodrooling, uvula midline, no muffled voice, I do not sign a any signs ofinduration or fluctuance, no trismus. She speaking full sentences, otherwisewell-appearing and nontoxic. Discussed follow-up with her PCP, home care michael ortiz.The patient was told to return to the emergency department with any worseningpain/symptoms or if the condition in general worsens. The patient is felt to besafe for discharge home at this time, I have explained that they may still havea serious illness that needs further investigation by a primary doctor orspecialist, I have recommended mandatory follow-up within 48 hours.Medical Decision Making / Complexity of Problem- Number and complexity of problems addressed: 1 or more chronic illnesses withexacerbation, progression, or side effects of treatment.- I have ordered: see below for labs/imaging tests that have been ordered andreviewed, cardiac/pulse oximetry monitor(s).- Risk of Complications and/or Morbidity or Mortality of Patient Management:moderate.- Medications/prescriptions management: medications reviewed; recommendmaintaining current prescription regimen.- Based on the seriousness of patient's presentation and comorbidities, thefollowing interventions were ordered and done: medications.- Decision regarding limitation of imaging, limitation of diagnostic testing, orde-escalation of care: imaging and/ or labs were not thought to be indicatedbased on risk assessment.- Disposition of the patient/consideration of hospitalization: there is noindication for acute hospitalization at this time, patient will be discharged.Past Medical HistoryStated Complaint OSTEO OF LEFT JAWAllergiesCoded Allergies:Iodinated Contrast Media (Intermediate, HIVES 07/03/24)NSAIDS (Non-Steroidal Anti-Inflamma (Intermediate, CONTRAINDICATED 07/03/24)meperidine (From DEMEROL) (Intermediate, HIVES 07/03/24)vancomycin (Intermediate, LEXI SYNDROME 07/03/24)ondansetron (From ZOFRAN) (Mild, VOMITING 07/03/24)Home MedicationsActive ScriptsMETHOCARBAMOL (ROBAXIN) 750 MG PO Q8H PRN pain METHOCARBAMOL (ROBAXIN) 750 MG PO Q8H PRN pain #20 TAB Prov: 07/21/24oxyCODONE (ROXICODONE) 5 MG PO Q4H PRN PRN jaw pain oxyCODONE (ROXICODONE) 5 MG PO Q4H PRN PRN jaw pain #15 TAB Prov: 05/31/24MUPIROCIN (BACTROBAN 2%) 1 APPLIC TOPICAL BID MUPIROCIN (BACTROBAN 2%) 1 APPLIC TOPICAL BID #22 GM Prov: 10/03/24METHOCARBAMOL (ROBAXIN) 750 MG PO Q8H METHOCARBAMOL (ROBAXIN) 750 MG PO Q8H #20 TAB Prov: 07/03/24Smoking status for patients 13 years old or older: Never SmokerCOURSEMed DataMed DataMedication(s) Ordered:Antihistamine Drugs Sig/Onelia Start time Last Medication Dose Route Stop Time Status Admin Diphenhydramine HCl 25 MG X1ED ONE 10/05 0645 DC 10/05 IM 10/05 0646 0718Central Nervous System Agents Sig/Onelia Start time Last Medication Dose Route Stop Time Status Admin Hydromorphone HCl 1 MG X1ED ONE 10/05 0645 DC 10/05 IM 10/05 0646 0718 Promethazine HCl 25 MG X1ED ONE 10/05 0645 DC 10/05 PO 10/05 0646 0719Patient Discharge DepartureVital Signs/ConditionVital SignsFirst Documented: Result Date Time Pulse Ox 94 10/05 0634 B/P 233/113 10/05 0634 B/P Mean 153 10/05 0634 Temp 99.0 10/05 0634 Pulse 108 10/05 0634 Resp 16 10/05 0634Last Documented: Result Date Time Pulse Ox 94 10/05 0634 B/P 233/113 10/05 0634 B/P Mean 153 10/05 0634 Temp 99.0 10/05 0634 Pulse 108 10/05 0634 Resp 16 10/05 0634All vital signs available at the time of this entry have been reviewed.Clinical ImpressionClinical ImpressionPrimary Impression: Chronic jaw painSecondary Impressions: HypertensionDisposition DecisionDischarge )( Discharged to Home Yes )( Time 0700 )( Date 10/05/24Discharge/Care PlanPatient Instructions ED Chronic Pain, Opioid Pain Medicine ManagementDeparture Forms*[facility] ED Betty Jimenez 10/06/24 0723:Patient Discharge DepartureDischarge/Care PlanReferralsProvider Group: .Your ProviderProvider Referral: NO PRIMARY OR FAMILY PHYSICIANSupervising Physician Note MidLv Saw Pt AloneI have reviewed the PA/MORTARMAN's note and plan of care. I was available forconsultation as needed at all times during the patient's visit in the emergencydepartment. I agree with the clinical impression, plan and disposition. at 0753 at 0724RPT #: [id number] OF REPORT Emergency Encounter Reason:JAW PAIN Encounter Diagnosis:Jaw pain,Other chronic osteomyelitis, unspecified site,custodial (current) use of opiate analgesic,Other chronic pain 03-Oct-2024 14:[id number] 16:00 Stacy Bright DO (Attending) [facility] Discharge Disposition:Discharged to home or self care (routine discharge) Melonie WELCH-03-Oct-2024 [facility] ([facility]) Main EDEMERGENCY PROVIDER REPORTREPORT#:[id number] REPORT STATUS: ESignDATE:10/03/24 TIME: 1504PATIENT: AVALOSROSSY Ramos UNIT #: [id number]#: [id number] ROOM/BED: ERDOB: [birth year] AGE: 49 SEX: PCP PHYS: NO PRIMARY OR FAMILY PHYSICIANADM DATE: 10/03/24 INI AUTH: Willie Denis PAED ADMIT LAST SIG: Alethea Kumar DOREP SERV REP SERV TM: 1504 * ALL edits or amendments must be made on the electronic/computer document *WILLIE DENIS 10/03/24 1504:HPI GREETGeneralInitial Greet Date/Time 10/03/24 1504Clinical NoteClinical NoteFirst Documented: Result Date Time Pulse Ox 97 10/03 1501 B/P 217/114 10/03 1501 B/P Mean 148 10/03 1501 O2 Delivery Room air 10/03 1501 Temp 36.4 10/03 1501 Pulse 95 10/03 1501 Resp 20 10/03 1501Last Documented: Result Date Time Pulse Ox 97 10/03 1600 B/P 195/90 10/03 1600 B/P Mean 125 10/03 1600 Temp 36.1 10/03 1600 Pulse 90 10/03 1600 Resp 18 10/03 1600 O2 Delivery Room air 10/03 1501Chief Complaint:Chronic jaw painHPI:49-year-old female presenting to the emergency department with complaint of left-sided jaw pain. She gets most of her care in [place] and previously has hadchronic osteomyelitis of her left mandible however recently told that this maybe a cancerous lesion. She plans to follow-up with [place] with her specialistin regards to this. She has oxycodone for pain management at home. 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 She is looking for painrelief as her oxycodone has not been working for pain management. She isadamant that she does not want further workup here in the emergency departmentand just looking for pain relief.She had secondary complaint of scabs on her back and hip. She states in thepast she has treated this with a topical antibiotic and it works well. She isrequesting a refill of this medication- History obtained from additional independent historian(s): NonePMHx: Chronic jaw painExam:General Appearance: Resting comfortably in bed, nontoxic-appearing, well-nourishedEyes: Pupils equal, eye movements normalENT, Mouth: Mucous membranes are moist no erythema or swelling mouth.Musculoskeletal: Moving all extremities freely, normal gait without ataxia. NotrismusSkin: Warm, dry, no rashes. No facial cellulitisNeurological: Awake, alert, oriented, acting appropriatelyI have ordered: see below for labs/imaging tests that have been ordered andreviewed personally by myself: VitalsData Interpretation:Vital signs showing hypertensionIWillis PA-C, edmundo the primary provider.ED Course:Initial presentation-Hypertensive on her vital signs recommending EKG as her jaw pain could becardiac equivalentPatient refusing EKG or further evaluation just looking for pain management.Patient somewhat upset that she is giving 0.5 mg of IM Dilaudid as opposed toher normal 2 mg dose. On review of prior records has not had significantsomnolence or problems with 2 mg IM so dose was changed- Based on the seriousness of patient's presentation and comorbidities, thefollowing interventions were ordered and done: Analgesia- Risk of Complications and/or Morbidity or Mortality of Patient Management: Lowto moderate, there is a low to mod risk of morbidity/mortality associated withpotential diagnoses.Medical Decision Makin-year-old female presenting to the emergency department looking for painmanagement of chronic left sided jaw pain and acute exacerbation does not wantfurther workupOn initial presentation she is nontoxic-appearing with reassuring vital signs.She was quite hypertensive however on investigating this further she is refusingany additional workup. I do not think that she needs to leave AGAINST MEDICALADVICE in regards to this given chronic pain in this area and no chest pain orshortness of breath however she understands that this could be a cardiacequivalent and she is taking on some risk and not getting further evaluation forpotential cardiac etiology today. Her ENT exam unremarkable. Symptoms seemconsistent with prior episodes of chronic jaw pain she is just looking forimmediate relief here in the emergency department. Was given Dilaudid [place] Phenergan as this has worked well in the past and discharged homePrior to discharge she had complaints of scabbing across her right side back andhip. Will give mupirocin ointment- Disposition of the patient/consideration of hospitalization: Discharge.- Medications/prescriptions management: prescription drug management, topical.Differential Diagnosis:Considered ACS, dysrhythmia, osteomyelitis, To angina, Lemierre's syndrome,trismus, and othersDiagnosis:Chronic painScabPast Medical HistoryStated Complaint JAW PAINAllergiesCoded Allergies:Iodinated Contrast Media (Intermediate, HIVES 07/03/24)NSAIDS (Non-Steroidal Anti-Inflamma (Intermediate, CONTRAINDICATED 07/03/24)meperidine (From DEMEROL) (Intermediate, HIVES 07/03/24)vancomycin (Intermediate, LEXI SYNDROME 07/03/24)ondansetron (From ZOFRAN) (Mild, VOMITING 07/03/24)Home MedicationsActive ScriptsMETHOCARBAMOL (ROBAXIN) 750 MG PO Q8H PRN pain METHOCARBAMOL (ROBAXIN) 750 MG PO Q8H PRN pain #20 TAB Prov: 07/21/24oxyCODONE (ROXICODONE) 5 MG PO Q4H PRN PRN jaw pain oxyCODONE (ROXICODONE) 5 MG PO Q4H PRN PRN jaw pain #15 TAB Prov: 05/31/24METHOCARBAMOL (ROBAXIN) 750 MG PO Q8H METHOCARBAMOL (ROBAXIN) 750 MG PO Q8H #20 TAB Prov: 07/03/24COURSEMed DataMed DataMedication(s) Ordered:Antihistamine Drugs Sig/Onelia Start time Last Medication Dose Route Stop Time Status Admin Diphenhydramine HCl 25 MG X1ED ONE 10/03 1530 DC 10/03 IM 10/03 1531 1541Central Nervous System Agents Sig/Onelia Start time Last Medication Dose Route Stop Time Status Admin Hydromorphone HCl 2 MG X1ED ONE 10/03 1545 DC 10/03 IM 10/03 1546 1552 Hydromorphone HCl 0.5 MG X1ED ONE 10/03 1530 DC IM 10/03 1531 Promethazine HCl 25 MG X1ED ONE 10/03 1530 DC 10/03 PO 10/03 1531 1541Patient Discharge DepartureVital Signs/ConditionVital SignsFirst Documented: Result Date Time Pulse Ox 97 10/03 1501 B/P 217/114 10/03 1501 B/P Mean 148 10/03 1501 O2 Delivery Room air 10/03 1501 Temp 36.4 10/03 1501 Pulse 95 10/03 1501 Resp 20 10/03 1501Last Documented: Result Date Time Pulse Ox 97 10/03 1600 B/P 195/90 10/03 1600 B/P Mean 125 10/03 1600 Temp 36.1 10/03 1600 Pulse 90 10/03 1600 Resp 18 10/03 1600 O2 Delivery Room air 10/03 1501All vital signs available at the time of this entry have been reviewed.Clinical ImpressionClinical ImpressionPrimary Impression: Chronic painDisposition DecisionDischarge )( Discharged to Home Yes )( Time 1546 )( Date 10/03/24Discharge/Care Plan(Auto) PrescriptionsCurrent Visit ScriptsMUPIROCIN (BACTROBAN 2%) 1 APPLIC TOPICAL BID MUPIROCIN (BACTROBAN 2%) 1 APPLIC TOPICAL BID #22 GMPatient Instructions Chronic Pain, AdultDeparture Forms*[facility] ED JaseAlethea torres Do 10/03/248:Patient Discharge DepartureDischarge/Care PlanReferralsProvider Referral: NO PRIMARY OR FAMILY PHYSICIAN at 2038 at 2148RPT #: [id number] OF REPORT Emergency Encounter Reason:JAW PAIN Encounter Diagnosis:Nausea,Jaw pain 09-Sep-2024 17:[id number] 18:05 [facility] Discharge Disposition:Discharged to home or self care (routine discharge) Bridgette Gilmore MD-09-Sep-2024 [facility] ([place] [facility]) Main EDEMERGENCY PROVIDER REPORTREPORT#:[id number] REPORT STATUS: ESignDATE:09/09/24 TIME: 1740PATIENT: ROSSY AVALOS UNIT #: [id number]#: [id number] ROOM/BED: ERDOB: [birth year] AGE: 49 SEX: PCP PHYS: NO PRIMARY OR FAMILY PHYSICIANADM DATE: 09/09/24 INI AUTH: Mando Angeles MDED ADMIT LAST SIG: Mando Angeles MDREP SERV REP SERV TM: 1740 * ALL edits or amendments must be made on the electronic/computer document *HPI GREETGeneralInitial Greet Date/Time 09/09/24 1720Clinical NoteClinical NoteFirst Documented: Result Date Time Pulse Ox 90 09/09 1723 B/P 197/110 09/09 1723 B/P Mean 139 09/09 1723 O2 Delivery Room air 09/09 172 Temp 35.9 09/09 1723 Pulse 98 09/09 1723 Resp 18 09/09 1723Last Documented: Result Date Time Pulse Ox 90 09/09 1723 B/P 197/110 09/09 1723 B/P Mean 139 09/09 172 O2 Delivery Room air 09/09 172 Temp 35.9 09/09 1723 Pulse 98 09/09 1723 Resp 18 09/09 1723HISTORY OF PRESENT ILLNESS:Patient presents with a history of recent surgery on on her mouth, which hadbeen draining but stopped about 5 days ago. The patient is concerned that theissue may be recurring. 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 They report feelingnauseated and request pain management. The patient mentions needing to get aprescription filled at [facility]. The patient was evaluated initially in aprivate care room and arrived via private vehicle. Patient prescribed painmedicine from her surgeon asking for 1 shot of pain medicine here of notepatient's been seen before for similar concerning complaint prior to the surgerystates she has Phenergan at homeMedications: On opiates after surgery, oral antiemetic PhenerganREVIEW OF SYSTEMS:Gastrointestinal: Reports nausea.See above HPI for other review of symptoms.PHYSICAL EXAM:General appearance: Alert, oriented, no distress.Eyes: No injection or scleral icterus.ENT: Non-traumatic. Neck with full range of motion. No sign of significantswelling in the mouth or any drainageEVALUATIONS:INITIAL EVALUATION AND PLAN:- Administer a shot of Dilaudid for pain management.- Provide oral antiemetic (Fender game) for nausea.- Ensure the patient gets the prescription filled at [facility].Patient with history of chronic pain presents with pain postop no sign of anymajor postop complications such as infection or abscess that needs furtherantibiotics or imaging or labs no airway compromise no trismus no other medicalemergency seen feel patient is safe for discharge after dose of medication andshe is comfortable with this plan for outpatient follow-up return precautionsPast Medical HistoryStated Complaint JAW PAINAllergiesCoded Allergies:Iodinated Contrast Media (Intermediate, HIVES 07/03/24)NSAIDS (Non-Steroidal Anti-Inflamma (Intermediate, CONTRAINDICATED 07/03/24)meperidine (From DEMEROL) (Intermediate, HIVES 07/03/24)vancomycin (Intermediate, LEXI SYNDROME 07/03/24)ondansetron (From ZOFRAN) (Mild, VOMITING 07/03/24)Home MedicationsActive ScriptsMETHOCARBAMOL (ROBAXIN) 750 MG PO Q8H PRN pain METHOCARBAMOL (ROBAXIN) 750 MG PO Q8H PRN pain #20 TAB Prov: 07/21/24oxyCODONE (ROXICODONE) 5 MG PO Q4H PRN PRN jaw pain oxyCODONE (ROXICODONE) 5 MG PO Q4H PRN PRN jaw pain #15 TAB Prov: 05/31/24METHOCARBAMOL (ROBAXIN) 750 MG PO Q8H METHOCARBAMOL (ROBAXIN) 750 MG PO Q8H #20 TAB Prov: 07/03/24Smoking status for patients 13 years old or older: Never SmokerCOURSEMed DataMed DataMedication(s) Ordered:Central Nervous System Agents Sig/Onelia Start time Last Medication Dose Route Stop Time Status Admin Hydromorphone HCl 2 MG X1ED ONE 09/09 1745 DC 09/09 IM 09/09 1746 1754 Promethazine HCl 25 MG X1ED ONE 09/09 1745 DC 09/09 PO 09/09 1746 1740Patient Discharge DepartureVital Signs/ConditionVital SignsFirst Documented: Result Date Time Pulse Ox 90 09/09 1723 B/P 197/110 09/09 1723 B/P Mean 139 09/09 1723 O2 Delivery Room air 09/09 1723 Temp 35.9 09/09 1723 Pulse 98 09/09 1723 Resp 18 09/09 1723Last Documented: Result Date Time Pulse Ox 90 09/09 1723 B/P 197/110 09/09 1723 B/P Mean 139 09/09 1723 O2 Delivery Room air 09/09 1723 Temp 35.9 09/09 1723 Pulse 98 09/09 1723 Resp 18 09/09 1723All vital signs available at the time of this entry have been reviewed.Clinical ImpressionClinical ImpressionPrimary Impression: Jaw painDisposition DecisionDischarge )( Discharged to Home Yes )( Time 1810 )( Date 09/09/24Discharge/Care PlanPatient Instructions ED Post Op Wound Check, PainReferralsProvider Referral: NO PRIMARY OR FAMILY PHYSICIANDeparture Forms*[facility]*EXCUSE FROM WORK Excuse from Work: 2 Days at 1818RPT #: [id number] OF REPORT Emergency Encounter Reason:L SIDE JAW PAIN Encounter Diagnosis:Essential (primary) hypertension,Inflammatory conditions of jaws 06-Sep-2024 08:[id number] 09:07 [facility] Discharge Disposition:Discharged to home or self care (routine discharge) Amos Jacinto DO-06-Sep-2024 [facility] ([facility]) [facility] EDEMERGENCY PROVIDER REPORTREPORT#:[id number] REPORT STATUS: FSignDATE:09/06/24 TIME: 0848PATIENT: ROSSY AVALOS UNIT #: [id number]#: [id number] ROOM/BED: ED - TRGDOB: [birth year] AGE: 49 SEX: PCP PHYS: NO PRIMARY OR FAMILY PHYSICIANADM DATE: 09/06/24 INI AUTH: Earl Trinidad DO DO LAST SIG: Earl Trinidad DO DOREP SERV REP SERV TM: 0848 * ALL edits or amendments must be made on the electronic/computer document *HPI-Dental/Mouth ProbGeneralInitial Greet Date/Time 09/06/24 0839PresentationChief Complaint Jaw swellingFree Text HPI NotesFree Text HPI Notes 49-year-old white female presents emergency room with breakthrough paincomplaints. Patient states that she has been battling with her physiciansongoing osteomyelitis of the mandibular joint. Patient states her pain medicinethat she is taking is not controlling the pain. She has just recently restartedantibiotics and states she needs something for pain for a 1 time dose tailorantibiotics start working for her. No fevers no chills no vomiting she is ableto open her mouth and talk well no shortness of breath.. Patient with knownhypertension says she has not taken her blood pressure medications this morningas usual.Review of SystemsFocused Review of SystemsConstitutionalDenies: Fatigue, Fever.Ears/Nose/ThroatDenies: Nasal congestion, Sinus problem.RespiratoryDenies: Shortness of breath, Wheezing.GIDenies: Abdominal pain, Nausea, Vomiting.Past Medical History - AdultStated Complaint L SIDE JAW PAINAllergiesCoded Allergies:Iodinated Contrast Media (RASH 09/06/24)NSAIDS (Non-Steroidal Anti-Inflamma (RASH 09/06/24)meperidine (From DEMEROL) (RASH 09/06/24)ondansetron (From ZOFRAN) (RASH 09/06/24)vancomycin (RASH 09/06/24)Physical ExamVital SignsVital SignsFirst Documented: Result Date Time Pulse Ox 97 09/06 0845 B/P 223/123 09/06 0845 B/P Mean 156 09/06 0845 O2 Delivery Room air 09/06 0845 Temp 98.3 09/06 0845 Pulse 91 09/06 0845 Resp 18 09/06 0845Last Documented: Result Date Time Pulse Ox 97 09/06 0845 B/P 223/123 09/06 0845 B/P Mean 156 09/06 0845 O2 Delivery Room air 09/06 0845 Temp 98.3 09/06 0845 Pulse 91 09/06 0845 Resp 18 09/06 0845Review of Vital Signs ReviewedFocused PEGeneral/Const General/Const Awake, Alert, Well appearingMS Head Head NormocephalicEyes Eyes PERRLEars/Nose/Throat Ears/Nose/Throat Atraumatic, Airway patent, Mucous membranes moist, PharynxNL, No pooling of secretions, No facial swelling, Gums/dentition NL Text/Dict NotesTenderness over the left TMJ and mandible. There is some swelling noted aswell. It is not red.MS Neck Neck Supple, No meningismus, Full range of motion, No adenopathy, No swelling, Non-tender, No massesResp/Chest Respiratory/Chest Breath sounds NL, Breath sounds = bilat, No respiratorydistress, No rales, No rhonchi, No wheezing, No stridorCardiovascular Cardiovascular Heart rate NL, Regular rhythm, Heart sounds NL, No murmurs,Peripheral circulation NLNeurologic Neurologic Oriented X3, Speech NL, No motor deficits, No sensory deficitsRe-Evaluation MDMED CourseMedication(s) OrderedMedication(s) Ordered:Cardiovascular Drugs Sig/Onelia Start time Last Medication Dose Route Stop Time Status Admin Clonidine HCl 0.1 MG X1ED ONE 09/06 900 AC PO 09/06 901Central Nervous System Agents Sig/Onelia Start time Last Medication Dose Route Stop Time Status Admin Hydromorphone HCl 2 MG X1ED ONE 09/06 900 AC IM 09/06 901 Promethazine HCl 25 MG X1ED ONE 09/06 900 AC PO 09/06 901Patient Discharge DepartureVital Signs/ConditionVital SignsFirst Documented: Result Date Time Pulse Ox 97 09/06 0845 B/P 223/123 09/06 0845 B/P Mean 156 09/06 0845 O2 Delivery Room air 09/06 845 Temp 98.3 09/06 845 Pulse 91 09/06 0845 Resp 18 09/06 0845Last Documented: Result Date Time Pulse Ox 97 09/06 0845 B/P 223/123 09/06 0845 B/P Mean 156 09/06 0845 O2 Delivery Room air 09/06 08 Temp 98.3 09/06 845 Pulse 91 09/06 0845 Resp 18 09/06 845All vital signs available at the time of this entry have been reviewed.Condition StableClinical ImpressionClinical ImpressionPrimary Impression: Chronic osteomyelitis of mandibleDisposition DecisionDischarge )( Discharged to Home Yes )( Time 0850 )( Date 09/06/24Discharge/Care PlanPatient Instructions ED TMJ SyndromeReferralsPCP Referral: NO PRIMARY OR FAMILY PHYSICIAN Discharge NoteI have spoken with the patient and/or caregivers. I have explained the patient'scondition, diagnoses and treatment plan based on the information available to meat this time. I have answered the patient's and/or caregiver's questions andaddressed any concerns. The patient and/or caregivers have as good anunderstanding of the patient's diagnosis, condition and treatment plan as can beexpected at this point. The vital signs have been stable. The patient'scondition is stable and appropriate for discharge from the emergency department.The patient will pursue further outpatient evaluation with the primary carephysician or other designated or consulting physician as outlined in thedischarge instructions. The patient and/or caregivers are agreeable to this planof care and follow-up instructions have been explained in detail. The patientand/or caregivers have received these instructions in written format and haveexpressed an understanding of the discharge instructions. The patient and/orcaregivers are aware that any significant change in condition or worsening ofsymptoms should prompt an immediate return to this or the closest emergencydepartment or a call to 911. at 0853RPT #: [id number] OF REPORT Emergency Encounter Reason:LEFT MANDIBULAR OSTEOMYELITIS Encounter Diagnosis:Other specified disorders of teeth and supporting structures,Essential (primary) hypertension,Hypertensive urgency,custodial (current) use of opiate analgesic,Other chronic pain 22-Jul-2024 08:[id number] 10:30 Faizan Crisostomo MD (Attending) [facility] Discharge Disposition:Left against medical advice or discontinued care Elmer WELCH-22-Jul-2024 [facility] ([place]) Main EDEMERGENCY PROVIDER REPORTREPORT#:[id number] REPORT STATUS: ESignDATE:07/22/24 TIME: 1028PATIENT: ROSSY AVALOS UNIT #: [id number]#: [id number] ROOM/BED: ERDOB: [birth year] AGE: 49 SEX: PCP PHYS: NO PRIMARY OR FAMILY PHYSICIANADM DATE: 07/22/24 INI AUTH: Mika Payne PAED ADMIT LAST SIG: Jaspal Gloria MDREP SERV REP SERV TM: 1028 * ALL edits or amendments must be made on the electronic/computer document *Mika Payne 07/22/24 1028:HPI GREETGeneralInitial Greet Date/Time 07/22/24 0900Clinical NoteClinical NoteFirst Documented: Result Date Time Pulse Ox 97 07/22 0900 B/P 233/128 07/22 0900 B/P Mean 163 10 0900 O2 Delivery Room air 07/22 0900 Temp 35.7 10 0900 Pulse 96 10 0900 Resp 18 07/22 0900Last Documented: Result Date Time Pulse Ox 92 07/22 1023 B/P 225/104 07/22 1023 B/P Mean 144 07/22 1023 O2 Delivery Room air 07/22 1023 Pulse 87 10 1023 Resp 17 07/22 1023 Temp 35.7 10 0900CC: Chronic dental painHPI: Patient is a 49-year-old female with a history of severe social anxiety andhypertension who presents with chronic dental pain and elevated blood pressure.She reports that her blood pressure is always high in stressful environments butnormalizes when she is out of such environments. She has not taken her bloodpressure medication this morning due to nausea from the pain. She is seekingpain management to help her travel to an important appointment in [facility]. She mentions that she received a pain shot yesterday and prefersanother shot today as it lasts longer and helps manage her pain better.Medications: Metoprolol 50 mg (extended release), Lisinopril 20 mg.Allergies: None mentioned.Past Medical History: Severe social anxiety, hypertension.Surgical History: None mentioned.REVIEW OF SYSTEMSGeneral: Denies fever, chills.Skin: Denies rash, swelling, redness.HEENT: Reports chronic left-sided dental painCardiovascular: Reports history of hypertension, denies current chest pain.Gastrointestinal: Reports nausea.Musculoskeletal: Denies joint pain, swelling, stiffness, back pain.Hematologic: Denies bleeding, bruising, petechiae.Neuro: Denies weakness.PHYSICAL EXAMVital signs: Hypertensive. Pulse, respirations, temperature are within normallimits.General: 49-year-old female alert, oriented, and in no acute distress.Skin: Normal color, warm, dry and intact. No lesions or rashes noted.Head/Eyes: Normocephalic, EOMI, PERRLA, normal conjunctiva/scleraEars: Hearing grossly intact.Nose: No nasal discharge.Mouth: Moist mucous membranesNeck: Supple, no meningismus, full range of motionMusculoskeletal: Full range of motion in upper and lower extremities. Normalgait.Neurological: Alert and oriented x 3, normal speech, no sensory or motordeficits. GCS 15MEDICAL DECISION MAKINGInitial Evaluation: Patient presenting with chronic left-sided dental pain. [place]own history of osteomyelitis. 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 Patient isacutely hypertensive. She reports that she is always hypertensive in the ER.Was 188 systolic yesterday while in the ED. Has not taken her blood pressuremedication. Just requesting pain [facility] I did offer patient workup for her hypertension.She declines at this time. States that her blood pressure will improve as soonas she leaves the emergency department. Would like her morning doses of hermetoprolol and lisinopril. These will be provided along with a dose of IV painmedication.Reevaluation #1: Pain medication was administered. Patient has had good reliefin her pain. She also received doses of her daily blood pressure medication.Patient remains acutely hypertensive. Decides that she would like to sign outAMA. Does not want any further workup for hypertension. Return precautionswere given.DIFFERENTIAL DIAGNOSISHypertensive urgency, hypertensive emergency, chronic dental pain, osteomyelitisMedical Decision Making / Complexity of Problem- Number and complexity of problems addressed: 1 or more chronic illnesses withexacerbation, progression, or side effects of treatment.- I have ordered: see below for labs/imaging tests that have been ordered andreviewed, cardiac/pulse oximetry monitor(s), pulse oximeter.- Risk of Complications and/or Morbidity or Mortality of Patient Management:moderate.- Medications/prescriptions management: medications reviewed; recommendmaintaining current prescription regimen.- Based on the seriousness of patient's presentation and comorbidities, thefollowing interventions were ordered and done: medications.- Decision regarding limitation of imaging, limitation of diagnostic testing, orde-escalation of care: imaging was not thought to be indicated based on riskassessment.- Disposition of the patient/consideration of hospitalization: based on myevaluation, I have recommended admission, however the patient has refused and isleaving AGAINST MEDICAL ADVICE. .Past Medical HistoryStated Complaint LEFT MANDIBULAR OSTEOMYELITISAllergiesCoded Allergies:Iodinated Contrast Media (Intermediate, HIVES 07/03/24)NSAIDS (Non-Steroidal Anti-Inflamma (Intermediate, CONTRAINDICATED 07/03/24)meperidine (From DEMEROL) (Intermediate, HIVES 07/03/24)vancomycin (Intermediate, LEXI SYNDROME 07/03/24)ondansetron (From ZOFRAN) (Mild, VOMITING 07/03/24)Home MedicationsActive ScriptsMETHOCARBAMOL (ROBAXIN) 750 MG PO Q8H PRN pain METHOCARBAMOL (ROBAXIN) 750 MG PO Q8H PRN pain #20 TAB Prov: 07/21/24oxyCODONE (ROXICODONE) 5 MG PO Q4H PRN PRN jaw pain oxyCODONE (ROXICODONE) 5 MG PO Q4H PRN PRN jaw pain #15 TAB Prov: 05/31/24METHOCARBAMOL (ROBAXIN) 750 MG PO Q8H METHOCARBAMOL (ROBAXIN) 750 MG PO Q8H #20 TAB Prov: 07/03/24Smoking status for patients 13 years old or older: Never SmokerCOURSEMed DataMed DataMedication(s) Ordered:Cardiovascular Drugs Sig/Onelia Start time Last Medication Dose Route Stop Time Status Admin Lisinopril 20 MG X1ED ONE 07/22 915 DC 07/22 PO 07/22 916 0934 Metoprolol Succinate 50 MG X1ED ONE 07/22 915 DC 07/22 PO 07/22 916 0930Central Nervous System Agents Sig/Onelia Start time Last Medication Dose Route Stop Time Status Admin Hydromorphone HCl 2 MG X1ED ONE 07/22 930 DC 07/22 IM 07/22 931 09Patient Discharge DepartureVital Signs/ConditionVital SignsFirst Documented: Result Date Time Pulse Ox 97 07/22 0900 B/P 233/128 07/22 0900 B/P Mean 163 07/22 0900 O2 Delivery Room air 07/22 0900 Temp 35.7 07/22 0900 Pulse 96 10 0900 Resp 18 07/22 0900Last Documented: Result Date Time Pulse Ox 92 07/22 1023 B/P 225/104 07/22 1023 B/P Mean 144 07/22 1023 O2 Delivery Room air 07/22 1023 Pulse 87 10/ 1023 Resp 17 07/22 1023 Temp 35.7 07/22 0900All vital signs available at the time of this entry have been reviewed.Clinical ImpressionClinical ImpressionPrimary Impression: Chronic painSecondary Impressions: Hypertension, Hypertensive urgencyDisposition DecisionDischarge )( Discharged to Home Yes )( Time 1029 )( Date 07/22/24Discharge/Care PlanCounseled Regarding DiagnosisPatient Instructions Chronic Pain, Adult, Hypertension, AdultDeparture Forms*[facility] ADULTAgainst Medical Advice AMA Note 1Jsarahy Avalos has decided to leave our facility against medical advice. I haveassessed the patient's ability to make an informed decision and it is my opinionat this time that the patient has the medical decision-making capacity tocomprehend information regarding current medical condition and appreciates theimpact of the disease or condition and the consequences of various options fortreatment, including foregoing treatment. The patient possesses the ability toevaluate all treatment options, compare the risks and benefits of each option,communicate choice in a consistent manner over time, and is able to makerational choices. I have explained to the patient further testing, treatment,and evaluation I would like to perform during the current emergency departmentvisit as well as any possible alternatives that could be accomplished in atimely manner. I have outlined the possible risks of foregoing any or all ofthese interventions and the patient understands and acknowledges that thedecision to leave may result in undesirable consequences such as ,permanent disability, and/or loss of current lifestyle. Even though leaving AMAis not ideal, I have instructed the patient to follow any discharge instructionsgiven, take any medications prescribed, and resume care as soon as possible withanother provider. Additionally, we clearly stated that the patient is welcome toreturn at any time to continue care at our facility.JASPAL GLORIA MD 07/23/24 1048:Patient Discharge DepartureDischarge/Care PlanReferralsProvider Referral: NO PRIMARY OR FAMILY PHYSICIANSupervising Physician Note MidLv Saw Pt AloneI have reviewed the PA/MORTARMAN's note and plan of care. I was available forconsultation as needed at all times during the patient's visit in the emergencydepartment. I agree with the clinical impression, plan and disposition. at 1106 at 1048RPT #: [id number] OF REPORT Emergency Encounter Reason:JAW PAIN Encounter Diagnosis:Jaw pain,Elevated blood-pressure reading, without diagnosis of hypertension,custodial (current) use of opiate analgesic,Other chronic pain 21-Jul-2024 12:[id number] 13:28 [facility] Discharge Disposition:Discharged to home or self care (routine discharge) Bridgette Gilmore MD-21-Jul-2024 [facility] ([place]) Main EDEMERGENCY PROVIDER REPORTREPORT#:[id number] REPORT STATUS: ESignDATE:07/21/24 TIME: 1255PATIENT: ROSSY AVALOS UNIT #: [id number]#: [id number] ROOM/BED: ERDOB: [birth year] AGE: 49 SEX: PCP PHYS: NO PRIMARY OR FAMILY PHYSICIANADM DATE: 07/21/24 INI AUTH: Mando Angeles MDED ADMIT LAST SIG: Mando Angeles MDREP SERV REP SERV TM: 1255 * ALL edits or amendments must be made on the electronic/computer document *HPI GREETGeneralInitial Greet Date/Time 07/21/24 1255Clinical NoteClinical NoteFirst Documented: Result Date Time Pulse Ox 96 07/21 1301 B/P 184/94 07/21 1301 B/P Mean 124 07/21 1301 O2 Delivery Room air 07/21 1301 Temp 36.9 07/21 1301 Pulse 89 07/21 1301 Resp 17 07/21 1301Last Documented: Result Date Time Pulse Ox 96 07/21 1301 B/P 184/94 07/21 1301 B/P Mean 124 07/21 1301 O2 Delivery Room air 07/21 1301 Temp 36.9 07/21 1301 Pulse 89 07/21 130 Resp 17 07/21 1301HISTORY OF PRESENT ILLNESS:Patient presents with jaw pain and has a history of osteomyelitis of the jaw,leading to chronic pain. 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 The patient had a visit to the emergencydepartment in the past month for the same symptoms and was prescribed Robaxin atthat time. She reports that the most effective pain relief comes from Dilaudidshots and Percocet pills. She is seeking a prescription for pain management. Thepatient also mentioned that her blood pressure is always high. The patient wasevaluated initially in a private care room and arrived via private vehicle.Medications: Previously prescribed Robaxin, uses Dilaudid and Percocet for painrelief.REVIEW OF SYSTEMS:Musculoskeletal: Reports chronic jaw pain.Cardiovascular: Reports consistently high blood pressure.See above HPI for other review of symptoms.PHYSICAL EXAM:General appearance: Alert, oriented, no distress.Eyes: No injection or scleral icterus.ENT: Non-traumatic. No swelling of the jaw, no erythema, no difficulty withspeech. Neck with full range of motion.Skin: No laceration, no rash, no skin pallor.MSK: Moves all extremities.EVALUATIONS:INITIAL EVALUATION AND PLAN:- Administer a shot of Dilaudid for immediate pain relief.- Provide an oral Phenergan pill.- Prescribe a muscle relaxant for short-term relief.- Monitor blood pressure due to reported history of hypertension.Patient presents with worsening of her chronic jaw pain do not see concerns ofnew infection or worsening osteomyelitis do not feel labs or imaging warrantedat this time no airway issue no sign of sepsis. No other medical emergencyseen. Provided muscle relaxant but explained would not provide a prescriptionfor opiates she is comfortable with this 1 dose given in the emergencydepartment. Plan for outpatient follow-up and return precautions of anyconcernsPast Medical HistoryStated Complaint JAW PAINAllergiesCoded Allergies:Iodinated Contrast Media (Intermediate, HIVES 07/03/24)NSAIDS (Non-Steroidal Anti-Inflamma (Intermediate, CONTRAINDICATED 07/03/24)meperidine (From DEMEROL) (Intermediate, HIVES 07/03/24)vancomycin (Intermediate, LEXI SYNDROME 07/03/24)ondansetron (From ZOFRAN) (Mild, VOMITING 07/03/24)Home MedicationsActive ScriptsoxyCODONE (ROXICODONE) 5 MG PO Q4H PRN PRN jaw pain oxyCODONE (ROXICODONE) 5 MG PO Q4H PRN PRN jaw pain #15 TAB Prov: 05/31/24METHOCARBAMOL (ROBAXIN) 750 MG PO Q8H METHOCARBAMOL (ROBAXIN) 750 MG PO Q8H #20 TAB Prov: 07/03/24COURSEMed DataMed DataMedication(s) Ordered:Central Nervous System Agents Sig/Onelia Start time Last Medication Dose Route Stop Time Status Admin Hydromorphone HCl 2 MG X1ED ONE 07/21 1315 DC 07/21 IM 07/21 1316 1308 Promethazine HCl 25 MG X1ED ONE 07/21 1300 DC 07/21 PO 07/21 1301 1307Patient Discharge DepartureVital Signs/ConditionVital SignsFirst Documented: Result Date Time Pulse Ox 96 07/21 1301 B/P 184/94 07/21 1301 B/P Mean 124 07/21 130 O2 Delivery Room air 07/21 1301 Temp 36.9 07/21 130 Pulse 89 07/21 130 Resp 17 07/21 1301Last Documented: Result Date Time Pulse Ox 96 07/21 130 B/P 184/94 07/21 1301 B/P Mean 124 07/21 1301 O2 Delivery Room air 07/21 1301 Temp 36.9 07/21 130 Pulse 89 07/21 130 Resp 17 07/21 1301All vital signs available at the time of this entry have been reviewed.Clinical ImpressionClinical ImpressionPrimary Impression: Jaw painDisposition DecisionDischarge )( Discharged to Home Yes )( Time 1314 )( Date 07/21/24Discharge/Care Plan(Auto) PrescriptionsCurrent Visit ScriptsMETHOCARBAMOL (ROBAXIN) 750 MG PO Q8H PRN pain METHOCARBAMOL (ROBAXIN) 750 MG PO Q8H PRN pain #20 TABPatient Instructions ED Chronic PainReferralsProvider Referral: NO PRIMARY OR FAMILY PHYSICIANDeparture Forms*[facility] ED ADULT*EXCUSE FROM WORK Excuse from Work: 2 Days at 1548RPT #: [id number] OF REPORT Emergency Encounter Reason:FACIAL PAIN Encounter Diagnosis:Headache, unspecified,Nausea,Jaw pain,Essential (primary) hypertension,Obesity, unspecified,Body mass index (BMI) 33.0-33.9, adult,Other chronic pain 03-Jul-2024 15:[id number] 16:29 EDM EDDOC - Generic for (Attending) [facility] Discharge Disposition:Discharged to home or self care (routine discharge) Victor Hugo Kyle [id number]-Jul-2024 [facility] ([place] [facility]) Main EDEMERGENCY PROVIDER REPORTREPORT#:[id number] REPORT STATUS: ESignDATE:07/03/24 TIME: 1516PATIENT: ROSSY AVALOS UNIT #: [id number]#: [id number] ROOM/BED: ERDOB: [birth year] AGE: 49 SEX: PCP PHYS: NO PRIMARY OR FAMILY PHYSICIANADM DATE: 07/03/24 INI AUTH: Genet Gay Anabella PACED ADMIT LAST SIG: LynnwoodHaley London MDREP SERV REP SERV TM: 1516 * ALL edits or amendments must be made on the electronic/computer document *Genet Gay PAC 07/03/24 1516:HPI GREETGeneralInitial Greet Date/Time 07/03/24 1516Clinical NoteClinical NoteFirst Documented: Result Date Time Pulse Ox 97 07/03 1525 B/P 216/115 07/03 1525 B/P Mean 148 07/03 1525 O2 Delivery Room air 07/03 1525 Temp 36.3 07/03 1525 Pulse 97 07/03 1525 Resp 20 07/03 1525Last Documented: Result Date Time Pulse Ox 97 07/03 1525 B/P 216/115 07/03 1525 B/P Mean 148 07/03 1525 O2 Delivery Room air 07/03 1525 Temp 36.3 07/03 1525 Pulse 97 07/03 1525 Resp 20 07/03 1525PECC:: pain controlED Room: [facility][PCP:] OOTHPI:: [HISTORY OF PRESENT ILLNESS:Patient is a 49-year-old female with a history of chronic osteomyelitis in theleft mandible, hypertension, multiple sclerosis (MS), and diabetes, who presentswith an exacerbation of her chronic pain. The pain is localized to the mandible,eye orbit, and shinto, consistent with her usual symptoms. She reports severenausea but denies vomiting, fever, chest pain, shortness of breath, blurredvision, or confusion. The patient has a history of high blood pressure which shetakes meds for, but also states, severe white coat hypertension and pain. 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 She hasbeen taking Tylenol every four hours, Robaxin (which she is running out of), andhas four Percocets left from a prescription of [facility].She cannot take NSAIDs due to MS and a history of gastrointestinal bleeding.She also mentions a history of colorectal cancer, which has been resolved foryears.She has not attempted to establish outpt care here locallyMedications: Tylenol, Robaxin, Percocet, Metoprolol, Lisinopril, infusioninterferonAllergies: Demerol, NSAIDs, Vancomycin, IV contrast.Past Medical History: Chronic osteomyelitis, hypertension, multiple sclerosis,diabetes, history of colorectal cancer.Surgical History: Multiple surgeries for osteomyelitis, most recently in February.REVIEW OF SYSTEMS:Constitutional: Reports severe nausea, no fever.ENT: Chronic pain in mandible, eye orbit, and shinto. No blurred vision.Cardiovascular: History of hypertension, denies chest pain.Neurological: No confusion, history of multiple sclerosis.Gastrointestinal: History of gastrointestinal bleeding, no current symptoms.PHYSICAL EXAM:General Appearance: Comfortable, not toxic or febrile.ENT, Mouth: Some scarring in the left lower buccal mucosa, no fluctuance, noredness, no cheek swelling, no facial cellulitis.Cardiovascular: No murmurs.Gastrointestinal: Abdomen soft, obese.Musculoskeletal: Neck with full range of motion.EVALUATIONS:INITIAL EVALUATION AND PLAN:- Refill Robaxin.- Administer a shot of a muscle relaxer and a small dose of Dilaudid.- Provide five Percocet tablets.- Provide a list of pain clinics and community clinics for uninsured patients.- Advise the patient to follow up with her care providers in [facility].-I offered patient complete workup for her significant hypertension: Shedeclines stating that she always has significantly high blood pressure. Shedoes not have any symptoms at this time. And she is compliant with hermetoprolol and lisinopril. Will give her pain management and PCP managementlocally as she is not sure how long she will be hereI have also discussed the need for her to seek care outside of emergencydepartment for chronic pain control. I have given her a list of painmanagement. instructed to call today. She needs to establish care. I notedthat she has had numerous visits to the emergency department for the last 2months for chronic pain management and we will not be able to do this anymore inthe future.[MEDICAL RECORD REVIEW]Several recent ER visits for acute on chronic pain control. 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 acute on chronic L jaw pain---afebrile bbh-cux-ciehymdyc no signs of acute cellulitis or abscess. Nosignificant tenderness over her jaw. Do not feel imaging or laboratoryevaluation indicated--Patient needs outpatient pain follow-up: Given pain list as well as PCP listinstructed her to start calling around to establish this as she has been herealready for over a month with numerous ER visits for the same chronic pain2. HTN: white coat-- History of essential hypertension on metoprolol and lisinopril-- Per patient states she always has severely high blood pressure when she seeksmedical care-- Declines any evaluation of this today: Return parameters discussed as andispo plan[Ddx:] Medication refill, pain control, cellulitis, abscess, osteomyelitis,hypertensionMedical Decision Making / Complexity of ProblemMedical Decision Making Discussion: [_medical decision making_], acute onchronic pain management.- Number and complexity of problems addressed: 1 undiagnosed new problem withuncertain prognosis, 1 acute illness with systemic symptoms..- I have reviewed prior external notes from: external records on [employer], external PDMP/DOPL/CSD/K-TRACS notes, as above: numerousvisits for pain management. .- I have ordered: see below for labs/imaging tests that have been ordered andreviewed.- Risk of Complications and/or Morbidity or Mortality of Patient Management:moderate.- Medications/prescriptions management: prescription drug management.- Based on the seriousness of patient's presentation and comorbidities, thefollowing interventions were ordered and done: medications.- Decision regarding limitation of imaging, limitation of diagnostic testing, orde-escalation of care: imaging and/ or labs were not thought to be indicatedbased on risk assessment.- Disposition of the patient/consideration of hospitalization: there is noindication for acute hospitalization at this time, patient will be discharged.Past Medical HistoryStated Complaint FACIAL PAINAllergiesCoded Allergies:Iodinated Contrast Media (Intermediate, HIVES 07/03/24)NSAIDS (Non-Steroidal Anti-Inflamma (Intermediate, CONTRAINDICATED 07/03/24)meperidine (From DEMEROL) (Intermediate, HIVES 07/03/24)vancomycin (Intermediate, LEXI SYNDROME 07/03/24)ondansetron (From ZOFRAN) (Mild, VOMITING 07/03/24)Home MedicationsActive ScriptsoxyCODONE (ROXICODONE) 5 MG PO Q4H PRN PRN jaw pain oxyCODONE (ROXICODONE) 5 MG PO Q4H PRN PRN jaw pain #15 TAB Prov: 05/31/24COURSEMed DataMed DataMedication(s) Ordered:Autonomic Drugs Sig/Onelia Start time Last Medication Dose Route Stop Time Status Admin Orphenadrine Citrate 60 MG X1ED ONE 07/03 1615 DC IM 07/03 1616Central Nervous System Agents Sig/Onelia Start time Last Medication Dose Route Stop Time Status Admin Hydromorphone HCl 1 MG ONCE ONE 07/03 1615 DC IM 07/03 1616Patient Discharge DepartureVital Signs/ConditionVital SignsFirst Documented: Result Date Time Pulse Ox 97 07/03 1525 B/P 216/115 07/03 1525 B/P Mean 148 07/03 1525 O2 Delivery Room air 07/03 1525 Temp 36.3 07/03 1525 Pulse 97 07/03 1525 Resp 20 07/03 1525Last Documented: Result Date Time Pulse Ox 97 07/03 1525 B/P 216/115 07/03 1525 B/P Mean 148 07/03 1525 O2 Delivery Room air 07/03 1525 Temp 36.3 07/03 1525 Pulse 97 07/03 1525 Resp 20 07/03 1525All vital signs available at the time of this entry have been reviewed.Clinical ImpressionClinical ImpressionPrimary Impression: Chronic facial painDisposition DecisionDischarge )( Discharged to Home Yes )( Time 1602 )( Date 07/03/24Discharge/Care PlanCounseled Regarding Diagnosis, Need for follow-up, When to return to ED(Auto) PrescriptionsCurrent Visit ScriptsMETHOCARBAMOL (ROBAXIN) 750 MG PO Q8H METHOCARBAMOL (ROBAXIN) 750 MG PO Q8H #20 TABPatient Instructions ED Chronic PainAdditional InstructionsYou are seen today for acute exacerbation of your chronic left jaw pain.It is very important that you seek care with a in [place] as you have been intown for quite some time. We typically do not treat chronic pain in theemergency department and you need to establish care for any further paincontrol. Please see attached pain clinics as well as PCP for establishment.You have chosen not to address your elevated blood pressure today. Pleasecontinue taking your lisinopril and your metoprolol. Establish PCP. You statedthat you get whitecoat blood pressure which is documented on several priornotes. I have a comfortable with you going home however you do need to follow-up immediately for chest pain shortness of breath blurred vision confusion.Departure Forms*[facility] HALEY VILLEDA MD 07/05/24 0726:HPI GREETClinical NoteClinical NoteWhile I was available for consultation for the MidLevel Provider this patientwas brought to my attention during their stay in the emergency department. Diddiscuss history, physical exam findings, work-up in the emergency department,treatment plan and discharge planning. I have not personally evaluated thispatient. I have reviewed the electronic medical record as documented by the mid-level provider. I have no immediate concerns for care based on the mid-levelprovider's dictation, laboratory evaluation, vital signs, and test results.Patient Discharge DepartureDischarge/Care PlanReferralsResource Referral: [facility] Address: [address] [place], [place] [address]Ynluvegy Referral: Albertina [facility] Address: [address] [place], [place] [address]Ecgsakza Referral: Albertina [facility] Address: [address] [place] [address]. [place], [place] [address]Ziaxjrtllkvwfd Signed by Genet Gay on 07/03/24 at 1633 at 0727RPT #: [id number] OF REPORT Emergency Encounter Reason:JAW PAIN Encounter Diagnosis:Jaw pain 30-Jun-2024 10:[id number] 11:42 PT UNASSIGNED EDDOC (Attending) [facility] Discharge Disposition:Discharged to home or self care (routine discharge) Vikram WELCH-30-Jun-2024 [facility]) EMERGENCY ROOMEMERGENCY PROVIDER REPORTREPORT#:[id number] REPORT STATUS: FSignDATE:06/30/24 TIME: 1050PATIENT: ROSSY AVALOS UNIT #: [id number]#: [id number] ROOM/BED: ERDOB: [birth year] AGE: 49 SEX: PCP PHYS: NO PRIMARY OR FAMILY PHYSICIANADM DATE: 06/30/24 INI AUTH: Maty Black LAST SIG: Teofilo Aguirre MDREP SERV REP SERV TM: 1046 * ALL edits or amendments must be made on the electronic/computer document *MATY BLACK 06/30/24 1050:HPI-Dental/Mouth ProbFree Text HPI NotesFree Text HPI NotesPt is 49 y/o F w/ hx of type 1 diabetes and left mandibular osteomyelitispresents to the ED c/o worsening left sided jaw pain. Pt says that she has beendealing with this for the past year and has had multiple surgeries. She iscurrently on augmentin and says she has a antibiotic regimen and rotates throughantibiotics. Her provider that oversees this treatment is out of state andpatient is here traveling for work. Pt comes in requesting a shot of painmedication which she usually gets when the pain increases. She says her last CTshowed her condition was stable and there were no large abscesses. She deniesfever, new swelling, or NV. No sore throat or difficulty breathing. Pt isrefusing labs and CT because she does not have insurance and just wants dose ofpain medication.GeneralInitial Greet Date/Time 06/30/24 1046PresentationChief Complaint Jaw painHx Obtained From PatientOnset Occurred Gradual, Days agoSymptom Duration Since onset, Constant, Lasting daysProgression since Onset Gradually worseningContext of Onset Hx left mandibular osteomyelitisLocation Left mandibleQuality PainfulRadiationDoes not radiate.Pain/Sev: Onset MildPain/Sev: Current ModerateAssociated withDenies: Fever, Nausea, Shortness of breath, Sore throat, Unable to tolerate P.O., Vomiting, non bloody.Associated Other Pt denies other symptomsExacerbated by Movement, PalpationContextRecent Healthcare Recent doctor visit, Previous diagnosis, Previous surgerySimilar Sx Previous YesPortions of this section were scribed by GERMAINE MARROQUIN on 06/30/24 at 1050Review of SystemsROS StatementsAll systems rev neg except as marked.Basic Review of SystemsBasic ROS EYES: No redness, CV: No chest pain, : No dysuria/frequency, MS: Noext swelling/pain, HEM: No bleeding/bruising, SKIN: No rash, NEURO: No change MS, NEURO: No focal deficit, PSYCH: NL thought contentFocused Review of SystemsConstitutionalDenies: Chills, Fever.Ears/Nose/ThroatReports: Mouth pain. Denies: Sore throat, Throat pain, Throat swelling, Tonguepain, Tongue swelling.RespiratoryDenies: Cough, non-productive, Shortness of breath.GIDenies: Abdominal pain, Diarrhea, Nausea, Vomiting.Portions of this section were scribed by GERMAINE MARROQUIN on 06/30/24 at 1102Past Medical History - AdultStated Complaint JAW PAINAllergiesCoded Allergies:Iodinated Contrast Media (Intermediate, FINE IF PRE-MEDICATED 03/02/24)ondansetron (From ZOFRAN) (Intermediate, VOMITING 03/02/24)meperidine (From DEMEROL) (UNKNOWN 02/29/24)vancomycin (UNKNOWN 02/29/24)Home MedicationsReported MedicationsNo Known Home MedicationsReview of Nursing Notes Rev avail, and agreePt reports no significant: Family historyAdditional Medical HistoryType 1 diabetes, left mandibular osteomyelitisAdditional Surgical HistoryJaw surgery for osteomyelitisSmoking status for patients 13 years old or older: Never SmokerOther Social History Visiting locallyPortions of this section were scribed by GERMAINE MARROQUIN on 06/30/24 at 1102Physical ExamVital SignsVital SignsFirst Documented: Result Date Time Pulse Ox 98 06/30 1044 O2 Delivery Room air 06/30 1044 Pulse 96 06/30 1044 Resp 18 06/30 1044 B/P 190/115 06/30 1106 B/P Mean 140 06/30 1106Last Documented: Result Date Time Pulse Ox 94 06/30 1106 B/P 190/115 06/30 1106 B/P Mean 140 06/30 1106 O2 Delivery Room air 06/30 1106 Pulse 81 06/30 1106 Resp 18 06/30 1106Review of Vital Signs ReviewedBasic Physical ExamBasic PE GEN: Well appearing/NAD, HEAD: Atraumatic/NC, EYES: PERRL, conj clear,RESP: No resp distress, CV: Reg rate rhythm, ABD: Soft/non-tender, EXT: Nogross abnormality, SKIN: No rashes, warm/dry, NEURO: alert oriented, NEURO:gross movement NL, PSYCH: NL thought contentFocused PEEars/Nose/Throat Text/Dict NotesMild swelling over the left mandiblewith mild erythema to the skin that is tender to palpation and warm to thetouch. No significant enduration. No palpable masses or fluid collections.MS Neck Neck Atraumatic, Supple, No meningismus, No swelling, Non-tenderPortions of this section were scribed by GERMAINE MARROQUIN on 06/30/24 at 1102Interpretation DiagnosticsPoint of Care TestingPulse Oximetry Pulse Ox % 98 On: Room air Interpretation Interpreted by me, Pulse oximetry normal Time 1051Portions of this section were scribed by GERMAINE MARROQUIN on 06/30/24 at 1050Re-Evaluation MDMFree Text MDM NotesAdditional TextPatient is a 49 year old female presenting with left jaw pain. Reports historyof one year of osteomyelitis in her mandible. Reports multiple surgeries,complicated antibiotic regimen. She does have some record of these procedures onher online health portal. 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 Reports increased pain and hoping for some relief. Denies anyincrease in swelling. Denies constitutional symptoms. Vitals within normallimits. I discussed with patient that I would like to evaluate this further withblood work, a CT scan to make sure there are not any fluid collections or anyemergent problems. She refused these procedures stating she already knows whatthe problem is and she does not want to pay for any extra procedures. I againemphasized that I would recommend doing these other studies and she againrefused. Patient given an IM dose of morphine. Instructed to return forworsening symptoms into follow up with her prescribing healthcare provider whenshe returns home. Discharged and stable condition.ED CourseMedication(s) OrderedMedication(s) Ordered:Central Nervous System Agents Sig/Onelia Start time Last Medication Dose Route Stop Time Status Admin Morphine Sulfate 4 MG X1ED ONE 06/30 1100 DC 06/30 IM 06/30 1101 1105Differential DiagnosisDifferential Diagnosis Abscess dental, Alveolar fracture, Alveolar osteitis,Aphthous ulcer, Facial cellulitis, mandibular osteomyelitisFree Text MDM NotesFree Text MDM NotesMedical Decision Making / Complexity of Problem- Number and complexity of problems addressed: 1 self-limited or minor problem.- Based on the seriousness of patient's presentation and comorbidities, thefollowing interventions were ordered and done: medications.- Decision regarding limitation of imaging, limitation of diagnostic testing, orde-escalation of care: imaging and/ or labs were not thought to be indicatedbased on risk assessment.- Disposition of the patient/consideration of hospitalization: there is noindication for acute hospitalization at this time, patient will be discharged.Portions of this section were scribed by GERMAINE MARROQUIN on 06/30/24 at 1050Patient Discharge DepartureVital Signs/ConditionVital SignsFirst Documented: Result Date Time Pulse Ox 98 06/30 1044 O2 Delivery Room air 06/30 1044 Pulse 96 06/30 1044 Resp 18 06/30 1044 B/P 190/115 06/30 1106 B/P Mean 140 06/30 1106Last Documented: Result Date Time Pulse Ox 94 06/30 1106 B/P 190/115 06/30 1106 B/P Mean 140 06/30 1106 O2 Delivery Room air 06/30 1106 Pulse 81 06/30 1106 Resp 18 06/30 1106All vital signs available at the time of this entry have been reviewed.Condition StableClinical ImpressionClinical ImpressionPrimary Impression: Jaw painDisposition DecisionDischarge )( Discharged to Home Yes )( Time 1102 )( Date 06/30/24Discharge/Care PlanCounseled Regarding Diagnosis, Need for follow-up, When to return to ED(Auto) PrescriptionsCurrent Visit ScriptsNo Known Home Medications Discharge NoteI have spoken with the patient and/or caregivers. I have explained the patient'scondition, diagnoses and treatment plan based on the information available to meat this time. I have answered the patient's and/or caregiver's questions andaddressed any concerns. The patient and/or caregivers have as good anunderstanding of the patient's diagnosis, condition and treatment plan as can beexpected at this point. The vital signs have been stable. The patient'scondition is stable and appropriate for discharge from the emergency department.The patient will pursue further outpatient evaluation with the primary carephysician or other designated or consulting physician as outlined in thedischarge instructions. The patient and/or caregivers are agreeable to this planof care and follow-up instructions have been explained in detail. The patientand/or caregivers have received these instructions in written format and haveexpressed an understanding of the discharge instructions. The patient and/orcaregivers are aware that any significant change in condition or worsening ofsymptoms should prompt an immediate return to this or the closest emergencydepartment or a call to 911.Supervising Physician Note Scribe StatementSGERMAINE BILLY, 06/30/24 1102, scribing for and in the presence of [Maty Black].Signed By: GERMAINE MARROQUIN, 06/30/24 1102Portions of this section were scribed by GERMAINE MARROQUIN on 06/30/[address] [place] 06/30/24 1320:Re-Evaluation MDMFree Text MDM NotesAdditional TextI agree with the assessment and plan from the mid-level provider. The patientis currently being treated for osteomyelitis of the jaw with antibiotics in hisasking for pain control so we provided that. Better on re-evaluation and forfollow up care and return precautions and was stable at discharge.Patient Discharge DepartureDischarge/Care PlanReferralsResource Referral: Primary Care Physician Follow-Up: SOON POSSIBLE Address: Please follow up with yourSupervising Physician Note MidLv Saw Pt AloneI have reviewed the PA/MORTARMAN's note and plan of care. I was available forconsultation as needed at all times during the patient's visit in the emergencydepartment. I agree with the clinical impression, plan and disposition. Provider Scribed StatementI personally performed the services described in this documentation and reviewedthe documentation that was dictated to the scribe(s) in my presence, and itaccurately records my words and actions. Teofilo Aguirre D.Md, 06/30/24I personally performed the services described in this documentation and reviewedthe documentation that was dictated to the scribe in my presence, and itaccurately records my words and actions. Maty Black, 06/30/24;1248. at 1248 at 1321RPT #: [id number] OF REPORT Emergency Encounter Reason:JAW PAIN Encounter Diagnosis:Jaw pain,Essential (primary) hypertension 27-Jun-2024 14:[id number] 16:05 Faizan Crisostomo MD (Attending) [facility] Discharge Disposition:Left against medical advice or discontinued care Feliperosa Lewis Maria E WELCHHZ-45-Cti27-Jun-2024 [facility] Main EDEMERGENCY PROVIDER REPORTREPORT#:[id number] REPORT STATUS: ESignDATE:06/27/24 TIME: 1500PATIENT: ROSSY AVALOS UNIT #: [id number]#: [id number] ROOM/BED: ERDOB: [birth year] AGE: 49 SEX: PCP PHYS: NO PRIMARY OR FAMILY PHYSICIANADM DATE: 06/27/24 INI AUTH: Debbie Beck PAED ADMIT LAST SIG: Jaspal Gloria MDREP SERV REP SERV TM: 1500 * ALL edits or amendments must be made on the electronic/computer document *Debbie Beck 06/27/24 1500:HPI GREETGeneralInitial Greet Date/Time 06/27/24 1455Clinical NoteClinical NoteFirst Documented: Result Date Time Pulse Ox 97 06/27 1508 B/P 231/116 06/27 1508 B/P Mean 154 06/27 1508 O2 Delivery Room air 06/27 1508 Temp 36.3 06/27 1508 Pulse 99 06/27 1508 Resp 18 06/27 1508Last Documented: Result Date Time Pulse Ox 94 06/27 1616 B/P 208/99 06/27 1616 B/P Mean 135 06/27 1616 Temp 37.1 06/27 1616 Pulse 93 06/27 1616 Resp 14 06/27 1616 O2 Delivery Room air 06/27 1508CHIEF COMPLAINT: Acute on chronic jaw painWaiting Room/ HallwayWaiting Room/Hallway: I requested consent from the patient to discuss theirmedical condition and results and recommendations in a non-private setting, andthe patient consented, the patient was evaluated in the waiting room/hallway, nobeds were available in the main emergency department.HISTORY OF PRESENT ILLNESS: 49-year-old female with a past medical history ofmandibular osteomyelitis, and mastoiditis; presenting to the emergencydepartment with chief complaint of persistent left-sided jaw pain. 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 The patient has beenexperiencing a flare-up of her symptoms over the last few days, with her painmedication no longer providing adequate relief. She typically receivesintramuscular injections of morphine or Dilaudid for breakthrough pain, whichshe states temporarily alleviates her symptoms. She was last seen in the ER inearly June for similar issues, and a recent CT scan showed stable findingswith no new abscesses. The patient also reports high blood pressure, withreadings in the 200's systolic. Patinet rpeorts she has sever white coathypertension, an this usually resolves after pain medicine and calming down abit. She is currently on metoprolol and lisinopril and intermittently takeclonidine for blood pressure management. Patient reports she is currently tryingto get in with a pain management team/maxillofacial surgeon out of state whereshe typically resides, but her is a long [place] truck drive,r and they [place]currently stuck here [place].Medications: Metoprolol, Lisinopril, occasional Clonidine, pain medications (unspecified).Allergies: None mentioned.Past Medical History: Type 1 diabetes, chronic infections, multiple surgeries,hypertension.Surgical History: Six surgeries related to chronic infections.RECORD REVIEW: 3 31 for 28 oxycodone tabs, 4 12 for 12 oxycodone tabs, 4 16 for16 oxycodone tabs, 8 8 for 10 Percocet tabs, 8 10 for 5 oxycodone tabs, 8 17 for15 oxycodone tabs. Has not been able to follow up with her maxillo-facialsurgeon since this time.ROS: ROS reviewed and documented as above.PHYSICAL EXAM:General appearance: Alert, oriented, no distress.Eyes: No injection or scleral icterus.ENT: Non traumatic. Neck with full range of motion. There is no trismus.Edentulous. No signs of oral infection. No rashes, no erythema or swelling overleft jaw. No erythema or swelling over mastoids.Respiratory: No increased work of breathing, no accessory muscle use. Patientspeaking in full sentances. Lungs are clear to auscultation bilaterally.Cardiac: No cyanosisGastrointestinal: No abdominal distention.Skin: No laceration, no rash, no skin pallor.MSK: Moves all extremities.Neurologic: Awake, alert and oriented x3, normal gait, normal speech.ED COURSE/MDM: This is a 49-year-old female presenting to the emergency roomtoday with acute on chronic jaw pain. Has a history of mandibular osteomyelitis, mastoiditis, has had several procedures over the past year. [place] her is a long-delivery motorcycle driver and she iscurrently with him, states that she has a follow-up scheduled in place with amaxillofacial surgeon pain management in an outside state, but has been unableto follow-up due to her geographic location. Patient requesting dose ofDilaudid in ER today. Patient was found to be hypertensive in the 200ssystolic. I did extensively discussed with the patient that my recommendationwould be to obtain basic labs, imaging, provide treatment for elevated bloodpressure, to ensure patient is not in acute hypertensive crisis. Patient deniesany additional chest pain, shortness of breath, confusion, headache, or othersymptoms consistent with this, although discussed with the patient that mymedical recommendation would be to obtain labs/provide medications for her bloodpressure. Discussed that by declining treatment this could result in permanentdisability, . Patient expresses full understanding and would like todecline this workup. Demonstrates full capacity, able to verbalize these risksback to me and demonstrate understanding as this applies to her own situation.Patient provided with IM dose of Dilaudid. Patient signed AMA paperwork,ambulatory out of ER. Discussed that we are happy to see her back anytime ifshe were to change her mind, discussed strict return and follow-up precautionswith patient who expresses full understanding. Discussed case with attendingphysician who is amenable to this plan./////////////////////////////////////////////////////////////////////////// ///// //////Medical Decision Making / High Complexity of ProblemMedical Decision Making Discussion: See above.- Number and complexity of problems addressed: 1 acute or chronic illness orinjury that poses a threat to life or bodily function, abdominal pain,requesting Dilaudid- Risk of Complications and/or Morbidity or Mortality of Patient Management:Moderate to High- Based on the seriousness of patient's presentation and comorbidities, thefollowing interventions were ordered and done: Medications- Decision regarding limitation of imaging, limitation of diagnostic testing, orde-escalation of care: Patient declines further imaging or laboratory testing ortreatment.- Disposition of the patient/consideration of hospitalization: Patientambulatory out of ER after signing AMA paperwork.Past Medical HistoryStated Complaint JAW PAINAllergiesCoded Allergies:Iodinated Contrast Media (Intermediate, HIVES 05/24/24)NSAIDS (Non-Steroidal Anti-Inflamma (Intermediate, CONTRAINDICATED 05/24/24)meperidine (From DEMEROL) (Intermediate, HIVES 05/24/24)vancomycin (Intermediate, LEXI SYNDROME 05/24/24)ondansetron (From ZOFRAN) (Mild, VOMITING 05/24/24)Home MedicationsActive ScriptsoxyCODONE (ROXICODONE) 5 MG PO Q4H PRN PRN jaw pain oxyCODONE (ROXICODONE) 5 MG PO Q4H PRN PRN jaw pain #15 TAB Prov: 05/31/24COURSEMed DataMed DataMedication(s) Ordered:Central Nervous System Agents Sig/Onelia Start time Last Medication Dose Route Stop Time Status Admin Hydromorphone HCl 1 MG X1ED ONE 06/27 1545 DC IM 06/27 1546Patient Discharge DepartureVital Signs/ConditionVital SignsFirst Documented: Result Date Time Pulse Ox 97 06/27 1508 B/P 231/116 06/27 1508 B/P Mean 154 06/27 1508 O2 Delivery Room air 06/27 1508 Temp 36.3 06/27 1508 Pulse 99 06/27 1508 Resp 18 06/27 1508Last Documented: Result Date Time Pulse Ox 94 06/27 1616 B/P 208/99 06/27 1616 B/P Mean 135 06/27 1616 Temp 37.1 06/27 1616 Pulse 93 06/27 1616 Resp 14 06/27 1616 O2 Delivery Room air 06/27 1508All vital signs available at the time of this entry have been reviewed.Clinical ImpressionClinical ImpressionPrimary Impression: HypertensionSecondary Impressions: PainTime: 1540Disposition DecisionDischarge )( Discharged to Home against medical adviceDischarge/Care PlanCounseled Regarding Diagnosis, Lab results, Imaging studies, Medication changes,Prescriptions, Need for follow-up, When to return to ED, AMAPatient Instructions AMA, Chronic Pain, Adult, Uncontrolled HBP EstablishedAdditional InstructionsThank you for letting me participate in your care today! Please read theattached instructions, they highlight more specific treatments and interventionsfor you at home. Please follow up with your oral maxillofacial surgeon for painmanagement. Do not hesitate to contact me with any questions, but if youexperience a life threatening emergency, or are worse, return to the ER. Pleaseensure that you are not driving home after taking this medication as it may makeyou drowsy.You are choosing to leave AGAINST MEDICAL ADVICE. There are many risks whichinclude failure to diagnose the condition, failure to provide needed treatment,and a failure to obtain needed specialty care as required. You understand thatthis may result in pain, worsening of any medical conditions, possible permanentdisability, and . Patients who leave against medical advice are at higherrisk for readmission, disability, and .It is very important that you follow-up with your primary care physician in 1 to2 days.Return immediately to the ED if you change your mind at any point, you have pain, numbness tingling, new or concerning symptoms.Departure Forms*[facility] JASPAL SMITH MD 07/02/24 0647:Patient Discharge DepartureDischarge/Care PlanReferralsProvider Referral: NO PRIMARY OR FAMILY PHYSICIANProvider Referral: Jacob Minaya MD Address: [address] [facility] [id number] [place], [place] [address]Cielqnmhuhy Physician Note MidLv Saw Pt AloneI have reviewed the PA/MORTARMAN's note and plan of care. I was available forconsultation as needed at all times during the patient's visit in the emergencydepartment. I agree with the clinical impression, plan and disposition. at 0308 at 0651RPT #: [id number] OF REPORT Emergency Encounter Reason:L JAW PN Encounter Diagnosis:Jaw pain 31-May-2024 15:[id number] 17:35 Faizan Crisostomo MD (Attending) [facility] Discharge Disposition:Discharged to home or self care (routine discharge) Melonie WELCH-31-May-2024 [facility] ([facility]) Main EDEMERGENCY PROVIDER REPORTREPORT#:[id number] REPORT STATUS: ESignDATE:05/31/24 TIME: 1558PATIENT: ROSSY AVALOS UNIT #: [id number]#: [id number] ROOM/BED: ERDOB: [birth year] AGE: 49 SEX: PCP PHYS: NO PRIMARY OR FAMILY PHYSICIANADM DATE: 05/31/24 INI AUTH: Willie Denis PAED ADMIT LAST SIG: Jaspal Gloria MDREP SERV REP SERV TM: 1558 * ALL edits or amendments must be made on the electronic/computer document *WILLIE DENIS 05/31/24 1558:HPI GREETGeneralInitial Greet Date/Time 05/31/24 1558Clinical NoteClinical NoteFirst Documented: Result Date Time Pulse Ox 98 05/31 1557 B/P 238/126 05/31 1557 B/P Mean 163 05/31 1557 O2 Delivery Room air 05/31 1557 Temp 36.3 05/31 1557 Pulse 93 05/31 1557 Resp 18 05/31 1557Last Documented: Result Date Time Pulse Ox 93 05/31 1730 B/P 200/110 05/31 1730 B/P Mean 140 05/31 1730 O2 Delivery Room air 05/31 1730 Pulse 84 05/31 1730 Resp 22 05/31 1730 Temp 36.3 05/31 1557Chief Complaint:Acute on chronic jaw painHPI:49-year-old female with a past medical history of mandibular osteomyelitis, andmastoiditis; presenting to the emergency department with chief complaint ofpersistent left-sided jaw pain. Patient states that over the last 8 months shehas been suffering from these recurrent jaw infections. She states that shefollows with a maxillofacial surgeon in [place]. 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 They are [place] [facility] [place] and then plan to drive back to [place] with a new load on theirsemitruck. She reports that over the last several weeks she has had increasingleft-sided jaw pain. She has visited several other emergency departments andreceived oxycodone. She states that her last prescription of oxycodone was for5 pills and had lasted for 8 days. She denies any fever at home, has not hadfoul taste in her mouth, no discharge or skin changes. She does not wantfurther evaluation for her job pain as she already has a specialist that shefollows up with. She is not interested in labs or imaging and really just wantsto get some pain relief. She states this [facility] she plans [place] OMFSPMHx: [Mandibular osteomyelitis, mastoiditis]SurgHx: [Incision and drainage of mandibular osteomyelitis with abscess]PCP: [OMFS in [place]]Reviewed PDMP. Has had several prescriptions from multiple providers. Mostrecent of which was prescription for oxycodone 7 days ago 5 pillsExam:General Appearance: Resting comfortably in bed, nontoxic-appearing, well-nourishedEyes: Pupils equal, eye movements normalENT, Mouth: Mucous membranes are moist, TMs clear pearly veronica bilaterally.There is no trismus. Edentulous. No signs of oral infectionRespiratory: No respiratory distress, lungs are clear to auscultationbilaterallyCardiovascular: Regular rate and rhythm without murmur, 2+ radial pulsesbilaterally, no pretibial edemaGastrointestinal: Positive bowel sounds, abd is non-distended, soft, and non-tender to palpationMusculoskeletal: Moving all extremities freely, normal gait without ataxiaSkin: Warm, dry, no rashes, no erythema or swelling over left jaw. No erythemaor swelling over mastoidsNeurological: Awake, alert, oriented, acting appropriatelyData Interpretation:Vitals: No tachycardia or fever. Willis Adames PA-C, edmundo the primary provider.ED Course:Initial presentation-Patient was greeted in triage. Significant hypertensive however denies headacheneck pain or chest pain. Reports significant whitecoat syndrome of which shedoes take antihypertensives however when she is in the hospital tends to haveworsening hypertensionReevaluation-[Blood pressure peaked at 270 systolic. Did not have any symptoms with this.Discussed with patient we could evaluate for endorgan damage secondary to thishypertension however she is adamant she has whitecoat syndrome and this wouldnot yield any helpful resultsBlood pressure down trended to 200 systolic. Still without symptoms of thinkshe is okay for discharge home. We discussed need to follow-up with her OMFSand she is agreeableMedical Decision Makin-year-old female presenting to the emergency department chief complaint ofleft-sided jaw pain. Has a history of mandibular osteomyelitis, mastoiditis andhas several incision and drainages over the last 8 months. [place] [facility] [place] She does not want workup today rather she would just like pain reliefOn initial presentation she is nontoxic-appearing with reassuring vital signs.She was quite hypertensive peaking at 270 systolic. She does not have anysymptoms of headache chest pain shortness of breath or other complaints thatwould suggest endorgan damage from the hypertension. Her blood pressure diddowntrend throughout the emergency department stay. She reports significantwhitecoat syndrome and does not want evaluation for hypertension today which isreasonable. In regards to her jaw pain she has moderate sinus palpation alongthe left mandibular region. There is no overlying erythema. No celluliticchanges. No appreciable abscess. She does not have trismus. TMs are clearpearly veronica. Clinically no signs of mastoiditis. She is edentulous and thereis no signs of dental infection. She is mostly looking for pain relief. Aftertreating her pain here in the emergency department her blood pressure didimprove. I find that she is appropriate and does have plan to follow-up withher maxillofacial surgeon. We discussed that her left-sided jaw pain may besecondary to cardiac etiology with her significant hypertension. She does notwant cardiac evaluation today. She reports this is similar to prior episodes ofjaw pain. She does not have history of heart disease aside from her knownhypertension. While we discussed frequent visits to the emergency department for repeatprescriptions of opiates is not desirable I do understand that she has plans tofollow-up with her maxillofacial surgeon, plans to see pain management howeverher care is in [place] and she is currently stuck to the [facility]. Iprescribed her 15 pills of 5 mg oxycodone. [place]. She understands the risk ofaddiction and understands the risk of opiate overdose. She has Narcan alreadyand I think that discharge with this course of oxycodone should give her reliefuntil she is able to have her follow- upDifferential Diagnosis:Considered Lemierre's syndrome, dental abscess, osteomyelitis, mastoiditis,hypertensive emergency, and othersDiagnosis:chronic jaw pain////////////////////////////////////////////////////////////Past Medical HistoryStated Complaint L JAW PNAllergiesCoded Allergies:Iodinated Contrast Media (Intermediate, HIVES 05/24/24)NSAIDS (Non-Steroidal Anti-Inflamma (Intermediate, CONTRAINDICATED 05/24/24)meperidine (From DEMEROL) (Intermediate, HIVES 05/24/24)vancomycin (Intermediate, LEXI SYNDROME 05/24/24)ondansetron (From ZOFRAN) (Mild, VOMITING 05/24/24)COURSEMed DataMed DataMedication(s) Ordered:Central Nervous System Agents Sig/Onelia Start time Last Medication Dose Route Stop Time Status Admin Hydromorphone HCl 1 MG X1ED ONE 05/31 1615 DC 05/31 IM 05/31 1616 1634Patient Discharge DepartureVital Signs/ConditionVital SignsFirst Documented: Result Date Time Pulse Ox 98 05/31 1557 B/P 238/126 05/31 1557 B/P Mean 163 05/31 1557 O2 Delivery Room air 05/31 1557 Temp 36.3 05/31 1557 Pulse 93 05/31 1557 Resp 18 05/31 1557Last Documented: Result Date Time Pulse Ox 93 05/31 1730 B/P 200/110 05/31 1730 B/P Mean 140 05/31 1730 O2 Delivery Room air 05/31 1730 Pulse 84 05/31 1730 Resp 22 05/31 1730 Temp 36.3 05/31 1557All vital signs available at the time of this entry have been reviewed.Clinical ImpressionClinical ImpressionPrimary Impression: Jaw painDisposition DecisionDischarge )( Discharged to Home Yes )( Time 1732 )( Date 05/31/24Discharge/Care Plan(Auto) PrescriptionsCurrent Visit ScriptsoxyCODONE (ROXICODONE) 5 MG PO Q4H PRN PRN jaw pain oxyCODONE (ROXICODONE) 5 MG PO Q4H PRN PRN jaw pain #15 TABPatient Instructions Mastoiditis (ED)Additional InstructionsYou were seen in the emergency department for acute on chronic left-sided jawpain secondary to your mandibular osteomyelitis. You have plans to follow-upwith your maxillofacial surgeon in [place]. You did not want advanced workup orimaging today which is reasonable. We provided you with some analgesia for painrelief. Understand that you be best served by follow-up with your OMFS andprimary care for further pain management. Analgesics provided today wereintended to give you relief until you are able to follow-up with yourspecialists.Departure Forms*[facility] ED ADULT*EXCUSE FROM JASPAL ZEPEDA MD 06/02/24 2150:Patient Discharge DepartureDischarge/Care PlanReferralsProvider Referral: NO PRIMARY OR FAMILY PHYSICIANSupervising Physician Note MidLv Saw Pt AloneI have reviewed the PA/MORTARMAN's note and plan of care. I was available forconsultation as needed at all times during the patient's visit in the emergencydepartment. I agree with the clinical impression, plan and disposition. at 1220 at 2150RPT #: [id number] OF REPORT Emergency Encounter Reason:JAW PAIN FEVER N-V Encounter Diagnosis:Essential (primary) hypertension,Fever, unspecified,Elevated white blood cell count, unspecified,Jaw pain 24-May-2024 08:[id number] 09:30 [facility] Discharge Disposition:Left against medical advice or discontinued care Joshua Franklin DO-24-May-2024 [facility] ([facility] Main EDEMERGENCY PROVIDER REPORTREPORT#:[id number] REPORT STATUS: ESignDATE:05/24/24 TIME: 0847PATIENT: ROSSY AVALOS UNIT #: [id number]#: [id number] ROOM/BED: ER QV30ZWV: [birth year] AGE: 49 SEX: PCP PHYS: NO PRIMARY OR FAMILY PHYSICIANADM DATE: 05/24/24 INI AUTH: JoshuaHansa Noemi RODRIGUEZED ADMIT LAST SIG: Hansa Lewis DOREP SERV REP SERV TM: 0847 * ALL edits or amendments must be made on the electronic/computer document *HPI GREETGeneralInitial Greet Date/Time 05/24/24 0812Clinical NoteClinical NoteFirst Documented: Result Date Time Pulse Ox 97 05/24 0810 B/P 258/126 / 0810 B/P Mean 170 / 0810 O2 Delivery Room air 05/24 0810 Temp 36.6 05/24 0810 Pulse 97 / 0810 Resp 18 05/24 0810Last Documented: Result Date Time Pulse Ox 96 / 0901 B/P 249/117 / 0901 B/P Mean 168 /900 Pulse 91 / 0901 O2 Delivery Room air 05/24 810 Temp 36.6 05/24 810 Resp 18 05/24 810HISTORY OF PRESENT ILLNESS:Patient is a 49 y/o female with a history of HTN, osteomyelitis of the mandible,MRSA, dental abscess, DM who presents with left sided jaw pain. She reports afever of 102 F last night, which decreased to 100 F this morning after takingTylenol. She describes severe pain in the eye orbit and the entire side of herface, which she believes is related to her osteomyelitis. The patient has beenon a regimen of alternating antibiotics (doxycycline, Flagyl, and Augmentin) forthe past few weeks. She is currently visiting from [place] as her is atruck bookmobile driver. She reports previously having surgeries regarding the abscess/osteomyelitis in [place]. She has a known allergy to NSAIDs and contrast dye,which she manages with 50 mg of Benadryl prior to imaging. 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 Patient reports shejust arrived here from [place].REVIEW OF SYSTEMS:pertinent ROS otherwise negative unless stated abovePHYSICAL EXAM:Constitutional: Triage summary reviewed, vital signs reviewed, awake.Eyes: Normal conjunctiva/sclera.HENT: Atraumatic, moist mucus membranes. Edentulous. No evidence of erythemaor facial/submandibular swelling. Oropharynx clear. Small ulceration noted aboutL roof of mouth.Respiratory: Clear to auscultation, normal breath sounds, no respiratorydistress, no wheezing, no rhonchi, no rales.Cardiac: Normal rate, regular rhythm, no murmur, no edema, normal distal pulses.Gastrointestinal: Abdomen soft, no abdominal tenderness, no rebound tenderness,no guarding, no pulsatile mass.Genitourinary: No cva tenderness.Skin: Well perfused, warm and day, compartments soft.Musculoskeletal: Normal inspection of extremities.Neurologic: Alert, grossly normal strength and sensation.Psychiatric: Normal mood, normal affect.EVALUATIONS:INITIAL EVALUATION AND PLAN:- Obtain lab work.- CT ordered of the facial bones with contrast, IV benadryl ordered as requestedby patient.- Administer pain medications.- Zofran offered for nausea but declined stating only phenergan works.MEDICAL DECISION-MAKING:DIFFERENTIAL DIAGNOSIS:Differential Diagnoses may include but are not limited to: Osteomyelitisexacerbation, Orbital cellulitis, Abscess, MRSA infection, Sepsis, Meningitis,Sinusitis, hypertension, hypertensive emergency.BP 258/126 on arrival, afebrile, HR 97, saturating 97% on room air. CBC noteablefor leukocytosis of 11.12, hemoglobin and platelet count wnl. Not meeting sepsiscriteria. Metabolic panel noteable for hyperglycemia at 379, no evidence ofelevated anion gap, doubt DKA. Given patient's history I ordered the CT of thefacial bones with contrast in order to rule out infection. Spoke with CT techwho states our protocol would involve a 4-5 hr prep with steroids. I updated thepatient and she stated she did not want to go into DKA. I understood herconcerns, and told her I would manage her glucose as needed, but I felt thatgiving the contrast would increase the sensitivity dramatically. She requestedthe CT without contrast which I stated I would proceed with under the cautionthat it may miss an infection/abscess. She then stated she would ultimatley justprefer for her pain to be controlled and [place] go [place] in f[place] to have further work up done. I told her that ultimately my main concernwas to rule out any life threatening pathology today and that she would have tosign out against medical advice. She then requested to speak with our chargenurse who reiterated our concerns. Patient ultimately left against medicaladvice. Patient exhibited capacity.Patient left the emergency department AGAINST MEDICAL ADVICE. Patient appearedclinically competent to make their own medical decisions. I had the opportunityto discuss risks and alternatives to an AMA. Despite this conversation, patientis electing to leave the emergency department. Patient has acknowledged therisks and declined alternatives. Patient refused to sign form.On review of PDMP patient has been prescribed narcotics in eight differentstates dating back to just March of this year. 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 She is from [place]. 8 years ago she was diagnosed withleft mandibular osteomyelitis with multiple surgeries and under the care of oforal surgery. She is chronically on oxycodone 7.5's which she has plenty of.Over the last 24 hours the pain is much worse and she was hoping to getsomething to help get her pain under control. No fevers or chills. No stiffneck. No trouble swallowing. She is on her way to [place].49-year-old female with chronic pain from left mandibular osteomyelitis she isfrom [place]. There is no records available to me. We gave her a one-time IMinjection of pain medicine. She will continue her home Percocets. She didrequest Phenergan but we do not carry that in the hospital.05/22/24 [facility]: Patient is 49-year-old female with a history of jaw osteomyelitis whopresents with jaw pain. Patient is spouse of gas truck driver and claims she isuninsured and has not been able to access care [place] [facility] [place] [facility] [place] [facility].PDMP review shows short course of opiates given [place] 8 prescribers in 4 differentstates over the last [address] [facility] 04/06/24 shows:There isno acute maxillofacial fracture. There is a tiny chronic appearingdensity adjacent to the angle of the mandible on the left. There is no CTevidence of acute osteomyelitis. The paranasal sinuses and mastoid air cellsare clear. Orbits and globes are normal. The remaining soft tissues arenormal. Patient discharged.I have found similar presentations on [facility] dating back to 2013, at one pointpatient being registered under a different birthday of [birth year].Complexity of Problems Addressed: HIGH. The patient presents with severe pain and fever, which could indicate aserious infection such as osteomyelitis exacerbation or MRSA infection. Thepatient's condition poses a threat to life or bodily function withoutappropriate treatment. The complexity is further increased by the patient'shistory of Type 1 diabetes and the need for potential surgical intervention.Amount and/or Complexity of Data to be Reviewed and Analyzed:- History obtained from additional independent historians: N/A.- I have reviewed prior external notes from: See above.- I have ordered: lab(s), CT with contrast. See EHR for additional labs andimaging ordered.- I have independently interpreted test(s): Imaging not performed.- I have discussed management/test interpretation with: radiologist. Consultedregarding CT scan with contrast.Risk of Complications and/or Morbidity or Mortality of Patient Management:- Risk of Complications and/or Morbidity or Mortality of Patient Management:high, increased risk of morbidity/mortality due to chronic underlying condition(s), high risk of morbidity/mortality associated with potential diagnoses. Thepatient presented with severe undifferentiated pain that required repeatassessments, workup, and interventions throughout course of care.- Medications/prescriptions management: prescription drug management.- Based on the seriousness of patient's presentation and comorbidities, thefollowing interventions were ordered and done: IV, medications- Decision regarding limitation of imaging, limitation of diagnostic testing, orde-escalation of care: Risks and benefits of CT scan without contrast discussed- Social determinants of health that impact diagnosis or treatment (SDOH):Patient reports she is transient to [place]- Decision regarding surgery and/or ED procedures: N/A.- Disposition of the patient/consideration of hospitalization: AMA.Past Medical HistoryStated Complaint JAW PAIN FEVER N-VAllergiesCoded Allergies:Iodinated Contrast Media (Intermediate, HIVES 05/24/24)NSAIDS (Non-Steroidal Anti-Inflamma (Intermediate, CONTRAINDICATED 05/24/24)meperidine (From DEMEROL) (Intermediate, HIVES 05/24/24)vancomycin (Intermediate, LEXI SYNDROME 05/24/24)ondansetron (From ZOFRAN) (Mild, VOMITING 05/24/24)Smoking status for patients 13 years old or older: Never SmokerCOURSEDataDiagnosticsLaboratory Tests05/24/24 0843:[Embedded Image Not Available]Laboratory Tests: 05/24 843 Chemistry Sodium (136 - 145 mmol/L) 139 Potassium (3.4 - 4.5 mmol/L) 4.0 Chloride (98 - 107 mmol/L) 106 Carbon Dioxide (20 - 31 mmol/L) 22 Anion Gap (mmol/L) 11.0 BUN (9 - 23 mg/dL) 13 Creatinine (0.55 - 1.02 mg/dL) 0.99 Est GFR (CKD-EPI) (>or=90 ml/min) 69 L Random Glucose (74 - 106 mg/dL) 379 H Calcium (8.3 - 10.6 mg/dL) 9.1 Hematology WBC (3.80 - 10.80 10 9/L) 11.12 H RBC (3.96 - 5.31 10 6/mcL) 4.55 Hgb (12.0 - 16.3 g/dL) 12.4 Hct (36.8 - 49.5 %) 38.3 MCV (80.0 - 100.0 fL) 84.2 MCH (27.0 - 33.0 pg) 27.3 MCHC (32.0 - 36.0 g/dL) 32.4 RDW Std Deviation (37.1 - 49.5 fL) 47.2 RDW Coeff of Avery (11.0 - 15.0 %) 15.5 H Plt Count (140 - 400 10 9/L) 383 MPV (7.5 - 12.5 fL) 10.0 Immature Gran % (Auto) (0.0 - 0.7 %) 2.4 H Immature Gran # (Auto) (0.00 - 0.06 10 9/L) 0.27 H Neutrophils % (%) 66.5 Lymphocytes % (%) 21.9 Monocytes % (%) 4.6 Eosinophils % (%) 2.9 Basophils % (%) 1.7 Nucleated RBC % (%) 0 Neutrophils # (1.41 - 6.69 10 9/L) 7.39 H Lymphocytes # (0.85 - 3.90 10 9/L) 2.44 Monocytes # (0.20 - 0.95 10 9/L) 0.51 Eosinophils # (0.02 - 0.50 10 9/L) 0.32 Basophils # (0.00 - 0.20 10 9/L) 0.19 Nucleated RBCs # (0.00 - 0.00 10 9/L) 0.00 Differential Comment AUTOMATED DIFFMed DataMed DataMedication(s) Ordered:Antihistamine Drugs Sig/Onelia Start time Last Medication Dose Route Stop Time Status Admin Diphenhydramine HCl 50 MG X1ED ONE 05/24 829 DC 05/24 IV 05/24 830 0858Central Nervous System Agents Sig/Onelia Start time Last Medication Dose Route Stop Time Status Admin Hydromorphone HCl 0.5 MG X1ED ONE 05/24 829 DC 05/24 IV 05/24Diagnostic Agents Sig/Onelia Start time Last Medication Dose Route Stop Time Status Admin Iopamidol See Dose X1ED PRN 05/24 0829 r Insts (1) IVElectrolytic, Caloric, And Bartolo Sig/Onelia Start time Last Medication Dose Route Stop Time Status Admin Sodium Chloride 10 ML X1ED PRN 05/24 829 AC IV 05/25 829 Sodium Chloride 50 ML X1ED PRN 05/24 0829 AC IV 05/25 829Dose Instructions:(1)Iopamidol: Per ProtocolPatient Discharge DepartureVital Signs/ConditionVital SignsFirst Documented: Result Date Time Pulse Ox 97 08/ 0810 B/P 258/126 08/10 0810 B/P Mean 170 08/10 0810 O2 Delivery Room air 08/ 0810 Temp 36.6 08/10 0810 Pulse 97 08/10 0810 Resp 18 / 0810Last Documented: Result Date Time Pulse Ox 96 08/ 0901 B/P 249/117 08/10 0901 B/P Mean 168 08/10 0901 Pulse 91 08/ 0901 O2 Delivery Room air / 0810 Temp 36.6 /10 0810 Resp 18 / 0810All vital signs available at the time of this entry have been reviewed.Clinical ImpressionClinical ImpressionPrimary Impression: Jaw painSecondary Impressions: HypertensionDisposition DecisionOther )( Time 09 )( Date 05/24/24 Against Medical Advice YesDischarge/Care PlanReferralsProvider Referral: NO PRIMARY OR FAMILY PHYSICIAN at 1026RPT #: [id number] OF REPORT Emergency Encounter Reason:DENTAL PAIN Encounter Diagnosis:Other chronic pain,Other specified disorders of teeth and supporting structures 09-May-2024 17:[id number] 19:06 [facility] Discharge Disposition:Left against medical advice or discontinued care BRADFORD Jimmy ArshadEzmwpxi-44-Bvx-2024 [facility] ([facility])EMERGENCY PROVIDER REPORTREPORT#:[id number] REPORT STATUS: SignedDATE:05/09/24 TIME: 1844PATIENT: ROSSY AVALOS UNIT #: [id number]#: [id number] ROOM/BED:AGE: 49 SEX: F PCP PHYS: NO PRIMARY OR FAMILY PHYSICIANSERVICE AUTHOR: Betty Marquez ARNPREP SRV REP SRV TM: 1716* ALL edits or amendments must be made on the electronic/computer document *Betty MarquezAlbino 05/09/24 1844:HPI- Dental/Mouth ProbFree Text HPI NotesFree Text HPI Notes49 year old female with PMHx of chronic osteomyelitis to her left jaw. Shestates she has had multiple surgeries to her jaw and is currently onantibiotics. She states she is managed by hospital at [facility]. Shestates she is here on a work trip with her and ran out of painmedications.She is requesting pain medication to last her until she gets back to [place] in6 days.She states she has an upcoming appt with when gets back home and plans are to doanother surgery next month.She denies fever, chills, CP, SOB, trismus, drooling, n/v, facial swelling,difficulty swallowing.She denies any new or worsening of symptoms, she states she is really just herefor pain medication.GeneralConfirmed Patient YesInitial Greet Date/Time 05/09/246PresentationChief Complaint Tooth painHx Obtained From PatientOnset Occurred ChronicProgression since Onset Waxes and wanesCaused by chronic jaw infectionLocation Gum mandible LQuality Aching, PainfulPain/Sev: Current ModerateAssociated withDenies: Bleeding, Can't fully open mouth, Chills, Drooling, Earache, Fever,Hoarse voice, Nausea, Shortness of breath, Sore throat, Unable to tolerate P.O.,Vomiting, bloody, Vomiting, non bloody.ContextSimilar Sx Previous YesReview of SystemsROS StatementsAll systems rev neg except as marked.Complete sys rev neg except as marked.Focused Review of SystemsConstitutionalDenies: Chills, Fever, Lethargy.Ears/Nose/ThroatReports: Mouth pain, Toothache. Denies: Nasal congestion, Sore throat, Voicechange.RespiratoryDenies: Cough, non-productive, Cough, productive, Shortness of breath.GIDenies: Abdominal pain, Diarrhea, Nausea, Vomiting.Past Medical History - AdultStated Complaint DENTAL PAINAllergiesCoded Allergies:NSAIDS (Non-Steroidal Anti-Inflamma (Severe, BLEEDING 05/09/24)meperidine (From DEMEROL) (Intermediate, HIVES 05/09/24)ondansetron (From ZOFRAN) (Intermediate, HIVES 05/09/24)vancomycin (Intermediate, HIVES 05/09/24)Uncoded Allergies:IV CONTRAST (Intermediate, HIVES 05/09/24)Calculated Suicide Risk (nurs) No riskSmoking status for patients 13 years old or older: Never SmokerAmbulatory Status IndependentPhysical ExamVital SignsVital SignsFirst Documented: Result Date Time Resp 16 05/09 1719 Pulse Ox 97 05/09 1722 B/P 227/127 05/09 1722 B/P Mean 160.0 05/09 172 Temp 37.4 05/09 172 Pulse 87 05/09 1722 O2 Delivery Room air 05/09 1811Last Documented: Result Date Time Pulse Ox 98 05/09 1847 B/P 226/109 05/09 1847 B/P Mean 148 05/09 1847 O2 Delivery Room air 05/09 184 Pulse 84 05/09 1847 Resp 16 05/09 184 Temp 37.4 05/09 1722Review of Vital Signs ReviewedFocused PEGeneral/Const General/Const Awake, Alert, Well appearingMS Head Head NormocephalicEyes Eyes PERRLEars/Nose/Throat Ears/Nose/Throat Atraumatic, Airway patent, Mucous membranes moist, PharynxNL, No pooling of secretions, No trismus, No facial swelling, Gums/dentition NL Text/Dict Notesteeth to lower jaw have been surgically removedThere is no facial swelling, gum swelling, abscess on exam.MS Neck Neck Supple, No meningismus, Full range of motion, No adenopathy, No swelling, Non-tender, No massesResp/Chest Respiratory/Chest Breath sounds NL, Breath sounds = bilat, No respiratorydistress, No rales, No rhonchi, No wheezing, No stridorCardiovascular Cardiovascular Heart rate NL, Regular rhythm, Heart sounds NL, No murmurs,Peripheral circulation NLNeurologic Neurologic Oriented X3, Speech NL, No motor deficits, No sensory deficitsInterpretation DiagnosticsPoint of Care TestingPulse Oximetry Pulse Ox % 98 On: Room air Interpretation Interpreted by meRe-Evaluation MDMFree Text MDM NotesFree Text MDM NotesPatient states she has chronic osteomyelitis to her left jaw, she states thatshe is under treatment at the [facility], she states she is currentlyon antibiotics and taking as prescribed.Patient states that she is here at a town on a work trip with her , shestates that she has follow-up with the [facility] next week when shegoes back home.teeth to lower jaw have been surgically removedThere is no facial swelling, gum swelling, abscess on exam.No trismus, drooling, difficulty swallowing, voice change.Patient is afebrile.Patient refused labs/imaging - she states she only wants pain medication, thatshe only wants to be followed by her regular providers. She denies any new orworsening of symptoms.Patient is very hypertensive upon arrival, she states she has PMHx of HTN andtake Metoprolol and Linsinopril, she states she is taking as prescribed. Patientinsists that her blood pressure is elevated due to pain and anxiety, she statesthat at home her BP normally runs 140-150 systolic. She did allow me to give her1 Clonidine with only minimal improvement of her blood pressure - she states sheis asymptomatic, denies CP, SOB, changes in vision, headaches, palpitations orany neuro deficits. She refused to let me treat her blood pressure further. Shebecame very upset and states she just needs to get out of her so that myanxiety will improve.Patient signed partial AMA refusing further blood pressure treatment, labs orimaging.I encouraged the patient to follow up with [facility] next week whenshe returns home. I also encouraged her to return to the ER for any worsening ofsymtpoms or blood pressure >180 systolic at home after taking her medications.She verbalized understanding.ED CoursePatient Course ImprovedMedication(s) OrderedMedication(s) Ordered:Cardiovascular Drugs Sig/Onelia Start time Last Medication Dose Route Stop Time Status Admin Clonidine HCl 0.1 MG X1ED ONE 05/09 173 DC 05/09 PO 05/09 1738 1748Central Nervous System Agents Sig/Onelia Start time Last Medication Dose Route Stop Time Status Admin Hydrocodone Bitart/ 1 TAB X1ED ONE 05/09 1741 DC 05/09 Acetaminophen PO 05/09 1742 1750 Ketorolac 30 MG X1ED ONE 05/09 1738 DC Tromethamine IM 05/09 1739Patient Discharge DepartureVital Signs/ConditionVital SignsFirst Documented: Result Date Time Resp 16 05/09 1719 Pulse Ox 97 05/09 1722 B/P 227/127 05/09 1722 B/P Mean 160.0 05/09 1722 Temp 37.4 05/09 1722 Pulse 87 05/09 1722 O2 Delivery Room air 05/09 1811Last Documented: Result Date Time Pulse Ox 98 05/09 184 B/P 226/109 05/09 1847 B/P Mean 148 05/09 1847 O2 Delivery Room air 05/09 1847 Pulse 84 05/09 1847 Resp 16 05/09 1847 Temp 37.4 05/09 1722All vital signs available at the time of this entry have been reviewed.Condition StableClinical ImpressionClinical ImpressionPrimary Impression: Chronic dental painDisposition DecisionDischarge )( Discharged to Home Yes )( Time 190 )( Date 05/09/24Discharge/Care PlanCounseled Regarding Diagnosis, Prescriptions, Need for follow-up, When to returnto ED(Auto) PrescriptionsCurrent Visit ScriptsOxyCODONE/Acetaminophen (Percocet 5-325 MG) 1 TAB PO Q6H PRN PRN Acute Pain (3Day) OxyCODONE/Acetaminophen (Percocet 5-325 MG) 1 TAB PO Q6H PRN PRN Acute Pain(3 Day) #12 TABPrescriptions Reviewed Risks, Benefits, Alternative treatmentPatient Instructions ED Back Pain (Acute or Chronic), ED Dental PainAdditional InstructionsContinue to take your antibiotics as previously prescribedFollow-[facility] week when you returnhomeReturn to the ER for any fever, chills, facial swelling, trismus, drooling,difficulty swallowing or for any other concernsReturn to the ER for sustained systolic blood pressure greater than 180 aftertaking your home medications. Discharge NoteI have spoken with the patient and/or caregivers. I have explained the patient'scondition, diagnoses and treatment plan based on the information available to meat this time. I have answered the patient's and/or caregiver's questions andaddressed any concerns. The patient and/or caregivers have as good anunderstanding of the patient's diagnosis, condition and treatment plan as can beexpected at this point. The vital signs have been stable. The patient'scondition is stable and appropriate for discharge from the emergency department.The patient will pursue further outpatient evaluation with the primary carephysician or other designated or consulting physician as outlined in thedischarge instructions. The patient and/or caregivers are agreeable to this planof care and follow-up instructions have been explained in detail. The patientand/or caregivers have received these instructions in written format and haveexpressed an understanding of the discharge instructions. The patient and/orcaregivers are aware that any significant change in condition or worsening ofsymptoms should prompt an immediate return to this or the closest emergencydepartment or a call to 911.Paola Myers 05/23/241944:Review of SystemsROS StatementsAll systems rev neg except as marked.Complete sys rev neg except as marked.Focused Review of SystemsConstitutionalDenies: Chills, Fever, Lethargy.Ears/Nose/ThroatReports: Mouth pain, Toothache.RespiratoryDenies: Cough, non-productive, Cough, productive, Shortness of breath.GIDenies: Abdominal pain, Diarrhea, Nausea, Vomiting.Physical ExamVital SignsReview of Vital Signs ReviewedFocused PEGeneral/Const General/Const Awake, Alert, Well appearingMS Head Head NormocephalicEyes Eyes PERRLEars/Nose/Throat Text/Dict NotesLower jaw edentulous, no obvious abscessMS Neck Neck Supple, No meningismus, Full range of motion, No adenopathy, No swelling, Non-tender, No massesResp/Chest Respiratory/Chest Breath sounds NL, Breath sounds = bilat, No respiratorydistress, No rales, No rhonchi, No wheezing, No stridorCardiovascular Cardiovascular Heart rate NL, Regular rhythm, Heart sounds NL, No murmurs,Peripheral circulation NLNeurologic Neurologic Oriented X3, Speech NL, No motor deficits, No sensory deficitsRe-Evaluation MDMConsultationConsultation Referral/Consult Name Timothy Heard DMD Sewer Hand Called Oral seafood team member Discussed with inside solar sales consultant, Agrees with eval, Agrees with planPatient Discharge DepartureDischarge/Care PlanReferralsResource Referral: [facility] Address: [address], [place] [address]Oxhjbqgt Referral: Timothy Heard DMD Address: [address], [address] [place], [place] [address]Lolyzftm Referral: NO PRIMARY OR FAMILY PHYSICIAN Discharge NoteI have spoken with the patient and/or caregivers. I have explained the patient'scondition, diagnoses and treatment plan based on the information available to meat this time. I have answered the patient's and/or caregiver's questions andaddressed any concerns. The patient and/or caregivers have as good anunderstanding of the patient's diagnosis, condition and treatment plan as can beexpected at this point. The vital signs have been stable. The patient'scondition is stable and appropriate for discharge from the emergency department.The patient will pursue further outpatient evaluation with the primary carephysician or other designated or consulting physician as outlined in thedischarge instructions. The patient and/or caregivers are agreeable to this planof care and follow-up instructions have been explained in detail. The patientand/or caregivers have received these instructions in written format and haveexpressed an understanding of the discharge instructions. The patient and/orcaregivers are aware that any significant change in condition or worsening ofsymptoms should prompt an immediate return to this or the closest emergencydepartment or a call to 911.Supervising Physician Note MidLv/Doc Saw Pt 1I have personally seen the patient(face to face) and I evaluated the patientalong with involvement of the PA/MORTARMAN. I agree with the PA/assistant controller findings and plan. I have performed all aspects of MDM as documented including: evaluation of thepatient/patient's condition(s), review and analysis of available data, anddetermination of risk of patient management decisions. I agree with this PA/NPsfindings, exam and plan. Documentation of multiple elements of my assessment areincluded in the medical record.Available external medical records, family, friends and prior caretakerstestimony were utilized in management as well as medical decision making forthis patient.Diagnostic studies including: laboratory, radiologic, ECG, residential monitor,were reviewed and independently interpreted by me.Social determinants of health relating to patient's home situation, healthinsurance, funding and ability for follow and obtain any prescriptionmedications are taken into account for this patient's disposition. at 1902 at 3617RPT #: [id number] OF REPORT Emergency Encounter Reason: LEFT SIDED JAW PAIN. I HAVE OSTEO Encounter Diagnosis:Elevated blood-pressure reading, without diagnosis of hypertension,Type 2 diabetes mellitus without complications,custodial (current) use of insulin,Inflammatory conditions of jaws 10-Apr-2024 16:[id number] 17:47 [facility] [place] Discharge Disposition:Discharged to home or self care (routine discharge) Palak Dye [id number]-Apr-2024 [facility] ([facility])EMERGENCY PROVIDER REPORTREPORT#:[id number] REPORT STATUS: SignedDATE:04/10/24 TIME: 165PATIENT: ROSSY AVALOS UNIT #: [id number]#: [id number] ROOM/BED:: 73 AGE: 49 SEX: F PCP PHYS: DOES NOT KNOWSERVICE AUTHOR: Hardik Cid SRV REP SRV TM: 1656* ALL edits or amendments must be made on the electronic/computer document *HPI-Dental/Mouth ProbFree Text HPI NotesFree Text HPI [id number] female comes to emergency department for evaluation of left sidedjaw pain, which she attributes to osteomyelitis. Patient states he is currentlybeing treated with antibiotics, but does not have pain medicine. Patientstarted course of doxycycline and clindamycin 9 days ago on 04/01, was shortlythereafter translation to Flagyl and Augmentin. She states that the swellingand redness have improved, overall feeling better. She is a diabetic, she iswatching her sugars. Blood pressure is significantly elevated, she states shenormally has better blood pressures but she is just in pain. [facility] just for pain medication ref[facility]. She was lastprescribed several tabs of Lortab 5 mg 7 days ago, without any other recent painmedication prescriptions. She also states that Phenergan helps her nausea. Soo confirms that she does not want any blood work or CT scan performed orevaluated today, she also does not want to take blood pressure medication untilshe gets home.GeneralInitial Greet Date/Time 04/10/24 1656PresentationChief Complaint TMJ painReview of SystemsROS StatementsAll systems rev neg except as marked.Complete sys rev neg except as marked.Past Medical History - AdultStated Complaint LEFT SIDED JAW PAIN. I HAVE OSTEOAllergiesCoded Allergies:vancomycin (Intermediate, HIVES 04/10/24)NSAIDS (Non-Steroidal Anti-Inflamma (INTERACTION WITH CHEMO 01/15/14)meperidine HCl (From DEMEROL) (UNK 11/07/11)ondansetron HCl (From ZOFRAN) (HIVES, SOB 01/15/14)Home MedicationsReported MedicationsMetoclopramide (Reglan) 10 MG PO QID PRNOmeprazole (Prilosec)ALPRAZolam (Xanax) 0.5 MG PO BIDPromethazine (Phenergan) 25 MG PO B7KEGkoccrutgba (Zofran) 8 MG PO Q8HRS PRNInsulin Glargine (Lantus Vial 10 ml) 15 DAILYInsulin Aspart (NovoLOG Vial 10 ml) 10 UNITS SUBQ BIDACPhysical ExamVital SignsVital SignsFirst Documented: Result Date Time Pulse Ox 100 04/10 1653 B/P 226/109 04/10 1653 B/P Mean 148 04/10 1653 O2 Delivery Room air 04/10 1653 Temp 99.0 04/10 1653 Pulse 87 04/10 1653 Resp 18 04/10 1653Last Documented: Result Date Time Pulse Ox 100 04/10 1740 B/P 201/99 04/10 1740 B/P Mean 133 04/10 1740 O2 Delivery Room air 04/10 1740 Temp 98.8 04/10 1740 Pulse 84 04/10 1740 Resp 18 04/10 1740Review of Vital Signs ReviewedBasic Physical ExamBasic PE GEN: Well appearing/NAD, HEAD: Atraumatic/NC, EYES: PERRL, conj clear,RESP: No resp distress, CV: Reg rate rhythm, EXT: No gross abnormality, SKIN:No rashes, warm/dry, NEURO: alert oriented, NEURO: gross movement NL, PSYCH:NL thought contentFocused PEGeneral/Const General/Const Awake, Alert, No acute distress, Well nourished, Cooperative,Not toxic appearingEars/Nose/Throat Ears/Nose/Throat Atraumatic, Airway patent, Mucous membranes moist, PharynxNL, No peritonsillar abscess, No pooling of secretions, No obvious dentalabscess, patient has mild tenderness with questionable erythema over left lowermandible. No crepitus, no soft tissue swelling or tenderness over neck ortrachea. Airway patent.MS Neck Neck Supple, No meningismus, Full range of motion, No adenopathy, No swelling, Non-tender, No masses, No crepitus, No tracheal deviationResp/Chest Respiratory/Chest Atraumatic, Breath sounds NL, Breath sounds = bilat, Norespiratory distressInterpretation DiagnosticsLab Results InterpretationConsiderations Independ review imaging Lab Imaging StatementLaboratory radiographic studies reviewed and considered in the medicaldecision-making.Re-Evaluation MDMED CourseMedication(s) OrderedMedication(s) Ordered:Central Nervous System Agents Sig/Onelia Start time Last Medication Dose Route Stop Time Status Admin Morphine Sulfate 8 MG X1ED ONE 04/10 1713 DC IM 04/10 1714 Promethazine HCl 12.5 MG X1ED ONE 04/10 1713 DC PO 04/10 1714Differential DiagnosisDifferential Diagnosis Aphthous ulcer, Facial cellulitis, Hand, foot, mouthdisease, Periapical abscess, Periodontal abscess, TMJ syndrome L, Tooth fracturePatient Discharge DepartureVital Signs/ConditionVital SignsFirst Documented: Result Date Time Pulse Ox 100 04/10 1653 B/P 226/109 04/10 1653 B/P Mean 148 04/10 1653 O2 Delivery Room air 04/10 1653 Temp 99.0 04/10 1653 Pulse 87 04/10 1653 Resp 18 04/10 1653Last Documented: Result Date Time Pulse Ox 100 04/10 1740 B/P 201/99 04/10 1740 B/P Mean 133 04/10 1740 O2 Delivery Room air 04/10 1740 Temp 98.8 04/10 174 Pulse 84 04/10 174 Resp 18 04/10 174All vital signs available at the time of this entry have been reviewed.Condition StableClinical ImpressionClinical ImpressionPrimary Impression: Osteomyelitis of jawSecondary Impressions: Elevated blood pressure reading, Uncontrolled painDisposition DecisionDischarge )( Discharged to Home Yes )( Time 1718 )( Date 04/10/24Discharge/Care PlanCounseled Regarding Medication changes, Prescriptions, Need for follow-up, Whento return to ED(Auto) PrescriptionsCurrent Visit ScriptsPromethazine (Phenergan) 25 MG PO Q8H PRN PRN NAUSEA Promethazine (Phenergan) 25 MG PO Q8H PRN PRN NAUSEA #10 TABHYDROcodone/APAP (Fithian 7.5/325 mg) 1 TAB PO Q8H PRN PRN PAIN HYDROcodone/APAP (Fithian 7.5/325 mg) 1 TAB PO Q8H PRN PRN PAIN #10 TABPrescriptions Reviewed Risks, Benefits, Alternative treatmentPatient Instructions ED Pain, Acute, Uncertain CauseAdditional InstructionsThank you for choosing the [facility]. It was myprivilege to serve as your physician. A follow-up phone call may be placed toyou if there are tests and/or x-rays that may require further evaluation. Youmay also receive a survey to review all aspects of your care. I ask that youcomplete it so that we can continue to improve in our service to this communitywith [facility] emergency care. Discharge NoteI have spoken with the patient and/or caregivers. I have explained the patient'scondition, diagnoses and treatment plan based on the information available to meat this time. I have answered the patient's and/or caregiver's questions andaddressed any concerns. The patient and/or caregivers have as good anunderstanding of the patient's diagnosis, condition and treatment plan as can beexpected at this point. The vital signs have been stable. The patient'scondition is stable and appropriate for discharge from the emergency department.The patient will pursue further outpatient evaluation with the primary carephysician or other designated or consulting physician as outlined in thedischarge instructions. The patient and/or caregivers are agreeable to this planof care and follow-up instructions have been explained in detail. The patientand/or caregivers have received these instructions in written format and haveexpressed an understanding of the discharge instructions. The patient and/orcaregivers are aware that any significant change in condition or worsening ofsymptoms should prompt an immediate return to this or the closest emergencydepartment or a call to 911.Quality MeasuresBP F/U for HTN F/u with PCP/other doc, Pre-existing HTN at 1826RPT #: [id number] OF REPORT Emergency Encounter Reason:JAW PAIN Encounter Diagnosis:Other specified disorders of teeth and supporting structures 30-Mar-2024 16:[id number] 17:31 [facility] Discharge Disposition:Discharged to home or self care (routine discharge) Naveed WELCH-30-Mar-2024 [facility] [place] DepartmentEMERGENCY PROVIDER REPORTREPORT#:[id number] REPORT STATUS: ESignDATE:03/30/24 TIME: 1641PATIENT: ROSSY NORIEGA UNIT #: [id number]#: [id number] ROOM/BED: EDDOB: [birth year] AGE: 49 SEX: PCP PHYS: NO PRIMARY OR FAMILY PHYSICIANADM DATE: 03/30/24 INI AUTH: Sarthak Lucio LAST SIG: Roc Kiran MDREP SERV REP SERV TM: 1641 * ALL edits or amendments must be made on the electronic/computer document *SARTHAK LUCIO 03/30/24 1641:HPI-General IllnessFree Text HPI NotesFree Text HPI NotesThis is a voice dictated note. Grammatical or typographical errors due to voicerecognition limitations may persist despite editing efforts.49-year-old female with a known history of left lower mandibular osteomyelitisto from a dental infection in the ER for dental/jaw pain. She states that sheis already being seen by a medical provider for this condition and is currentlytaking an antibiotic regimen. She states that she has no other complaints otherthan needing something to control her pain until her next visit with her oralsurgeon. She states that she usually has to have a morphine and Phenerganinjection. She is also requesting a prescription for medication to control herpain. She states that she is unable to take NSAIDS due to her medicalcondition. She states that in the past, she has been prescribed Lortab forPercocet but has no current prescription. 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 She states that she sees an oralsurgeon at [facility] and is scheduled to see them again [place] Denies difficulty swallowing, difficulty breathing, fever, and has noother complaints.GeneralInitial Greet Date/Time 03/30/24 1629PresentationChief Complaint Dental painReview of SystemsROS StatementsAll systems rev neg except as marked. (As stated in HPI section.)Past Medical History - AdultStated Complaint JAW PAINAllergiesCoded Allergies:NSAIDS (Non-Steroidal Anti-Inflamma (Severe, ANAPHYLAXIS 03/30/24)meperidine (From DEMEROL) (Severe, ANAPHYLAXIS 03/30/24)ondansetron (From ZOFRAN) (Severe, ANAPHYLAXIS 03/30/24)vancomycin (ANAPHYLAXIS 03/30/24)Physical ExamVital SignsVital SignsFirst Documented: Result Date Time Pulse Ox 98 03/30 1636 B/P 213/122 03/30 1636 B/P Mean 152 16 1636 O2 Delivery Room air 03/30 1636 Temp 36.8 03/30 1636 Pulse 91 03/30 1636 Resp 18 03/30 1636Last Documented: Result Date Time Pulse Ox 98 03/30 1636 B/P 213/122 16 1636 B/P Mean 152 16 1636 O2 Delivery Room air 03/30 1636 Temp 36.8 03/30 1636 Pulse 91 03/30 1636 Resp 18 03/30 1636Review of Vital Signs ReviewedFree Text PE NotesFree Text PE NotesVITAL SIGNS: Reviewed.GENERAL: A Ox3. Well appearing. NAD.HEAD: Atraumatic and normocephalic.EYES: PERRLA. EOMs grossly intact. Conjunctiva clear.ENT: Oral exam with mild gingival erythema at the lower left 1st molarlocation. No purulent drainage. Mild buccal edema adjacent to the affectedarea. Tenderness to palpation over the left mandible adjacent to the area ofcomplaint. Floor of the mouth soft and not indurated. Able to protrude tonguenormally without indication of To's angina. Uvula midline with noindication of LEGAL BILLING ANALYST/RPA. Moist mucous membranes. Moves neck without difficulty.No swelling in the neck or face above the mandible.LUNGS: Airway widely patent. No respiratory distress.CARDIOVASCULAR: Regular rate and rhythm. No JVD.EXTREMITIES: No gross abnormality. Moving extremities normally.SKIN: Other than stated above, skin is NML color, warm, and dry. No rashvisible.NEUROLOGIC: Gross movement NML. CN II-XII grossly intact.PSYCHIATRIC: Cooperative. Appropriate mood and affect.Re- Evaluation MDMFree Text MDM NotesAdditional TextPATIENT: 49-year-old female in the ER for jaw pain.INITIAL TESTS: None.SUSPECTED DX: Per HPI, exam, and tests, suspect patient with jaw pain secondaryto known osteomyelitis.Patient is stable and nontoxic. Patient is hypertensive but otherwise normalvital signs. Patient is in pain but no emergent distress. No emergentlyconcerning findings on initial exam. Will provide pain control and antiemeticin the ER. Plan to discharge with short course of medication for pain controland recommendation to follow up with oral surgeon JOSE. I have discussed today's findings and recommended course of action with the patient. She is aware ofher current hypertension and states that she has a history of this when in pain. She states that she has medications to control or blood pressure and does notneed anything in the ER. She states that she is comfortable with the plan asabove and is only needing something for pain control at this time.ER THERAPIES: Morphine and Phenergan IM.ER PRESCRIPTIONS: Lortab.REFERRALS: None. Patient already established with an oral surgeon in [place].DISPOSITION: Patient to be discharged with recommendation to follow up with Oralsurgery JOSE and PCP as needed for further evaluation and care of today'scomplaint.Patient/caregiver understood and agreed with the plan.ED CourseMedication(s) OrderedMedication(s) Ordered:Central Nervous System Agents Sig/Onelia Start time Last Medication Dose Route Stop Time Status Admin Morphine Sulfate 4 MG X1ED ONE 03/30 1641 DC 03/30 IM 03/30 1642 1701 Promethazine HCl 12.5 MG X1ED ONE 03/30 1641 DC 03/30 IM 03/30 1642 1702Patient Discharge DepartureVital Signs/ConditionVital SignsFirst Documented: Result Date Time Pulse Ox 98 03/30 1636 B/P 213/122 03/30 1636 B/P Mean 152 03/30 1636 O2 Delivery Room air 03/30 1636 Temp 36.8 03/30 1636 Pulse 91 03/30 1636 Resp 18 03/30 1636Last Documented: Result Date Time Pulse Ox 98 03/30 1636 B/P 213/122 03/30 1636 B/P Mean 152 03/30 1636 O2 Delivery Room air 03/30 1636 Temp 36.8 03/30 1636 Pulse 91 03/30 1636 Resp 18 03/30 1636All vital signs available at the time of this entry have been reviewed.Condition Stable, ImprovedClinical ImpressionClinical ImpressionPrimary Impression: Pain, dentalDisposition DecisionDischarge )( Discharged to Home Yes )( Time 165 )( Date 03/30/24Discharge/Care PlanCounseled Regarding Diagnosis, Need for follow-up, When to return to ED(Auto) PrescriptionsCurrent Visit ScriptsHYDROcodone/APAP (Lortab 7.5/325 mg) 1 TAB PO Q6H PRN PRN Breakthrough pain 2 Days #8 TAB (Supervising Physician: Roc Kiran MD - KAUSHIK# [id number])Patient Instructions ED Dental PainAdditional InstructionsThank you for allowing us to care for you today!Please follow up with your primary care provider for further evaluation,medication management, and lab/imaging studies as needed.You have been provided with medication for pain control. This medication shouldbe used for breakthrough pain only. It is also very important that you follow-up with your oral surgeon JOSE for further evaluation. Please return to the ERfor any emergently concerning symptoms.You will likely be provided with a survey sent to your phone or e-mail. Honestfeedback is much appreciated so we can continue striving to provide excellentcare to our patients!Thanks again,- Stanley Discharge NoteI have spoken with the patient and/or caregivers. I have explained the patient'scondition, diagnoses and treatment plan based on the information available to meat this time. I have answered the patient's and/or caregiver's questions andaddressed any concerns. The patient and/or caregivers have as good anunderstanding of the patient's diagnosis, condition and treatment plan as can beexpected at this point. The vital signs have been stable. The patient'scondition is stable and appropriate for discharge from the emergency department.The patient will pursue further outpatient evaluation with the primary carephysician or other designated or consulting physician as outlined in thedischarge instructions. The patient and/or caregivers are agreeable to this planof care and follow-up instructions have been explained in detail. The patientand/or caregivers have received these instructions in written format and haveexpressed an understanding of the discharge instructions. The patient and/orcaregivers are aware that any significant change in condition or worsening ofsymptoms should prompt an immediate return to this or the closest emergencydepartment or a call to 911.ROC KIRAN MD 03/30/242051:Patient Discharge DepartureDischarge/Care PlanReferralsProvider Referral: NO PRIMARY OR FAMILY PHYSICIANSupervising Physician Note MidLv Saw Pt AloneI have reviewed the PA/MORTARMAN's note and plan of care. I was available forconsultation as needed at all times during the patient's visit in the emergencydepartment. I agree with the clinical impression, plan and disposition. at 1740 at 2053RPT #: [id number] OF REPORT Plan of Treatment Future Tests Future scheduled test information is unavailable Pending Tests Pending diagnostic test information is unavailable Future Visits Future appointment information is unavailable Referrals to Other Providers Referral information is unavailable Future Procedures Future procedure information is unavailable Future Medications Future medication information is unavailable Patient Instructions Instruction Admit Date ED Hypertension, Established December 17, 2024 3:45am
== END 2025-03-20 11:48 | disposition left against medical advice (07) ==
PROVIDERS: Emergency Provider Emergency Medicine; PCP Internal Medicine
DX: R68.84 Jaw pain (principal); I10 Essential (primary) hypertension
CPT/HCPCS: 99281

== ENCOUNTER 2025-08-12 03:42 | Emergency (ER) | payer SELFPAY ==
--- OUTSIDE RECORDS SUMMARY | 2011-10-12 19:00 | XMS_ITS | Continuity of Care Document ---
Author Organization [facility] Address [address] [place] [address] Phone Care Team Providers Care Corporate General Manager Name Role Phone Colten Chambers III, MD Unavailable Unavaila ble Procedures Procedure Date [facility] Advance Directives Directive Yes / No Effective Date File Name No Information Encounters Encounter Description Practice Location Reason(s) For Visit Diagnoses Date Provider Providers Copied on Encounter [facility], [address], [place], [place], [address], [phone] [facility] No Information 0 1 Trish Abel. [address] [facility] [address], [place], [place], [address] , [place]. tel: [phone] Referring Provider: Cameron Guaman, [place] [facility] [address] , [address], [place], [address]. tel:[phone] Family History Family Member Type Diagnosis Age [...]
--- OUTSIDE RECORDS SUMMARY | 2019-05-17 19:00 | XMS_ITS | Continuity of Care Document ---
Author Organization [facility] Address [address] [place] [address] Phone Care Team Providers Care Golf Sales Manager Name Role Phone Jo RODRIGUEZ, SKYLER, Jasson [...] Encounter Subsqt Hosp-da E&m Sig Compl 3 [facility] , [address] [facility], [place], [address], [place] tel:[phone] [facility] No Information Jo Spaulding. [address] [facility] Jessica, [place] [address], [place], [address], [place]. tel:[phone] Referring Provider: Franco Fowler MD, [address] [facility], [place], [address]. tel:[phone] Init Inpt Cons N/e Mod-hi 110m [facility] , [address] [facility], [place], [address], [place] tel:[phone] [facility] No Information Leif Santamaria. [address] [facility] [address], [place] [address], [place], [address], [place]. tel:[phone] Referring Provider: Franco Fowler MD, [address] [facility], [place], [address]. tel:[phone] Family History Family Member Type Diagnosis Age At Onset No Information Payers Payer name Insurance type Covered democrat ID Authoriza tion(s) Care 1st [facility] Plan [id number] Social History Type Description Quantity Date Captured [...]
--- OUTSIDE RECORDS SUMMARY | 2019-10-27 19:00 | XMS_ITS | Continuity of Care Document ---
Author Organization Corey Cuellar [facility] Services Auth Address [address] [place] [phone] Phone Care Team Providers Care Wheat Inspector Name Role Phone Unavailable Unavailable Unavailable Allergies, [...] Diagnoses Date Provider Providers Copied on Encounter [facility] [facility], [address] [place] [address], [id number], [place] tel:[phone] [facility] No Information No Information [facility], [address] [place] [address], [id number], [place] tel:[phone] [facility] No Information No Information [facility], [address] [place] [address], [id number], [place] tel:[phone] [facility] No Information Frances Sidhu. [address] [place] [address], [id number], [place]. tel: [phone] [facility], [address] [place] [address], [id number], [place] tel:[phone] [facility] No Information Kayli Rousseau. [address] [place] [address], [id number], [place]. tel: [phone] [facility], [address] [place] [address], [id number], tel:[phone] [facility] No Information Frances Sidhu. [address] [place] [address], [id number], . tel:[phone] [facility], [address] [place] [address], [id number], tel:[phone] [facility] No Information No Information Family History Family [...]
--- OUTSIDE RECORDS SUMMARY | 2025-08-11 06:20 | XMS_ITS | Encounter Summary ---
Author Organization [facility] Healthcare Address [address] [place] [id number] Care Team Providers Care Insulation Professional Name Role Phone Unknown, Notinfile Primary Care Provider Unavail able Reason for Visit * Reason Comments Sore Throat Encounter Details Date Type Department Care Team (Late st Contact Info) Description 08/11/2025 6:20 AM CDT - 08/11/2025 7:17 AM CDT Emergency [address] [address] Jaw pain (Primary Dx); Sore throat Discharge Disposition: Discharge to home or self care Social History Tobacco Use Types Packs/Day Years Used Date Smoking Tobacco: Never Assessed Personal Safety Answer Date Recorded Have you ever been in or are you currently in a harmful physical or emotional relationship or is someone making you feel afraid or unsafe? Denies 08/11/2025 Comments No Sex and Gender Information Value Date Recorded Sex Assigned at Not on file Legal Sex Female 8:35 PM CDT Gender Identity Not on file Sexual Orientation Not on file documented as of this encounter Last Filed Vital Signs Vital Sign Reading Time Taken Comments Blood Pressure 198/119 08/11/2025 5:50 AM CDT Pulse 119 08/11/2025 5:50 AM CDT Temperature 37.1 C (98.8 F) 08/11/2025 5:50 AM CDT Respiratory Rate 16 08/11/2025 5:50 AM CDT Oxygen Saturation 100% 08/11/2025 5:50 AM CDT Inhaled Oxygen Concentration - - Weight 81.6 kg (180 lb) 08/11/2025 6:00 AM CDT Height 170.2 cm (5' 7) 08/11/2025 6:00 AM CDT Body Mass Index 28.19 08/11/2025 6:00 AM CDT documented in this encounter Discharge Instructions * Discharge Instructions* Zohreh Dumont PA - 08/11/2025 6:58 AM CDT Thank you for allowing us to take care of you at [facility]. Please follow up with your primary care physician or specialist, as soon as possible, and ideally within 7 days. Please take any new medications as prescribed. Please return to the emergency department for worsening of your symptoms or any new problems which may arise. It is mandatory that you follow up, as recommended, with a primary care physician or specialist, per your discharge paperwork.You have received emergency care only at your visit today, an this is nota substitute for ongoing care, further evaluation, or treatment. Therefore, follow-up as directed is not optional, but mandatory. This ensures that any incidental abnormal radiographic and laboratoryfindings are evaluated appropriately. Return immediately for any new symptoms, worsening of symptoms, or persistent symptoms. We are open07/05 and will take care of you. * Attachments The following attachments cannot be sent through Care Everywhere. * Narcotic Safety (AfterCare(R) Instructions(ER/ED)) (Senegalese) documented in this encounter Discharge Disposition Disposition Code Departure Means Destination Comment s Discharge to home or self care documented in this encounter ED Notes * Zohreh Dumont PA - 08/11/2025 6:58 AM CDT CHIEF COMPLAINT: Chief Complaint Patient presents with Sore Throat HPI 6:58 AM Rossy Avalos is a 50 y.o. 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 Patient reports she is on her way to [place] to meet housing requirements for palliative care and needs pain meds to sit through road trip without severe pain. Patient denies chest pain shortness of breath. Patient admits her ER visit history is extensive and states she understands as she cannot be given prescription for additional narcotics PCP: Unknown, Notinfile PAST MEDICAL HISTORY No past medical history on file. PAST SURGICAL HISTORY No past surgical history on file. FAMILY HISTORY No family history on file. MEDICATIONS GIVEN IN THE ED Medications HYDROmorphone (DILAUDID) injection 1 mg (1 mg intramuscular Given 10/28/25 0656) CURRENT HOME MEDICATIONS No current facility-administered medications for this encounter. No current outpatient medications on file. ALLERGIES Allergies Allergen Reactions Demerol [Meperidine] Hives Iv Contrast Dye [Iodinated Contrast Media] Hives Ok with premedication Nsaids (Non-Steroidal Anti-Inflammatory Drug) Other (See comments) Contraindicated with home meds Vancomycin Redness Zofran Odt [Ondansetron] Vomiting SOCIAL HISTORY Social History Tobacco Use Smoking status: Not on file Smokeless tobacco: Not on file Substance and Sexual Activity Drug use: Not on file Sexual activity: Not on file Alcohol Use: Not At Risk (07/29/2025) Received from [facility] AUDIT-C Q1: How often do you have a drink containing alcohol?: Never Q2: How many drinks containing alcohol do you have on a typical day when you are drinking?: Patientdoes not drink Q3: How often do you have six or more drinks on one occasion?: Never PHYSICAL EXAM TRIAGE VITAL SIGNS: ED Triage Vitals Temp Pulse Resp BP SpO2 08/11/25 0550 08/11/25 0550 08/11/25 0550 08/11/25 0550 08/11/25 0550 37.1 ??C (98.8 ??F) 119 16 (!) 198/119 100 % Temp src Heart Rate Source Patient Position BP Location FiO2 (%) 08/11/25 0550 08/11/25 0550 08/11/25 0550 08/11/25 0550 -- Oral Monitor Sitting Right arm Height Height Method Weight Weight Method 08/11/25 0600 -- 08/11/25 0600 -- 1.702 m (5' 7) 81.6 kg (180 lb) Physical Exam Vitals and nursing note reviewed. Constitutional: General: She is not in acute distress. Appearance: She is well-developed. HENT: Head: Normocephalic and atraumatic. Mouth/Throat: Comments: Patient speaks with sore, raspy voice Eyes: Conjunctiva/sclera: Conjunctivae normal. Cardiovascular: Rate and Rhythm: Normal rate and regular rhythm. Heart sounds: No murmur heard. Pulmonary: Effort: Pulmonary effort is normal. No respiratory distress. Breath sounds: Normal breath sounds. Abdominal: Palpations: Abdomen is soft. Tenderness: There is no abdominal tenderness. Musculoskeletal: General: No swelling. Cervical back: Neck supple. Skin: General: Skin is warm and dry. Capillary Refill: Capillary refill takes less than 2 seconds. Neurological: Mental Status: She is alert. Psychiatric: Mood and Affect: Mood normal. LABS Labs Reviewed - No data to display ED COURSE/MEDICAL DECISION MAKING Differential diagnosis included but not limited to osteosarcoma, pharyngitis, opioid use disorder, malingering Patient's medical records were reviewed. 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 Patient reports she is on her way to [place] to meet housing requirements for palliative care and needs pain meds to sit through road trip without severe pain. Patient denies chest pain shortness of breath. Patient admits her ER visit history is extensive and states she understands as she cannot be given prescription for additional narcotics By: Zohreh Dumont PA Time: 08/11 650 Comment: Patient was given 1 mg of Dilaudid IV By: Zohreh Dumont PA Time: 08/11 654 Comment: Appropriateness of ER visits for chronic pain was rediscussed and patient reports she understands that she cannot continue to visit the ERs for or narcotics. Patient was cleared for discharge By: Zohreh Dumont PA Procedures FINAL IMPRESSION Jaw pain Sore throat DISPOSITION: Home All findings were discussed with patient. Pt agreeable with plan. Non toxic appearing, vitals stable. Patient stable for discharge home. Given return to ER precautions Close outpatient follow-up with a low threshold to return has been mandated, concerning symptoms have been emphasized in detail, and this patient expresses understanding PATIENT INSTRUCTED TO FOLLOW UP No follow-up provider specified. DISCHARGE MEDICATIONS Your medication list as of August 11, 2025 6:58 AM You have not been prescribed any medications. This examination was transcribed using the 5to1 voice recognition system without human sheet cutting operator. In an effort to expedite patient care, this report has not been adjusted for typographical, grammatical, and syntax by a trained medical technical writer. 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 she headed to [place] for inpatient and states she ran out of her pain medication and was wondering if she can have something prior to travel Complains Sore throat and jaw pain Denies chest pain and SOB A&O x4 Ambulatory documented in this encounter Plan of Treatment Not on file documented as of this encounter Visit Diagnoses Diagnosis Jaw pain- Primary Sore throat Acute pharyngitis documented in this encounter Administered Medications Inactive Administered Medications - up to 3 most recent administrations Medication Order MAR Action Action Date Dose Rate Site HYDROmorphone (DILAUDID) injection 1 mg 1 mg, intramuscular, Administer over 2 Minutes, Once, On Sun08/11/25 at 0657, For 1 dose Given 08/11/2025 6:56 AM CDT 1 mg L eft Deltoid documented in this encounter Active and Recently Administered Medications Times are shown in CDT. Scheduled Medication Order 08/09/2025 08/10/2025 08/11/2025 HYDROmorphone (DILAUDID) injection 1 mg (COMPLETED) 1 mg, intramuscular, Administer over 2 Minutes, Once, On Sun08/11/25 at 0657, For 1 dose 0656 (Given - Provid er: Zi Morrison RN) documented in this encounter Orders Medications Ordered That Ramon ht Not Have Been Administered Count Last Ordered Date First Ordered Date HYDROmorphone (DILAUDID) injection 1 mg 1 1 documented in this encounter Care Teams Insulation Professional Relationship Specialty Start Date End Date Unknown, Notinfile PCP - General 04/04/24 documented as of this encounter
--- NOTE | ~2025-08-12 | XR_ITS ---
XR wrist RT min 3V 08/12/2025 04:02 INDICATION: Right wrist pain PROCEDURE: 3 views right wrist COMPARISON: No prior studies for comparison. FINDINGS: Fracture, dislocation or subluxation is not identified. The soft tissues appear within normal limits. No foreign bodies are identified. IMPRESSION: 1: NO ACUTE BONE OR JOINT ABNORMALITY IDENTIFIED. Reviewed, dictated and finalized at location C.
[2025-08-12 03:36] VITALS: PULSE 116; RESP 22; TEMP 37.3; O2SAT 98
--- NOTE | 2025-08-12 03:45 | ED_ITS ---
HPI - Extremity Injury (Upper) General Chief Complaint: Extremity Injury, Upper Stated Complaint: Fall in bathroom; R forearm pain Source: patient and EMS Mode of arrival: EMS Limitations: no limitations History of Present Illness HPI narrative: This is a 50-year-old female with history of osteosarcoma of of the jaw who presents to the ED for a fall. Patient states that she was in the shower at the hotel when she slipped and fell on outstretched left hand to a backpack full of clippers. She sustained an injury to her left wrist also notes that she scraped her left wrist with the clippers. Last tetanus was 3 years ago. Denies hitting her head, lost consciousness. She is not on any blood thinners. Denies any preceding symptoms. Related Data Home Medications ?Medication ?Instructions ?Recorded ?Confirmed ?Last Taken ?Type insulin human U-100 NPH-regulr 36 unit subcut BID 04/08 Unknown History 70-30 mix 100 unit/mL subcutaneous susp (Humulin 70/30 U-100 Insulin) insulin sliding scale 03/20/25 Unknown History oxycodone-acetaminophen 10 mg-325 1 tablet PO Q6H 04/08 Unknown History mg tablet (Endocet) Allergies Allergy/AdvReac Type Severity Reaction Status Date / Time iohexol (From contrast - CT, Allergy Hives Verified 08/12/25 04:42 X-RAY) meperidine (From Demerol) Allergy Hives Verified 08/12/25 04:42 ondansetron (From Zofran) Allergy Vomiting Verified 08/12/25 04:42 vancomycin Allergy Hives Verified 08/12/25 04:42 NSAIDS (Non-Steroidal AdvReac Palpitation Verified 08/12/25 04:42 Anti-Inflamma s Review of Systems Review of Systems: Gen.: Denies fevers or chills Eyes: Denies eye pain or visual change ENT: Denies congestion Respiratory: Denies shortness of breath or cough CV: Denies chest pain or palpitations GI: Denies abdominal pain nausea, emesis or diarrhea denies burning, urgency, frequency or hematuria Musculoskeletal: As per HPI Neuro: Denies numbness, tingling, weakness or focal weakness Skin: Denies rash Except as documented, all other systems reviewed and negative PMFSH Past Medical History Medical History Osteomyelitis of jaw left HTN (hypertension) Jaw cancer Biopsy 09/27/24 Social History Social History Additional living arrangements comments: Resides in [place] 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 Tenderness to palpation to the distal left ulna. Neurovascularly intact distally. NEURO: Awake and alert. SKIN:: Warm, dry. Abrasion over the distal left forearm PSYCHIATRIC: Normal affect/mood, Course Vital Signs Vital signs: Vital Signs Temperature 99.2 F 08/12/25 03:36 Pulse Rate 116 H 08/12/25 03:36 Respiratory Rate 22 H 08/12/25 03:36 Pulse Oximetry 98 08/12/25 03:36 Oxygen Delivery Room Air 08/12/25 03:36 Temperature 99.2 F 08/12/25 03:36 Pulse Rate 110 H 08/12/25 05:28 Respiratory Rate 20 08/12/25 05:28 Blood Pressure 180/110 H 08/12/25 05:28 Pulse Oximetry 98 08/12/25 05:28 Oxygen Delivery Room Air 08/12/25 03:36 MDM - Extremity Injury (Upper) MDM Narrative Medical decision making narrative: 50-year-old female Presenting for fall and right wrist injury. On initial evaluation patient was in no acute distress afebrile, hemodynamic stable. Differentials include but are not limited to: Fracture, sprain, strain, contusion, abrasion Notable exam findings: Tenderness over the distal right forearm, neurovascularly intact distally. Notable imaging findings: X-ray right wrist showed no acute fractures. Patient continued have pain, so she was given her home dose of Dilaudid IM. She was placed in a volar wrist splint. Splint was placed by the emergency department hazardous materials waste technician under my supervision. The patient was neurovascularly intact both pre-and post procedure. Patient was deemed appropriate for discharge at this time. Patient was advised follow-up with their PCP in the next week for re-evaluation. Patient was agreeable to this plan. Given strict return precautions. Medical Records Attestation: I reviewed the patient's medical records. Imaging Data Attestation: I personally reviewed and interpreted this imaging study as follows: My impression: X-ray right wrist: no acute fractures identified Discharge Plan Discharge Clinical Impression: Sprain and strain of wrist, Abrasion Patient Disposition: Home Condition: Stable Instructions: Antibiotic Form, Wrist Sprain (ED) Additional Instructions: Take your pain medications as previously prescribed. Keep splint in place for comfort as needed. Follow-up with your PCP at home for further evaluation. Return to the ED for any new or worsening symptoms. Patient Language: Divehi Prescriptions: No Action oxycodone-acetaminophen [Endocet] 10-325 mg tablet 1 tablet PO Q6H Humulin 70/30 U-100 Insulin 100 unit/mL (70-30) suspension 36 unit subcut BID insulin sliding scale Follow-up/Referrals: Samm Winchester MD [Primary Care Provider, Internal Medicine]
[2025-08-12] MEDS: MORPHINE SULFATE (*CRX) 4 MG/ML INJ IM (03:51)
--- OUTSIDE RECORDS SUMMARY | 2025-08-12 04:07 | XMS_ITS | Encounter Summary ---
Author Organization [facility] Address [address] [place] [address] Care Team Providers Care Biazzi Nitrator Operator Name Role Phone File, No Tank House Supervisor On MD Primary Care Prov ider Encounter Details Date Type Department Care Team (Late st Contact Info) Description 02/06/2008 Archive [facility] Historical Results Conversion, [address] [place] [id number] Social History Tobacco Use Types Packs/Day Years Used Date Smoking Tobacco: Never Assessed Comments Unknown Sex and Gender Information Value Date Recorded Sex Assigned at Not on file Legal Sex Female 11:23 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 Elise and Felipe Lerner [place] ADMISSION DIAGNOSES: 1. Persistent nausea and vomiting. 2. Epigastric abdominal pain. 3. Transaminitis. OTHER DIAGNOSES: Included: 1. History of multiple sclerosis. 2. Type 2 diabetes. 3. History of recurrent pancreatitis. 4. Reflux disease. CONSULTATIONS: Dr. Albrecht from gastroenterology. STUDIES: 1. CT of the abdomen and pelvis which showed cholecystectomy, hysterectomy, enlarged fatty liver, but no other intra-abdominal pathology. No noted biliary duct dilation. 2. Abdominal ultrasound, right upper quadrant, which showed mildly dilated common bile duct of 1.0 cm. No other significant pathology. HOSPITAL COURSE: The patient is a 33-year-old white woman with history of the above medical conditions who presented to the hospital with epigastric abdominal pain and persistent nausea and vomiting. The patient was treated symptomatically with IV fluids, nausea medications, and pain medication as needed. Patient underwent CT of the abdomen and pelvis as well as an ultrasound, which was unrevealing other than a slightly dilated common bile duct. Patient's liver function tests were within normal limits except for mildly elevated transaminases of AST 70, ALT of 179. Patient's bilirubin was within normal limits and alkaline phosphatase also within normal limits at 89 and 0.5. The patient had mild leukocytosis at 1300 and an abnormal UA on admission, however, was contaminated due to multiple species growing in the urine, less than 20,000 colonies and 50-100 epithelial cells on admission. The patient remained afebrile, was empirically treated with Levaquin until her urine culture was resulted. The patient had 3 days of antibiotics and Levaquin. The has not had any diarrhea throughout the hospital stay. Her diet advanced as tolerated to a low-fat, lactose-free diet, which the patient is tolerating well. The patient's lipase and amylase were within normal limits at 47 and 49, and there were no signs of pancreatitis despite her previous history on our CAT scan here. The patient was seen in consultation with Dr. Albrecht nausea and vomiting, who recommended follow-up with her cooking teacher in [place]. The patient will be discharged to home to travel to [place] for further evaluation if patient continues to have further episodes of pain or nausea and vomiting. Other significant labs have been hepatitis A, B, and C serologies, which were negative. Thus, elevated transaminases are most likely due to fatty liver. DISCHARGE CONDITION: Stable. DISCHARGE DIET: Low-fat, lactose-free diet. DISCHARGE ACTIVITY: As tolerated. DISCHARGE MEDICATIONS: The same as those on admission which were: 1. Phenergan 25 milligrams q.6 h. p.r.n. 2. Neurontin 600 milligrams at bedtime and 300 milligrams q.a.m. 3. Robaxin 750 milligrams at bedtime p.r.n. 4. Reglan 10 milligrams q.6 h. a.c. and at bedtime. 5. Elavil 50 milligrams b.i.d. 6. Exforge 10/160 milligrams daily. 7. Insulin sliding scale. 8. Ambien 10 milligrams at bedtime p.r.n. 9. Protonix 40 milligrams daily. 10. Percocet 10/650 q. 6 p.r.n. FOLLOW-UP: Follow-up will be with Dr. Rocha and Dr. Elise in 5-7 days in [place] for her common bile duct dilation. KATHERIN DOSHI MD [id number] [id number] ITURE SPRAYER documented in this encounter Plan of Treatment Not on file documented as of this encounter Visit Diagnoses Not on filedocumented in this encounter Care Teams Biazzi Nitrator Operator Relationship Specialty Start Date End Date File, No Tank House Supervisor On, [address] [facility] [place] [address] PCP - General 02/01/12 documented as of this encounter
--- OUTSIDE RECORDS SUMMARY | 2025-08-12 04:07 | XMS_ITS | Clinical Summary ---
Author Organization [facility] Address [address] [place] [id number] Care Team Providers Care Breastfeeding Peer Counselor Name Role Phone Unavailable Primary Care Provider Unavailabl e Allergies Active Allergy Reactions Criticality Noted Date Comments Butorphanol Other/Unknown (See Comments) 02/01/2012 Demerol Other/Unknown (See Comments) High 09/07/2024 Iodinated Diagnostic Agents Other/Unknown (See Comments) Low 09/07/2024 Nsaids Other/Unknown (See Comments),Hives High 03/22/2024 Due to her MS MS Contraindication due to MS Ondansetron Other/Unknown (See Comments),Hives,Naus ea And Vomiting,Nausea Only,Shortness Of Breath High 12/03/2013 Makes me vomit more Makes me vomit more Adverse reaction Adverse reaction Makes me vomit more In high doses In high doses Vomiting unknown Adverse reaction Adverse reaction Makes me vomit more In high doses Vomiting Vancomycin Hives,Other/Unknown (See Comments),Rash,Angio edema High 09/03/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 Medications metoprolol tartrate (LOPRESSOR) 50 MG tablet Take 1 tablet (50 mg) by mouth 2 times daily Active insulin NPH-insulin regular (NOVOLIN/HUMULIN 70/30) (70-30) 100 UNIT/ML Vial Act gian lisinopril (ZESTRIL) 20 MG tablet Take 1 tablet (20 mg) by mouth daily Active Encounters Date Type Department Care Team Description 06/18/[address] [address] None, Doctor Other 06/17/2025 8:47 AM CDT - 06/17/2025 10:08 AM CDT Emergency [facility] Emergency Department [address] [place] [id number] Quan Hull, DO Chronic pain syndrome (Primary Dx); Narcotic dependence (HCC); History of osteosarcoma Discharge Disposition: Home from Last 3 Months Social History Tobacco Use Types Packs/Day Years Used Date Smoking Tobacco: Never Smokeless Tobacco: Never Tobacco Cessation:Counseling Given: Not Answered Alcohol Use Standard Drinks/Week Comments Never 0 (1 standard drink = 0.6 oz pur e alcohol) Housing Stability Vital Sign Answer Bipin e Recorded In the last 12 months, was t here a time when you were not able to pay the mortgage or rent on time? No 09/07/2024 Number of Times Moved in the Last Year Not on fi le 09/07/2024 At any time in the past 12 m [facility], were you homeless or living in a fci (including now)? No 09/07/2024 Humiliation, Afraid, Rape, and Kick questionnair e Answer Date Recorded Within the last year, have y ou been afraid of your partner or ex-partner? No 06/17/2025 Within the last year, have y ou been humiliated or emotionally abused in other ways by your partner or ex-partner? No Within the last year, have y ou been kicked, hit, slapped, or otherwise physically hurt by your partner or ex-partner? No 06/17/2025 Within the last year, have y ou been raped or forced to have any kind of sexual activity by your partner or ex-partner? No 06/17/2025 Hunger Vital Sign Answer Date Recorded Within the past 12 months, y ou worried that your food would run out before you got the money to buy more. Never true 06/17/20 25 Within the past 12 months, t he food you bought just didn't last and you didn't have money to get more. Never true 06/17/2025 PRAPARE - Transportation Answer Date Re corded In the past 12 months, has l ack of transportation kept you from medical appointments or from getting medications? No 12/2024 In the past 12 months, has l ack of transportation kept you from meetings, work, or from getting things needed for daily living? No 06/17/2025 Housing Stability Vital Sign Answer Bipin e Recorded In the last 12 months, was t here a time when you were not able to pay the mortgage or rent on time? No 06/17/2025 In the past 12 months, how m any times have you moved where you were living? 0 06/17/2025 At any time in the past 12 m [facility], were you homeless or living in a fci (including now)? No 06/17/2025 [facility] Utilities Answer Date Recorded In the past 12 months has th e electric, gas, oil, or water company threatened to shut off services in your home? No 06/17/2025 Alcohol Use Answer Date Recorded Frequency of Alcohol Consumption Not on file 09/07/2024 Average Number of Drinks Not on file 024 Frequency of Binge Drinking Not on file 08/16 Alcohol Use Status Never 09/07/2024 Average alcohol consumption Not on file 08/16 Comments No Sex and Gender Information Value Date Recorded Sex Assigned at Not on file Legal Sex Female 10:10 AM CDT Gender Identity Not on file Sexual Orientation Not on file Last Filed Vital Signs Vital Sign Reading Time Taken Comments Blood Pressure 184/102 06/17/2025 10:01 AM CDT Pulse 97 06/17/2025 10:01 AM CDT Temperature 37 C (98.6 F) 06/17/2025 10:01 AM CDT Respiratory Rate 18 06/17/2025 10:01 AM CDT Oxygen Saturation 97% 06/17/2025 10:01 AM CDT Inhaled Oxygen Concentration - - Weight 81.6 kg (180 lb) 06/17/2025 8:50 AM CDT Height 170.2 cm (5' 7) 06/17/2025 8:50 AM CDT Body Mass Index 28.19 06/17/2025 8:50 AM CDT Plan of Treatment Health Maintenance Due Date Last Done Comments DIABETIC FOOT EXAM 1973 Diabetes follow-up every 6 m [facility] by HEMOGLOBIN A1C 1973 Diabetic Eye Exam 1973 HIV Screening 1973 Hepatitis C Screening ages 1 8 to 79 once 1973 LIPID TESTING 1973 URINARY MICROALBUMIN IN DIABETES 1973 MMR VACCINES (1 of 1 - Stand zach series) 1974 YEARLY WELLNESS EXAM 01/12/1976 DEPRESSION SCREENING 1985 BMI Above/Below Normal Parameters 1991 ADULT TETANUS 01/12/1992 HEPATITIS B VACCINES (1 of 3 - 19+ 3-dose series) 01/12/1992 CERVICAL CANCER SCREENING 1994 BREAST CANCER SCREENING 2013 Colon Cancer Screening 2018 Zoster Vaccine (Recombinant Vaccine) (1 of 2) 2023 Influenza Vaccine 05/15/2025 COVID-19 Immunization (1 - 2 ) 06/15/2025 HEPATITIS A VACCINES Aged Out No long er eligible based on patient's age to complete this topic HIB VACCINES Aged Out No longer eligi ble based on patient's age to complete this topic HPV VACCINES Aged Out No longer eligi ble based on patient's age to complete this topic IPV VACCINES Aged Out No longer eligi ble based on patient's age to complete this topic MENINGOCOCCAL VACCINE Aged Out No siomara neal eligible based on patient's age to complete this topic Meningococcal B Vaccine Aged Out No l onger eligible based on patient's age to complete this topic Pneumococcal Vaccine: Peds t o 50 & At-Risk Patients Aged Out No longer eligible b ased on patient's age to complete this topic ROTAVIRUS VACCINES Aged Out No longer eligible based on patient's age to complete this topic
--- OUTSIDE RECORDS SUMMARY | 2025-08-12 04:07 | XMS_ITS | Clinical Summary ---
Author Organization [facility] Address [address] Sandhu: Epic Prelude ADT [place] [address] Care Team Providers Care Elevator Erector Name Role Phone Unavailable Primary Care Provider [...] on file Legal Sex Female 4:25 AM SPANISH TEACHER Gender Identity Not on file Sexual Orientation Not on file Last Filed Vital Signs Vital Sign Reading Time Taken Comments Blood Pressure 191/108 08/28/2024 7:32 AM SPANISH TEACHER Pulse 97 08/28/2024 7:32 AM SPANISH TEACHER Temperature 37.3 C (99.2 F) 08/28/2024 7:32 AM SPANISH TEACHER Respiratory Rate 14 08/28/2024 7:32 AM SPANISH TEACHER Oxygen Saturation 96% 08/28/2024 7:32 AM SPANISH TEACHER Inhaled Oxygen Concentration - - Weight 95.3 kg (210 lb) 08/28/2024 6:12 AM SPANISH TEACHER Height 170.2 cm (5' 7) 08/28/2024 6:12 AM SPANISH TEACHER Body Mass Index 32.89 08/28/2024 6:12 AM SPANISH TEACHER Plan of Treatment Health Maintenance Due Date [...] (1 of 2) 2023 INFLUENZA VACCINE (#1) 2025
--- OUTSIDE RECORDS SUMMARY | 2025-08-12 04:07 | XMS_ITS | Clinical Summary ---
Author Organization [facility] Address [address] [place] [address] Care Team Providers Care Mortgage Loan Assistant Name Role Phone Unknown, Notinfile Primary Care Provider Unavail able Allergies Active Allergy Reactions Criticality Noted Date Comments Meperidine Hives Medium 04/04/2024 Iodinated Contrast Media Hives Medium 04/04/2024 Ok with premedication Nsaids (Non-Steroidal Anti-Inflammatory Drug) Other (See comments) Low 04/04/2024 Contraindicated with home meds Vancomycin Redness Low 04/04/2024 Ondansetron Vomiting Low 04/04/2024 Encounters Date Type Department Care Team Description 08/11/2025 6:20 AM CDT - 08/11/2025 7:17 AM CDT Emergency [address] [id number] Jaw pain (Primary Dx); Sore throat Discharge Disposition: Discharge to home or self care from Last 3 Months Social History Tobacco [...] Mass Index 28.19 08/11/2025 6:00 AM CDT Plan of Treatment Health Maintenance Due Date Last Done Comments Breast Cancer Screening-Mammogram 1973 Colon Cancer Screening-Colonoscopy 1973 Depression Screening 1973 Hepatitis C Screening 1973 DTaP/Tdap/Td Vaccine (1 - Tdap) 01/12/1984 Hepatitis B Screening 1991 Regular Well Visit/Exam 18-64 1991 Zoster Vaccine (1 of 2) 2023 Influenza Vaccine (#1) 2025 Pneumococcal vaccine <65 Aged Out No longer eligible based on patient's age to complete this topic Care Teams Mortgage Loan Assistant Relationship Specialty Start Date End Date Unknown, Notinfile PCP - General 04/04/24
--- OUTSIDE RECORDS SUMMARY | 2025-08-12 04:07 | XMS_ITS | Clinical Summary ---
Author Organization [facility] Address [address] [place] [address] Care Team Providers Care Fur Tailor Name Role Phone File, No Wax Coating Machine Tender On MD Primary Care Prov ider Allergies Active Allergy Reactions Criticality Noted Date Comments Iodinated Contrast Media 04/06/2024 Meperidine 02/01/2012 Nsaids (Non-Steroidal Anti-Inflammatory Drug) 08/14/2022 Cannot take due to her MS & liver enzymes Vancomycin 04/06/2024 Ondansetron Hcl 04/06/2024 Medications lisinopriL (ZESTRIL) 10 MG tablet Take 10 mg by mouth in the morning. Active metoprolol tartrate (LOPRESSOR) 50 MG tablet Take 50 mg by mouth in the morning and 50 mg before bedtime. Active insulin NPH-insulin regular (HUMULIN OR NOVOLIN 70/30) 100 unit/mL (70-30) injection Inject 20 Units into the skin in the morning. Active guaiFENesin (ROBITUSSIN) 100 mg/5 mL syrup Take 5-10 mLs (100-200 mg total) by mouth every 4 (four) hours as needed for Cough 60 mL 08/14/2022 Active Social History Tobacco Use Types Packs/Day Years Used Date Smoking Tobacco: Never Smokeless Tobacco: Never Tobacco Cessation:Counseling Given: Not Answered Alcohol Use Standard Drinks/Week Comments No 0 (1 standard drink = 0.6 oz pur e alcohol) Comments No Sex and Gender Information Value Date Recorded Sex Assigned at Not on file Legal Sex Female 11:23 AM COOK CANDY Gender Identity Not on file Sexual Orientation Not on file Last Filed Vital Signs Vital Sign Reading Time Taken Comments Blood Pressure 178/73 03/30/2025 1:37 PM CDT Pulse 96 03/30/2025 1:36 PM CDT Temperature 37.1 C (98.7 F) 03/30/2025 1:28 PM CDT Respiratory Rate 18 03/30/2025 1:28 PM CDT Oxygen Saturation 97% 03/30/2025 1:36 PM CDT Inhaled Oxygen Concentration - - Weight 95.3 kg (210 lb) 03/30/2025 1:28 PM CDT Height 170.2 cm (5' 7) 03/30/2025 1:28 PM CDT Body Mass Index 32.89 03/30/2025 1:28 PM CDT Plan of Treatment Health Maintenance Due Date Last Done Comments MAMMOGRAM 1973 COVID-19 Vaccine (#1) 1978 Foot Exam 1983 OPHTHALMOLOGY EXAM 1983 DTap,Tdap,and Td Vaccines (1 - Tdap) 01/12/1992 Pneumococcal PCV/PPSV 0-49 YRS/Low to High Risk (1 of 5 - PCV) 01/12/1992 PAP SMEAR 1994 COLORECTAL CANCER SCREENING 2018 Depression Screening 10/15/2024 eGFR 10/15/2024 04/06/2024, 11/0 06/2011, 07/29/2011, Additional history exists uACR 10/15/2024 Flu Vaccine (#1) 06/15/2025 RSV under 20 months Aged Out No longe r eligible based on patient's age to complete this topic Procedures Procedure Name Priority Date/Time Associated Diagnosis Comments COMPREHENSIVE METABOLIC PANEL STAT 04/06/2024 2:22 PM CDT from Last 3 Months or Most Recently Relevant to Health Maintenance Results * (ABNORMAL) Comprehensive metabolic panel (04/06/2024 2:22 PM CDT) Chloride 107 98 - 108 mEq/L [facility] AST 16 12 - 40 u/l [facility] Glucose 220(H) 70 - 105 mg/dL [facility] Anion Gap 10 5 - 15 [facility] Albumin 3.9 3.5 - 5.2 g/dl [facility] Potassium 4.2 3.5 - 5.1 mEq/L [facility] Alkaline Phosphatase 93 32 - 138 u/l [facility] Calcium 8.9 8.8 - 10.5 mg/dL [facility] Osmolality Calc 278 253 - 306 MOSM/K [facility] Creatinine 0.74 0.70 - 1.30 mg/dL [facility] Glomerular Filtration Rate 98 >=60 [facility] Comment: The CKD-EPI (2020) equation is recommended by the National Kidney Foundation- [place] Society of Nephrology (NKF-ASN) Task Force and incorporates serum, creatinine, age and sex, but does not use a race coefficient. Results for patients <18 years of age should be interpreted with caution. Sodium 135(L) 136 - 145 mmol/L [facility] CO2 18(L) 23 - 29 mmol/L [facility] Total Bilirubin 0.5 0.4 - 1.6 mg/dL [facility] ALT 18 10 - 50 u/l [facility] BUN 16 5 - 20 mg/dL [facility] BUN/Creatinine Ratio 22(H) 10 - 20 [facility] Total Protein 7.3 5.8 - 7.9 GM/DL [facility] Whole Blood 04/06/2024 2:22 PM CDT 04/06/2024 2:25 PM CDT us Courtney Deshpande PA-C LAB BLOOD ORDERABLES Final Result [facility] [address] [place] [address] from Last 3 Months or Most Recently Relevant to Health Maintenance Care Teams Fur Tailor Relationship Specialty Start Date End Date File, No Wax Coating Machine Tender On, [address] [place] [place] [address] PCP - General 02/01/12
--- OUTSIDE RECORDS SUMMARY | 2025-08-12 04:07 | XMS_ITS | Encounter Summary ---
Author Organization [facility] Address [address] [place] [address] Care Team Providers Care Overlock Operator Name Role Phone File, No Auto Emissions Technician On MD Primary Care Prov ider Encounter Details Date Type Department Care Team (Late st Contact Info) Description 11/14/2000 Archive [facility] Historical Results Conversion, [address] [place] [address] Social History Tobacco Use Types Packs/Day Years Used Date Smoking Tobacco: Never Assessed Comments Unknown Sex and Gender Information Value Date Recorded Sex Assigned at Not on file Legal Sex Female 11:23 AM APPLICATION SOFTWARE DEVELOPER Gender Identity Not on file Sexual Orientation Not on file documented as of this encounter Miscellaneous Notes * History & Physical - Conversion, - 11/14/2000 3:50 AM CST HISTORY OF PRESENT ILLNESS: Mrs. Ramirez is a 25-year-old obese female who was admitted from the PMD's office with complaints of pain in her chest. According to the patient she has been having this kind of pain off and on for the last couple of months. About a year ago she was diagnosed with SVT and was given medication which she has stopped taking a few weeks ago because she could not afford to buy them anymore. 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 She stated that she started to have retrosternal chest pain which was dull, went to the right side of her neck and also radiated down her right hand. The pain did not go to her left hand or left side of the neck. She did not lose consciousness. This morning, while she was sitting at the PMD's office, she started to have pain and was sent here for further evaluation and management. PAST MEDICAL HISTORY: Significant for questionable SVT. ALLERGIES: NO KNOWN DRUG ALLERGIES. MEDICATIONS: The patient is not on any medication at home. She told me that she was prescribed some medication but she has stopped taking them because she was unable to buy them for the last few months. She has just recently got her Medicaid approved and is planning to buy her medications again. FAMILY HISTORY: According to the patient, she has a very strong history of coronary artery disease. Her father in his 40s from acute [place]. Her mother in her 40s with acute [place]. Her brother in his 40s of acute [place] and her sister has high blood pressure. 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 She stated that she was working at the [facility] in [place] but has moved down here for the last six months. Never smoked, drank, or abused drugs. REVIEW OF SYSTEMS: HEENT: History of headache in the past. CARDIOVASCULAR: History of SVT questionable in the past. GI: No problem assessed. GENITOURINARY: No problem assessed. MUSCULOSKELETAL: No problem assessed. PHYSICAL EXAMINATION: GENERAL: A young obese lady lying in bed, not in any acute distress, speaks in full sentences. VITAL SIGNS: Pulse 92 per minute, regular, good volume, bilaterally symmetrical. Blood pressure 132/74 mmHg. Respirations 16 per minute. Afebrile. Saturation 98 percent on 2 liters. HEAD: Atraumatic, normocephalic. EYES: EOMI. PERRLA. ENT: Grossly normal. NECK: Supple. No JVD, no thyromegaly, no lymphadenopathy. CHEST: Breath sounds vesicular, heard bilaterally. No adventitious sounds. CVS: S1, S2 regular. No S3, no S4. No rub, murmur or gallop. SALESPERSON JEWELRY: Alert and oriented x3. No focal deficit. ABDOMEN: Soft. Bowel sounds present. No mass, no tenderness. EXTREMITIES: No clubbing, cyanosis or edema. LABORATORY DATA: SMA: Sodium 144, potassium 4.8, chloride 108, CO2 27, BUN ____, creatinine 0.7, glucose 97. CPK 110. Troponin less than 0.010. CBC: WBC 7.1, RBC 4.6, hemoglobin 14.6, hematocrit 43.8, MCV 94, platelets 353, neutrophils 60, lymphocytes 32. EKG: Sinus tachycardia, right bundle branch block, nonspecific ST-T changes. IMPRESSION: History of pain in her chest radiating to the right side of her neck and hand. I am not sure whether this pain is of cardiac origin or not. The patient has a very strong family history of coronary artery disease but her history is full of inconsistencies. She told me that she does not remember the name of her cleaner greaser in [place] who did her work up and did an SVT. She also told me that she does not want a cardiac cath to be done. Her main problem at this time, according to her, was headache and she needed something for her headache. I will admit the patient to [facility], obtain serial cardiac enzymes with Troponin and repeat her EKG. If she continues to have chest pain, she will probably need a cardiac cath done but, at this point, I will admit her as a 23 hour observation patient and give her supportive and symptomatic treatment. [id number] DOCUMENT: [id number] ICATION SOFTWARE DEVELOPER documented in this encounter Plan of Treatment Not on file documented as of this encounter Visit Diagnoses Not on filedocumented in this encounter Care Teams Overlock Operator Relationship Specialty Start Date End Date File, No Auto Emissions Technician On, [address] [place] [address] PCP - General 02/01/12 documented as of this encounter
--- OUTSIDE RECORDS SUMMARY | 2025-08-12 04:07 | XMS_ITS | Clinical Summary ---
Author Organization [facility] Address [address] [place] [address] Phone Care Team Providers Care Coordinator Of Library Services Name Role Phone Provider, Not On File [...] Comments Blood Pressure 180/110 09/26/2024 10:49 AM FULL STACK SOFTWARE DEVELOPER Pulse 96 09/26/2024 10:49 AM FULL STACK SOFTWARE DEVELOPER Temperature 36.9 C (98.5 F) 09/26/2024 10:49 AM FULL STACK SOFTWARE DEVELOPER Respiratory Rate 20 09/26/2024 10:49 AM FULL STACK SOFTWARE DEVELOPER Oxygen Saturation 97% 09/26/2024 10:49 AM FULL STACK SOFTWARE DEVELOPER Inhaled Oxygen Concentration - - Weight 96.3 kg (212 lb 6.4 oz) 09/26/2024 10:49 AM FULL STACK SOFTWARE DEVELOPER Height 170.2 cm (5' 7) 09/26/2024 10:49 AM FULL STACK SOFTWARE DEVELOPER Body Mass Index 33.27 09/26/2024 10:49 AM FULL STACK SOFTWARE DEVELOPER Plan of Treatment Not on file Care Teams Coordinator Of Library Services Relationship Specialty Start Date End Date Provider, Unknown UNKNOWN PCP - General 08/20/24 Provider, Not On File [place] 09/15/23
--- NOTE | 2025-08-12 04:30 | PC.NURSE ---
Medication comes from pharmacy. Will administer when medication is received.
[2025-08-12 04:46] VITALS: BP 189/114; PULSE 110; RESP 22; O2SAT 97
[2025-08-12] MEDS: PROMETHAZINE HCL 12.5 MG TABLET PO (04:51)
[2025-08-12] MEDS: HYDROmorphone HCL INJ (*CRX) 1 MG/ML SYR IM (04:51)
[2025-08-12 05:28] VITALS: BP 180/110; PULSE 110; RESP 20; O2SAT 98
--- NOTE | 2025-08-25 04:45 | PC.NURSE ---
late entry note= VORB Dr. Gonzalez apply short arm volar splint.
== END 2025-08-12 05:16 | disposition home or self-care (01) ==
PROVIDERS: Emergency Provider Student in an Organized Health Care Education/Training Program; PCP Internal Medicine
DX: S63.501A Unspecified sprain of right wrist, initial encounter (principal); S66.911A Strain of unspecified muscle, fascia and tendon at wrist and hand level, right hand, initial encounter; C41.1 Malignant neoplasm of mandible; I10 Essential (primary) hypertension; W18.2XXA Fall in (into) shower or empty bathtub, initial encounter
CPT/HCPCS: 29125; 73110; 96372; 99284; A9270; J1171; J2270

== ENCOUNTER 2025-09-02 09:02 | Emergency (ER) | payer SELFPAY ==
[2025-09-02 09:18] VITALS: BP 213/126; PULSE 120; RESP 18; O2SAT 99
--- NOTE | 2025-09-02 09:33 | ED.GENADULT ---
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 Pt says she has been vomiting up pain meds and just needs shot for pain and nausea. Pt is from [facility] and is visiting the area. Related Data Home Medications ?Medication ?Instructions ?Recorded ?Confirmed ?Last Taken ?Type insulin human U-100 NPH-regulr 36 unit subcut BID 03/20/25 Unknown History 70-30 mix 100 unit/mL subcutaneous susp (Humulin 70/30 U-100 Insulin) insulin sliding scale 03/20/25 Unknown History oxycodone-acetaminophen 10 mg-325 1 tablet PO Q6H 03/20/25 Unknown History mg tablet (Endocet) Allergies Allergy/AdvReac Type Severity Reaction Status Date / Time iohexol (From contrast - CT, Allergy Hives Verified 09/02/25 09:40 X-RAY) meperidine (From Demerol) Allergy Hives Verified 09/02/25 09:40 vancomycin Allergy Hives Verified 09/02/25 09:40 NSAIDS (Non-Steroidal AdvReac Palpitation Verified 09/02/25 09:40 Anti-Inflamma s ondansetron (From Zofran) AdvReac Vomiting Verified 09/02/25 09:40 Review of Systems Review of Systems: All systems reviewed & are unremarkable except as noted in HPI and below PMFSH Past Medical History Medical History Osteomyelitis of jaw left HTN (hypertension) Jaw cancer Biopsy 09/27/24 Social History Social History Additional living arrangements comments: Resides in [place] 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 Exam Const: General: cooperative and no acute distress HENMT: Head: other (tender along mandible) Neck: Neck: normal visual inspection and full ROM Chest: Chest palpation & inspection: normal inspection of the chest Resp: Effort & Inspection: normal respiratory effort and able to speak in complete sentences Cardio: Rate: regular rate Rhythm: regular rhythm GI: GI Palp: No abdominal tenderness Skin: General skin exam: normal color Neuro: General: patient oriented x3, no focal motor deficits and CN's II-XI intact bilaterally Extrem: General: normal to inspection, full ROM and capillary refill normal Psych: Appearance: grossly normal Mental Status: mental status grossly normal Speech and movement: Normal speech and movement present Course Vital Signs Vital signs: Vital Signs Pulse Rate 120 H 09/02/25 09:18 Respiratory Rate 18 09/02/25 09:18 Blood Pressure 213/126 H 09/02/25 09:18 Pulse Oximetry 99 09/02/25 09:18 Oxygen Delivery Room Air 09/02/25 09:18 Pulse Rate 120 H 09/02/25 09:18 Respiratory Rate 18 09/02/25 09:18 Blood Pressure 213/126 H 09/02/25 09:18 Pulse Oximetry 99 09/02/25 09:18 Oxygen Delivery Room Air 09/02/25 09:18 Medical Decision Making MDM Narrative Medical decision making narrative: Pt just requesting pain and nausea shot. Pt says she is on comfort care for cancer. will give dilaudid and phenergran. Vital Signs Vital Signs: Vital Signs Pulse Rate 120 H 09/02/25 09:18 Respiratory Rate 18 09/02/25 09:18 Blood Pressure 213/126 H 09/02/25 09:18 Pulse Oximetry 99 09/02/25 09:18 Oxygen Delivery Room Air 09/02/25 09:18 Pulse Rate 120 H 09/02/25 09:18 Respiratory Rate 18 09/02/25 09:18 Blood Pressure 213/126 H 09/02/25 09:18 Pulse Oximetry 99 09/02/25 09:18 Oxygen Delivery Room Air 09/02/25 09:18 Discharge Plan Discharge Clinical Impression: Cancer of mandible Patient Disposition: Home Condition: Stable Instructions: Antibiotic Form, Cancer Pain (ED) Patient Language: Uzbek Prescriptions: No Action oxycodone-acetaminophen [Endocet] 10-325 mg tablet 1 tablet PO Q6H Humulin 70/30 U-100 Insulin 100 unit/mL (70-30) suspension 36 unit subcut BID insulin sliding scale Follow-up/Referrals: Samm Winchester MD [Primary Care Provider, Internal Medicine]
[2025-09-02] MEDS: PROMETHAZINE HCL 25 MG/ML AMPUL IM (09:45)
[2025-09-02] MEDS: HYDROmorphone HCL INJ (*CRX) 2 MG/ML VIAL IM (09:45)
--- OUTSIDE RECORDS SUMMARY | 2025-09-02 12:56 | XMS_ITS | Clinical Summary ---
Author Organization [facility] Address [address] [place] [address] Phone Care Team Providers Care Training Instructor Name Role Phone Provider, Not On File [...] Comments Blood Pressure 180/110 09/26/2024 10:49 AM VARNISH MIXER Pulse 96 09/26/2024 10:49 AM VARNISH MIXER Temperature 36.9 C (98.5 F) 09/26/2024 10:49 AM VARNISH MIXER Respiratory Rate 20 09/26/2024 10:49 AM VARNISH MIXER Oxygen Saturation 97% 09/26/2024 10:49 AM VARNISH MIXER Inhaled Oxygen Concentration - - Weight 96.3 kg (212 lb 6.4 oz) 09/26/2024 10:49 AM VARNISH MIXER Height 170.2 cm (5' 7) 09/26/2024 10:49 AM VARNISH MIXER Body Mass Index 33.27 09/26/2024 10:49 AM VARNISH MIXER Plan of Treatment Not on file Care Teams Training Instructor Relationship Specialty Start Date End Date Provider, Unknown UNKNOWN PCP - General 08/20/24 Provider, Not On File [place] 09/15/23
--- OUTSIDE RECORDS SUMMARY | 2025-09-02 12:56 | XMS_ITS | Clinical Summary ---
Author Organization [facility] Address [address] [place] [address] Care Team Providers Care Storage Management Consultant Name Role Phone File, No Kiln Mechanic On MD Primary Care Prov ider Allergies [...] on file Legal Sex Female 11:23 AM POWDER GUARD Gender Identity Not on file Sexual Orientation [...] CDT) Chloride 107 98 - 108 mEq/L [facility] AST 16 12 - 40 u/l [facility] Glucose 220(H) 70 - 105 mg/dL [facility] Anion Gap 10 5 - 15 [facility] Albumin 3.9 3.5 - 5.2 g/dl [facility] Potassium 4.2 3.5 - 5.1 mEq/L [facility] Alkaline Phosphatase 93 32 - 138 u/l [facility] Calcium 8.9 8.8 - 10.5 mg/dL [facility] Osmolality Calc 278 253 - 306 MOSM/K [facility] Creatinine 0.74 0.70 - 1.30 mg/dL [facility] Glomerular Filtration Rate 98 >=60 [facility] Comment: The CKD-EPI (2020) equation is recommended by the National Kidney Foundation- [place] Society of Nephrology (NKF-ASN) Task Force and incorporates serum, creatinine, age and sex, but does not use a race coefficient. Results for patients <18 years of age should be interpreted with caution. Sodium 135(L) 136 - 145 mmol/L [facility] CO2 18(L) 23 - 29 mmol/L [facility] Total Bilirubin 0.5 0.4 - 1.6 mg/dL [facility] ALT 18 10 - 50 u/l [facility] BUN 16 5 - 20 mg/dL [facility] BUN/Creatinine Ratio 22(H) 10 - 20 [facility] Total Protein 7.3 5.8 - 7.9 GM/DL [facility] Whole Blood 04/06/2024 2:22 PM CDT 04/06/2024 2:25 PM CDT us Courtney Deshpande PA-C LAB BLOOD ORDERABLES Final Result [facility] [address] [place] [id number] from Last 3 Months or Most Recently Relevant to Health Maintenance Care Teams Storage Management Consultant Relationship Specialty Start Date End Date File, No Kiln Mechanic On, [address] [place] [address] PCP - General 02/01/12
--- OUTSIDE RECORDS SUMMARY | 2025-09-02 12:56 | XMS_ITS | Clinical Summary ---
Author Organization [employer] Address [address] [facility] Attn: Epic Prelude ADT CREKIMI AGOSTO [address] Care Team Providers Care Jammer Hooker Name Role Phone Unavailable Primary Care Provider [...] on file Legal Sex Female 4:25 AM SEWING MACHINE REPAIRER HELPER Gender Identity Not on file Sexual Orientation Not on file Last Filed Vital Signs Vital Sign Reading Time Taken Comments Blood Pressure 191/108 08/28/2024 7:32 AM SEWING MACHINE REPAIRER HELPER Pulse 97 08/28/2024 7:32 AM SEWING MACHINE REPAIRER HELPER Temperature 37.3 C (99.2 F) 08/28/2024 7:32 AM SEWING MACHINE REPAIRER HELPER Respiratory Rate 14 08/28/2024 7:32 AM SEWING MACHINE REPAIRER HELPER Oxygen Saturation 96% 08/28/2024 7:32 AM SEWING MACHINE REPAIRER HELPER Inhaled Oxygen Concentration - - Weight 95.3 kg (210 lb) 08/28/2024 6:12 AM SEWING MACHINE REPAIRER HELPER Height 170.2 cm (5' 7) 08/28/2024 6:12 AM SEWING MACHINE REPAIRER HELPER Body Mass Index 32.89 08/28/2024 6:12 AM SEWING MACHINE REPAIRER HELPER Plan of Treatment Health Maintenance Due Date [...]
--- OUTSIDE RECORDS SUMMARY | 2025-09-02 12:56 | XMS_ITS | Clinical Summary ---
Author Organization [facility] Address [address] [place] [address] Dr CALDERON, CANDI [address] Care Team Providers Care Technology Resource Teacher Name Role Phone Pcp, No Primary Care Provider Unavailabl e Allergies Active Allergy Reactions Criticality Noted Date Comments Meperidine Hives (only) Low 07/11/2024 Iodinated Contrast Media Hives (only) Low 07/11/2024 Nsaids (Non-Steroidal Anti-Inflammatory Drug) Other (see comments) 07/11/2024 Contraindication with medication Vancomycin Other (see comments) 07/11/2024 Red Man syndrome Ondansetron Hcl Vomiting (multiple episodes) High 07/11/2024 Social History Tobacco Use Types Packs/Day Years Used Date Smoking Tobacco: Never Smokeless Tobacco: Never Tobacco Cessation:Counseling Given: Not Answered Alcohol Use Standard Drinks/Week Comments Not Currently 0 (1 standard drink = 0.6 oz pur e alcohol) Comments Unknown Sex and Gender Information Value Date Recorded Sex Assigned at Not on file Legal Sex Female 10:21 AM CDT Gender Identity Not on file Sexual Orientation Not on file Last Filed Vital Signs Vital Sign Reading Time Taken Comments Blood Pressure 235/138 07/11/2024 5:19 PM CDT provider aware of blood pressure; pt. has a history and takes medications daily. Pulse 85 07/11/2024 5:19 PM CDT Temperature 37.2 C (99 F) 07/11/2024 3:57 PM CDT Respiratory Rate 17 07/11/2024 5:19 PM CDT Oxygen Saturation 97% 07/11/2024 5:1 9 PM CDT Inhaled Oxygen Concentration - - Weight 95.3 kg (210 lb) 07/11/2024 3:57 PM CDT Height - - Body Mass Index - - Plan of Treatment Health Maintenance Due Date Last Done Comments Diabetic Foot Exam (Adult) 1973 HIV Screening 1973 Hyperlipidemia Screening/Monitoring 1973 Hepatitis B Vaccines (1 of 3 - 19+ 3-dose series) 01/12/1992 Hepatitis C Screening 01/12/1992 DTaP,Tdap,and Td Vaccines (1 - Tdap) 1998 Breast Cancer Screening: Bilateral 2013 CT Colonography 2018 Cologuard (FIT-DNA) 2018 Colonoscopy 2018 Colorectal Cancer Screening 2018 Fecal Immunochemical Test (FIT) 2018 Sigmoidoscopy 2018 Pneumococcal Vaccine: 50+ Ye ars (1 of 1 - PCV) 2023 Zoster Vaccine (1 of 2) 2023 COVID-19 Vaccine ( - 2024-2 6 season) 2025 Influenza Vaccine (#1) 2025 HIB Vaccines Aged Out No longer eligi ble based on patient's age to complete this topic Meningococcal ACWY Vaccine Aged Out N o longer eligible based on patient's age to complete this topic Meningococcal B Vaccine Aged Out No l onger eligible based on patient's age to complete this topic Care Teams Technology Resource Teacher Relationship Specialty Start Date End Date Pcp, No PCP - General 07/11/24
--- OUTSIDE RECORDS SUMMARY | 2025-09-02 12:56 | XMS_ITS | Clinical Summary ---
Author Organization [facility] Address [address] [place] [address] Care Team Providers Care Caterer Helper Name Role Phone Unknown, Notinfile Primary Care [...] CDT - 08/11/2025 7:17 AM CDT Emergency [address] [address] Jaw pain (Primary Dx); Sore throat Discharge [...] age to complete this topic Care Teams Caterer Helper Relationship Specialty Start Date End Date Unknown, Notinfile PCP - General 04/04/24
--- OUTSIDE RECORDS SUMMARY | 2025-09-02 12:56 | XMS_ITS | Clinical Summary ---
Author Organization [facility] Address [address] [place] [phone] Phone Care Team Providers Care Oil Agent Name Role Phone Pcp, None MD Primary [...] of Treatment Not on file Care Teams Oil Agent Relationship Specialty Start Date End Date Pcp, None, PCP - General 01/13/24
--- OUTSIDE RECORDS SUMMARY | 2025-09-02 12:56 | XMS_ITS | Encounter Summary ---
Author Organization [facility] Address [address] [place] [address] Care Team Providers Care Brand Marketing Coordinator Name Role Phone File, No Stock Broker Supervisor On MD Primary Care Prov ider Encounter Details Date Type Department Care Team (Late st Contact Info) Description 11/14/2000 Archive [facility] [place] Historical Results Conversion, [address] [place] [id number] Social History Tobacco Use Types Packs/Day Years Used Date Smoking Tobacco: Never Assessed Comments Unknown Sex and Gender Information Value Date Recorded Sex Assigned at Not on file Legal Sex Female 11:23 AM MONOMER PURIFICATION OPERATOR Gender Identity Not on file Sexual Orientation [...] 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 She stated that [...] Her father in his 40s from acute NE. Her mother in her 40s with acute NE. Her brother in his 40s of acute NE and her sister has high blood pressure. 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 She stated that she was working at the [employer] in [place] but has moved down here for the [...] no S4. No rub, murmur or gallop. PEST CONTROL TECHNICIAN: Alert and oriented x3. No focal deficit. [...] does not remember the name of her workers compensation specialist in [place] who did her work up and did an SVT. She also told me that she does not want a cardiac cath to be done. Her main problem at this time, according to her, was headache and she needed something for her headache. I will admit the patient to [facility], obtain serial cardiac enzymes with Troponin and repeat her EKG. If she continues to have chest pain, she will probably need a cardiac cath done but, at this point, I will admit her as a 23 hour observation patient and give her supportive and symptomatic treatment. [facility]:[id number] DOCUMENT: [id number] MER PURIFICATION OPERATOR documented in this encounter Plan of Treatment Not on file documented as of this encounter Visit Diagnoses Not on filedocumented in this encounter Care Teams Brand Marketing Coordinator Relationship Specialty Start Date End Date File, No Stock Broker Supervisor On, [address] [place] [address] PCP - General 02/01/12 documented as of this encounter
--- OUTSIDE RECORDS SUMMARY | 2025-09-02 12:56 | XMS_ITS | Encounter Summary ---
Author Organization [facility] Address [address] [place] [address] Care Team Providers Care Pipe Puller Name Role Phone File, No Residential Substance Abuse Counselor On MD Primary Care Prov ider Encounter Details Date Type Department Care Team (Late st Contact Info) Description 02/06/2008 Archive [facility] [place] Historical Results Conversion, [address] [place] [address] Social History Tobacco Use Types Packs/Day Years Used Date Smoking Tobacco: Never Assessed Comments Unknown Sex and Gender Information Value Date Recorded Sex Assigned at Not on file Legal Sex Female 11:23 AM SALES ORDER CLERK Gender Identity Not on file Sexual Orientation Not on file documented as of this encounter Miscellaneous Notes * Discharge Summary - ConversionMD - 02/06/2008 1:03 AM CDT DICTATED BY: KATHERIN DOSHI MD PATIENT NAME: ROSSY RAMIREZ PATIENT CLASS: I HOSP NO: [id number] ROOM: [facility] ADMIT DATE: 02/03/2008 DISCHARGE DATE: 02/05/2008 CC: Felipe Luu [place] DISCHARGE SUMMARY REFERRING PHYSICIAN: Dr. Elise and Felipe Lerner [place] ADMISSION DIAGNOSES: 1. Persistent nausea and vomiting. [...] and vomiting, who recommended follow-up with her quality tech in [place]. The patient will be discharged to home to travel to [place] for further evaluation if patient continues to [...] and Dr. Elise in 5-7 days in [place] for her common bile duct dilation. KATHERIN DOSHI MD [id number] S ORDER CLERK documented in this encounter Plan of Treatment Not on file documented as of this encounter Visit Diagnoses Not on filedocumented in this encounter Care Teams Pipe Puller Relationship Specialty Start Date End Date File, No Residential Substance Abuse Counselor On, [address] [place] [address] PCP - General 02/01/12 documented as of this encounter
== END 2025-09-02 09:55 | disposition home or self-care (01) ==
LOC: ANHED 09:41
PROVIDERS: Emergency Provider Emergency Medicine; PCP Internal Medicine
DX: G89.3 Neoplasm related pain (acute) (chronic) (principal); C41.1 Malignant neoplasm of mandible; Z79.891 Long term (current) use of opiate analgesic; I10 Essential (primary) hypertension
CPT/HCPCS: 96372; 99284; J1171; J1200; J2550

== ENCOUNTER 2025-09-04 05:10 | Emergency (ER) | payer SELFPAY ==
[2025-09-04 05:14] VITALS: BP 125/115; PULSE 111; RESP 18; TEMP 36.8; O2SAT 100
--- NOTE | 2025-09-04 05:20 | ED.GENADULT ---
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 Patient is visiting from out of town as her car broke down. She is leaving to go to [facility] today and needs something for pain control until she can get home where her regular doctor and pain care doctors are. Patient has been here several times this week for similar events and responds nicely to intramuscular Dilaudid and diphenhydramine your requesting the same today so she can get home. No other complaints. No systemic symptoms. Related Data Home Medications ?Medication ?Instructions ?Recorded ?Confirmed ?Last Taken ?Type insulin human U-100 NPH-regulr 36 unit subcut BID 03/20/25 Unknown History 70-30 mix 100 unit/mL subcutaneous susp (Humulin 70/30 U-100 Insulin) insulin sliding scale 03/20/25 Unknown History oxycodone-acetaminophen 10 mg-325 1 tablet PO Q6H 03/20/25 Unknown History mg tablet (Endocet) Allergies Allergy/AdvReac Type Severity Reaction Status Date / Time iohexol (From contrast - CT, Allergy Hives Verified 09/02/25 09:40 X-RAY) meperidine (From Demerol) Allergy Hives Verified 09/02/25 09:40 vancomycin Allergy Hives Verified 09/02/25 09:40 NSAIDS (Non-Steroidal AdvReac Palpitation Verified 09/02/25 09:40 Anti-Inflamma s ondansetron (From Zofran) AdvReac Vomiting Verified 09/02/25 09:40 Review of Systems Review of Systems: As [facility] Past Medical History Medical History Osteomyelitis of jaw left HTN (hypertension) Jaw cancer Biopsy 09/27/24 Social History Social History Additional living arrangements comments: Resides in [place] 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 Mucous membranes moist. NECK: Supple. CHEST: [Clear to auscultation. No respiratory distress.] HEART: [Regular rate and rhythm]. No murmur heard. [Normal peripheral pulses.] ABDOMEN: [Soft, nondistended], [nontender], [No rigidity or guarding] EXTREMITIES: Normal range of motion. [No edema.] SKIN: Warm, dry, no rash. NEURO: [No focal deficits]. Alert and oriented [x3.] PSYCH: [Normal mood and affect.] Course Vital Signs Vital signs: Vital Signs Temperature 36.8 C 09/04/25 05:14 Pulse Rate 111 H 09/04/25 05:14 Respiratory Rate 18 09/04/25 05:14 Blood Pressure 125/115 H 09/04/25 05:14 Pulse Oximetry 100 09/04/25 05:14 Oxygen Delivery Room Air 09/04/25 05:14 Temperature 36.8 C 09/04/25 05:14 Pulse Rate 111 H 09/04/25 05:14 Respiratory Rate 18 09/04/25 05:14 Blood Pressure 125/115 H 09/04/25 05:14 Pulse Oximetry 100 09/04/25 05:14 Oxygen Delivery Room Air 09/04/25 05:14 Medical Decision Making MDM Narrative Medical decision making narrative: 50-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 Patient is visiting from out of town as her car broke down. She is leaving to go to [facility] today and needs something for pain control until she can get home where her regular doctor and pain care doctors are. Patient has been here several times this week for similar events and responds nicely to intramuscular Dilaudid and diphenhydramine your requesting the same today so she can get home. No other complaints. No systemic symptoms. Patient given 2 mg IM Dilaudid 25 mg IM Benadryl and discharged home. Patient appreciated the pain control and is safe for discharge. Medical Records Medical records reviewed: Yes I reviewed the external patient's medical records. Vital Signs Vital Signs: Vital Signs Temperature 36.8 C 09/04/25 05:14 Pulse Rate 111 H 09/04/25 05:14 Respiratory Rate 18 09/04/25 05:14 Blood Pressure 125/115 H 09/04/25 05:14 Pulse Oximetry 100 09/04/25 05:14 Oxygen Delivery Room Air 09/04/25 05:14 Temperature 36.8 C 09/04/25 05:14 Pulse Rate 111 H 09/04/25 05:14 Respiratory Rate 18 09/04/25 05:14 Blood Pressure 125/115 H 09/04/25 05:14 Pulse Oximetry 100 09/04/25 05:14 Oxygen Delivery Room Air 09/04/25 05:14 Discharge Plan Discharge Clinical Impression: Cancer of mandible, Need for comfort care Patient Disposition: Home Condition: Stable Instructions: Antibiotic Form Patient Language: Georgian Prescriptions: No Action oxycodone-acetaminophen [Endocet] 10-325 mg tablet 1 tablet PO Q6H Humulin 70/30 U-100 Insulin 100 unit/mL (70-30) suspension 36 unit subcut BID insulin sliding scale Follow-up/Referrals: PHYSICIAN NOT ON STAFF,NONSTAFF [Non-Staff] Time of Disposition: :23
[2025-09-04] MEDS: HYDROmorphone HCL INJ (*CRX) 2 MG/ML VIAL IM (05:25)
--- OUTSIDE RECORDS SUMMARY | 2025-09-04 05:28 | XMS_ITS | Clinical Summary ---
Author Organization [facility] Address [address] [place] [address] Care Team Providers Care Medical Claims Assistant Name Role Phone File, No Newspaper Delivery Driver On MD Primary Care Prov ider Allergies [...] on file Legal Sex Female 11:23 AM PACKAGE DYEING MACHINE OPERATOR Gender Identity Not on file Sexual [...] CDT) Chloride 107 98 - 108 mEq/L [facility] AST 16 12 - 40 u/l [facility] Glucose 220(H) 70 - 105 mg/dL [facility] Anion Gap 10 5 - 15 [facility] Albumin 3.9 3.5 - 5.2 g/dl [facility] Potassium 4.2 3.5 - 5.1 mEq/L [facility] Alkaline Phosphatase 93 32 - 138 u/l [facility] Calcium 8.9 8.8 - 10.5 mg/dL [facility] Osmolality Calc 278 253 - 306 MOSM/K [facility] Creatinine 0.74 0.70 - 1.30 mg/dL [facility] Glomerular Filtration Rate 98 >=60 [facility] Comment: The CKD-EPI (2020) equation is recommended by the National Kidney Foundation- [place] Society of Nephrology (NKF-ASN) Task Force and incorporates serum, creatinine, age and sex, but does not use a race coefficient. Results for patients <18 years of age should be interpreted with caution. Sodium 135(L) 136 - 145 mmol/L [facility] CO2 18(L) 23 - 29 mmol/L [facility] Total Bilirubin 0.5 0.4 - 1.6 mg/dL [facility] ALT 18 10 - 50 u/l [facility] BUN 16 5 - 20 mg/dL [facility] BUN/Creatinine Ratio 22(H) 10 - 20 [facility] Total Protein 7.3 5.8 - 7.9 GM/DL [facility] Whole Blood 04/06/2024 2:22 PM CDT 04/06/2024 2:25 PM CDT us Courtney Deshpande PA-C LAB BLOOD ORDERABLES Final Result [facility] [address] [place] [id number] from Last 3 Months or Most Recently Relevant to Health Maintenance Care Teams Medical Claims Assistant Relationship Specialty Start Date End Date File, No Newspaper Delivery Driver On, [address] [place] [address] PCP - General 02/01/12
--- OUTSIDE RECORDS SUMMARY | 2025-09-04 05:28 | XMS_ITS | Encounter Summary ---
Author Organization [facility] Address [address] [place] [address] Care Team Providers Care Police Commissioner Name Role Phone File, No Dev Technical Mgr On MD Primary Care Prov ider Encounter Details Date Type Department Care Team (Late st Contact Info) Description 11/14/2000 Archive [facility] Historical Results Conversion, [address] [place] [address] Social History Tobacco Use Types Packs/Day Years Used Date Smoking Tobacco: Never Assessed Comments Unknown Sex and Gender Information Value Date Recorded Sex Assigned at Not on file Legal Sex Female 11:23 AM 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 She stated that [...] Her father in his 40s from acute PA. Her mother in her 40s with acute PA. Her brother in his 40s of acute PA and her sister has high blood pressure. 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 She stated that she was working at the [employer] in [place] but has moved down here for the [...] no S4. No rub, murmur or gallop. STITCH BONDING MACHINE TENDER: Alert and oriented x3. No focal deficit. [...] does not remember the name of her in home aide in [place] who did her work up and did an SVT. She also told me that she does not want a cardiac cath to be done. Her main problem at this time, according to her, was headache and she needed something for her headache. I [place] the [place] [facility] obtain serial cardiac enzymes with Troponin and repeat her EKG. If she continues to have chest pain, she will probably need a cardiac cath done but, at this point, I will admit her as a 23 hour observation patient and give her supportive and symptomatic treatment. [id number] DOCUMENT: [id number] BLAST WORKER documented in this encounter Plan of Treatment Not on file documented as of this encounter Visit Diagnoses Not on filedocumented in this encounter Care Teams Police Commissioner Relationship Specialty Start Date End Date File, No Dev Technical Mgr On, [address] [place] [address] PCP - General 02/01/12 documented as of this encounter
--- OUTSIDE RECORDS SUMMARY | 2025-09-04 05:28 | XMS_ITS | Clinical Summary ---
Author Organization [facility] Address [address] [place] [address] Dr CALDERON, CANDI [address] Care Team Providers Care Emt Dispatcher Name Role Phone Pcp, No Primary Care [...] age to complete this topic Care Teams Emt Dispatcher Relationship Specialty Start Date End Date Pcp, No PCP - General 07/11/24
--- OUTSIDE RECORDS SUMMARY | 2025-09-04 05:28 | XMS_ITS | Clinical Summary ---
Author Organization [facility] Address [address] [place] [address] Phone Care Team Providers Care Operational Risk Manager Name Role Phone Provider, Not On File [...] Comments Blood Pressure 180/110 09/26/2024 10:49 AM CUSTOMER OPERATIONS ASSOCIATE Pulse 96 09/26/2024 10:49 AM CUSTOMER OPERATIONS ASSOCIATE Temperature 36.9 C (98.5 F) 09/26/2024 10:49 AM CUSTOMER OPERATIONS ASSOCIATE Respiratory Rate 20 09/26/2024 10:49 AM CUSTOMER OPERATIONS ASSOCIATE Oxygen Saturation 97% 09/26/2024 10:49 AM CUSTOMER OPERATIONS ASSOCIATE Inhaled Oxygen Concentration - - Weight 96.3 kg (212 lb 6.4 oz) 09/26/2024 10:49 AM CUSTOMER OPERATIONS ASSOCIATE Height 170.2 cm (5' 7) 09/26/2024 10:49 AM CUSTOMER OPERATIONS ASSOCIATE Body Mass Index 33.27 09/26/2024 10:49 AM CUSTOMER OPERATIONS ASSOCIATE Plan of Treatment Not on file Care Teams Operational Risk Manager Relationship Specialty Start Date End Date Provider, Unknown UNKNOWN PCP - General 08/20/24 Provider, Not On File [place] 09/15/23
--- OUTSIDE RECORDS SUMMARY | 2025-09-04 05:28 | XMS_ITS | Encounter Summary ---
Author Organization [facility] Address [address] [place] [address] Care Team Providers Care Windows Software Engineer Name Role Phone File, No Teletypewriter Installer On MD Primary Care Prov ider Encounter Details Date Type Department Care Team (Late st Contact Info) Description 02/06/2008 Archive [facility] Historical Results Conversion, [address] [place] [address] Social History Tobacco Use Types Packs/Day Years Used Date Smoking Tobacco: Never Assessed Comments Unknown Sex and Gender Information Value Date Recorded Sex Assigned at Not on file Legal Sex Female 11:23 AM ASSEMBLER MOVEMENT Gender Identity Not on file Sexual Orientation Not on file documented as of this encounter Miscellaneous Notes * Discharge Summary - ConversionMD - 02/06/2008 1:03 AM CDT DICTATED BY: KATHERIN DOSHI MD PATIENT NAME: ROSSY RAMIREZ PATIENT CLASS: I HOSP NO: [id number] ROOM: [facility] ADMIT DATE: 02/03/2008 DISCHARGE DATE: 02/05/2008 CC: Felipe Luu [place] DISCHARGE SUMMARY REFERRING PHYSICIAN: Dr. Elise and Felipe Lerner [place] ADMISSION DIAGNOSES: 1. Persistent nausea and vomiting. [...] and vomiting, who recommended follow-up with her wastewater plant civil engineer in [place]. The patient will be discharged to home to travel to [place] for further evaluation if patient continues to [...] Dr. Elise in 5-7 days in [place] for her common bile duct dilation. KATHERIN DOSHI MD [id number] MBLER MOVEMENT documented in this encounter Plan of Treatment Not on file documented as of this encounter Visit Diagnoses Not on filedocumented in this encounter Care Teams Windows Software Engineer Relationship Specialty Start Date End Date File, No Teletypewriter Installer On, [address] [place] [address] PCP - General 02/01/12 documented as of this encounter
--- OUTSIDE RECORDS SUMMARY | 2025-09-04 05:28 | XMS_ITS | Clinical Summary ---
Author Organization [facility] Address [address] [place] [address] Care Team Providers Care Police Academy Program Coordinator Name Role Phone Unknown, Notinfile Primary Care [...] CDT - 08/11/2025 7:17 AM CDT Emergency [address] [address] Jaw pain (Primary Dx); Sore throat Discharge [...] age to complete this topic Care Teams Police Academy Program Coordinator Relationship Specialty Start Date End Date Unknown, Notinfile PCP - General 04/04/24
--- OUTSIDE RECORDS SUMMARY | 2025-09-04 05:28 | XMS_ITS | Clinical Summary ---
Author Organization [facility] Address [address] [facility] Attn: Epic Prelude ADT CREKIMI AGOSTO [address] Care Team Providers Care Biochemistry Professor Name Role Phone Unavailable Primary Care Provider [...] on file Legal Sex Female 4:25 AM SUPERVISOR RESEARCH SHOP Gender Identity Not on file Sexual Orientation Not on file Last Filed Vital Signs Vital Sign Reading Time Taken Comments Blood Pressure 191/108 08/28/2024 7:32 AM SUPERVISOR RESEARCH SHOP Pulse 97 08/28/2024 7:32 AM SUPERVISOR RESEARCH SHOP Temperature 37.3 C (99.2 F) 08/28/2024 7:32 AM SUPERVISOR RESEARCH SHOP Respiratory Rate 14 08/28/2024 7:32 AM SUPERVISOR RESEARCH SHOP Oxygen Saturation 96% 08/28/2024 7:32 AM SUPERVISOR RESEARCH SHOP Inhaled Oxygen Concentration - - Weight 95.3 kg (210 lb) 08/28/2024 6:12 AM SUPERVISOR RESEARCH SHOP Height 170.2 cm (5' 7) 08/28/2024 6:12 AM SUPERVISOR RESEARCH SHOP Body Mass Index 32.89 08/28/2024 6:12 AM SUPERVISOR RESEARCH SHOP Plan of Treatment Health Maintenance Due Date [...]
[2025-09-04] MEDS: PROMETHAZINE HCL 25 MG/ML AMPUL IM (05:39)
== END 2025-09-04 05:57 | disposition home or self-care (01) ==
LOC: ANHED 05:25
PROVIDERS: Emergency Provider Student in an Organized Health Care Education/Training Program
DX: C41.1 Malignant neoplasm of mandible (principal); I10 Essential (primary) hypertension
CPT/HCPCS: 96372; 99284; J1171; J1200; J2550

== ENCOUNTER 2025-09-13 08:13 | Emergency (ER) | payer SELFPAY ==
--- OUTSIDE RECORDS SUMMARY | 2011-10-12 18:00 | XMS_ITS | Continuity of Care Document ---
Author Organization [facility] Address [address] [place] [address] Phone Care Team Providers Care Coppersmith Apprentice Name Role Phone Colten Chambers III, MD Unavailable Unavaila ble Procedures Procedure Date [facility] Advance Directives Directive Yes / No Effective Date File Name No Information Encounters Encounter Description Practice Location Reason(s) For Visit Diagnoses Date Provider Providers Copied on Encounter [facility], [address], [place], [place], [address], [phone] [facility] No Information 0 1 Trish Abel. [address] [facility] [address], [place], [place], [id number] , [place]. tel: [phone] Referring Provider: Cameron Guaman, [place] [facility] [address] , [address], [place], [address]. tel:[phone] Family History Family Member Type Diagnosis Age At Onset No Information Payers Payer name Insurance type Covered green party ID Authoriza tion(s) No Information Social History [...]
--- OUTSIDE RECORDS SUMMARY | 2016-04-20 01:36 | XMS_ITS | Continuity of Care Document ---
Author Organization [facility] Address [address] [place] [address] Phone Care Team Providers Care Boats Renter Name Role Phone Clara Pate DO Unavailable Unavailable Allergies, Adverse Reactions, Alerts Substance Reaction Status Criticality ONDANSETRON HCL Active No Informati on KETOROLAC TROMETHAMINE Active No In formation MEPERIDINE HCL Active No Informatio n Medications Medication Instructions Dosage Effective Dates (start - stop) Status Comments clindamycin 300 mg capsule take 1 capsule by oral route every 6 hours 300 MG - Active Lidocaine Viscous 2 % mucosal solution take 15 milliliter by oral route every 3 hours and swish and spit out 15.00 milliliter - Active HUMULIN R (unknown strength) inject by intravenous route as a single rapid injection Not Available - Active METFORMIN HCL (unknown strength) take 2 tablet by oral route 2 times every day with morning and evening meals Not Available - Active Procedures Procedure Date Offic/outpt E&m [place] [address] 6 Advance Directives Directive Yes / No Effective Date File Name No Information Encounters Encounter Description Practice Location Reason(s) For Visit Diagnoses Date Provider Providers Copied on Encounter [facility], [address], [place], [place], [address], tel:[phone] [facility] No Information Herlinda Zelaya. [address], [address], [place], [address], [place]. tel:[phone] Offic/outpt E&m [facility] 45 [facility], [address], [place], [place], [address], tel:[phone] [facility] mouth sore (chief complaint) Tooth painAcute pain of mouthOther lesions of oral mucosa No Information Family History Family Member Type Diagnosis Age [...]
--- OUTSIDE RECORDS SUMMARY | 2019-05-17 18:00 | XMS_ITS | Continuity of Care Document ---
Author Organization [facility] Address [address] [place] [address] Phone Care Team Providers Care Manager Corporate Strategy Name Role Phone Jo RODRIGUEZ, SKYLER, Jasson [...] Encounter Subsqt Hosp-da E&m Sig Compl 3 [facility] , [address] [facility], [place], [address], [place] tel:[phone] [facility] No Information Jo Spaulding. [address] [facility] Jessica, [place] [address], [place], [address], [place]. tel:[phone] Referring Provider: Franco Fowler MD, [address] [facility], [place], [address]. tel:[phone] Init Inpt Cons N/e Mod-hi 110m [facility] , [address] [facility], [place], [address], [place] tel:[phone] [facility] No Information Leif Santamaria. [address] [facility] Jessica, [place] [address], [place], [address], [place]. tel:[phone] Referring Provider: Franco Fowler MD, [address] [facility], [place], [address]. tel:[phone] Family History Family Member Type Diagnosis Age At Onset No Information Payers Payer name Insurance type Covered republican ID Authoriza tion(s) Care 1st [facility] Plan [id number] Social History Type Description Quantity Date Captured [...]
--- OUTSIDE RECORDS SUMMARY | 2019-10-27 18:00 | XMS_ITS | Continuity of Care Document ---
Author Organization Corey Cuellar [facility] Services Auth Address [address] [place] [phone] Phone Care Team Providers Care Business Support Assistant Name Role Phone Unavailable Unavailable Unavailable Allergies, [...] Diagnoses Date Provider Providers Copied on Encounter [facility], [address] [place] [address], [id number], [place] tel:[phone] [facility] No Information No Information [facility], [address] [place] [address], [id number], [place] tel:[phone] [facility] No Information No Information [facility], [address] [place] [address], [id number], [place] tel:[phone] [facility] No Information Frances Sidhu. [address] [place] [address], [id number], [place]. tel: [phone] [facility], [address] [place] [address], [id number], [place] tel:[phone] [facility] No Information Kayli Rousseau. [address] [place] [address], [id number], [place]. tel: [phone] [facility], [address] [place] [address], [id number], tel:[phone] [facility] No Information Frances Sidhu. [address] [place] [address], [id number], . tel:[phone] [facility], [address] [place] [address], [id number], tel:[phone] [facility] No Information No Information Family History Family Member Type Diagnosis Age At Onset No Information Payers Payer name Insurance type Covered green party ID Authoriza tieladio(s) No Information Social History [...]
--- OUTSIDE RECORDS SUMMARY | 2025-09-13 08:17 | XMS_ITS | Clinical Summary ---
Author Organization [employer] Address [address] [facility] Attn: Epic Prelude ADT CREKIMI AGOSTO [address] Care Team Providers Care Office Analyst Name Role Phone Unavailable Primary Care Provider [...] on file Legal Sex Female 4:25 AM HYBRID TESTER Gender Identity Not on file Sexual Orientation Not on file Last Filed Vital Signs Vital Sign Reading Time Taken Comments Blood Pressure 191/108 08/28/2024 7:32 AM HYBRID TESTER Pulse 97 08/28/2024 7:32 AM HYBRID TESTER Temperature 37.3 C (99.2 F) 08/28/2024 7:32 AM HYBRID TESTER Respiratory Rate 14 08/28/2024 7:32 AM HYBRID TESTER Oxygen Saturation 96% 08/28/2024 7:32 AM HYBRID TESTER Inhaled Oxygen Concentration - - Weight 95.3 kg (210 lb) 08/28/2024 6:12 AM HYBRID TESTER Height 170.2 cm (5' 7) 08/28/2024 6:12 AM HYBRID TESTER Body Mass Index 32.89 08/28/2024 6:12 AM HYBRID TESTER Plan of Treatment Health Maintenance Due Date [...]
--- OUTSIDE RECORDS SUMMARY | 2025-09-13 08:17 | XMS_ITS ---
Author Organization Unknown Address [address] [place] [phone] Phone Care Team Providers Care Shoe Trimmer Name Role Phone ROBEL GALAVIZ Attending Unavailable NO PCP Primary Unavailable Social History Type Status Start [...] Diagnosis Start Date Code Code Sys tem Neoplasm related pain (acute) (chronic) 08/14/2025 SNOMED-CT Personal Care Team Section
--- OUTSIDE RECORDS SUMMARY | 2025-09-13 08:17 | XMS_ITS | Clinical Summary ---
Author Organization [facility] Address [address] [place] [phone] Phone Care Team Providers Care Picture Painter Name Role Phone Pcp, None MD Primary [...] of Treatment Not on file Care Teams Picture Painter Relationship Specialty Start Date End Date Pcp, None, PCP - General 01/13/24
--- OUTSIDE RECORDS SUMMARY | 2025-09-13 08:17 | XMS_ITS | Encounter Summary ---
Author Organization [facility] Address [address] [place] [address] Care Team Providers Care Solar Installer Technician Name Role Phone File, No Operations And Intelligence Assistant On MD Primary Care Prov ider Encounter Details Date Type Department Care Team (Late st Contact Info) Description 02/06/2008 Archive [facility] Historical Results Conversion, [address] [place] [address] Social History Tobacco Use Types Packs/Day Years Used Date Smoking Tobacco: Never Assessed Comments Unknown Sex and Gender Information Value Date Recorded Sex Assigned at Not on file Legal Sex Female 11:23 AM HAIRSPRING STUDDER Gender Identity Not on file Sexual Orientation Not on file documented as of this encounter Miscellaneous Notes * Discharge Summary - ConversionMD - 02/06/2008 1:03 AM CDT DICTATED BY: KATHERIN DOSHI MD PATIENT NAME: ROSSY RAMIREZ PATIENT CLASS: I HOSP NO: [id number] ROOM: [facility] ADMIT DATE: 02/03/2008 DISCHARGE DATE: 02/05/2008 CC: Felipe Luu [place] DISCHARGE SUMMARY REFERRING PHYSICIAN: Dr. Elise and Felipe Lerner [place] ADMISSION DIAGNOSES: 1. Persistent nausea and vomiting. [...] and vomiting, who recommended follow-up with her learning facilitator in [place]. The patient will be discharged to home to travel to [place] for further evaluation if patient continues to [...] and Dr. Elise in 5-7 days in [place] for her common bile duct dilation. KATHERIN DOSHI MD [id number] SPRING STUDDER documented in this encounter Plan of Treatment Not on file documented as of this encounter Visit Diagnoses Not on filedocumented in this encounter Care Teams Solar Installer Technician Relationship Specialty Start Date End Date File, No Operations And Intelligence Assistant On, [address] [facility] [place] [place] [address] PCP - General 02/01/12 documented as of this encounter
--- OUTSIDE RECORDS SUMMARY | 2025-09-13 08:17 | XMS_ITS | Clinical Summary ---
Author Organization [facility] Address [address] [place] [address] Care Team Providers Care Ruby On Rails Consultant Name Role Phone File, No Pilot Control Operator On MD Primary Care Prov ider Allergies [...] on file Legal Sex Female 11:23 AM BEEF TAGGER Gender Identity Not on file Sexual Orientation [...] CDT) Chloride 107 98 - 108 mEq/L [facility] AST 16 12 - 40 u/l [facility] Glucose 220(H) 70 - 105 mg/dL [facility] Anion Gap 10 5 - 15 [facility] Albumin 3.9 3.5 - 5.2 g/dl [facility] Potassium 4.2 3.5 - 5.1 mEq/L [facility] Alkaline Phosphatase 93 32 - 138 u/l [facility] Calcium 8.9 8.8 - 10.5 mg/dL [facility] Osmolality Calc 278 253 - 306 MOSM/K [facility] Creatinine 0.74 0.70 - 1.30 mg/dL [facility] Glomerular Filtration Rate 98 >=60 [facility] Comment: The CKD-EPI (2020) equation is recommended by the National Kidney Foundation- [place] Society of Nephrology (NKF-ASN) Task Force and incorporates serum, creatinine, age and sex, but does not use a race coefficient. Results for patients <18 years of age should be interpreted with caution. Sodium 135(L) 136 - 145 mmol/L [facility] CO2 18(L) 23 - 29 mmol/L [facility] Total Bilirubin 0.5 0.4 - 1.6 mg/dL [facility] ALT 18 10 - 50 u/l [facility] BUN 16 5 - 20 mg/dL [facility] BUN/Creatinine Ratio 22(H) 10 - 20 [facility] Total Protein 7.3 5.8 - 7.9 GM/DL [facility] Whole Blood 04/06/2024 2:22 PM CDT 04/06/2024 2:25 PM CDT us Courtney Deshpande PA-C LAB BLOOD ORDERABLES Final Result [facility] [address] [place] [address] from Last 3 Months or Most Recently Relevant to Health Maintenance Care Teams Ruby On Rails Consultant Relationship Specialty Start Date End Date File, No Pilot Control Operator On, [address] [address] PCP - General 02/01/12
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
--- OUTSIDE RECORDS SUMMARY | 2025-09-13 08:17 | XMS_ITS | Encounter Summary ---
Author Organization [facility] Address [address] [place] [address] Care Team Providers Care Director Student Union Name Role Phone File, No Launch Check Out On MD Primary Care Prov ider Encounter Details Date Type Department Care Team (Late st Contact Info) Description 11/14/2000 Archive [facility] Historical Results Conversion, [address] [place] [address] Social History Tobacco Use Types Packs/Day Years Used Date Smoking Tobacco: Never Assessed Comments Unknown Sex and Gender Information Value Date Recorded Sex Assigned at Not on file Legal Sex Female 11:23 AM COMPUTER OPERATIONS MANAGER Gender Identity Not on file Sexual Orientation [...] and 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 She stated that [...] Her father in his 40s from acute MD. Her mother in her 40s with acute MD. Her brother in his 40s of acute MD and her sister has high blood pressure. 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 She stated that she was working at the [employer] in [place] but has moved down here for the [...] no S4. No rub, murmur or gallop. GASFITTER: Alert and oriented x3. No focal deficit. [...] does not remember the name of her jukebox operator in [place] who did her work up and did an SVT. She also told me that she does not want a cardiac cath to be done. Her main problem at this time, according to her, was headache and she needed something for her headache. I will admit the patient to [facility], obtain serial cardiac enzymes with Troponin and repeat her EKG. If she continues to have chest pain, she will probably need a cardiac cath done but, at this point, I will admit her as a 23 hour observation patient and give her supportive and symptomatic treatment. [facility][id number] DOCUMENT: [id number] UTER OPERATIONS MANAGER documented in this encounter Plan of Treatment Not on file documented as of this encounter Visit Diagnoses Not on filedocumented in this encounter Care Teams Director Student Union Relationship Specialty Start Date End Date File, No Launch Check Out On, [address] [place] [address] PCP - General 02/01/12 documented as of this encounter
--- OUTSIDE RECORDS SUMMARY | 2025-09-13 08:17 | XMS_ITS | Clinical Summary ---
Author Organization [facility] Address [address] [place] [address] Phone Care Team Providers Care Balling Machine Operator Name Role Phone Provider, Not On File [...] Comments Blood Pressure 180/110 09/26/2024 10:49 AM COGNOS TM1 DEVELOPER Pulse 96 09/26/2024 10:49 AM COGNOS TM1 DEVELOPER Temperature 36.9 C (98.5 F) 09/26/2024 10:49 AM COGNOS TM1 DEVELOPER Respiratory Rate 20 09/26/2024 10:49 AM COGNOS TM1 DEVELOPER Oxygen Saturation 97% 09/26/2024 10:49 AM COGNOS TM1 DEVELOPER Inhaled Oxygen Concentration - - Weight 96.3 kg (212 lb 6.4 oz) 09/26/2024 10:49 AM COGNOS TM1 DEVELOPER Height 170.2 cm (5' 7) 09/26/2024 10:49 AM COGNOS TM1 DEVELOPER Body Mass Index 33.27 09/26/2024 10:49 AM COGNOS TM1 DEVELOPER Plan of Treatment Not on file Care Teams Balling Machine Operator Relationship Specialty Start Date End Date Provider, Unknown UNKNOWN PCP - General 08/20/24 Provider, Not On File [place] 09/15/23
--- OUTSIDE RECORDS SUMMARY | 2025-09-13 08:17 | XMS_ITS | Clinical Summary ---
Author Organization [facility] Address [address] [place] [address] Dr CALDERON, CANDI [address] Care Team Providers Care Tobacco Cloth Reclaimer Name Role Phone Pcp, No Primary Care [...] age to complete this topic Care Teams Tobacco Cloth Reclaimer Relationship Specialty Start Date End Date Pcp, No PCP - General 07/11/24
--- OUTSIDE RECORDS SUMMARY | 2025-09-13 08:17 | XMS_ITS | Clinical Summary ---
Author Organization [facility] Address [address] [place] [address] Care Team Providers Care Toll Line Mechanic Name Role Phone Unknown, Notinfile Primary Care [...] CDT - 08/11/2025 7:17 AM CDT Emergency [address] [address] Jaw pain (Primary Dx); Sore throat Discharge [...] age to complete this topic Care Teams Toll Line Mechanic Relationship Specialty Start Date End Date Unknown, Notinfile PCP - General 04/04/24
[2025-09-13 08:18] VITALS: BP 194/110; PULSE 114; RESP 18; O2SAT 100
[2025-09-13 08:23] VITALS: RESP 20; O2SAT 99
--- NOTE | 2025-09-13 08:41 | PC.NURSE ---
Pt refused IV and blood work. Pt said she on palliative care. Pt is requesting IM shot of Dilaudid.
--- NOTE | 2025-09-13 08:46 | ED.GENADULT ---
HPI - General Adult General Chief complaint: Unspecified Stated complaint: cancer pain Time Seen by Provider: 09/13/25 08:24 History of Present Illness HPI narrative: 50-year-old female with history of osteosarcoma mother reports she is comfort care. Patient states she is on medications for pain control but states that her morphine . Patient has been to the emergency department multiple times seeking pain control. Patient reports that she does respond well to IM Dilaudid. Patient declined IV Dilaudid. Patient declined IV labs and declined IV stick. Patient travels between [place], [place] and [place] for her 's job. Related Data Home Medications ?Medication ?Instructions ?Recorded ?Confirmed ?Last Taken ?Type insulin human U-100 NPH-regulr 36 unit subcut BID 03/20/25 Unknown History 70-30 mix 100 unit/mL subcutaneous susp (Humulin 70/30 U-100 Insulin) insulin sliding scale 03/20/25 Unknown History oxycodone-acetaminophen 10 mg-325 1 tablet PO Q6H 03/20/25 Unknown History mg tablet (Endocet) Allergies Allergy/AdvReac Type Severity Reaction Status Date / Time iohexol (From contrast - CT, Allergy Hives Verified 09/13/25 08:24 X-RAY) meperidine (From Demerol) Allergy Hives Verified 09/13/25 08:24 vancomycin Allergy Hives Verified 09/13/25 08:24 NSAIDS (Non-Steroidal AdvReac Palpitation Verified 09/13/25 08:24 Anti-Inflamma s ondansetron (From Zofran) AdvReac Vomiting Verified 09/13/25 08:24 Review of Systems Review of Systems: All systems reviewed & are unremarkable except as noted in HPI and below PMFSH Past Medical History Medical History Osteomyelitis of jaw left HTN (hypertension) Jaw cancer Biopsy 09/27/24 Social History Social History Additional living arrangements comments: Resides in [place] 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 HEAD: normocephalic, atraumatic. EYES: PERRLA/EOMI, conjunctivae clear. NOSE: Normal no drainage EARS:TMS clear with good light reflex. THROAT: Pharynx clear, no exudate. NECK: Supple. No adenopathy, no masses. RESPIRATORY: Airway patent, respirations nonlabored. Clear to auscultation bilaterally, no rales, rhonchi, wheezing. CARDIOVASCULAR: Regular rate and rhythm without murmurs rubs or gallops. ABDOMINAL: Soft, nontender, nondistended, normal bowel sounds MUSCULOSKELETAL: Moves all extremities. Strength/ROM intact, No edema, No calf tenderness. NEURO: Alert. Cranial nerves II through XII intact. Good gait. Good coordination SKIN: Warm, dry. Normal Color Course Vital Signs Vital signs: Vital Signs Pulse Rate 114 H 09/13/25 08:18 Respiratory Rate 18 09/13/25 08:18 Blood Pressure 194/110 H 09/13/25 08:18 Pulse Oximetry 100 09/13/25 08:18 Oxygen Delivery Room Air 09/13/25 08:18 Pulse Rate 101 H 09/13/25 09:34 Respiratory Rate 20 09/13/25 09:34 Blood Pressure 167/96 H 09/13/25 09:34 Pulse Oximetry 96 09/13/25 09:34 Oxygen Delivery Room Air 09/13/25 08:18 Medical Decision Making MDM Narrative Medical decision making narrative: 50-year-old female present to the emergency department for evaluation for pain control. Patient was treated with IM Dilaudid and IM Benadryl. Patient reports this as helping to control her pain. Patient does have additional Percocet for pain control. Patient states she is heading back to home. and she will have access to her morphine. Differential Diagnosis Differential Diagnosis: Electrolyte abnormality, anemia, neutropenia Vital Signs Vital Signs: Vital Signs Pulse Rate 114 H 09/13/25 08:18 Respiratory Rate 18 09/13/25 08:18 Blood Pressure 194/110 H 09/13/25 08:18 Pulse Oximetry 100 09/13/25 08:18 Oxygen Delivery Room Air 09/13/25 08:18 Pulse Rate 101 H 09/13/25 09:34 Respiratory Rate 20 09/13/25 09:34 Blood Pressure 167/96 H 09/13/25 09:34 Pulse Oximetry 96 09/13/25 09:34 Oxygen Delivery Room Air 09/13/25 08:18 Discharge Plan Discharge Clinical Impression: Cancer related pain Patient Disposition: Home Condition: Stable Instructions: Antibiotic Form Additional Instructions: Continue have close follow-up with your physicians. If you have any worsening symptoms please call or return to the emergency department. Patient Language: Saudi Arabian Prescriptions: No Action oxycodone-acetaminophen [Endocet] 10-325 mg tablet 1 tablet PO Q6H Humulin 70/30 U-100 Insulin 100 unit/mL (70-30) suspension 36 unit subcut BID insulin sliding scale Follow-up/Referrals: PHYSICIAN NOT ON STAFF,NONSTAFF [Primary Care Provider]
[2025-09-13] MEDS: HYDROmorphone HCL INJ (*CRX) 2 MG/ML VIAL IM (08:53)
[2025-09-13 09:34] VITALS: BP 167/96; PULSE 101; RESP 20; O2SAT 96
== END 2025-09-13 09:36 | disposition home or self-care (01) ==
PROVIDERS: Emergency Provider Emergency Medicine
DX: G89.3 Neoplasm related pain (acute) (chronic) (principal); C41.9 Malignant neoplasm of bone and articular cartilage, unspecified; Z79.4 Long term (current) use of insulin; I10 Essential (primary) hypertension
CPT/HCPCS: 96372; 99284; J1171; J1200

== ENCOUNTER 2025-09-15 11:48 | Emergency (ER) | payer SELFPAY ==
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
[2025-09-15 12:37] VITALS: BP 220/129; PULSE 112; RESP 18; TEMP 36.9; O2SAT 98
--- OUTSIDE RECORDS SUMMARY | 2025-09-15 12:46 | XMS_ITS ---
Author Organization Unknown Address [address] [place] [phone] Phone Care Team Providers Care Cable Television Installer Name Role Phone ROBEL GALAVIZ Attending Unavailable [...]
--- OUTSIDE RECORDS SUMMARY | 2025-09-15 12:46 | XMS_ITS | Clinical Summary ---
Author Organization [facility] Address [address] [place] [address] Care Team Providers Care Rn House Supervisor Name Role Phone Unknown, Notinfile Primary [...] CDT - 08/11/2025 7:17 AM CDT Emergency [address] [address] Jaw pain (Primary Dx); Sore throat Discharge [...] age to complete this topic Care Teams Rn House Supervisor Relationship Specialty Start Date End Date Unknown, Notinfile PCP - General 04/04/24
--- OUTSIDE RECORDS SUMMARY | 2025-09-15 12:46 | XMS_ITS | Clinical Summary ---
Author Organization [facility] enter Address [address] [place] [phone] Phone Care Team Providers Care Cigarette Inspector Name Role Phone Pcp, None MD Primary [...] of Treatment Not on file Care Teams Cigarette Inspector Relationship Specialty Start Date End Date Pcp, None, PCP - General 01/13/24
--- OUTSIDE RECORDS SUMMARY | 2025-09-15 12:46 | XMS_ITS | Clinical Summary ---
Author Organization [facility] Address [address] [facility] Attn: Epic Prelude ADT CREKIMI AGOSTO [address] Care Team Providers Care Sulfuric Acid Plant Operator Name Role Phone Unavailable Primary Care Provider [...] on file Legal Sex Female 4:25 AM PAYROLL ANALYST Gender Identity Not on file Sexual Orientation Not on file Last Filed Vital Signs Vital Sign Reading Time Taken Comments Blood Pressure 191/108 08/28/2024 7:32 AM PAYROLL ANALYST Pulse 97 08/28/2024 7:32 AM PAYROLL ANALYST Temperature 37.3 C (99.2 F) 08/28/2024 7:32 AM PAYROLL ANALYST Respiratory Rate 14 08/28/2024 7:32 AM PAYROLL ANALYST Oxygen Saturation 96% 08/28/2024 7:32 AM PAYROLL ANALYST Inhaled Oxygen Concentration - - Weight 95.3 kg (210 lb) 08/28/2024 6:12 AM PAYROLL ANALYST Height 170.2 cm (5' 7) 08/28/2024 6:12 AM PAYROLL ANALYST Body Mass Index 32.89 08/28/2024 6:12 AM PAYROLL ANALYST Plan of Treatment Health Maintenance Due Date [...]
--- OUTSIDE RECORDS SUMMARY | 2025-09-15 12:46 | XMS_ITS | Clinical Summary ---
Author Organization [facility] Address [address] [place] [address] Phone Care Team Providers Care Inside Tester Name Role Phone Provider, Not On File [...] Comments Blood Pressure 180/110 09/26/2024 10:49 AM MACHINE CRATER Pulse 96 09/26/2024 10:49 AM MACHINE CRATER Temperature 36.9 C (98.5 F) 09/26/2024 10:49 AM MACHINE CRATER Respiratory Rate 20 09/26/2024 10:49 AM MACHINE CRATER Oxygen Saturation 97% 09/26/2024 10:49 AM MACHINE CRATER Inhaled Oxygen Concentration - - Weight 96.3 kg (212 lb 6.4 oz) 09/26/2024 10:49 AM MACHINE CRATER Height 170.2 cm (5' 7) 09/26/2024 10:49 AM MACHINE CRATER Body Mass Index 33.27 09/26/2024 10:49 AM MACHINE CRATER Plan of Treatment Not on file Care Teams Inside Tester Relationship Specialty Start Date End Date Provider, Unknown UNKNOWN PCP - General 08/20/24 Provider, Not On File [place] 09/15/23
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
--- OUTSIDE RECORDS SUMMARY | 2025-09-15 12:46 | XMS_ITS | Clinical Summary ---
Author Organization [facility] Address [address] [place] [phone] Care Team Providers Care Electrical Lineworker Name Role Phone None, Provider MD Primary [...] 9:48 AM CDT Height 170.2 cm (5' 7) 08/05/2024 9:48 AM CDT Body Mass Index [...] Screening with HPV 2003 Mammogram Screening 2013 Pneumococcal Vaccine: 50+ Ye ars (1 of 1 - PCV) 2023 Zoster Vaccines (1 of 2) 2023 COVID-19 Vaccine (1 - 2024-2 6 season) 2025 Influenza Adult (#1) 2025 Hepatitis A Vaccines Aged Out No long er eligible based [...] patient's age to complete this topic Insurance [address] [place] [address] MEDICARE Care Teams Electrical Lineworker Relationship Specialty Start Date End Date None, Provider, MD PCP - General UNKNOWN PHYSICIAN SPECIALTY 04/04/24
--- OUTSIDE RECORDS SUMMARY | 2025-09-15 12:46 | XMS_ITS | Clinical Summary ---
Author Organization [facility] Address [address] [place] [address] Dr CALDERON, CANDI [address] Care Team Providers Care Psychiatrist Name Role Phone Pcp, No Primary Care [...] age to complete this topic Care Teams Psychiatrist Relationship Specialty Start Date End Date Pcp, No PCP - General 07/11/24
[2025-09-15] MEDS: HYDROmorphone HCL INJ (*CRX) 2 MG/ML VIAL IM (13:01)
[2025-09-15] MEDS: PROMETHAZINE HCL 25 MG/ML AMPUL 12.5 MG IM (13:02)
[2025-09-15 13:48] VITALS: BP 178/109; PULSE 105; RESP 16; O2SAT 98
== END 2025-09-15 13:50 | disposition home or self-care (01) ==
PROVIDERS: Emergency Provider Student in an Organized Health Care Education/Training Program
DX: G89.3 Neoplasm related pain (acute) (chronic) (principal); C41.1 Malignant neoplasm of mandible; I10 Essential (primary) hypertension; Z92.3 Personal history of irradiation; Z79.891 Long term (current) use of opiate analgesic
CPT/HCPCS: 96372; 99284; J1171; J1200; J2550

== ENCOUNTER 2025-10-01 09:40 | Emergency (ER) | payer SELFPAY ==
--- OUTSIDE RECORDS SUMMARY | 2025-10-01 11:50 | XMS_ITS | Clinical Summary ---
Author Organization [facility] Address [address] [place] [address] Dr CALDERON, CANDI [address] Care Team Providers Care Sculpture Conservator Name Role Phone Pcp, No Primary Care [...] age to complete this topic Care Teams Sculpture Conservator Relationship Specialty Start Date End Date Pcp, No PCP - General 07/11/24
--- OUTSIDE RECORDS SUMMARY | 2025-10-01 11:50 | XMS_ITS | Clinical Summary ---
Author Organization [facility] enter Address [address] [place] [phone] Phone Care Team Providers Care Loom Changeover Operator Name Role Phone Pcp, None MD Primary Care Provider Unavailabl e Allergies Active Allergy Reactions Criticality Noted Date Comments Iohexol 01/13/2024 Meperidine 01/13/2024 Nsaids 01/13/2024 Vancomycin 01/13/2024 Ondansetron 01/13/2024 Medications doxycycline (ADOXA) 75 MG tablet Take 1 tablet (75 mg total) by mouth 2 (two) times a day Active amoxicillin (AMOXIL) 500 MG capsule Take 1 capsule (500 mg total) by mouth 3 (three) times a day Active metoprolol tartrate (LOPRESSOR) 25 MG tablet Take 1 tablet (25 mg total) by mouth 2 (two) times a day Active lisinopril (PRINIVIL,ZESTR IL) 2.5 MG tablet Take 8 tablets (20 mg total) by mouth daily Active methocarbamol (ROBAXIN) 500 MG tablet Take 1 tablet (500 mg total) by mouth 4 (four) times a day Active acetaminophen (TYLENOL) 500 MG tablet Take 1 tablet (500 mg total) by mouth every 6 (six) hours as needed for mild pain (1-3) Active amoxicillin-cla vulanate (AUGMENTIN) 875-125 MG per tablet Take 1 tablet by mouth 2 (two) times a day Active HYDROcodone-christophe taminophen (NORCO) 10-325 MG per tablet Take 1 [...] at Not on file Legal Sex Female 10:24 PM PST Gender Identity Not on file Sexual Orientation [...] of Treatment Not on file Care Teams Loom Changeover Operator Relationship Specialty Start Date End Date Pcp, Ronna, PCP - General 01/13/24
--- OUTSIDE RECORDS SUMMARY | 2025-10-01 11:50 | XMS_ITS | Encounter Summary ---
Author Organization [facility] Address [address] [place] [address] Care Team Providers Care Medical Billing Manager Name Role Phone File, No Janitor Supervisor On MD Primary Care Prov ider Encounter Details Date Type Department Care Team (Late st Contact Info) Description 11/14/2000 Archive [facility] EMERGENCY DEPARTMENT Historical Results Conversion, [address] [place] [id number] Social History Tobacco Use Types Packs/Day Years Used Date Smoking Tobacco: Never Assessed Comments Unknown Sex and Gender Information Value Date Recorded Sex Assigned at Not on file Legal Sex Female 11:23 AM POLE SHAVER Gender Identity Not on file Sexual Orientation [...] 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 She stated that [...] Her father in his 40s from acute DC. Her mother in her 40s with acute DC. Her brother in his 40s of acute DC and her sister has high blood pressure. 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 She stated that she was working at the [employer] in [place] but has moved down here for the [...] no S4. No rub, murmur or gallop. COMMAND CENTER ANALYST: Alert and oriented x3. No focal deficit. [...] does not remember the name of her wafer polishing worker in [place] who did her work up and did an SVT. She also told me that she does not want a cardiac cath to be done. Her main problem at this time, according to her, was headache and she needed something for her headache. I will admit the patient to [facility], obtain serial cardiac enzymes with Troponin and repeat her EKG. If she continues to have chest pain, she will probably need a cardiac cath done but, at this point, I will admit her as a 23 hour observation patient and give her supportive and symptomatic treatment. [facility]:[id number] DOCUMENT: [id number] SHAVER documented in this encounter Plan of Treatment Not on file documented as of this encounter Visit Diagnoses Not on filedocumented in this encounter Care Teams Medical Billing Manager Relationship Specialty Start Date End Date File, No Janitor Supervisor On, [address] [place] [address] PCP - General 02/01/12 documented as of this encounter
--- OUTSIDE RECORDS SUMMARY | 2025-10-01 11:51 | XMS_ITS | Clinical Summary ---
Author Organization [facility] Address [address] [place] [address] Phone Care Team Providers Care Cyber Defense Forensics Analyst Name Role Phone Provider, Not On [...] Comments Blood Pressure 180/110 09/26/2024 10:49 AM BRAID CUTTER Pulse 96 09/26/2024 10:49 AM BRAID CUTTER Temperature 36.9 C (98.5 F) 09/26/2024 10:49 AM BRAID CUTTER Respiratory Rate 20 09/26/2024 10:49 AM BRAID CUTTER Oxygen Saturation 97% 09/26/2024 10:49 AM BRAID CUTTER Inhaled Oxygen Concentration - - Weight 96.3 kg (212 lb 6.4 oz) 09/26/2024 10:49 AM BRAID CUTTER Height 170.2 cm (5' 7) 09/26/2024 10:49 AM BRAID CUTTER Body Mass Index 33.27 09/26/2024 10:49 AM BRAID CUTTER Plan of Treatment Not on file Care Teams Cyber Defense Forensics Analyst Relationship Specialty Start Date End Date Provider, Unknown UNKNOWN PCP - General 08/20/24 Provider, Not On File [place] 09/15/23
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
--- OUTSIDE RECORDS SUMMARY | 2025-10-01 11:51 | XMS_ITS | Clinical Summary ---
Author Organization [employer] Address [address] [facility] Attn: Epic Prelude ADT CREKIMI AGOSTO [address] Care Team Providers Care Building Equipment Operator Name Role Phone Unavailable Primary Care [...] on file Legal Sex Female 4:25 AM SWAMPER Gender Identity Not on file Sexual Orientation Not on file Last Filed Vital Signs Vital Sign Reading Time Taken Comments Blood Pressure 191/108 08/28/2024 7:32 AM SWAMPER Pulse 97 08/28/2024 7:32 AM SWAMPER Temperature 37.3 C (99.2 F) 08/28/2024 7:32 AM SWAMPER Respiratory Rate 14 08/28/2024 7:32 AM SWAMPER Oxygen Saturation 96% 08/28/2024 7:32 AM SWAMPER Inhaled Oxygen Concentration - - Weight 95.3 kg (210 lb) 08/28/2024 6:12 AM SWAMPER Height 170.2 cm (5' 7) 08/28/2024 6:12 AM SWAMPER Body Mass Index 32.89 08/28/2024 6:12 AM SWAMPER Plan of Treatment Health Maintenance Due Date [...]
--- OUTSIDE RECORDS SUMMARY | 2025-10-01 11:51 | XMS_ITS | Clinical Summary ---
Author Organization [facility] Address [address] [place] [address] Care Team Providers Care Psychiatric Attendant Name Role Phone Unknown, Notinfile Primary Care [...] CDT - 08/11/2025 7:17 AM CDT Emergency [address] [address] Jaw pain (Primary Dx); Sore throat Discharge [...] age to complete this topic Care Teams Psychiatric Attendant Relationship Specialty Start Date End Date Unknown, Notinfile PCP - General 04/04/24
--- OUTSIDE RECORDS SUMMARY | 2025-10-01 11:51 | XMS_ITS | Encounter Summary ---
Author Organization [facility] Address [address] [place] [address] Care Team Providers Care Can Line Examiner Name Role Phone File, No Boiler Fitter On MD Primary Care Prov ider Encounter Details Date Type Department Care Team (Late st Contact Info) Description 02/06/2008 Archive [facility] Historical Results Conversion, [address] [place] [address] Social History Tobacco Use Types Packs/Day Years Used Date Smoking Tobacco: Never Assessed Comments Unknown Sex and Gender Information Value Date Recorded Sex Assigned at Not on file Legal Sex Female 11:23 AM PREPARER SAMPLES AND REPAIRS Gender Identity Not on file Sexual Orientation Not on file documented as of this encounter Miscellaneous Notes * Discharge Summary - ConversionMD - 02/06/2008 1:03 AM CDT DICTATED BY: KATHERIN DOSHI MD PATIENT NAME: ROSSY RAMIREZ PATIENT CLASS: I HOSP NO: [id number] ROOM: [facility] ADMIT DATE: 02/03/2008 DISCHARGE DATE: 02/05/2008 CC: Felipe Luu [place] DISCHARGE SUMMARY REFERRING PHYSICIAN: Dr. Elise and Felipe Lerner [place] ADMISSION DIAGNOSES: 1. Persistent nausea and vomiting. [...] and vomiting, who recommended follow-up with her program/music director in [place]. The patient will be discharged to home to travel to [place] for further evaluation if patient continues to [...] and Dr. Elise in 5-7 days in [place] for her common bile duct dilation. KATHERIN DOSHI MD [id number] ARER SAMPLES AND REPAIRS documented in this encounter Plan of Treatment Not on file documented as of this encounter Visit Diagnoses Not on filedocumented in this encounter Care Teams Can Line Examiner Relationship Specialty Start Date End Date File, No Boiler Fitter On, [address] [place] [address] PCP - General 02/01/12 documented as of this encounter
--- OUTSIDE RECORDS SUMMARY | 2025-10-01 11:51 | XMS_ITS | Clinical Summary ---
Author Organization [facility] Address [address] [place] [address] Care Team Providers Care Industrial Commercial Groundskeeper Name Role Phone File, No Cocktail Server On MD Primary Care Prov ider Allergies [...] on file Legal Sex Female 11:23 AM BEE FARMER Gender Identity Not on file Sexual Orientation [...] CDT) Chloride 107 98 - 108 mEq/L [facility] AST 16 12 - 40 u/l [facility] Glucose 220(H) 70 - 105 mg/dL [facility] Anion Gap 10 5 - 15 [facility] Albumin 3.9 3.5 - 5.2 g/dl [facility] Potassium 4.2 3.5 - 5.1 mEq/L [facility] Alkaline Phosphatase 93 32 - 138 u/l [facility] Calcium 8.9 8.8 - 10.5 mg/dL [facility] Osmolality Calc 278 253 - 306 MOSM/K [facility] Creatinine 0.74 0.70 - 1.30 mg/dL [facility] Glomerular Filtration Rate 98 >=60 [facility] Comment: The CKD-EPI (2020) equation is recommended by the National Kidney Foundation- [place] Society of Nephrology (NKF-ASN) Task Force and incorporates serum, creatinine, age and sex, but does not use a race coefficient. Results for patients <18 years of age should be interpreted with caution. Sodium 135(L) 136 - 145 mmol/L [facility] CO2 18(L) 23 - 29 mmol/L [facility] Total Bilirubin 0.5 0.4 - 1.6 mg/dL [facility] ALT 18 10 - 50 u/l [facility] BUN 16 5 - 20 mg/dL [facility] BUN/Creatinine Ratio 22(H) 10 - 20 [facility] Total Protein 7.3 5.8 - 7.9 GM/DL [facility] Whole Blood 04/06/2024 2:22 PM CDT 04/06/2024 2:25 PM CDT us Courtney Deshpande PA-C LAB BLOOD ORDERABLES Final Result [facility] [address] [place] [id number] from Last 3 Months or Most Recently Relevant to Health Maintenance Care Teams Industrial Commercial Groundskeeper Relationship Specialty Start Date End Date File, No Cocktail Server On, [address] [place] [address] PCP - General 02/01/12
== END 2025-10-01 10:10 | disposition home or self-care (01) ==
LOC: CHSED 10:45
PROVIDERS: Emergency Provider Emergency Medicine; Referring Provider Family Medicine
DX: C76.0 Malignant neoplasm of head, face and neck (principal); C79.89 Secondary malignant neoplasm of other specified sites; M54.2 Cervicalgia; R51.9 Headache, unspecified; E11.9 Type 2 diabetes mellitus without complications; Z79.891 Long term (current) use of opiate analgesic; Z79.899 Other long term (current) drug therapy
CPT/HCPCS: 96372; 99284; J1171; J2550

== ENCOUNTER 2025-10-04 11:55 | Emergency (ER) | payer SELFPAY ==
--- OUTSIDE RECORDS SUMMARY | 2011-10-12 18:00 | XMS_ITS | Continuity of Care Document ---
Author Organization [facility] Address [address] [place] [address] Phone Care Team Providers Care Human Resource Professional Name Role Phone Colten Chambers III, MD Unavailable Unavaila ble Procedures Procedure Date [facility] Advance Directives Directive Yes / No Effective Date File Name No Information Encounters Encounter Description Practice Location Reason(s) For Visit Diagnoses Date Provider Providers Copied on Encounter [facility], [address], [place], [place], [address], [phone] [facility] No Information 0 1 Trish Abel. [address] [facility] [address], [place], [place], [address] , [place]. tel: [phone] Referring Provider: Cameron Guaman, [place] [facility] [address] , [address], [place], [address]. tel:[phone] Family History Family Member Type Diagnosis Age At Onset No Information Payers Payer name Insurance type Covered libertarian ID Authoriza tion(s) No Information Social History Type Description Quantity Date Captured Comments Sex Female Smoking Status No Information Chief Complaint And Reason For Visit No Information Reason For Referral Reason For Referral No Information History Of Present Illness Encounter Date Complaint History Of Prese nt Illness No Information Functional Status Date Functional Assessmen t No Information Instructions Date Instruction Additional Infor mation No Information Assessments Type Assessment Date No Information Patient Care Teams Name Effective Dates (start - stop) Status Members No Information
--- OUTSIDE RECORDS SUMMARY | 2011-10-12 18:00 | XMS_ITS | Continuity of Care Document ---
Author Organization [facility] Address [address] [place] [address] Phone Care Team Providers Care Environmental Field Professional Name Role Phone Colten Chambers III, MD Unavailable Unavaila ble Procedures Procedure Date [facility] Advance Directives Directive Yes / No Effective Date File Name No Information Encounters Encounter Description Practice Location Reason(s) For Visit Diagnoses Date Provider Providers Copied on Encounter [facility], [address], [place], [place], [address], [phone] [facility] No Information 0 1 Trish Abel. [address] [facility] [address], [place], [place], [address] , [place]. tel: [phone] Referring Provider: Cameron Guaman, [place] [facility] [address] , [address], [place], [address]. tel:[phone] Family History Family Member Type Diagnosis Age [...]
--- OUTSIDE RECORDS SUMMARY | 2016-04-20 01:36 | XMS_ITS | Continuity of Care Document ---
Author Organization [facility] Address [address] [place] [address] Phone Care Team Providers Care Hand Slitter Name Role Phone Clara Pate DO Unavailable Unavailable Allergies, Adverse Reactions, Alerts Substance Reaction Status Criticality ONDANSETRON HCL Active No Informati on KETOROLAC TROMETHAMINE Active No In formation MEPERIDINE HCL Active No Informatio n Medications Medication Instructions Dosage Effective Dates (start - stop) Status Comments Lidocaine Viscous 2 % mucosal solution take 15 milliliter by oral route every 3 hours and swish and spit out 15.00 milliliter - Active clindamycin 300 mg capsule take 1 capsule by oral route every 6 hours 300 MG - Active METFORMIN HCL (unknown strength) take 2 tablet by oral route 2 times every day with morning and evening meals Not Available - Active HUMULIN R (unknown strength) inject by intravenous route as a single rapid injection Not Available - Active Procedures Procedure Date Offic/outpt E&m [place] [address] 6 Advance Directives Directive Yes / No Effective Date File Name No Information Encounters Encounter Description Practice Location Reason(s) For Visit Diagnoses Date Provider Providers Copied on Encounter [facility], [address], [place], [place], [address], tel:[phone] [facility] No Information Herlinda Zelaya. [address], [address], [place], [address], [place]. tel:[phone] Offic/outpt E&m [facility] 45 [facility], [address], [place], [place], [address], tel:[phone] [facility] mouth sore (chief complaint) Tooth painAcute pain of mouthOther lesions of oral mucosa No Information Family History Family Member Type Diagnosis Age At Onset No Information Payers Payer name Insurance type Covered alliance party ID Authoriza tion(s) No Information Social [...]
--- OUTSIDE RECORDS SUMMARY | 2019-05-17 18:00 | XMS_ITS | Continuity of Care Document ---
Author Organization [facility] Address [address] [place] [address] Phone Care Team Providers Care Locker Attendant Name Role Phone Jo RODRIGUEZ, SKYLER, Jasson [...] Encounter Subsqt Hosp-da E&m Sig Compl 3 [facility] , [address] [facility], [place], [address], [place] tel:[phone] [facility] No Information Jo Spaulding. [address] [facility] [address], [place] [address], [place], [address], [place]. tel:[phone] Referring Provider: Franco Fowler MD, [address] [facility], [place], [address]. tel:[phone] Init Inpt Cons N/e Mod-hi 110m [facility] , [address] [facility], [place], [address], [place] tel:[phone] [facility] No Information Leif Santamaria. [address] [facility] [address], [place] [address], [place], [address], [place]. tel:[phone] Referring Provider: Franco Fowler MD, [address] [facility], [place], [address]. tel:[phone] Family History Family Member Type Diagnosis Age At Onset No Information Payers Payer name Insurance type Covered democrat ID Authoriza tion(s) Care 1st [facility] Plan [id number] Social History Type Description Quantity Date Captured [...]
--- OUTSIDE RECORDS SUMMARY | 2019-05-17 18:00 | XMS_ITS | Continuity of Care Document ---
Author Organization [facility] Address [address] [place] [address] Phone Care Team Providers Care Cathode Washer Name Role Phone Jo RODRIGUEZ, SKYLER, Jasson [...] Encounter Subsqt Hosp-da E&m Sig Compl 3 [facility] , [address] [facility], [place], [address], [place] tel:[phone] [facility] No Information Jo Spaulding. [address] [facility] Jessica, [place] [address], [place], [address], [place]. tel:[phone] Referring Provider: Franco Fowler MD, [address] [facility], [place], [address]. tel:[phone] Init Inpt Cons N/e Mod-hi 110m [facility] , [address] [facility], [place], [address], [place] tel:[phone] [facility] No Information Leif Santamaria. [address] [facility] Jessica, [place] [address], [place], [address], [place]. tel:[phone] Referring Provider: Franco Fowler MD, [address] [facility], [place], [address]. tel:[phone] Family History Family Member Type Diagnosis Age At Onset No Information Payers Payer name Insurance type Covered democrat ID Authoriza tion(s) Care 1st [facility] Plan [id number] Social History Type Description Quantity Date Captured [...]
--- OUTSIDE RECORDS SUMMARY | 2019-10-27 18:00 | XMS_ITS | Continuity of Care Document ---
Author Organization Corey Coleman [facility] Services Auth Address [address] [place] [phone] Phone Care Team Providers Care Wick Tender Name Role Phone Unavailable Unavailable Unavailable Allergies, Adverse Reactions, Alerts Substance Reaction Status Criticality MEPERIDINE HCL HIVESHIVES Active No Informatio n ONDANSETRON HCL VOMITING Active No Informati on Medications Medication Instructions Dosage Effective Dates (start - stop) Status Comments ibuprofen 800 mg tablet TAKE ONE TABLET BY MOUTH THREE TIMES A DAY - No Longer Active TAKE ONE TABLET PO 3 TIMES/DAY prednisone 20 mg tablet TAKE ONE TABLET BY MOUTH EVERY DAY - No Longer Active TAKE ONE TABLET PO DAILY cyclobenzaprine 10 mg tablet TAKE ONE TABLET BY MOUTH THREE TIMES A DAY No Longer Active TAKE ONE TABLET PO 3 TIMES/DAY lisinopril 40 mg tablet TAKE ONE TABLET BY MOUTH EVERY DAY No Longer Active TAKE ONE TABLET PO DAILY amlodipine 10 mg tablet TAKE ONE TABLET BY MOUTH EVERY DAY No Longer Active TAKE ONE TABLET PO DAILY metoprolol tartrate 50 mg tablet TAKE ONE TABLET BY MOUTH TWICE A DAY No Longer Active TAKE ONE TABLET PO 2 TIMES/DAY diphenhydramine 50 mg capsule TAKE ONE CAPSULE BY MOUTH EVERY DAY NEEDED FOR PRURITIS - No Longer Active as needed for pruritis ibuprofen 800 mg tablet TAKE ONE TABLET BY MOUTH THREE TIMES A DAY SEVERE PAIN - No Longer Active severe pain NONFORMULARY MEDICATION CREON 2 CAPSULES MOUTH THREE TIMES DAILY WITH MEALS - No Longer Active CREON 2 CAPSULES PO 3 TIMES/DAY_W/M EALS NONFORMULARY MEDICATION LEVEMIR 100UNITS/ML TAKE 30 UNITS SC AT BEDTIME - No Longer Active LEVEMIR 100UNITS/ML TAKE 30 UNITS SC AT BEDTIME NONFORMULARY MEDICATION NOVOLOG 100UNITS/ML(FOLLOW SLIDING SCALE) SC THREE TIMES DAILY WITH ; MEALS; 10UNITS AT BREAKFAST AND LUNCH, 5 UNITS AT SUPPER - No Longer Active NOVOLOG 100UNITS/ML(F OLLOW SLIDING SCALE) SC 3 TIMES/DAY_W/M EALS hydroxyzine HCl 25 mg tablet TAKE ONE TABLET BY MOUTH 3 TIMES/DAY PRN ITCHING - No Longer Active ITCHING ibuprofen 800 mg tablet TAKE ONE TABLET BY MOUTH 3 TIMES/DAY PRN PAIN - No Longer Active PAIN Advance Directives Directive Yes / No Effective Date File Name No Information Encounters Encounter Description Practice Location Reason(s) For Visit Diagnoses Date Provider Providers Copied on Encounter [facility], [address] [place] [address], [id number], [place] tel:[phone] [facility] No Information No Information [facility], [address] [place] [address], [id number], [place] tel:[phone] [facility] No Information No Information [facility], [address] [place] [address], [id number], [place] tel:[phone] [facility] No Information Frances Sidhu. [address] [place] [address], [id number], [place]. tel: [phone] [facility], [address] [place] [address], [id number], [place] tel:[phone] [facility] No Information Kayli Rousseau. [address] [place] [address], [id number], [place]. tel: [phone] [facility], [address] [place] [address], [id number], tel:[phone] [facility] No Information Frances Sidhu. [address] [place] [address], [id number], . tel:[phone] [facility], [address] [place] [address], [id number], tel:[phone] [facility] No Information No Information Family History Family Member Type Diagnosis Age At Onset No Information Payers Payer name Insurance type Covered democrat ID Authoriza tieladio(s) No Information Social History Type Description Quantity Date Captured Comments Sex Female Smoking Status No Information Vital Signs Date / Time: Height Weight BMI Pulse Rate Blood Pressure Temperature Respiratory Rate Body Surface Area Head Circumference Head Circ. Percentile Wt./Jasson. Percentile BMI percentile Pulse Ox Inhaled Ox 12:00 AM 67.00 in 170.00 lbs 26.7 1 kg/m eter (2) 63 /min 137/84 mm[Hg] 98.40 F 18 /min 97 % Chief Complaint And Reason For Visit No [...]
--- OUTSIDE RECORDS SUMMARY | 2019-10-27 18:00 | XMS_ITS | Continuity of Care Document ---
Author Organization Corey Coleman [facility] Services Auth Address [address] [place] [phone] Phone Care Team Providers Care Hr Coordinator Name Role Phone Unavailable Unavailable Unavailable Allergies, [...] Diagnoses Date Provider Providers Copied on Encounter [facility], [address] [place] [address], [id number], [place] tel:[phone] [facility] No Information No Information [facility], [address] [place] [address], [id number], [place] tel:[phone] [facility] No Information No Information [facility], [address] [place] [address], [id number], [place] tel:[phone] [facility] No Information Frances Sidhu. [address] [place] [address], [id number], [place]. tel: [phone] [facility], [address] [place] [address], [id number], [place] tel:[phone] [facility] No Information Kayli Rousseau. [address] [place] [address], [id number], [place]. tel: [phone] [facility], [address] [place] [address], [id number], tel:[phone] [facility] No Information Frances Sidhu. [address] [place] [address], [id number], . tel:[phone] [facility], [address] [place] [address], [id number], tel:[phone] [facility] No Information No Information Family History Family Member Type Diagnosis Age At Onset No Information Payers Payer name Insurance type Covered republican ID Authoriza tieladio(s) No Information Social History [...]
--- OUTSIDE RECORDS SUMMARY | 2025-10-04 11:57 | XMS_ITS | Encounter Summary ---
Author Organization [facility] Address [address] [place] [address] Care Team Providers Care Ctrs Name Role Phone File, No Insert Cutter On MD Primary Care Prov ider Encounter Details Date Type Department Care Team (Late st Contact Info) Description 11/14/2000 Archive [facility] Historical Results Conversion, [address] [place] [address] Social History Tobacco Use Types Packs/Day Years Used Date Smoking Tobacco: Never Assessed Comments Unknown Sex and Gender Information Value Date Recorded Sex Assigned at Not on file Legal Sex Female 11:23 AM BOARD OPERATOR Gender Identity Not on file Sexual [...] 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 She stated that [...] Her father in his 40s from acute [place]. Her mother in her 40s with acute [place]. Her brother in his 40s of acute [place] and her sister has high blood pressure. 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 She stated that she was working at the [facility] [employer] in [place] but has moved down here for the [...] no S4. No rub, murmur or gallop. MANAGER CONTINUOUS IMPROVEMENT: Alert and oriented x3. No focal deficit. [...] does not remember the name of her cat breeder in [place] who did her work up and did an SVT. She also told me that she does not want a cardiac cath to be done. Her main problem at this time, according to her, was headache and she needed something for her headache. I will admit the patient to [facility], obtain serial cardiac enzymes with Troponin and repeat her EKG. If she continues to have chest pain, she will probably need a cardiac cath done but, at this point, I will admit her as a 23 hour observation patient and give her supportive and symptomatic treatment. [facility]:[id number] DOCUMENT: [id number] D OPERATOR documented in this encounter Plan of Treatment Not on file documented as of this encounter Visit Diagnoses Not on filedocumented in this encounter Care Teams Ctrs Relationship Specialty Start Date End Date File, No Insert Cutter On, [address] [place] [address] PCP - General 02/01/12 documented as of this encounter
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
--- OUTSIDE RECORDS SUMMARY | 2025-10-04 11:57 | XMS_ITS ---
Author Organization Unknown Address [address] [place] [phone] Phone Care Team Providers Care Professor Of Communication And Writing Name Role Phone ROBEL GALAVIZ Attending Unavailable [...]
--- OUTSIDE RECORDS SUMMARY | 2025-10-04 11:57 | XMS_ITS | Encounter Summary ---
Author Organization [facility] Address [address] [place] [address] Care Team Providers Care Unmanned Equipment Operator Name Role Phone File, No Fruit Receiver On MD Primary Care Prov ider Encounter Details Date Type Department Care Team (Late st Contact Info) Description 02/06/2008 Archive [facility] Historical Results Conversion, [address] [place] [address] Social History Tobacco Use Types Packs/Day Years Used Date Smoking Tobacco: Never Assessed Comments Unknown Sex and Gender Information Value Date Recorded Sex Assigned at Not on file Legal Sex Female 11:23 AM HUMAN RESOURCE MANAGEMENT INSTRUCTOR Gender Identity Not on file Sexual Orientation Not on file documented as of this encounter Miscellaneous Notes * Discharge Summary - ConversionMD - 02/06/2008 1:03 AM CDT DICTATED BY: KATHERIN DOSHI MD PATIENT NAME: ROSSY RAMIREZ PATIENT CLASS: I HOSP NO: [id number] ROOM: [facility] ADMIT DATE: 02/03/2008 DISCHARGE DATE: 02/05/2008 CC: Felipe Luu [place] DISCHARGE SUMMARY REFERRING PHYSICIAN: Dr. Elise and Felipe Lerner [place] ADMISSION DIAGNOSES: 1. Persistent nausea and vomiting. [...] and vomiting, who recommended follow-up with her forest management teacher in [place]. The patient will be discharged to home to travel to [place] for further evaluation if patient continues to [...] and Dr. Elise in 5-7 days in [place] for her common bile duct dilation. KATHERIN DOSHI MD [id number] RESOURCE MANAGEMENT INSTRUCTOR documented in this encounter Plan of Treatment Not on file documented as of this encounter Visit Diagnoses Not on filedocumented in this encounter Care Teams Unmanned Equipment Operator Relationship Specialty Start Date End Date File, No Fruit Receiver On, [address] [place] [address] PCP - General 02/01/12 documented as of this encounter
--- OUTSIDE RECORDS SUMMARY | 2025-10-04 11:57 | XMS_ITS | Clinical Summary ---
Author Organization [employer] Address [address] [facility] Attn: Epic Prelude ADT CREKIMI AGOSTO [address] Care Team Providers Care Ab Initio Etl Developer Name Role Phone Unavailable Primary Care Provider [...] on file Legal Sex Female 4:25 AM DAY HABILITATION SUPERVISOR Gender Identity Not on file Sexual Orientation Not on file Last Filed Vital Signs Vital Sign Reading Time Taken Comments Blood Pressure 191/108 08/28/2024 7:32 AM DAY HABILITATION SUPERVISOR Pulse 97 08/28/2024 7:32 AM DAY HABILITATION SUPERVISOR Temperature 37.3 C (99.2 F) 08/28/2024 7:32 AM DAY HABILITATION SUPERVISOR Respiratory Rate 14 08/28/2024 7:32 AM DAY HABILITATION SUPERVISOR Oxygen Saturation 96% 08/28/2024 7:32 AM DAY HABILITATION SUPERVISOR Inhaled Oxygen Concentration - - Weight 95.3 kg (210 lb) 08/28/2024 6:12 AM DAY HABILITATION SUPERVISOR Height 170.2 cm (5' 7) 08/28/2024 6:12 AM DAY HABILITATION SUPERVISOR Body Mass Index 32.89 08/28/2024 6:12 AM DAY HABILITATION SUPERVISOR Plan of Treatment Health Maintenance Due Date [...]
--- OUTSIDE RECORDS SUMMARY | 2025-10-04 11:57 | XMS_ITS | Clinical Summary ---
Author Organization [facility] Address [address] [place] [address] Care Team Providers Care Pipe And Boiler Covers Supervisor Name Role Phone None, Provider MD Primary [...] age to complete this topic Insurance [address] [place] [address] MEDICARE Care Teams Pipe And Boiler Covers Supervisor Relationship Specialty Start Date End Date None, Provider, MD PCP - General UNKNOWN PHYSICIAN SPECIALTY 04/04/24
--- OUTSIDE RECORDS SUMMARY | 2025-10-04 11:57 | XMS_ITS | Clinical Summary ---
Author Organization [facility] Address [address] [place] [address] Dr CALDERON, CANDI [address] Care Team Providers Care Brazing Machine Feeder Name Role Phone Pcp, No Primary Care [...] 3-dose series) 01/12/1992 Hepatitis C Screening 01/12/1992 DTaP, Tdap, and Td Vaccines (1 - Tdap) 1998 Breast Cancer Screening: Bilateral 2013 CT Colonography 2018 Cologuard (FIT-DNA) 2018 Colonoscopy 2018 Colorectal Cancer Screening 2018 Fecal Immunochemical Test (FIT) 2018 Sigmoidoscopy 2018 Pneumococcal Vaccine: 50+ Ye ars (1 of 1 - PCV) 2023 Zoster Vaccine (Shingles) (1 of 2) 2023 COVID-19 Vaccine ( [...] age to complete this topic Care Teams Brazing Machine Feeder Relationship Specialty Start Date End Date Pcp, No PCP - General 07/11/24
--- OUTSIDE RECORDS SUMMARY | 2025-10-04 11:57 | XMS_ITS | Clinical Summary ---
Author Organization [facility] Address [address] [place] [address] Care Team Providers Care Airborne Weapons Technical Manager Name Role Phone Unknown, Notinfile Primary Care [...] CDT - 08/11/2025 7:17 AM CDT Emergency [address] [address] Jaw pain (Primary Dx); Sore throat Discharge [...] age to complete this topic Care Teams Airborne Weapons Technical Manager Relationship Specialty Start Date End Date Unknown, Notinfile PCP - General 04/04/24
--- OUTSIDE RECORDS SUMMARY | 2025-10-04 11:57 | XMS_ITS | Clinical Summary ---
Author Organization [facility] Address [address] [place] [address] Phone Care Team Providers Care Veterinary Parasitologist Name Role Phone Provider, Not On File [...] Comments Blood Pressure 180/110 09/26/2024 10:49 AM DATA INTEGRITY ANALYST Pulse 96 09/26/2024 10:49 AM DATA INTEGRITY ANALYST Temperature 36.9 C (98.5 F) 09/26/2024 10:49 AM DATA INTEGRITY ANALYST Respiratory Rate 20 09/26/2024 10:49 AM DATA INTEGRITY ANALYST Oxygen Saturation 97% 09/26/2024 10:49 AM DATA INTEGRITY ANALYST Inhaled Oxygen Concentration - - Weight 96.3 kg (212 lb 6.4 oz) 09/26/2024 10:49 AM DATA INTEGRITY ANALYST Height 170.2 cm (5' 7) 09/26/2024 10:49 AM DATA INTEGRITY ANALYST Body Mass Index 33.27 09/26/2024 10:49 AM DATA INTEGRITY ANALYST Plan of Treatment Not on file Care Teams Veterinary Parasitologist Relationship Specialty Start Date End Date Provider, Unknown UNKNOWN PCP - General 08/20/24 Provider, Not On File [place] 09/15/23
--- OUTSIDE RECORDS SUMMARY | 2025-10-04 11:57 | XMS_ITS | Clinical Summary ---
Author Organization [facility] Address [address] [place] [address] Care Team Providers Care Data Center Engineer Name Role Phone File, No Brush Sander On MD Primary Care Prov ider Allergies [...] on file Legal Sex Female 11:23 AM SPECIAL ED ASSISTANT Gender Identity Not on file Sexual Orientation [...] CDT) Chloride 107 98 - 108 mEq/L [facility] AST 16 12 - 40 u/l [facility] Glucose 220(H) 70 - 105 mg/dL [facility] Anion Gap 10 5 - 15 [facility] Albumin 3.9 3.5 - 5.2 g/dl [facility] Potassium 4.2 3.5 - 5.1 mEq/L [facility] Alkaline Phosphatase 93 32 - 138 u/l [facility] Calcium 8.9 8.8 - 10.5 mg/dL [facility] Osmolality Calc 278 253 - 306 MOSM/K [facility] Creatinine 0.74 0.70 - 1.30 mg/dL [facility] Glomerular Filtration Rate 98 >=60 [facility] Comment: The CKD-EPI (2020) equation is recommended by the National Kidney Foundation- [place] Society of Nephrology (NKF-ASN) Task Force and incorporates serum, creatinine, age and sex, but does not use a race coefficient. Results for patients <18 years of age should be interpreted with caution. Sodium 135(L) 136 - 145 mmol/L [facility] CO2 18(L) 23 - 29 mmol/L [facility] Total Bilirubin 0.5 0.4 - 1.6 mg/dL [facility] ALT 18 10 - 50 u/l [facility] BUN 16 5 - 20 mg/dL [facility] BUN/Creatinine Ratio 22(H) 10 - 20 [facility] Total Protein 7.3 5.8 - 7.9 GM/DL [facility] Whole Blood 04/06/2024 2:22 PM CDT 04/06/2024 2:25 PM CDT us Courtney Deshpande PA-C LAB BLOOD ORDERABLES Final Result [facility] [address] [place] [id number] from Last 3 Months or Most Recently Relevant to Health Maintenance Care Teams Data Center Engineer Relationship Specialty Start Date End Date File, No Brush Sander On, [address] [address] PCP - General 02/01/12
[2025-10-04 12:01] VITALS: BP 169/100; PULSE 112; RESP 18; TEMP 36.9; O2SAT 98
--- NOTE | 2025-10-04 12:56 | ED.GENADULT ---
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 Patient states that she has had a flare-up of her cancer pain. She is scheduled to get a MANAGER FLOOR pump place next week. Denies any new symptoms at this time. She follows with oncology in [place]. Related Data Home Medications ?Medication ?Instructions ?Recorded ?Confirmed ?Last Taken ?Type insulin human U-100 NPH-regulr 36 unit subcut BID 03/20/25 Unknown History 70-30 mix 100 unit/mL subcutaneous susp (Humulin 70/30 U-100 Insulin) insulin sliding scale 03/20/25 Unknown History oxycodone-acetaminophen 10 mg-325 1 tablet PO Q6H 03/20/25 Unknown History mg tablet (Endocet) Allergies Allergy/AdvReac Type Severity Reaction Status Date / Time iohexol (From contrast - CT, Allergy Hives Verified 10/04/25 12:15 X-RAY) meperidine (From Demerol) Allergy Hives Verified 10/04/25 12:15 vancomycin Allergy Hives Verified 10/04/25 12:15 NSAIDS (Non-Steroidal AdvReac Palpitation Verified 10/04/25 12:15 Anti-Inflamma s ondansetron (From Zofran) AdvReac Vomiting Verified 10/04/25 12:15 Review of Systems Review of Systems: All systems reviewed & are unremarkable except as noted in HPI and below PMFSH Past Medical History Medical History Leukocytosis outside hospital records show WBC 50 on 08/27/25 per electronic patient portal on patient's phone Osteomyelitis of jaw left HTN (hypertension) Jaw cancer Biopsy 09/27/24 Surgical History Surgical History H/O eye surgery Aug 2025 Social History Social History Social History: Living arrangements: with family Additional living arrangements comments: Resides in [place] 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 No obvious deformities NEURO: Awake and alert. SKIN:: Warm, dry. No rashes lesions or abrasions PSYCHIATRIC: Normal affect/mood, Course Vital Signs Vital signs: Vital Signs Temperature 98.5 F 10/04/25 12:01 Pulse Rate 112 H 10/04/25 12:01 Respiratory Rate 18 10/04/25 12:01 Blood Pressure 169/100 H 10/04/25 12:01 Pulse Oximetry 98 10/04/25 12:01 Temperature 98.5 F 10/04/25 12:01 Pulse Rate 112 H 10/04/25 12:01 Respiratory Rate 18 10/04/25 12:01 Blood Pressure 169/100 H 10/04/25 12:01 Pulse Oximetry 98 10/04/25 12:01 [facility] MDM Narrative Medical decision making narrative: 50-year-old female Presenting for cancer pain. On initial evaluation patient was in no acute distress afebrile, hemodynamic stable. Differentials include but are not limited to: Cancer pain, breakthrough pain, osteosarcoma Notable exam findings: Heart and lungs clear, oropharynx clear Patient was given her regular breakthrough pain medicine regimen. She was advised follow-up with her oncologist as scheduled. Patient was agreeable to this plan. Given strict return precautions. Differential Diagnosis Differential Diagnosis: Cancer pain, breakthrough pain, osteosarcoma Discharge Plan Discharge Clinical Impression: Cancer associated pain Patient Disposition: Home Condition: Stable Instructions: Antibiotic Form Additional Instructions: Follow-up with oncology and pain management as scheduled. Return to the ED for any new or worsening symptoms. Patient Language: Sami Prescriptions: No Action oxycodone-acetaminophen [Endocet] 10-325 mg tablet 1 tablet PO Q6H Humulin 70/30 U-100 Insulin 100 unit/mL (70-30) suspension 36 unit subcut BID insulin sliding scale Follow-up/Referrals: PHYSICIAN,SALES BRANCH MANAGER [Non-Staff, Internal Medicine]
--- OUTSIDE RECORDS SUMMARY | 2025-10-04 12:59 | XMS_ITS | Clinical Summary ---
Author Organization [facility] Address [address] [place] [address] Care Team Providers Care Multiple Resaw Operator Name Role Phone File, No Cinder Dump Crane Operator On MD Primary Care Prov ider [...] on file Legal Sex Female 11:23 AM SOCIAL SECRETARY Gender Identity Not on file Sexual Orientation [...] CDT) Chloride 107 98 - 108 mEq/L [facility] AST 16 12 - 40 u/l [facility] Glucose 220(H) 70 - 105 mg/dL [facility] Anion Gap 10 5 - 15 [facility] Albumin 3.9 3.5 - 5.2 g/dl [facility] Potassium 4.2 3.5 - 5.1 mEq/L [facility] Alkaline Phosphatase 93 32 - 138 u/l [facility] Calcium 8.9 8.8 - 10.5 mg/dL [facility] Osmolality Calc 278 253 - 306 MOSM/K [facility] Creatinine 0.74 0.70 - 1.30 mg/dL [facility] Glomerular Filtration Rate 98 >=60 [facility] Comment: The CKD-EPI (2020) equation is recommended by the National Kidney Foundation- [place] Society of Nephrology (NKF-ASN) Task Force and incorporates serum, creatinine, age and sex, but does not use a race coefficient. Results for patients <18 years of age should be interpreted with caution. Sodium 135(L) 136 - 145 mmol/L [facility] CO2 18(L) 23 - 29 mmol/L [facility] Total Bilirubin 0.5 0.4 - 1.6 mg/dL [facility] ALT 18 10 - 50 u/l [facility] BUN 16 5 - 20 mg/dL [facility] BUN/Creatinine Ratio 22(H) 10 - 20 [facility] Total Protein 7.3 5.8 - 7.9 GM/DL [facility] Whole Blood 04/06/2024 2:22 PM CDT 04/06/2024 2:25 PM CDT us Courtney Deshpande PA-C LAB BLOOD ORDERABLES Final Result [facility] [address] [place] [id number] from Last 3 Months or Most Recently Relevant to Health Maintenance Care Teams Multiple Resaw Operator Relationship Specialty Start Date End Date File, No Cinder Dump Crane Operator On, [address] [address] PCP - General 02/01/12
--- OUTSIDE RECORDS SUMMARY | 2025-10-04 12:59 | XMS_ITS | Clinical Summary ---
Author Organization [facility] Address [address] [place] [address] Care Team Providers Care Phlebotomist Supervisor/Instructor Name Role Phone Unknown, Notinfile Primary Care [...] CDT - 08/11/2025 7:17 AM CDT Emergency [address] [address] Jaw pain (Primary Dx); Sore throat Discharge [...] age to complete this topic Care Teams Phlebotomist Supervisor/Instructor Relationship Specialty Start Date End Date Unknown, Notinfile PCP - General 04/04/24
--- OUTSIDE RECORDS SUMMARY | 2025-10-04 12:59 | XMS_ITS | Clinical Summary ---
Author Organization [facility] Address [address] [place] [address] Care Team Providers Care Butter Production Supervisor Name Role Phone None, Provider MD [...] age to complete this topic Insurance [address] [place] [address] MEDICARE Care Teams Butter Production Supervisor Relationship Specialty Start Date End Date None, Provider, MD PCP - General UNKNOWN PHYSICIAN SPECIALTY 04/04/24
--- OUTSIDE RECORDS SUMMARY | 2025-10-04 12:59 | XMS_ITS | Clinical Summary ---
Author Organization [employer] Address [address] [facility] Attn: Epic Prelude ADT CREKIMI AGOSTO [address] Care Team Providers Care Performing Artist Name Role Phone Unavailable Primary Care Provider [...] on file Legal Sex Female 4:25 AM CHEMISTRY MANAGER Gender Identity Not on file Sexual Orientation Not on file Last Filed Vital Signs Vital Sign Reading Time Taken Comments Blood Pressure 191/108 08/28/2024 7:32 AM CHEMISTRY MANAGER Pulse 97 08/28/2024 7:32 AM CHEMISTRY MANAGER Temperature 37.3 C (99.2 F) 08/28/2024 7:32 AM CHEMISTRY MANAGER Respiratory Rate 14 08/28/2024 7:32 AM CHEMISTRY MANAGER Oxygen Saturation 96% 08/28/2024 7:32 AM CHEMISTRY MANAGER Inhaled Oxygen Concentration - - Weight 95.3 kg (210 lb) 08/28/2024 6:12 AM CHEMISTRY MANAGER Height 170.2 cm (5' 7) 08/28/2024 6:12 AM CHEMISTRY MANAGER Body Mass Index 32.89 08/28/2024 6:12 AM CHEMISTRY MANAGER Plan of Treatment Health Maintenance Due Date [...]
--- OUTSIDE RECORDS SUMMARY | 2025-10-04 12:59 | XMS_ITS | Encounter Summary ---
Author Organization [facility] Address [address] [place] [address] Care Team Providers Care Storage Battery Inspector Name Role Phone File, No Pipe Washer On MD Primary Care Prov ider Encounter Details Date Type Department Care Team (Late st Contact Info) Description 02/06/2008 Archive [facility] Historical Results Conversion, [address] [place] [address] Social History Tobacco Use Types Packs/Day Years Used Date Smoking Tobacco: Never Assessed Comments Unknown Sex and Gender Information Value Date Recorded Sex Assigned at Not on file Legal Sex Female 11:23 AM CHART COLLECTOR Gender Identity Not on file Sexual Orientation Not on file documented as of this encounter Miscellaneous Notes * Discharge Summary - ConversionMD - 02/06/2008 1:03 AM CDT DICTATED BY: KATHERIN DOSHI MD PATIENT NAME: ROSSY RAMIREZ PATIENT CLASS: I HOSP NO: [id number] ROOM: [facility] ADMIT DATE: 02/03/2008 DISCHARGE DATE: 02/05/2008 CC: Felipe Luu [place] DISCHARGE SUMMARY REFERRING PHYSICIAN: Dr. Elise and Felipe Lerner [place] ADMISSION DIAGNOSES: 1. Persistent nausea and vomiting. [...] and vomiting, who recommended follow-up with her manager marketing communications in [place]. The patient will be discharged to home to travel to [place] for further evaluation if patient continues to [...] and Dr. Elise in 5-7 days in [place] for her common bile duct dilation. KATHERIN DOSHI MD [id number] T COLLECTOR documented in this encounter Plan of Treatment Not on file documented as of this encounter Visit Diagnoses Not on filedocumented in this encounter Care Teams Storage Battery Inspector Relationship Specialty Start Date End Date File, No Pipe Washer On, [address] [place] [place] [address] PCP - General 02/01/12 documented as of this encounter
--- OUTSIDE RECORDS SUMMARY | 2025-10-04 12:59 | XMS_ITS | Encounter Summary ---
Author Organization [facility] Address [address] [place] [address] Care Team Providers Care Manager Gyn Name Role Phone File, No Facility Environmental Technician On MD Primary Care Prov ider Encounter Details Date Type Department Care Team (Late st Contact Info) Description 11/14/2000 Archive [facility] Historical Results Conversion, [address] [place] [address] Social History Tobacco Use Types Packs/Day Years Used Date Smoking Tobacco: Never Assessed Comments Unknown Sex and Gender Information Value Date Recorded Sex Assigned at Not on file Legal Sex Female 11:23 AM RUBBER ROLLER GRINDER Gender Identity Not on file Sexual [...] 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 She stated that [...] Her father in his 40s from acute [place]. Her mother in her 40s with acute [place]. Her brother in his 40s of acute [place] and her sister has high blood pressure. 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 She stated that she was working at the [facility] [employer] [facility] [employer] in [place] but has moved down here for the [...] no S4. No rub, murmur or gallop. SMOKING TOBACCO CUTTER OPERATOR: Alert and oriented x3. No focal deficit. [...] does not remember the name of her returned goods receiving clerk in [place] who did her work up and did an SVT. She also told me that she does not want a cardiac cath to be done. Her main problem at this time, according to her, was headache and she needed something for her headache. I will admit the patient to [facility], obtain serial cardiac enzymes with Troponin and repeat her EKG. If she continues to have chest pain, she will probably need a cardiac cath done but, at this point, I will admit her as a 23 hour observation patient and give her supportive and symptomatic treatment. [facility]:[id number] DOCUMENT: [id number] ER ROLLER GRINDER documented in this encounter Plan of Treatment Not on file documented as of this encounter Visit Diagnoses Not on filedocumented in this encounter Care Teams Manager Gyn Relationship Specialty Start Date End Date File, No Facility Environmental Technician On, [address] [place] [address] PCP - General 02/01/12 documented as of this encounter
--- OUTSIDE RECORDS SUMMARY | 2025-10-04 12:59 | XMS_ITS | Clinical Summary ---
Author Organization [facility] Address [address] [place] [address] Care Team Providers Care Assembler Corncob Pipes Name Role Phone Unavailable Primary Care Provider [...] any time in the past 12 m [facility], were you homeless or living in [...] any time in the past 12 m [facility], were you homeless or living in a correction (including now)? No 06/17/2025 [facility] Utilities Answer Date Recorded In the [...] EXAM 1973 Diabetes follow-up every 6 m [facility] by HEMOGLOBIN A1C 1973 Diabetic Eye [...]
--- OUTSIDE RECORDS SUMMARY | 2025-10-04 12:59 | XMS_ITS | Clinical Summary ---
Author Organization [facility] Address [address] [place] [address] Dr CALDERON, CANDI [address] Care Team Providers Care Glass Products Inspector Name Role Phone Pcp, No Primary Care [...] age to complete this topic Care Teams Glass Products Inspector Relationship Specialty Start Date End Date Pcp, No PCP - General 07/11/24
--- OUTSIDE RECORDS SUMMARY | 2025-10-04 12:59 | XMS_ITS | Clinical Summary ---
Author Organization [facility] Address [address] [place] [address] Phone Care Team Providers Care Loft Worker Head Name Role Phone Provider, Not On File [...] Comments Blood Pressure 180/110 09/26/2024 10:49 AM ICT BUSINESS ANALYST Pulse 96 09/26/2024 10:49 AM ICT BUSINESS ANALYST Temperature 36.9 C (98.5 F) 09/26/2024 10:49 AM ICT BUSINESS ANALYST Respiratory Rate 20 09/26/2024 10:49 AM ICT BUSINESS ANALYST Oxygen Saturation 97% 09/26/2024 10:49 AM ICT BUSINESS ANALYST Inhaled Oxygen Concentration - - Weight 96.3 kg (212 lb 6.4 oz) 09/26/2024 10:49 AM ICT BUSINESS ANALYST Height 170.2 cm (5' 7) 09/26/2024 10:49 AM ICT BUSINESS ANALYST Body Mass Index 33.27 09/26/2024 10:49 AM ICT BUSINESS ANALYST Plan of Treatment Not on file Care Teams Loft Worker Head Relationship Specialty Start Date End Date Provider, Unknown UNKNOWN PCP - General 08/20/24 Provider, Not On File [place] 09/15/23
--- OUTSIDE RECORDS SUMMARY | 2025-10-04 12:59 | XMS_ITS | Clinical Summary ---
Author Organization [facility] enter Address [address] [place] [phone] Phone Care Team Providers Care Orthodontic Technician Assistant Name Role Phone Pcp, None MD Primary [...] of Treatment Not on file Care Teams Orthodontic Technician Assistant Relationship Specialty Start Date End Date Pcp, Ronna, PCP - General 01/13/24
--- OUTSIDE RECORDS SUMMARY | 2025-10-04 12:59 | XMS_ITS ---
Author Organization Unknown Address [address] [place] [phone] Phone Care Team Providers Care Lab Analyst Name Role Phone ROBEL GALAVIZ Attending Unavailable [...]
[2025-10-04] MEDS: HYDROmorphone HCL INJ (*CRX) 2 MG/ML VIAL IM (13:10)
[2025-10-04] MEDS: PROMETHAZINE HCL 25 MG/ML AMPUL IM (13:12)
== END 2025-10-04 13:28 | disposition home or self-care (01) ==
PROVIDERS: Emergency Provider Student in an Organized Health Care Education/Training Program
DX: C41.1 Malignant neoplasm of mandible (principal); I10 Essential (primary) hypertension
CPT/HCPCS: 96372; 99284; J1171; J1200; J2550

== ENCOUNTER 2025-10-06 13:20 | Emergency (ER) | payer SELFPAY ==
--- OUTSIDE RECORDS SUMMARY | 2011-10-12 18:00 | XMS_ITS | Continuity of Care Document ---
Author Organization [facility] Address [address] [place] [address] Phone Care Team Providers Care Beer Merchant Name Role Phone Colten Chambers III, MD Unavailable Unavaila ble Procedures Procedure Date [facility] Advance Directives Directive Yes / No Effective Date File Name No Information Encounters Encounter Description Practice Location Reason(s) For Visit Diagnoses Date Provider Providers Copied on Encounter [facility], [address], [place], [place], [address], [phone] [facility] No Information 0 1 Trish Abel. [address] [facility] [address], [place], [place], [address] , [place]. tel: [phone] Referring Provider: Cameron Guaman, [place] [facility] [address] , [address], [place], [address]. tel:[phone] Family History Family Member Type Diagnosis Age At Onset No Information Payers Payer name Insurance type Covered republican ID Authoriza tion(s) No Information Social History [...]
--- OUTSIDE RECORDS SUMMARY | 2019-05-17 18:00 | XMS_ITS | Continuity of Care Document ---
Author Organization [facility] Address [address] [place] [address] Phone Care Team Providers Care Physics Technical Officer Name Role Phone Jo RODRIGUEZ, SKYLER, Jasson COFFEY Unavailable U navailable Procedures Procedure Date [facility] Hosp[facility]da E&m Sig Compl 3 19 [facility] E&m Sig Compl 3 19 [facility] E&m Sig Compl 3 19 Init Inpt Cons N/e Mod-hi 110m 19 Advance Directives Directive Yes / No Effective Date File Name No Information Encounters Encounter Description Practice Location Reason(s) For Visit Diagnoses Date Provider Providers Copied on Encounter [facility] E&m Sig Compl 3 [facility] , [address] [facility], [place], [address], [place] tel:[phone] [facility] No Information Jo Spaulding. [address] [facility] [address], [place] [address], [place], [address], [place]. tel:[phone] Referring Provider: Franco Fowler MD, [address] [facility], [place], [address]. tel:[phone] Init Inpt Cons N/e Mod-hi 110m [facility] , [address] [facility], [place], [address], [place] tel:[phone] [facility] No Information Leif Santamaria. [address] [facility] [address], [place] [address], [place], [address], [place]. tel:[phone] Referring Provider: Franco Fowler MD, [address] [facility], [place], [address]. tel:[phone] Family History Family Member Type Diagnosis Age At Onset No Information Payers Payer name Insurance type Covered democrat ID Authoriza tion(s) Care [facility]st [facility] Plan [id number] Social History Type Description Quantity Date Captured [...]
--- OUTSIDE RECORDS SUMMARY | 2019-05-17 18:00 | XMS_ITS | Continuity of Care Document ---
Author Organization [facility] Address [address] [place] [address] Phone Care Team Providers Care Deputy Jailer Name Role Phone Jo RODRIGUEZ, SKYLER, Jasson [...] Encounter Subsqt Hosp-da E&m Sig Compl 3 [facility] , [address] [facility], [place], [address], [place] tel:[phone] [facility] No Information Jo Spaulding. [address] [facility] Jessica, [place] [address], [place], [address], [place]. tel:[phone] Referring Provider: Franco Fowler MD, [address] [facility], [place], [address]. tel:[phone] Init Inpt Cons N/e Mod-hi 110m [facility] , [address] [facility], [place], [address], [place] tel:[phone] [facility] No Information Leif Santamaria. [address] [facility] Jessica, [place] [address], [place], [address], [place]. tel:[phone] Referring Provider: Franco Fowler MD, [address] [facility], [place], [address]. tel:[phone] Family History Family Member Type Diagnosis Age At Onset No Information Payers Payer name Insurance type Covered green party ID Authoriza tion(s) Care 1st [facility] Plan [id number] Social History Type Description Quantity Date Captured [...]
--- OUTSIDE RECORDS SUMMARY | 2019-10-27 18:00 | XMS_ITS | Continuity of Care Document ---
Author Organization Corey Coleman [facility] Services Auth Address [address] [place] [phone] Phone Care Team Providers Care Electronic Sales And Service Technician Name Role Phone Unavailable Unavailable Unavailable Allergies, [...] Diagnoses Date Provider Providers Copied on Encounter [facility], [address] [place] [address], [id number], [place] tel:[phone] [facility] No Information No Information [facility], [address] [place] [address], [id number], [place] tel:[phone] [facility] No Information No Information [facility], [address] [place] [address], [id number], [place] tel:[phone] [facility] No Information Frances Sihdu. [address] [place] [address], [id number], [place]. tel: [phone] [facility], [address] [place] [address], [id number], [place] tel:[phone] [facility] No Information Kayli Rousseau. [address] [place] [address], [id number], [place]. tel: [phone] [facility], [address] [place] [address], [id number], tel:[phone] [facility] No Information Frances Sidhu. [address] [place] [address], [id number], . tel:[phone] [facility], [address] [place] [address], [id number], tel:[phone] [facility] No Information No Information Family History Family Member Type Diagnosis Age At Onset No Information Payers Payer name Insurance type Covered libertarian ID Authoriza tieladio(s) No Information Social History [...]
--- OUTSIDE RECORDS SUMMARY | 2019-10-27 18:00 | XMS_ITS | Continuity of Care Document ---
Author Organization Corey Coleman [facility] Services Auth Address [address] [place] [phone] Phone Care Team Providers Care Gum Sprayer Name Role Phone Unavailable Unavailable Unavailable Allergies, [...] Diagnoses Date Provider Providers Copied on Encounter [facility], [address] [place] [address], [id number], [place] tel:[phone] [facility] No Information No Information [facility], [address] [place] [address], [id number], [place] tel:[phone] [facility] No Information No Information [facility], [address] [place] [address], [id number], [place] tel:[phone] [facility] No Information Frances Sidhu. [address] [place] [address], [id number], [place]. tel: [phone] [facility], [address] [place] [address], [id number], [place] tel:[phone] [facility] No Information Kayli Rousseau. [address] [place] [address], [id number], [place]. tel: [phone] [facility] Auth, [address] [place] [address], [id number], tel:[phone] [facility] No Information Frances Sidhu. [address] [place] [address], [id number], . tel:[phone] [facility] Auth, [address] [place] [address], [id number], tel:[phone] [facility] No Information No Information Family History Family Member Type Diagnosis Age At Onset No Information Payers Payer name Insurance type Covered alliance party ID Authoriza tieladio(s) No Information Social [...]
--- OUTSIDE RECORDS SUMMARY | 2025-10-06 13:24 | XMS_ITS | Clinical Summary ---
Author Organization [facility] Address [address] [place] [address] Dr CALDERON, CANDI [address] Care Team Providers Care Lawyer Real Estate Name Role Phone Pcp, No Primary Care [...] age to complete this topic Care Teams Lawyer Real Estate Relationship Specialty Start Date End Date Pcp, No PCP - General 07/11/24
--- OUTSIDE RECORDS SUMMARY | 2025-10-06 13:24 | XMS_ITS ---
Author Organization Unknown Address [address] [place] [phone] Phone Care Team Providers Care Manager Roofing Name Role Phone ROBEL GALAVIZ Attending Unavailable [...]
--- OUTSIDE RECORDS SUMMARY | 2025-10-06 13:24 | XMS_ITS | Clinical Summary ---
Author Organization [facility] Address [address] [place] [address] Care Team Providers Care Fur Blower Operator Name Role Phone File, No Gum Puller On MD Primary Care Prov ider Allergies [...] on file Legal Sex Female 11:23 AM REGRADER Gender Identity Not on file Sexual Orientation [...] CDT) Chloride 107 98 - 108 mEq/L [facility] AST 16 12 - 40 u/l [facility] Glucose 220(H) 70 - 105 mg/dL [facility] Anion Gap 10 5 - 15 [facility] Albumin 3.9 3.5 - 5.2 g/dl [facility] Potassium 4.2 3.5 - 5.1 mEq/L [facility] Alkaline Phosphatase 93 32 - 138 u/l [facility] Calcium 8.9 8.8 - 10.5 mg/dL [facility] Osmolality Calc 278 253 - 306 MOSM/K [facility] Creatinine 0.74 0.70 - 1.30 mg/dL [facility] Glomerular Filtration Rate 98 >=60 [facility] Comment: The CKD-EPI (2020) equation is recommended by the National Kidney Foundation- [place] Society of Nephrology (NKF-ASN) Task Force and incorporates serum, creatinine, age and sex, but does not use a race coefficient. Results for patients <18 years of age should be interpreted with caution. Sodium 135(L) 136 - 145 mmol/L [facility] CO2 18(L) 23 - 29 mmol/L [facility] Total Bilirubin 0.5 0.4 - 1.6 mg/dL [facility] ALT 18 10 - 50 u/l [facility] BUN 16 5 - 20 mg/dL [facility] BUN/Creatinine Ratio 22(H) 10 - 20 [facility] Total Protein 7.3 5.8 - 7.9 GM/DL [facility] Whole Blood 04/06/2024 2:22 PM CDT 04/06/2024 2:25 PM CDT us Courtney Deshpande PA-C LAB BLOOD ORDERABLES Final Result [facility] [address] [place] [address] from Last 3 Months or Most Recently Relevant to Health Maintenance Care Teams Fur Blower Operator Relationship Specialty Start Date End Date File, No Gum Puller On, [address] [place] [address] PCP - General 02/01/12
--- OUTSIDE RECORDS SUMMARY | 2025-10-06 13:24 | XMS_ITS | Clinical Summary ---
Author Organization [facility] Address [address] [place] [address] Care Team Providers Care Petroleum Plant Operator Name Role Phone Unavailable Primary [...] any time in the past 12 m [facility], were you homeless or living in a alf (including now)? No 09/07/2024 Humiliation, Afraid, Rape, [...] any time in the past 12 m [facility], were you homeless or living in a alf (including now)? No 06/17/2025 [facility] Utilities Answer Date Recorded In the [...] EXAM 1973 Diabetes follow-up every 6 m [facility] by HEMOGLOBIN A1C 1973 Diabetic Eye Exam [...]
--- OUTSIDE RECORDS SUMMARY | 2025-10-06 13:24 | XMS_ITS | Encounter Summary ---
Author Organization [facility] Address [address] [place] [address] Care Team Providers Care Powertrain Control Systems Engineer Name Role Phone File, No Truck Unloader On MD Primary Care Prov ider Encounter Details Date Type Department Care Team (Late st Contact Info) Description 11/14/2000 Archive [facility] Historical Results Conversion, [address] [place] [address] Social History Tobacco Use Types Packs/Day Years Used Date Smoking Tobacco: Never Assessed Comments Unknown Sex and Gender Information Value Date Recorded Sex Assigned at Not on file Legal Sex Female 11:23 AM TANK BUILDER SUPERVISOR Gender Identity Not on file Sexual [...] 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 She stated that [...] Her father in his 40s from acute [place]. Her mother in her 40s with acute [place]. Her brother in his 40s of acute [place] and her sister has high blood pressure. 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 She stated that she was working at the [employer] in [place] but has moved down here for the [...] no S4. No rub, murmur or gallop. BIZTALK ARCHITECT: Alert and oriented x3. No focal deficit. [...] does not remember the name of her outsole skiver in [place] who did her work up and did an SVT. She also told me that she does not want a cardiac cath to be done. Her main problem at this time, according to her, was headache and she needed something for her headache. I will admit the patient to [facility], obtain serial cardiac enzymes with Troponin and repeat her EKG. If she continues to have chest pain, she will probably need a cardiac cath done but, at this point, I will admit her as a 23 hour observation patient and give her supportive and symptomatic treatment. [facility]:[id number] DOCUMENT: [id number] BUILDER SUPERVISOR documented in this encounter Plan of Treatment Not on file documented as of this encounter Visit Diagnoses Not on filedocumented in this encounter Care Teams Powertrain Control Systems Engineer Relationship Specialty Start Date End Date File, No Truck Unloader On, [address] [place] [address] PCP - General 02/01/12 documented as of this encounter
--- OUTSIDE RECORDS SUMMARY | 2025-10-06 13:24 | XMS_ITS | Encounter Summary ---
Author Organization [facility] Address [address] [place] [address] Care Team Providers Care Project Geophysicist Name Role Phone File, No Biological Photographer On MD Primary Care Prov ider Encounter Details Date Type Department Care Team (Late st Contact Info) Description 02/06/2008 Archive [facility] Historical Results Conversion, [address] [place] [address] Social History Tobacco Use Types Packs/Day Years Used Date Smoking Tobacco: Never Assessed Comments Unknown Sex and Gender Information Value Date Recorded Sex Assigned at Not on file Legal Sex Female 11:23 AM GENETIC TECHNOLOGIST Gender Identity Not on file Sexual Orientation Not on file documented as of this encounter Miscellaneous Notes * Discharge Summary - ConversionMD - 02/06/2008 1:03 AM CDT DICTATED BY: KATHERIN DOSHI MD PATIENT NAME: ROSSY RAMIREZ PATIENT CLASS: I HOSP NO: [id number] ROOM: [facility] ADMIT DATE: 02/03/2008 DISCHARGE DATE: 02/05/2008 CC: Felipe Luu [place] DISCHARGE SUMMARY REFERRING PHYSICIAN: Dr. Elise and Felipe Lerner [place] ADMISSION DIAGNOSES: 1. Persistent nausea and vomiting. [...] and vomiting, who recommended follow-up with her district operations manager in [place]. The patient will be discharged to home to travel to [place] for further evaluation if patient continues to [...] and Dr. Elise in 5-7 days in [place] for her common bile duct dilation. KATHERIN DOSHI [place] [id number] TIC TECHNOLOGIST documented in this encounter Plan of Treatment Not on file documented as of this encounter Visit Diagnoses Not on filedocumented in this encounter Care Teams Project Geophysicist Relationship Specialty Start Date End Date File, No Biological Photographer On, [address] [place] [address] PCP - General 02/01/12 documented as of this encounter
--- OUTSIDE RECORDS SUMMARY | 2025-10-06 13:24 | XMS_ITS | Clinical Summary ---
Author Organization [facility] Address [address] [place] [address] Care Team Providers Care Plant Mechanic Name Role Phone None, Provider MD Primary [...] age to complete this topic Insurance [address] [place] [address] MEDICARE Care Teams Plant Mechanic Relationship Specialty Start Date End Date None, Provider, MD PCP - General UNKNOWN PHYSICIAN SPECIALTY 04/04/24
--- OUTSIDE RECORDS SUMMARY | 2025-10-06 13:24 | XMS_ITS | Clinical Summary ---
Author Organization [facility] enter Address [address] [place] [phone] Phone Care Team Providers Care Residential Aide Name Role Phone Pcp, None MD Primary [...] of Treatment Not on file Care Teams Residential Aide Relationship Specialty Start Date End Date Pcp, Ronna, PCP - General 01/13/24
--- OUTSIDE RECORDS SUMMARY | 2025-10-06 13:24 | XMS_ITS | Clinical Summary ---
Author Organization [employer] Address [address] [facility] Attn: Epic Prelude ADT CREKIMI AGOSTO [address] Care Team Providers Care Cardiopulmonary Supervisor Name Role Phone Unavailable Primary Care Provider [...] on file Legal Sex Female 4:25 AM SENIOR ANIMAL TRAINER Gender Identity Not on file Sexual Orientation Not on file Last Filed Vital Signs Vital Sign Reading Time Taken Comments Blood Pressure 191/108 08/28/2024 7:32 AM SENIOR ANIMAL TRAINER Pulse 97 08/28/2024 7:32 AM SENIOR ANIMAL TRAINER Temperature 37.3 C (99.2 F) 08/28/2024 7:32 AM SENIOR ANIMAL TRAINER Respiratory Rate 14 08/28/2024 7:32 AM SENIOR ANIMAL TRAINER Oxygen Saturation 96% 08/28/2024 7:32 AM SENIOR ANIMAL TRAINER Inhaled Oxygen Concentration - - Weight 95.3 kg (210 lb) 08/28/2024 6:12 AM SENIOR ANIMAL TRAINER Height 170.2 cm (5' 7) 08/28/2024 6:12 AM SENIOR ANIMAL TRAINER Body Mass Index 32.89 08/28/2024 6:12 AM SENIOR ANIMAL TRAINER Plan of Treatment Health Maintenance Due Date [...]
--- OUTSIDE RECORDS SUMMARY | 2025-10-06 13:24 | XMS_ITS | Clinical Summary ---
Author Organization [facility] Address [address] [place] [address] Phone Care Team Providers Care Anesthesia Technician Name Role Phone Provider, Not On File [...] Comments Blood Pressure 180/110 09/26/2024 10:49 AM MIDDLE SCHOOL FOOTBALL COACH Pulse 96 09/26/2024 10:49 AM MIDDLE SCHOOL FOOTBALL COACH Temperature 36.9 C (98.5 F) 09/26/2024 10:49 AM MIDDLE SCHOOL FOOTBALL COACH Respiratory Rate 20 09/26/2024 10:49 AM MIDDLE SCHOOL FOOTBALL COACH Oxygen Saturation 97% 09/26/2024 10:49 AM MIDDLE SCHOOL FOOTBALL COACH Inhaled Oxygen Concentration - - Weight 96.3 kg (212 lb 6.4 oz) 09/26/2024 10:49 AM MIDDLE SCHOOL FOOTBALL COACH Height 170.2 cm (5' 7) 09/26/2024 10:49 AM MIDDLE SCHOOL FOOTBALL COACH Body Mass Index 33.27 09/26/2024 10:49 AM MIDDLE SCHOOL FOOTBALL COACH Plan of Treatment Not on file Care Teams Anesthesia Technician Relationship Specialty Start Date End Date Provider, Unknown UNKNOWN PCP - General 08/20/24 Provider, Not On File [place] 09/15/23
--- OUTSIDE RECORDS SUMMARY | 2025-10-06 13:24 | XMS_ITS | Clinical Summary ---
Author Organization [facility] Address [address] [place] [address] Care Team Providers Care Set Up Operator Tool Name Role Phone Unknown, Notinfile Primary Care [...] CDT - 08/11/2025 7:17 AM CDT Emergency [address] [address] Jaw pain (Primary Dx); Sore throat Discharge [...] age to complete this topic Care Teams Set Up Operator Tool Relationship Specialty Start Date End Date Unknown, Notinfile PCP - General 04/04/24
--- NOTE | 2025-10-06 13:32 | ED.DENTAL ---
HPI - Dental/Oral General Chief complaint: Dental/Oral Stated complaint: chronic pain Time Seen by Provider: 10/06/25 13:23 Source: patient Mode of arrival: ambulatory Limitations: no limitations History of Present Illness HPI Narrative: Patient is a 50-year-old female with only discussion of a jaw osteosarcoma and here for pain management. She has a PUMP MACHINE OPERATOR pump according to her history that she tells us but did not bring it on this trip. She travels [facility] critical access hospital [facility] critical access hospital with her who is a truck engine assembler. She has been seen 5+ times in the past 30 days between [place] and this emergency room. No records on file about her sarcoma. No studies on file for her sarcoma. She can not produce a CT scan or an MRI about the sarcoma. We asked her for the doctor's name of the pain management or her oncologist and we can not find them on Google search as she does not produce a telephone number. She produces a simple screen shot of her medical record which has doctors diagnosis codes only but no abnormal radiography. There is nothing about a doctor's notes and there is nothing about her pain management. I have seen this patient on another encounter for the same and she left AMA because I did not give her pain management. I told her that all we have to do is get a simple x-ray of her jaw to produce proof of her cancer and I would be happy to give her pain management. She has denied any type of IV or labs or radiography as she says her insurance will not pay for any of these studies. Yet she has been to the emergency room many many times without difficulty. She left AMA after I asked for the Radiology to be done or proof of her cancer process which she can not produce. Nor can she produce a active physician that I can get records from at this time. As she left she said she will just go to [place] and get her pain medicine. Every visit encounter from other physicians has no proof about her cancer and they have given her pain medicine. When signing / agreeing to AMA the patient is AAO x4 and not under sedation at this time and has decision-making capacity to make her decisions at this time. No acute psychosis or other psychiatric conditions at this time. Related Data Home Medications ?Medication ?Instructions ?Recorded ?Confirmed ?Last Taken ?Type insulin human U-100 NPH-regulr 36 unit subcut BID 03/20/25 Unknown History 70-30 mix 100 unit/mL subcutaneous susp (Humulin 70/30 U-100 Insulin) insulin sliding scale S/S 03/20/25 Unknown History oxycodone-acetaminophen 10 mg-325 1 tablet PO Q6H 03/20/25 Unknown History mg tablet (Endocet) Allergies Allergy/AdvReac Type Severity Reaction Status Date / Time iohexol (From contrast - CT, Allergy Hives Verified 10/06/25 13:37 X-RAY) meperidine (From Demerol) Allergy Hives Verified 10/06/25 13:37 vancomycin Allergy Hives Verified 10/06/25 13:37 NSAIDS (Non-Steroidal AdvReac Palpitation Verified 10/06/25 13:37 Anti-Inflamma s ondansetron (From Zofran) AdvReac Vomiting Verified 10/06/25 13:37 PMF Past Medical History Medical History Leukocytosis outside hospital records show WBC 50 on 08/27/25 per electronic patient portal on patient's phone Osteomyelitis of jaw left HTN (hypertension) Jaw cancer Biopsy 09/27/24 Surgical History Surgical History H/O eye surgery Aug 2025 Social History Social History Social History: Living arrangements: with family Additional living arrangements comments: Resides in [place] 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
--- OUTSIDE RECORDS SUMMARY | 2025-10-06 14:38 | XMS_ITS | Encounter Summary ---
Author Organization [facility] Address [address] [place] [address] Care Team Providers Care Powder Carrier Name Role Phone File, No Order Control Clerk Blood Bank On MD Primary Care Prov ider Encounter Details Date Type Department Care Team (Late st Contact Info) Description 11/14/2000 Archive [facility] Historical Results Conversion, [address] [place] [address] Social History Tobacco Use Types Packs/Day Years Used Date Smoking Tobacco: Never Assessed Comments Unknown Sex and Gender Information Value Date Recorded Sex Assigned at Not on file Legal Sex Female 11:23 AM SUPERVISOR POWDERED SUGAR Gender Identity Not on file Sexual Orientation [...] 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 She stated that [...] stated that she was working at the [facility] [employer] in [place] but has moved down here for the [...] no S4. No rub, murmur or gallop. CERAMICS TECHNICIAN: Alert and oriented x3. No focal [...] does not remember the name of her real estate marketing coordinator in [place] who did her work up and did an SVT. She also told me that she does not want a cardiac cath to be done. Her main problem at this time, according to her, was headache and she needed something for her headache. I will admit the patient to [facility], obtain serial cardiac enzymes with Troponin and repeat her EKG. If she continues to have chest pain, she will probably need a cardiac cath done but, at this point, I will admit her as a 23 hour observation patient and give her supportive and symptomatic treatment. [facility]:[id number] DOCUMENT: [id number] RVISOR POWDERED SUGAR documented in this encounter Plan of Treatment Not on file documented as of this encounter Visit Diagnoses Not on filedocumented in this encounter Care Teams Powder Carrier Relationship Specialty Start Date End Date File, No Order Control Clerk Blood Bank On, [address] [place] [address] PCP - General 02/01/12 documented as of this encounter
--- OUTSIDE RECORDS SUMMARY | 2025-10-06 14:38 | XMS_ITS | Clinical Summary ---
Author Organization [facility] Address [address] [place] [address] Care Team Providers Care Director Of Marketing Analytics Name Role Phone File, No Behavior Interventionist On MD Primary Care Prov ider Allergies [...] on file Legal Sex Female 11:23 AM MOLD FILLER AND DRAINER Gender Identity Not on file Sexual Orientation [...] CDT) Chloride 107 98 - 108 mEq/L [facility] AST 16 12 - 40 u/l [facility] Glucose 220(H) 70 - 105 mg/dL [facility] Anion Gap 10 5 - 15 [facility] Albumin 3.9 3.5 - 5.2 g/dl [facility] Potassium 4.2 3.5 - 5.1 mEq/L [facility] Alkaline Phosphatase 93 32 - 138 u/l [facility] Calcium 8.9 8.8 - 10.5 mg/dL [facility] Osmolality Calc 278 253 - 306 MOSM/K [facility] Creatinine 0.74 0.70 - 1.30 mg/dL [facility] Glomerular Filtration Rate 98 >=60 [facility] Comment: The CKD-EPI (2020) equation is recommended by the National Kidney Foundation- [place] [employer] Neph[employer] (NKF-ASN) Task Force and incorporates serum, creatinine, age and sex, but does not use a race coefficient. Results for patients <18 years of age should be interpreted with caution. Sodium 135(L) 136 - 145 mmol/L [facility] CO2 18(L) 23 - 29 mmol/L [facility] Total Bilirubin 0.5 0.4 - 1.6 mg/dL [facility] ALT 18 10 - 50 u/l [facility] BUN 16 5 - 20 mg/dL [facility] BUN/Creatinine Ratio 22(H) 10 - 20 [facility] Total Protein 7.3 5.8 - 7.9 GM/DL [facility] Whole Blood 04/06/2024 2:22 PM CDT 04/06/2024 2:25 PM CDT us Courtney Deshpande PA-C LAB BLOOD ORDERABLES Final Result [facility] [address] [place] [id number] from Last 3 Months or Most Recently Relevant to Health Maintenance Care Teams Director Of Marketing Analytics Relationship Specialty Start Date End Date File, No Behavior Interventionist On, [address] [place] [address] PCP - General 02/01/12
--- OUTSIDE RECORDS SUMMARY | 2025-10-06 14:38 | XMS_ITS | Clinical Summary ---
Author Organization [facility] enter Address [address] [place] [phone] Phone Care Team Providers Care Prior Authorization Technician Name Role Phone Pcp, None MD Primary [...] of Treatment Not on file Care Teams Prior Authorization Technician Relationship Specialty Start Date End Date Pcp, Ronna, PCP - General 01/13/24
--- OUTSIDE RECORDS SUMMARY | 2025-10-06 14:38 | XMS_ITS | Clinical Summary ---
Author Organization [facility] Address [address] [place] [address] Care Team Providers Care Catering Truck Driver Name Role Phone None, Provider MD Primary [...] age to complete this topic Insurance [address] [place] [address] MEDICARE Care Teams Catering Truck Driver Relationship Specialty Start Date End Date None, Provider, MD PCP - General UNKNOWN PHYSICIAN SPECIALTY 04/04/24
--- OUTSIDE RECORDS SUMMARY | 2025-10-06 14:38 | XMS_ITS ---
Author Organization Unknown Address [address] [place] [phone] Phone Care Team Providers Care Technology Director Name Role Phone ROBEL GALAVIZ Attending Unavailable [...]
--- OUTSIDE RECORDS SUMMARY | 2025-10-06 14:38 | XMS_ITS | Clinical Summary ---
Author Organization [facility] Address [address] [place] [id number] Care Team Providers Care Cost Analyst Name Role Phone Unavailable Primary Care [...] any time in the past 12 m [facility], were you homeless or living in a residential (including now)? No 09/07/2024 Humiliation, Afraid, Rape, [...] any time in the past 12 m [facility], were you homeless or living in a residential (including now)? No 06/17/2025 [facility] Utilities Answer Date Recorded In [...] EXAM 1973 Diabetes follow-up every 6 m [facility] by HEMOGLOBIN A1C 1973 Diabetic Eye [...]
--- OUTSIDE RECORDS SUMMARY | 2025-10-06 14:38 | XMS_ITS | Clinical Summary ---
Author Organization [facility] Address [address] [place] [address] Care Team Providers Care Manager Instrumentation Name Role Phone Unknown, Notinfile Primary Care [...] CDT - 08/11/2025 7:17 AM CDT Emergency [address] [address] Jaw pain (Primary Dx); Sore throat Discharge [...] age to complete this topic Care Teams Manager Instrumentation Relationship Specialty Start Date End Date Unknown, Notinfile PCP - General 04/04/24
--- OUTSIDE RECORDS SUMMARY | 2025-10-06 14:38 | XMS_ITS | Clinical Summary ---
Author Organization [facility] Address [address] [place] [address] Dr CALDERON, CANDI [address] Care Team Providers Care Skatesman Name Role Phone Pcp, No Primary Care [...] age to complete this topic Care Teams Skatesman Relationship Specialty Start Date End Date Pcp, No PCP - General 07/11/24
--- OUTSIDE RECORDS SUMMARY | 2025-10-06 14:38 | XMS_ITS | Clinical Summary ---
Author Organization [facility] Address [address] [place] [address] Phone Care Team Providers Care Product Support Technician Name Role Phone Provider, Not On [...] Comments Blood Pressure 180/110 09/26/2024 10:49 AM CHIEF EXECUTIVE OFFICER Pulse 96 09/26/2024 10:49 AM CHIEF EXECUTIVE OFFICER Temperature 36.9 C (98.5 F) 09/26/2024 10:49 AM CHIEF EXECUTIVE OFFICER Respiratory Rate 20 09/26/2024 10:49 AM CHIEF EXECUTIVE OFFICER Oxygen Saturation 97% 09/26/2024 10:49 AM CHIEF EXECUTIVE OFFICER Inhaled Oxygen Concentration - - Weight 96.3 kg (212 lb 6.4 oz) 09/26/2024 10:49 AM CHIEF EXECUTIVE OFFICER Height 170.2 cm (5' 7) 09/26/2024 10:49 AM CHIEF EXECUTIVE OFFICER Body Mass Index 33.27 09/26/2024 10:49 AM CHIEF EXECUTIVE OFFICER Plan of Treatment Not on file Care Teams Product Support Technician Relationship Specialty Start Date End Date Provider, Unknown UNKNOWN PCP - General 08/20/24 Provider, Not On File [place] 09/15/23
--- OUTSIDE RECORDS SUMMARY | 2025-10-06 14:38 | XMS_ITS | Encounter Summary ---
Author Organization [facility] Address [address] [place] [address] Care Team Providers Care Snagger Name Role Phone File, No Heading And Priming Operator On MD Primary Care Prov ider Encounter Details Date Type Department Care Team (Late st Contact Info) Description 02/06/2008 Archive [facility] Historical Results Conversion, [address] [place] [address] Social History Tobacco Use Types Packs/Day Years Used Date Smoking Tobacco: Never Assessed Comments Unknown Sex and Gender Information Value Date Recorded Sex Assigned at Not on file Legal Sex Female 11:23 AM BUSINESS SOLUTIONS DIRECTOR Gender Identity Not on file Sexual Orientation Not on file documented as of this encounter Miscellaneous Notes * Discharge Summary - ConversionMD - 02/06/2008 1:03 AM CDT DICTATED BY: KATHERIN DOSHI MD PATIENT NAME: ROSSY RAMIREZ PATIENT CLASS: I HOSP NO: [id number] ROOM: [facility] ADMIT DATE: 02/03/2008 DISCHARGE DATE: 02/05/2008 CC: Felipe Luu [place] DISCHARGE SUMMARY REFERRING PHYSICIAN: Dr. Elise and Felipe Lerner [place] ADMISSION DIAGNOSES: 1. Persistent nausea and vomiting. [...] and vomiting, who recommended follow-up with her control panel tester in [place]. The patient will be discharged to home to travel to [place] for further evaluation if patient continues to [...] and Dr. Elise in 5-7 days in [place] for her common bile duct dilation. KATHERIN DOSHI [place] [phone] NESS SOLUTIONS DIRECTOR documented in this encounter Plan of Treatment Not on file documented as of this encounter Visit Diagnoses Not on filedocumented in this encounter Care Teams Snagger Relationship Specialty Start Date End Date File, No Heading And Priming Operator On, [address] [place] [address] PCP - General 02/01/12 documented as of this encounter
--- OUTSIDE RECORDS SUMMARY | 2025-10-06 14:38 | XMS_ITS | Clinical Summary ---
Author Organization [email or web address] Address [address] [facility] Attn: Epic Prelude ADT CREKIMI AGOSTO [address] Care Team Providers Care Algorithm Developer Name Role Phone Unavailable Primary Care [...] on file Legal Sex Female 4:25 AM AUTOMOBILE MECHANIC Gender Identity Not on file Sexual Orientation Not on file Last Filed Vital Signs Vital Sign Reading Time Taken Comments Blood Pressure 191/108 08/28/2024 7:32 AM AUTOMOBILE MECHANIC Pulse 97 08/28/2024 7:32 AM AUTOMOBILE MECHANIC Temperature 37.3 C (99.2 F) 08/28/2024 7:32 AM AUTOMOBILE MECHANIC Respiratory Rate 14 08/28/2024 7:32 AM AUTOMOBILE MECHANIC Oxygen Saturation 96% 08/28/2024 7:32 AM AUTOMOBILE MECHANIC Inhaled Oxygen Concentration - - Weight 95.3 kg (210 lb) 08/28/2024 6:12 AM AUTOMOBILE MECHANIC Height 170.2 cm (5' 7) 08/28/2024 6:12 AM AUTOMOBILE MECHANIC Body Mass Index 32.89 08/28/2024 6:12 AM AUTOMOBILE MECHANIC Plan of Treatment Health Maintenance Due Date [...]
== END 2025-10-06 13:55 | disposition left against medical advice (07) ==
LOC: CHSED 14:33
PROVIDERS: Emergency Provider Emergency Medicine; Referring Provider Internal Medicine
DX: R68.84 Jaw pain (principal); I10 Essential (primary) hypertension
CPT/HCPCS: 99281; 99283